=== PATIENT | female | born 1940 | race Caucasian/White ===

== ENCOUNTER 2017-05-14 10:15 | Inpatient (IN) | payer OTHER ==
[2017-05-14] MEDS ORDERED: ALBUTEROL SO4 2.5/IPRATROPIUM 0.5 INH SOL 3 ML VIAL.NEB. NEB ONE ×2 (10:19→10:31)
[2017-05-14] MEDS ORDERED: methylPREDNISolone NA SUCC 125 MG/2 ML VIAL ONE (10:20)
[2017-05-14 10:34] VITALS: BMI 28.3
--- NOTE | 2017-05-14 10:37 | PDOC ---
Attending Attestation - HPI HPI: 05/14/17 10:44 The patient is a 76 year old female with a significant PMH of COPD (not on home O2), diastolic CHF (s/p pacemaker placement), diabetes, Alzheimer's, ESRD, and anemia who presents to the emergency department from [facility] via EMS with increased shortness of breath beginning approximately 1 hour ago and a few days of cough. As per EMS, the staff at [facility] reports that the patient was fine at 8AM but began to increasingly cough and have difficulty breathing at about 9AM. EMS notes the patients O2 sat was about 83% on room air on their arrival at [facility]. EMS reports they noted crackles in the field and placed her on CPAP. Allergies: NKA PCP: Dr. Espinosa Electrical Design Technician: Dr. Avila - Physicial Exam PE: 05/14/17 10:44 Vitals: Triage Vital signs reviewed General Appearance: no acute distress, well nourished well developed, Nose: Nares patent bilaterally;no nasal congestion Throat: Posterior oropharynx without erythema, mucous membranes moist, Chest Wall: Nontender Cardiac: Regular rate and rhythm, no murmurs, no rubs, no gallops, Lungs: (+) Diffuse wheezing. Extremities: Full range of motion to all extremities, no cyanosis, clubbing, or edema Neuro: Cranial Nerves 2-12 grossly intact, Strength intact to all extremities, Sensation intact to all extremities Psych: normal mood, normal affect <Pancho Thornton - Last Filed: 05/14/17 13:09> - Resident Resident Name: Indira Franklin - ED Attending Attestation I have performed the following: I have examined & evaluated the patient, The case was reviewed & discussed with the resident, I agree w/resident's findings & plan, Exceptions are as noted - Medical Decision Making 05/14/17 13:08 76 years old past medical history significant for COPD, diastolic CHF, diabetes anemia brought to the emergency department for shortness of breath beginning approximately 1 hour prior to arrival and several day history of shortness of breath. History and examination limited by Alzheimer's. Per EMS her exam was notable for crackles in the field. In the emergency department she was noted to be wheezing. She received 3 DuoNeb's and Solu- Medrol upon arrival Her chest x-ray has a questionable pneumonia blood cultures were ordered Rustn was ordered for hospital-acquired pneumonia. Her labs are notable for a detectable troponin low suspicion for ACS no acute ST elevations on EKG. Aspirin ordered We will admit to medicine for further management of pneumonia, COPD exacerbation , serial troponins cardiology consultation and further management. <Landon Gillette - Last Filed: 05/14/17 15:04>
--- NOTE | 2017-05-14 10:48 | PDOC ---
History of Present Illness - General Chief Complaint: Shortness of Breath Stated Complaint: DIFFICULTY BREATHING Time Seen by Provider: 05/14/17 10:24 History Source: Patient, Family Exam Limitations: No Limitations - History of Present Illness Initial Comments: 05/14/17 10:41 76 y/o F with PMH Alzheimer's dementia, HTN, COPD (not on home ), diastolic HF , DM, CKD stage 4 (with anemia, follows with Dr. Vazquez; not on dialysis. Baseline Cr 2.5), pacemaker (Cardio, Dr. Avila- placed Jan 2017, interrogated 2 wks ago), who was BIBEMS to the ED from [facility] with SOB x 2 hrs. As per EMS, pt became SOB and diaphoretic at 8AM. At the time, her BP was 170/100. At 9AM, pt developed numerous crackles on auscultation, and sat 83 on RA so she was placed on venti mask, improving sat into 90's. Pt was subsequently placed on CPAP, received 4 doses nitroglycerin and IVF and 4 aspirin. Pt has endorsed productive cough (with white sputum) over last 2-3 days, as well as b/l lower extremity edema. As per sister, she aspirates frequently when she eats. Otherwise, denies CALDERÓN, fever, chills. PMH: HTN, COPD (not on home ), DM, ESRD (with anemia, follows with Dr. Vazquez; not on dialysis), pacemaker (Cardio, Dr. Avila- placed Jan 2017, interrogated 2 wks ago), Alzheimer's dementia, diastolic HF PsxH: appendectomy, tonsillectomy (childhood) meds: as in chart allergies: NKDA FH: mother- cardiac issues SH: denies cigarette or recreational drug use. Drank socially in the past. 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 Past History - Past Medical History Allergies/Adverse Reactions: Allergies Allergy/AdvReac Type Severity Reaction Status Date / Time No Known Allergies Allergy Verified 02/06/16 20:45 Home Medications: Ambulatory Orders Allopurinol [Zyloprim -] 300 mg PO DAILY 04/08/13 Ferrous Sulfate 325 mg PO DAILY 04/08/13 Isosorbide Mononitrate [Imdur] 60 mg PO DAILY 04/08/13 Pantoprazole Sodium [Protonix] 40 mg PO Q2D 04/08/13 Propylthiouracil 50 mg PO DAILY 04/08/13 Sertraline HCl [Zoloft -] 100 mg PO DAILY 04/08/13 Aspirin [ASA -] 81 mg PO DAILY 12/13/15 Docusate Sodium [Colace -] 100 mg PO BID 12/13/15 Donepezil HCl [Aricept -] 10 mg PO DAILY 12/13/15 Memantine HCl [Namenda -] 5 mg PO DAILY 12/13/15 hydrALAZINE HCL [Apresoline -] 100 mg PO TID #90 tablet 12/23/15 Insulin (Novolog 70/30) [Novolog Mix 70/30 Vial -] 10 units SQ BID 01/21/16 Lidocaine 5% Patch [Lidoderm -] 4 patch TD DAILY 01/16/17 Heparin - 5,000 unit SQ BID vial 01/18/17 Nifedipine ER [Procardia XL -] 30 mg PO DAILY #30 tab 01/18/17 Mupirocin Ointment [Bactroban 2% Ointment -] 1 applic TP BID applic 01/24/17 Oxymetazoline 0.05% Nasal Soln [Afrin -] 1 spray NS Q8H PRN #0 spray 01/24/17 Polyethylene Glycol 3350 [Miralax 119 gm Btl -] 17 gm PO HS PRN #30 bottle 01/24 Torsemide [Demadex -] 80 mg PO DAILY 05/14/17 Anemia: Yes Asthma: No Cancer: No Cardiac Disorders: Yes (bradycardia) CVA: No COPD: Yes CHF: No Dementia: Yes Diabetes: Yes GI Disorders: No Disorders: Yes (H/O UTI, renal insufficiency) HTN: Yes Hypercholesterolemia: No Kidney Stones: Yes Liver Disease: No Seizures: No Thyroid Disease: No Other medical history: uti - Surgical History Abdominal Surgery: Yes Appendectomy: Yes Cardiac Surgery: Yes (pacemaker) Cholecystectomy: No Lung Surgery: No Neurologic Surgery: No Orthopedic Surgery: Yes (LEFT ROTATOR CUFF 12 YEARS AGO) - Immunization History Immunization Up to Date: Yes - Suicide/Smoking/Psychosocial Hx Smoking Status: No Smoking History: Unknown if ever smoked Have you smoked in the past 12 months: No Number of Cigarettes Smoked Daily: 0 Information on smoking cessation initiated: No Hx Alcohol Use: No Drug/Substance Use Hx: No Substance Use Type: None Hx Substance Use Treatment: No Review of Systems - Review of Systems Able to Perform ROS?: Yes Is the patient limited Senegalese proficient: No Respiratory: Yes: Cough, Shortness of Breath Cardiac (ROS): Yes: Edema Integumentary: Yes: Sweating All Other Systems: Reviewed and Negative *Physical Exam - Vital Signs Last Vital Signs Temp Pulse Resp BP Pulse Ox 98.3 F 109 H 25 H 136/66 92 L 05/14/17 10:23 05/14/17 10:23 05/14/17 10:23 05/14/17 10:23 05/14/17 10:23 - Physical Exam General Appearance: Yes: Moderate Distress HEENT: positive: EOMI, YOLA Neck: positive: Supple Respiratory/Chest: positive: Wheezing (+ wheezing b/l posterior lung keane) Cardiovascular: positive: Regular Rhythm, Tachycardia Vascular Pulses: Dorsalis-Pedis (R): 2+, Doralis-Pedis (L): 2+ Extremity: positive: Swelling (3+ pitting edema lower extremities) Neurologic: positive: drying oven tender II-XII NML intact, Fully Oriented, Alert Heart Score/ECG Review - ECG Impressions Comment:: 05/14/17 13:01 EKG: vent rate 97bpm, KS 220ms, QRS 122ms, QTc 480ms. NSR. With possible past infarct, KS depressions ED Treatment Course - LABORATORY CBC & Chemistry Diagram: 05/14/17 10:31 05/14/17 10:29 - RADIOLOGY Radiology Studies Ordered: Category Date Time Status CXRPORT [CHEST X-RAY PORTABLE*] [RAD] Stat Radiology 05/14/17 10:30 Ordered Medical Decision Making - Medical Decision Making 05/14/17 10:58 76 y/o F with PMH Alzheimer's dementia, HTN, COPD (not on home 02), DM, CKD stage4 (with anemia, follows with Dr. Vazquez; not on dialysis. Cr clearance ~ 22. Baseline Cr 2.5), diastolic HF, pacemaker (Cardio, Dr. Avila- placed Jan 2017, interrogated 2 wks ago), who was BIBEMS to the ED from [facility] with SOB x 2 hrs. Pt with rectal temp 98F, afebrile. Less likely PNA however will f/ u CXR as pt w/cough, lives in NH. As per sister, pt also with frequent episodes PNA, aspiration "during eating." Right now, likely differential COPD exacerbation as pt improving with bronchodilators, solumedrol, duoneb, CPAP. CHF exacerbation also possible. Will order the following Solumedrol 125 x1 CPAP IPAP 11/EPAP 5 Duonebs x 3 CBC with diff CMP CXR - r/o infiltrates EKG Troponins/cardiac profile - as add on 05/14/17 11:51 Labs returned - non septic. no leukocytosis, Hb holding. Cr 2.7 however baseline 2.5 as per sister. Hyperglycemia 2/2 steroids CXR: possible L sided infiltrate , with increased congestive changes vitals stable, mildly tachy 102HR - 2/2 duonebs , receiving 3rd duoneb tx currently 05/14/17 11:57 Will get blood cx, urine cx, legionella Ag pneumonia Cr clearance 22 - however since pt close to 20, will give zosyn 2.25 gm x 1time dose 05/14/17 12:59 Troponin 0.47 (+) most likely 2/2 demand ischemia. However will need trop trended- next one in for 6pm Will give aspirin 325 x 1 Will likely need admission for COPD vs. CHF exacerbation, elevated trop 05/14/17 13:00 Microblog sent to [facility] 05/14/17 13:[address] Patel, will send microblog 05/14/17 13:[address] Goff (who is covering) - will trend trop (next 6pm), will give 1g Vanco. Will consult Dr. Avila (saw pt in past) - for demand ischemia for telemetry admission 05/14/17 17:41 Pt with troponin 2.09, elevated. ordered next trop for 11pm to trend. ordered stat EKG. discussed with nurse on [facility] Pt out of ER [facility] to [facility] 05/14/17 17:43 *DC/Admit/Observation/Transfer Diagnosis at time of Disposition: COPD exacerbation - Discharge Dispostion Admit: Yes - Referrals - Patient Instructions - Post Discharge Activity
[2017-05-14 10:50] LABS: BASO % 0.5 % (0-2.0); EOS % 0.1 % (0-4.5); HEMATOCRIT 33.5 % (32.4-45.2); HEMOGLOBIN 10.8 GM/dL (10.7-15.3); LYMPH % 8.3 % (8-40); MCH 32.8 pg (25.7-33.7); MCHC 32.2 g/dl (32.0-36.0); MEAN CELL VOLUME 101.6 fl (80-96); MEAN PLT VOLUME 11.9 fl (7.5-11.1); MONO % 7.4 % (3.8-10.2); NEUT % 83.7 % (42.8-82.8); PLATELET COUNT 208 K/MM3 (134-434); RDW 16.2 % (11.6-15.6); WHITE BLOOD COUNT 6.9 K/mm3 (4.0-10.0)
[2017-05-14] MEDS ORDERED: methylPREDNISolone NA SUCC 125 MG/2 ML VIAL IVPUSH ONE (10:50)
[2017-05-14] MEDS: ALBUTEROL SO4 2.5/IPRATROPIUM 0.5 INH SOL 3 ML VIAL.NEB. NEB SCH ×4 (11:05→11:49)
[2017-05-14 11:13] LABS: ALBUMIN 4.1 g/dl (3.4-5.0); ANION GAP 10 (8-16); BILIRUBIN,TOTAL 0.7 mg/dL (0.2-1.0); BLOOD UREA NITROGEN 103 mg/dL (7-18); CALCIUM 8.5 mg/dL (8.5-10.1); CHLORIDE 108 mmol/L (98-107); CO2 25 mmol/L (21-32); CREATININE 2.7 mg/dL (0.55-1.02); GLUCOSE,RANDOM 199 mg/dL (74-106); SGPT/ALT 17 U/L (12-78); SODIUM 143 mmol/L (136-145); TOT PROT 7.1 g/dl (6.4-8.2)
[2017-05-14 11:14] LABS: ALK PHOS 114 U/L (45-117)
[2017-05-14 11:19] LABS: POTASSIUM 5.1 mmol/L (3.5-5.1)
[2017-05-14 11:20] LABS: SGOT/AST 50 U/L (15-37)
--- NOTE | 2017-05-14 12:15 | EKG ---
Test Reason : Blood Pressure : / mmHG Vent. Rate : 097 BPM Atrial Rate : 097 BPM P-R Int : 220 ms QRS Dur : 122 ms QT Int : 378 ms P-R-T Axes : 064 -29 089 degrees QTc Int : 480 ms SINUS RHYTHM WITH 1ST DEGREE A-V BLOCK ANTERIOR INFARCT , AGE UNDETERMINED ABNORMAL ECG WHEN COMPARED WITH ECG OF 22-JAN-2017 16:01, KS INTERVAL HAS DECREASED VENT. RATE HAS INCREASED BY 33 BPM Confirmed by SINDHU CESAR MD ([id number]) on 05/14/2017 12:15:22 PM Referred By: Confirmed By:SINDHU CESAR MD
[2017-05-14] MEDS ORDERED: PIPERACILLIN/TAZOBACTAM 2.25 GM VIAL IVPB ONE (12:48)
[2017-05-14] MEDS ORDERED: ASPIRIN 81 MG CHEWABLE TABLETS PO ONE (12:57)
[2017-05-14] MEDS ORDERED: PIPERACILLIN/TAZOB 2.25 GM/50 ML PREMIX BAG IVPB ONE (13:00)
[2017-05-14] MEDS ORDERED: VANCOMYCIN 1,000 MG in DEXTROSE 5%-WATER - 250 ML IVPB ONE (13:30)
[2017-05-14] MEDS ORDERED: ASPIRIN 81 MG CHEWABLE TABLETS ONE (14:01)
[2017-05-14] MEDS ORDERED: VANCOMYCIN 1 GRAM (PRE-DOCKED) 1,000 MG/250 ML BAG IVPB ONE (14:02)
[2017-05-14] MEDS ORDERED: HEPARIN NA (PORCINE) 5,000 UNITS/ML 1ML VIAL IVPUSH PRN ×2 (18:48)
[2017-05-14] MEDS ORDERED: HEPARIN INFUSION - 25,000 UNITS/500 ML INFUS.BAG IVPB SCH (19:00)
--- NOTE | 2017-05-14 19:47 | CON.CARD ---
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 temp 100 bp 187/ 78. was given ngt x 4 and asa x 4. has been managed with bipap, nebs, abx, iv steroids thus far --> is currently comfortable on bipap. Denies sob, cp, palps, dizziness, f/c/s. history limited due to dementia. unable to obtain history to confirm if patient was having decreased po intake or infectious sx's. Pt denies cp, sob, palps, pnd, orthopnea, dizziness, bleeding. LE edema currently improved from baseline. Past Medical/surgical History: per hpi, additionally Renal Calculi Social hx: never smoker, no etoh or illicits. fam hx: Mother with h/o CAD ([place] x 4) ros: per hpi; no chills/sweats, cough, nvd, congestion, CALDERÓN, vision changes, Ambulatory Orders Allopurinol [Zyloprim -] 300 mg PO DAILY 04/08/13 Ferrous Sulfate 325 mg PO DAILY 04/08/13 Isosorbide Mononitrate [Imdur] 60 mg PO DAILY 04/08/13 Pantoprazole Sodium [Protonix] 40 mg PO Q2D 04/08/13 Propylthiouracil 50 mg PO DAILY 04/08/13 Sertraline HCl [Zoloft -] 100 mg PO DAILY 04/08/13 Aspirin [ASA -] 81 mg PO DAILY 12/13/15 Docusate Sodium [Colace -] 100 mg PO BID 12/13/15 Donepezil HCl [Aricept -] 10 mg PO DAILY 12/13/15 Memantine HCl [Namenda -] 5 mg PO DAILY 12/13/15 hydrALAZINE HCL [Apresoline -] 100 mg PO TID #90 tablet 10/02/16 Insulin (Novolog 70/30) [Novolog Mix 70/30 Vial -] 10 units SQ BID 01/21/16 Lidocaine 5% Patch [Lidoderm -] 4 patch TD DAILY 01/16/17 Heparin - 5,000 unit SQ BID vial 01/18/17 Nifedipine ER [Procardia XL -] 30 mg PO DAILY #30 tab 01/18/17 Mupirocin Ointment [Bactroban 2% Ointment -] 1 applic TP BID applic 01/24/17 Oxymetazoline 0.05% Nasal Soln [Afrin -] 1 spray NS Q8H PRN #0 spray 01/24/17 Polyethylene Glycol 3350 [Miralax 119 gm Btl -] 17 gm PO HS PRN #30 bottle 01/24 Torsemide [Demadex -] 80 mg PO DAILY 05/14/17 Vital Signs - 24 hr 05/14/17 05/14/17 05/14/17 10:23 10:25 11:12 Temperature 98.3 F Pulse Rate 109 H Pulse Rate [ Right Radial] Respiratory 25 H Rate Blood Pressure 136/66 Blood Pressure [Right Arm] O2 Sat by Pulse 92 L 100 100 Oximetry (%) 05/14/17 05/14/17 05/14/17 13:30 14:30 15:06 Temperature Pulse Rate Pulse Rate [ 100 H 100 H 100 H Right Radial] Respiratory 26 H 22 26 H Rate Blood Pressure Blood Pressure 150/70 154/70 142/59 [Right Arm] O2 Sat by Pulse 100 100 Oximetry (%) 05/14/17 05/14/17 05/14/17 15:35 16:24 18:23 Temperature 98.4 F Pulse Rate 80 Pulse Rate [ 96 H Right Radial] Respiratory 22 20 Rate Blood Pressure 158/80 Blood Pressure 145/80 [Right Arm] O2 Sat by Pulse 100 100 100 Oximetry (%) 05/14/17 18:30 Temperature Pulse Rate Pulse Rate [ Right Radial] Respiratory Rate Blood Pressure Blood Pressure [Right Arm] O2 Sat by Pulse 100 Oximetry (%) Intake & Output 05/12/17 05/13/17 05/14/17 05/15/17 07:59 07:59 07:59 07:59 Weight 170 lb NAD, calm bipap on JVD elevated, neck supple RRR nl s1, s2. 2/6 sys murmur at sternal border and late systolic mr murmur radiating to axilla precordium hyperdynamic bibasilar rales. nl eff trace le edema. no cyanosis/clubbing + venous stasis changes + bs soft nt nd no jaundice or diaphoresis. alert and oriented to place pos dp pt CBC, BMP 05/14/17 10:31 05/14/17 10:29 Laboratory Tests 05/14/17 05/14/17 10:29 16:24 Creatine Kinase 193 H Creatine Kinase Index 1.2 CK-MB (CK-2) 2.365 Troponin I 0.47 H 2.09 H* ekg: sr with av delay. ivcb. poor r wave progression. ? q waves. non- specific t wave ab. no acute ischemic changes. cxr: slight increase in congestive changes. possible left basal infiltrate echo 03/2017: nl lv size/fn. EF 55-60%. tds for wall motion. septal motion c/ w ppm. mild rve. nl rv fn. mod lae. 1+ sam. 1+ mac with mild functional ms ( 4 mmHg, 73 bpm). 1+ mr. mobile linear density that intermittently moves into lvot (no associated lvot obstruction). Density thought to be consistent with torn chordae. 1+ tr. 1+ phtn. 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 worsened mr (acute ischemic/flail, etc..) vs. infectious. residential notes document temp of 100, but no other infectious sx's. Will obtain chest ct in am to better evaluate pulmonary pathology. If pna present then lower suspicion for mitral valve abnormalities (see below) as etiology of sx's and no need to repeat echo. - bp control. bipap support. - patient with functional mild mitral stenosis --> hr controlled. low threshold to had av danay blockade if needed. - con't maninder. tele monitoring. demand nstemi - trop elevation small in setting of ckd and nl ck. likely demand in setting of presumed cad. patient currently comfortable and asx. ekg without acute ischemic changes. patient with relative contraindication to AC (epistaxis requiring transfusion), so would not empirically AC, unless trop continues to rise significantly or ckmb turns positive. con't asa, statin, anto-anginals. HR control. - patient with recent need for ppm placement, possible new inferior q waves on 2017 ekg's in comparison to priors. Also with new torn chord, ? ischemic etiology. Recently discussed with patient and family in office regarding stress testing, ischemic evaluation and based on goals of care and possible contraindications to dapt, decision was made to defer stress testing. Will discuss again with patient and family tomorrow. - currently on reasonable anti-anginal regimen. would uptitrate nitrates if needed. - concern is for the possibility of sob 2/2 acute on ?chronic ischemic mr vs. ischemic mr. recent echodensity noted on mitral valve (03/2017 echo) - unclear etiology. thought to be from torn calcified chord (not thought to be causing flail, ddx would be torn papillary muscle). Not thought to be torn papillary muscle or flail mainly because there did not appear to be significant enough mr although may have been underestimated due to shadowing). Still with suspicion for possible ischemic etiology - possible rwma in the inferior wall. blood cx's at the time were neg and clinical picture was not consistent with endocarditis at the time. There was low suspicion for thrombus and no evidence of an interatrial septal defect that might have caused a thrombus in transit form crossing septum. - Previously discussed with patient and sister regarding further ischemic evaluation with stress testing, SATHISH, or even (least invasive) repeating the echo with contrast for better assessment of intracardiac thrombus or wall motion. --> they wished to avoid invasive testing so SATHISH and/or possible cath was previously off the table. They also had significant concern regarding risk of bleeding from dapt or AC in setting of chronic anemia and recurrent epistaxis requiring transfusion on ASA therapy. Since patient was asx and further testing would likely not change mgm't, further evaluation had been deferred and plan was to repeat the TTE (with contrast) in 6 months. - may need to readdress pending clinical course. diastolic HF - chronic jvd elevations. currently LE edema improved from baseline. however slight worsening of congestive changes on xray. chest ct in am as discussed. will defer IV diuretics until infection excluded since patient currently comfortable and cr higher than baseline. - renal has been monitoring volume status/diuretics as outpatient. cont home torsemide. holding aldactone while k borderline elevated. - monitor daily cr/lytes, weights, i/o's. Den/CKD: -prior values here range 1.8-2.4. on procrit for anemia -penitentiary records show bun/cr of 103/2.2 on yesterday. con't to monitor. consider renal consult. HTN -con't home meds s/p ppm - recent interrogation in office this month.
[2017-05-14] MEDS ORDERED: PIPERACILLIN/TAZOB 2.25 GM/50 ML PREMIX BAG IVPB SCH (21:00)
[2017-05-14] MEDS: methylPREDNISolone NA SUCC 40 MG/1 ML VIAL IVPUSH SCH (21:44)
[2017-05-14] MEDS: PIPERACILLIN/TAZOB 2.25 GM 2.25 GM in DEXTROSE 5%-WATER - 50 ML IVPB SCH (21:45)
[2017-05-14] MEDS: INSULIN (NOVOLOG MIX 70/30) 100 UNITS/ML MDV SQ SCH (22:00)
[2017-05-14] MEDS: HEPARIN NA (PORCINE) 5,000 UNITS/ML 1ML VIAL SQ SCH (22:03)
[2017-05-14] MEDS: hydrALAZINE HCL 50 MG TABLET (FP) PO SCH (22:03)
[2017-05-14] MEDS: DOCUSATE SODIUM 100 MG CAPSULE (FP) PO SCH (22:03)
[2017-05-15] MEDS: PIPERACILLIN/TAZOB 2.25 GM 2.25 GM in DEXTROSE 5%-WATER - 50 ML IVPB SCH (03:56)
[2017-05-15] MEDS: methylPREDNISolone NA SUCC 40 MG/1 ML VIAL IVPUSH SCH ×4 (03:57→22:33)
[2017-05-15] MEDS: hydrALAZINE HCL 50 MG TABLET (FP) PO SCH ×3 (06:43→22:32)
[2017-05-15] MEDS: INSULIN (NOVOLOG MIX 70/30) 100 UNITS/ML MDV SQ SCH ×2 (06:43→17:11)
[2017-05-15 07:25] LABS: ALBUMIN 3.4 g/dl (3.4-5.0); ANION GAP 9 (8-16); BLOOD UREA NITROGEN 102 mg/dL (7-18); CALCIUM 7.8 mg/dL (8.5-10.1); CHLORIDE 111 mmol/L (98-107); CO2 27 mmol/L (21-32); GLUCOSE,RANDOM 208 mg/dL (74-106); MAGNESIUM 2.7 mg/dL (1.8-2.4); SODIUM 147 mmol/L (136-145)
[2017-05-15 07:36] LABS: ALK PHOS 93 U/L (45-117); BILIRUBIN,TOTAL 0.4 mg/dL (0.2-1.0); CREATININE 2.5 mg/dL (0.55-1.02); SGOT/AST 20 U/L (15-37); SGPT/ALT 13 U/L (12-78); TOT PROT 5.9 g/dl (6.4-8.2)
[2017-05-15 07:47] LABS: BASO % 0.1 % (0-2.0); HEMATOCRIT 28.9 % (32.4-45.2); HEMOGLOBIN 9.4 GM/dL (10.7-15.3); LYMPH % 8.3 % (8-40); MCH 32.8 pg (25.7-33.7); MCHC 32.4 g/dl (32.0-36.0); MEAN CELL VOLUME 101.3 fl (80-96); MEAN PLT VOLUME 10.3 fl (7.5-11.1); MONO % 3.6 % (3.8-10.2); PLATELET COUNT 123 K/MM3 (134-434); RBC 2.85 M/mm3 (3.60-5.2); RDW 14.9 % (11.6-15.6); WHITE BLOOD COUNT 2.8 K/mm3 (4.0-10.0)
--- NOTE | 2017-05-15 09:36 | EKG ---
Test Reason : Blood Pressure : / mmHG Vent. Rate : 091 BPM Atrial Rate : 091 BPM P-R Int : 240 ms QRS Dur : 142 ms QT Int : 422 ms P-R-T Axes : -13 -28 061 degrees QTc Int : 519 ms SINUS RHYTHM WITH 1ST DEGREE A-V BLOCK LEFT BUNDLE BRANCH BLOCK ABNORMAL ECG Confirmed by VALORIE NOVA MD ([id number]) on 05/15/2017 9:35:58 AM Referred By: Confirmed By:VALORIE NOVA MD
[2017-05-15] MEDS: TORSEMIDE 20 MG TABLET (FP) PO SCH (09:46)
[2017-05-15] MEDS: ASPIRIN 81 MG CHEWABLE TABLETS PO SCH (09:47)
[2017-05-15] MEDS: PROPYLTHIOURACIL 50 MG TABLET (UD) PO SCH (09:47)
[2017-05-15] MEDS: ISOSORBIDE MONONITRATE 60 MG TAB.SR.24H (FP) PO SCH (09:47)
[2017-05-15] MEDS: MEMANTINE HCL 5 MG TABLET (UD) PO SCH (09:47)
[2017-05-15] MEDS: ALLOPURINOL 300 MG TABLET (FP) PO SCH (09:47)
[2017-05-15] MEDS: NIFEdipine E.R. 30 MG TABLET (FP) PO SCH (09:47)
[2017-05-15] MEDS: FERROUS SO4 325 MG TABLET (FP) PO SCH (09:47)
[2017-05-15] MEDS: SERTRALINE HCL 50 MG TABLET (FP) PO SCH (09:47)
[2017-05-15] MEDS: DOCUSATE SODIUM 100 MG CAPSULE (FP) PO SCH ×2 (09:50→22:32)
[2017-05-15] MEDS: HEPARIN NA (PORCINE) 5,000 UNITS/ML 1ML VIAL SQ SCH ×2 (09:50→22:47)
--- NOTE | 2017-05-15 10:21 | HP ---
Admitting History and Physical - Primary Care Physician PCP: Anabela Padron S - Admission Chief Complaint: SOB cough History of Present Illness: The patient is a 76 year old female with a significant PMH of COPD (not on home O2), diastolic CHF (s/p pacemaker placement), diabetes, Alzheimer's, ESRD, and anemia who presents to the emergency department from [facility] via EMS with increased shortness of breath beginning approximately 1 hour ago and a few days of cough. As per EMS, the staff at [facility] reports that the patient was fine at 8AM but began to increasingly cough and have difficulty breathing at about 9AM. EMS notes the patients O2 sat was about 83% on room air on their arrival at [facility]. EMS reports they noted crackles in the field and placed her on CPAP. 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: Alzheimer's Cardiovascular: Yes: CHF, HTN Pulmonary: Yes: COPD Renal/: Yes: Renal Failure, Renal Calculi, UTI Heme/Onc: Yes: Anemia ENT: Yes: Other (perforate nasal septum) Endocrine: Yes: Diabetes Mellitus - Smoking History Smoking history: Unknown if ever smoked Have you smoked in the past 12 months: No Aproximately how many cigarettes per day: 0 - Alcohol/Substance Use Hx Alcohol Use: No History of Substance Use: reports: None - Social History Usual Living Arrangement: Yes: Snf ADL: Independent History of Recent Travel: No Home Medications - Allergies Allergies/Adverse Reactions: Allergies Allergy/AdvReac Type Severity Reaction Status Date / Time No Known Allergies Allergy Verified 02/06/16 20:45 - Home Medications Home Medications: Ambulatory Orders RX: Allopurinol [Zyloprim -] 300 mg PO DAILY 04/08/13 RX: Ferrous Sulfate 325 mg PO DAILY 04/08/13 RX: Isosorbide Mononitrate [Imdur] 60 mg PO DAILY 04/08/13 RX: Pantoprazole Sodium [Protonix] 40 mg PO Q2D 04/08/13 RX: Propylthiouracil 50 mg PO DAILY 04/08/13 RX: Sertraline HCl [Zoloft -] 100 mg PO DAILY 04/08/13 RX: Aspirin [ASA -] 81 mg PO DAILY 12/13/15 RX: Docusate Sodium [Colace -] 100 mg PO BID 12/13/15 RX: Donepezil HCl [Aricept -] 10 mg PO DAILY 12/13/15 RX: Memantine HCl [Namenda -] 5 mg PO DAILY 12/13/15 RX: hydrALAZINE HCL [Apresoline -] 100 mg PO TID #90 tablet 12/23/15 RX: Insulin (Novolog 70/30) [Novolog Mix 70/30 Vial -] 10 units SQ BID 01/21/16 RX: Lidocaine 5% Patch [Lidoderm -] 4 patch TD DAILY 01/16/17 RX: Heparin - 5,000 unit SQ BID vial 01/18/17 RX: Nifedipine ER [Procardia XL -] 30 mg PO DAILY #30 tab 01/18/17 RX: Mupirocin Ointment [Bactroban 2% Ointment -] 1 applic TP BID applic RX: Oxymetazoline 0.05% Nasal Soln [Afrin -] 1 spray NS Q8H PRN #0 spray RX: Polyethylene Glycol 3350 [Miralax 119 gm Btl -] 17 gm PO HS PRN #30 bottle 01/24/17 RX: Torsemide [Demadex -] 80 mg PO DAILY 05/14/17 Family Disease History - Family Disease History Family History: Unremarkable Review of Systems - Review of Systems Constitutional: reports: Lethargy, Loss of Appetite. denies: Chills, Fever Eyes: denies: Blurred Vision, Double Vision HENT: denies: Ear Pain, Epistaxis Neck: denies: Stiffness, Tenderness Cardiovascular: reports: Shortness of Breath. denies: Chest Pain, Edema, Palpitations Respiratory: reports: Cough, Exercise Intolerance, Orthopnea, SOB, SOB on Exertion, Wheezing. denies: Hemoptysis, PND Gastrointestinal: denies: Abdominal Pain, Constipation, Diarrhea, Rectal Bleeding, Vomiting, Vomiting Blood Genitourinary: denies: Burning, Dysuria, Flank Pain Musculoskeletal: denies: Back Pain, Joint Pain Integumentary: denies: Eczema, Wound Neurological: reports: Dizziness, Unsteady Gait, Weakness (general). denies: Change in LOC, Change in Speech, Confusion, Seizure, Syncope, Tremors Endocrine: denies: Excessive Sweating, Flushing Hematology/Lymphatic: denies: Easily Bruised, Excessive Bleeding Psychiatric: denies: Altered Sleep Pattern, Anxiety, Depression Physical Examination Vital Signs: Vital Signs Temperature 98.2 F 05/15/17 10:00 Pulse Rate 82 05/15/17 10:00 Respiratory Rate 20 05/15/17 10:00 Blood Pressure 176/82 05/15/17 10:00 O2 Sat by Pulse Oximetry (%) 99 05/15/17 10:17 Constitutional: Yes: No Distress, Calm Eyes: Yes: Conjunctiva Clear HENT: Yes: Atraumatic Neck: Yes: Supple Cardiovascular: Yes: Regular Rate and Rhythm Respiratory: Yes: Rales, Rhonchi, Wheezes Gastrointestinal: Yes: Soft. No: Distention, Tenderness, Vomiting Renal/: No: CVA Tenderness - Left, CVA Tenderness - Right Musculoskeletal: No: Joint Stiffness, Joint Swelling Extremities: No: Cold, Cool, Cyanosis Edema: No Integumentary: Yes: Venous Stasis Changes. No: Rash Neurological: Yes: WNL, Alert, Unsteady Gait. No: Oriented, Seizure ...Motor Strength: WNL Psychiatric: Yes: WNL, Alert. No: Oriented, Agitated, Suicidal Ideation Labs: CBC, BMP 05/15/17 06:30 05/15/17 06:30 Imaging - Results Chest X-ray: Report Reviewed Other: Report Reviewed Assessment/Plan The patient is a 76 year old female with a significant PMH of COPD (not on home O2), diastolic CHF (s/p pacemaker placement), diabetes, Alzheimer's, ESRD, and anemia who presents to the emergency department from [facility] via EMS with increased shortness of breath beginning approximately 1 hour ago and a few days of cough. Hypoxemia; + troponins CRF; cardiology and pulmonary eval; renal eval CXR r/o PNA/CHF admit to telemetry IV steroids, nebs diuretics, IV ATB of note pt was admitted by ER to dr Simi Goff who put admitting orders in, zosyn ordered by dr Goff f/u labs; DVT PFX gastric PFX falls PFX aspiration and decubs PFX d.w pt and staff; pt advised do not get OOB alone will call pt's daughter prognosis guarded t time 80 min
[2017-05-15 11:24] LABS: BASO % 0.1 % (0-2.0); HEMATOCRIT 32.5 % (32.4-45.2); HEMOGLOBIN 10.3 GM/dL (10.7-15.3); MCH 32.1 pg (25.7-33.7); MCHC 31.7 g/dl (32.0-36.0); MEAN CELL VOLUME 101.4 fl (80-96); MEAN PLT VOLUME 9.4 fl (7.5-11.1); MONO % 3.7 % (3.8-10.2); NEUT % 91.2 % (42.8-82.8); PLATELET COUNT 134 K/MM3 (134-434); RDW 14.8 % (11.6-15.6); WHITE BLOOD COUNT 4.2 K/mm3 (4.0-10.0)
--- NOTE | 2017-05-15 11:36 | PN ---
Progress Note (short form) - Note Progress Note: s: no cp palps dizzy; less sob o: Vital Signs Period Temp Pulse Resp BP Sys/[place] Pulse Ox Last 24 Hr 97.8 F-98.9 F 70-100 20-26 142-176/59-82 99-100 NAD JVD elevated, neck supple RRR nl s1, s2. 2/6 sys murmur at sternal border and late systolic mr murmur radiating to axilla bibasilar rales. nl eff trace le edema. no cyanosis/clubbing + venous stasis changes + bs soft nt nd no jaundice or diaphoresis. alert and oriented to place Current Medications Generic Name Dose Route Start Last Admin Trade Name Freq PRN Reason Stop Dose Admin Albuterol/Ipratropium 1 amp 05/14/17 20:30 Duoneb - NEB Q6H PRN SHORTNESS OF BREATH Allopurinol 300 mg 05/15/17 10:00 05/15/17 09:47 Zyloprim - PO 300 mg DAILY POWER Administration Aspirin 81 mg 05/15/17 10:00 05/15/17 09:47 Asa - PO 81 mg DAILY POWER Administration Docusate Sodium 100 mg 05/14/17 22:00 05/15/17 09:50 Colace - PO 100 mg BID POWER Administration Donepezil HCl 10 mg 05/15/17 22:00 Aricept - PO HS POWER Ferrous Sulfate 325 mg 05/15/17 10:00 05/15/17 09:47 Feosol - PO 325 mg DAILY POWER Administration Heparin Sodium (Porcine) 5,000 unit 05/14/17 22:00 05/15/17 09:50 Heparin - SQ 5,000 unit BID POWER Administration Hydralazine HCl 100 mg 05/14/17 22:00 05/15/17 06:43 Apresoline - PO 100 mg TID POWER Administration Insulin Aspart 10 units 05/14/17 20:45 05/15/17 06:43 Novolog Mix 70/30 Vial SQ 10 units BIDAC POWER Administration Isosorbide Mononitrate 60 mg 05/15/17 10:00 05/15/17 09:47 Imdur - PO 60 mg DAILY POWER Administration Memantine 5 mg 05/15/17 10:00 05/15/17 09:47 Namenda - PO 5 mg DAILY POWER Administration Methylprednisolone Sodium Succinate 40 mg 05/14/17 21:00 05/15/17 08:32 Solu-Medrol - IVPUSH 40 mg Q6H-IV POWER Administration Nifedipine 30 mg 05/15/17 10:00 05/15/17 09:47 Procardia Xl - PO 30 mg DAILY POWER Administration Piperacillin/Tazobactam/Dextrose 2.25 gm 05/14/17 21:00 Zosyn 2.25gm Ivpb (Premix) IVPB Q6H-IV POWER Polyethylene Glycol 17 gm 05/14/17 20:30 Miralax (For Daily Use) - PO HS PRN CONSTIPATION Propylthiouracil 50 mg 05/15/17 10:00 05/15/17 09:47 Ptu - PO 50 mg DAILY POWER Administration Sertraline HCl 100 mg 05/15/17 10:00 05/15/17 09:47 Zoloft - PO 100 mg DAILY POWER Administration Torsemide 80 mg 05/15/17 10:00 05/15/17 09:46 Demadex - PO 80 mg DAILY POWER Administration CBC, BMP 05/15/17 06:30 ekg: sr with av delay. ivcb. poor r wave progression. ? q waves. non- specific t wave ab. no acute ischemic changes. cxr: slight increase in congestive changes. possible left basal infiltrate echo 03/2017: nl lv size/fn. EF 55-60%. tds for wall motion. septal motion c/ w ppm. mild rve. nl rv fn. mod lae. 1+ sam. 1+ mac with mild functional ms ( 4 mmHg, 73 bpm). 1+ mr. mobile linear density that intermittently moves into lvot (no associated lvot obstruction). Density thought to be consistent with torn chordae. 1+ tr. 1+ phtn. 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 Continue same for now given clinical improvement. No overt chf presently, cont po diuretic. - no signs acs demand nstemi - trop elevation small in setting of ckd and nl ck. likely demand in setting of presumed cad. patient currently comfortable and asx. ekg without acute ischemic changes. patient with relative contraindication to AC (epistaxis requiring transfusion), so would not empirically AC, unless trop continues to rise significantly or ckmb fraction turns positive. con't asa, statin, anto- anginals. HR control. - patient with recent need for ppm placement, possible new inferior q waves on 2017 ekg's in comparison to priors. Also with new torn chord, ? ischemic etiology. Recently discussed with patient and family in office regarding stress testing, ischemic evaluation and based on goals of care and possible contraindications to dapt, decision was made to defer stress testing. - currently on reasonable anti-anginal regimen. would uptitrate nitrates if needed. recent echodensity noted on mitral valve (03/2017 echo) - unclear etiology. thought to be from torn calcified chord (not thought to be causing flail, ddx would be torn papillary muscle). Not thought to be torn papillary muscle or flail mainly because there did not appear to be significant enough mr although may have been underestimated due to shadowing). Still with suspicion for possible ischemic etiology - possible rwma in the inferior wall. blood cx's at the time were neg and clinical picture was not consistent with endocarditis at the time. There was low suspicion for thrombus and no evidence of an interatrial septal defect that might have caused a thrombus in transit form crossing septum. - Previously discussed with patient and sister regarding further ischemic evaluation with stress testing, SATHISH, or even (least invasive) repeating the echo with contrast for better assessment of intracardiac thrombus or wall motion. --> they wished to avoid invasive testing so SATHISH and/or possible cath was previously off the table. They also had significant concern regarding risk of bleeding from dapt or AC in setting of chronic anemia and recurrent epistaxis requiring transfusion on ASA therapy. Since patient was asx and further testing would likely not change mgm't, further evaluation had been deferred and plan was to repeat the TTE (with contrast) in 6 months. - may need to readdress pending clinical course. diastolic HF - chronic jvd elevations. currently LE edema improved from baseline. - renal has been monitoring volume status/diuretics as outpatient. cont home torsemide. holding aldactone while k borderline elevated. - monitor daily cr/lytes, weights, i/o's. Den/CKD: -prior values here range 1.8-2.4. on procrit for anemia -con't to monitor. HTN -con't home meds s/p ppm - recent interrogation in office this month.
--- NOTE | 2017-05-15 11:58 | CON.PULM ---
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: Alzheimer's Cardio/Vascular: Yes: CHF, HTN Pulmonary: Yes: COPD Renal/: Yes: Renal Failure, Renal Calculi, UTI Heme/Onc: Yes: Anemia Infectious Disease: No: AIDS Psych: No: Addictions Rheumatology: No: Sarcoidosis ENT: Yes: Other (perforate nasal septum) Endocrine: Yes: Diabetes Mellitus - Past Surgical History Past Surgical History: Yes: Appendectomy, Arthrosocopy, Permanent Pacemaker - Alcohol/Substance Use Hx Alcohol Use: No History of Substance Use: reports: None - Smoking History Smoking history: Unknown if ever smoked Have you smoked in the past 12 months: No Aproximately how many cigarettes per day: 0 - Social History Usual Living Arrangement: Senior Living ADL: Support Services Place of : [facility] History of Recent Travel: No Home Medications - Allergies Allergies/Adverse Reactions: Allergies Allergy/AdvReac Type Severity Reaction Status Date / Time No Known Allergies Allergy Verified 02/06/16 20:45 - Home Medications Home Medications: Ambulatory Orders Allopurinol [Zyloprim -] 300 mg PO DAILY 04/08/13 Ferrous Sulfate 325 mg PO DAILY 04/08/13 Isosorbide Mononitrate [Imdur] 60 mg PO DAILY 04/08/13 Pantoprazole Sodium [Protonix] 40 mg PO Q2D 04/08/13 Propylthiouracil 50 mg PO DAILY 04/08/13 Sertraline HCl [Zoloft -] 100 mg PO DAILY 04/08/13 Aspirin [ASA -] 81 mg PO DAILY 12/13/15 Docusate Sodium [Colace -] 100 mg PO BID 12/13/15 Donepezil HCl [Aricept -] 10 mg PO DAILY 12/13/15 Memantine HCl [Namenda -] 5 mg PO DAILY 12/13/15 hydrALAZINE HCL [Apresoline -] 100 mg PO TID #90 tablet 12/23/15 Insulin (Novolog 70/30) [Novolog Mix 70/30 Vial -] 10 units SQ BID 01/21/16 Lidocaine 5% Patch [Lidoderm -] 4 patch TD DAILY 01/16/17 Heparin - 5,000 unit SQ BID vial 01/18/17 Nifedipine ER [Procardia XL -] 30 mg PO DAILY #30 tab 01/18/17 Mupirocin Ointment [Bactroban 2% Ointment -] 1 applic TP BID applic 01/24/17 Oxymetazoline 0.05% Nasal Soln [Afrin -] 1 spray NS Q8H PRN #0 spray 01/24/17 Polyethylene Glycol 3350 [Miralax 119 gm Btl -] 17 gm PO HS PRN #30 bottle 01/24 Torsemide [Demadex -] 80 mg PO DAILY 05/14/17 Family Disease History - Family Disease History Family History: Unremarkable Review of Systems Unable to obtain ROS, reason: UNABLE TO OBTAIN Physical Exam Vital Sings: Vital Signs Temperature 98.2 F 05/15/17 10:00 Pulse Rate 82 05/15/17 10:00 Respiratory Rate 20 05/15/17 10:00 Blood Pressure 176/82 05/15/17 10:00 O2 Sat by Pulse Oximetry (%) 99 05/15/17 10:17 Constitutional: Yes: Calm Eyes: Yes: EOM Intact HENT: Yes: Normocephalic Neck: Yes: Trachea Midline Cardiovascular: Yes: S1, S2 Respiratory: Yes: Rhonchi (SCATTERED END EXP MILD WHEEZE/SCATTERED RHONCHI), Wheezes Gastrointestinal: Yes: Abdomen, Obese Edema: LLE: 2+, RLE: 2+ Neurological: Yes: Pre-Existing Deficit Labs: CBC, BMP 05/15/17 11:00 05/15/17 06:30 REST REVIEWED Imaging - Results Chest X-ray: Report Reviewed, Image Reviewed Cat Scan: Report Reviewed, Image Reviewed EKG: Report Reviewed Problem List - Problems (1) Pneumonia Code(s): J18.9 - PNEUMONIA, UNSPECIFIED ORGANISM (2) Anemia Code(s): D64.9 - ANEMIA, UNSPECIFIED (3) CHF (congestive heart failure) Code(s): I50.9 - HEART FAILURE, UNSPECIFIED Qualifiers: Qualified Code(s): I50.9 - Heart failure, unspecified (4) Cough Code(s): R05 - COUGH (5) Dementia Code(s): F03.90 - UNSPECIFIED DEMENTIA WITHOUT BEHAVIORAL DISTURBANCE (6) Lower extremity edema Code(s): R60.0 - LOCALIZED EDEMA Assessment/Plan WOULD FAVOR MILD ASPIRATION THE INCITING EVENT CT CHEST REVEALS GGO LEFT MID LUNG ZONE AND RIGHT PLEURAL EFFUSION SUPERIMPOSED UPON CHRONIC CHANGES AGREE WITH PANCULTURE AND EMPIRIC ANTIBIOTICS WHICH HAVE BEEN STARTED SUPPLEMENTAL O2/BRONCHODILATORS/STEROIDS TO CONTINUE WILL FOLLOW Mariana MEDRANO MD
--- NOTE | 2017-05-15 14:01 | CONSULT ---
Consultation: REQUESTING PROVIDER: Dr. Padron CONSULT REQUEST: We have been asked to medically evaluate this patient for CKD. HISTORY OF PRESENT ILLNESS: Patient is a 76 year old female with a PMHx of Alzheimer's dementia, HTN, COPD, Diastolic CHF, NIDDMII, CKD , anemia of chronic disease, CAD s/p pacemaker who was BIBEMS from [facility] with severe shortness of breath associated with diaphoresis. Patient was also found to have to have an elevated BP of 170/ 100. We were consulted to manage patients CKD and BP. Otherwise, patient denies fever, chills, nausea, vomiting, abdominal pain, chest pain, palpitations. PMHx: HTN, COPD, IDDMII, CKD (Baseline 2.5), CAD s/p pacemaker (Cardio, Dr. Avila- placed Jan 2017, interrogated 2 wks ago), Alzheimer's dementia, diastolic HF PSHx: appendectomy, tonsillectomy Family: mother- cardiac issues Social: denies cigarette or recreational drug use. Drank socially in the past. 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 REVIEW OF SYSTEMS: CONSTITUTIONAL: diaphoresis Absent: fever, chills, generalized weakness, malaise, loss of appetite, weight change HEENT: Absent: rhinorrhea, nasal congestion, throat pain, throat swelling, difficulty swallowing, mouth swelling, ear pain, eye pain, visual changes CARDIOVASCULAR: peripheral edema Absent: chest pain, syncope, palpitations, irregular heart rate, lightheadedness RESPIRATORY: cough, shortness of breath, dyspnea with exertion Absent: orthopnea, wheezing, stridor, hemoptysis GASTROINTESTINAL: Absent: abdominal pain, abdominal distension, nausea, vomiting, diarrhea, constipation, melena, hematochezia GENITOURINARY: Absent: dysuria, frequency, urgency, hesitancy, hematuria, flank pain, genital pain MUSCULOSKELETAL: Absent: myalgia, arthralgia, joint swelling, back pain, neck pain SKIN: Absent: rash, itching, pallor HEMATOLOGIC/IMMUNOLOGIC: Absent: easy bleeding, easy bruising, lymphadenopathy, frequent infections ENDOCRINE: Absent: unexplained weight gain, unexplained weight loss, heat intolerance, cold intolerance NEUROLOGIC: Absent: headache, focal weakness or paresthesias, dizziness, unsteady gait, seizure, mental status changes, bladder or bowel incontinence PSYCHIATRIC: Absent: anxiety, depression, suicidal or homicidal ideation, hallucinations. PHYSICAL EXAMINATION Vital Signs - 24 hr 05/14/17 05/14/17 05/14/17 13:30 14:30 15:06 Temperature Pulse Rate Pulse Rate [ 100 H 100 H 100 H Right Radial] Respiratory 26 H 22 26 H Rate Blood Pressure Blood Pressure 150/70 154/70 142/59 [Right Arm] O2 Sat by Pulse 100 100 Oximetry (%) 05/14/17 05/14/17 05/14/17 15:35 16:24 18:23 Temperature 98.4 F Pulse Rate 80 Pulse Rate [ 96 H Right Radial] Respiratory 22 20 Rate Blood Pressure 158/80 Blood Pressure 145/80 [Right Arm] O2 Sat by Pulse 100 100 100 Oximetry (%) 05/14/17 05/14/17 05/14/17 18:30 21:00 22:00 Temperature 98.7 F Pulse Rate 86 Pulse Rate [ Right Radial] Respiratory 20 20 Rate Blood Pressure 145/71 Blood Pressure [Right Arm] O2 Sat by Pulse 100 99 Oximetry (%) 05/14/17 05/15/17 05/15/17 23:46 03:10 06:00 Temperature 97.8 F 98.9 F Pulse Rate 73 70 Pulse Rate [ Right Radial] Respiratory 20 20 Rate Blood Pressure 152/76 146/74 Blood Pressure [Right Arm] O2 Sat by Pulse 99 Oximetry (%) 05/15/17 05/15/17 05/15/17 09:00 10:00 10:17 Temperature 98.2 F Pulse Rate 82 Pulse Rate [ Right Radial] Respiratory 20 Rate Blood Pressure 176/82 Blood Pressure [Right Arm] O2 Sat by Pulse 96 99 Oximetry (%) GENERAL: Awake, alert, and in no acute distress. HEAD: Normal with no signs of trauma. EYES: Pupils equal, round and reactive to light, extraocular movements intact, sclera anicteric, conjunctiva clear. EARS, NOSE, THROAT: Oropharynx clear without exudates. Moist mucous membranes. NECK: Normal range of motion, supple without lymphadenopathy. Elevated JVD LUNGS: Bilateral crackles throughout lung bases HEART: Regular rate and rhythm, 2/6 systolic murmur with late systolic murmur radiating to the axilla ABDOMEN: Soft, nontender, not distended, normoactive bowel sounds MUSCULOSKELETAL: No CVA tenderness. UPPER EXTREMITIES: No peripheral edema. LOWER EXTREMITIES: 1+ pitting edema bilaterally NEUROLOGICAL: Cranial nerves II-XII intact. Normal speech. PSYCHIATRIC: Cooperative. Good eye contact. Appropriate mood and affect. SKIN: chronic venous stasis Laboratory Results - last 24 hr 05/14/17 05/14/17 05/14/17 16:24 20:00 20:00 WBC RBC Hgb Hct MCV MCH MCHC RDW Plt Count MPV Neutrophils % Lymphocytes % Monocytes % Eosinophils % Basophils % PTT (Actin FS) 31.3 Sodium Potassium Chloride Carbon Dioxide Anion Gap BUN Creatinine Creat Clearance w eGFR POC Glucometer Random Glucose Lactic Acid Calcium Magnesium Total Bilirubin AST ALT Alkaline Phosphatase Creatine Kinase 132 Troponin I 2.09 H* 2.50 H* Total Protein Albumin TSH Free T4 05/14/17 05/14/17 05/15/17 20:00 22:48 05:42 WBC RBC Hgb Hct MCV MCH MCHC RDW Plt Count MPV Neutrophils % Lymphocytes % Monocytes % Eosinophils % Basophils % PTT (Actin FS) Sodium Potassium Chloride Carbon Dioxide Anion Gap BUN Creatinine Creat Clearance w eGFR POC Glucometer 306 225 Random Glucose Lactic Acid Calcium Magnesium Total Bilirubin AST ALT Alkaline Phosphatase Creatine Kinase Cancelled Troponin I Total Protein Albumin TSH Free T4 05/15/17 05/15/17 05/15/17 06:30 06:30 06:30 WBC 2.8 L D RBC 2.85 L Hgb 9.4 L D Hct 28.9 L MCV 101.3 H MCH 32.8 MCHC 32.4 RDW 14.9 Plt Count 123 L D MPV 10.3 D Neutrophils % 88.0 H Lymphocytes % 8.3 Monocytes % 3.6 L Eosinophils % 0.0 D Basophils % 0.1 PTT (Actin FS) Sodium 147 H Potassium 4.0 Chloride 111 H Carbon Dioxide 27 Anion Gap 9 BUN 102 H Creatinine 2.5 H Creat Clearance w eGFR 18.72 POC Glucometer Random Glucose 208 H Lactic Acid Calcium 7.8 L Magnesium 2.7 H Total Bilirubin 0.4 D AST 20 ALT 13 Alkaline Phosphatase 93 Creatine Kinase 131 Troponin I 2.79 H* Total Protein 5.9 L Albumin 3.4 TSH 0.36 Free T4 0.65 L 05/15/17 05/15/17 06:30 11:00 WBC 4.2 D RBC 3.20 L Hgb 10.3 L Hct 32.5 MCV 101.4 H MCH 32.1 MCHC 31.7 L RDW 14.8 Plt Count 134 MPV 9.4 Neutrophils % 91.2 H Lymphocytes % 5.0 L D Monocytes % 3.7 L Eosinophils % 0.0 Basophils % 0.1 PTT (Actin FS) Sodium Potassium Chloride Carbon Dioxide Anion Gap BUN Creatinine Creat Clearance w eGFR POC Glucometer Random Glucose Lactic Acid 0.9 Calcium Magnesium Total Bilirubin AST ALT Alkaline Phosphatase Creatine Kinase Troponin I Total Protein Albumin TSH Free T4 Active Medications Generic Name Dose Route Start Last Admin Trade Name Vicki PRN Reason Stop Dose Admin Albuterol/Ipratropium 1 amp 05/14/17 20:30 Duoneb - NEB Q6H PRN SHORTNESS OF BREATH Allopurinol 300 mg 05/15/17 10:00 05/15/17 09:47 Zyloprim - PO 300 mg DAILY POWER Administration Aspirin 81 mg 05/15/17 10:00 05/15/17 09:47 Asa - PO 81 mg DAILY POWER Administration Docusate Sodium 100 mg 05/14/17 22:00 05/15/17 09:50 Colace - PO 100 mg BID POWER Administration Donepezil HCl 10 mg 05/15/17 22:00 Aricept - PO HS POWER Ferrous Sulfate 325 mg 05/15/17 10:00 05/15/17 09:47 Feosol - PO 325 mg DAILY POWER Administration Heparin Sodium (Porcine) 5,000 unit 05/14/17 22:00 05/15/17 09:50 Heparin - SQ 5,000 unit BID POWER Administration Hydralazine HCl 100 mg 05/14/17 22:00 05/15/17 06:43 Apresoline - PO 100 mg TID POWER Administration Insulin Aspart 10 units 05/14/17 20:45 05/15/17 06:43 Novolog Mix 70/30 Vial SQ 10 units BIDAC POWER Administration Isosorbide Mononitrate 60 mg 05/15/17 10:00 05/15/17 09:47 Imdur - PO 60 mg DAILY POWER Administration Memantine 5 mg 05/15/17 10:00 05/15/17 09:47 Namenda - PO 5 mg DAILY POWER Administration Methylprednisolone Sodium Succinate 40 mg 05/14/17 21:00 05/15/17 08:32 Solu-Medrol - IVPUSH 40 mg Q6H-IV POWER Administration Nifedipine 30 mg 05/15/17 10:00 05/15/17 09:47 Procardia Xl - PO 30 mg DAILY POWER Administration Piperacillin/Tazobactam/Dextrose 2.25 gm 05/14/17 21:00 Zosyn 2.25gm Ivpb (Premix) IVPB Q6H-IV POWER Polyethylene Glycol 17 gm 05/14/17 20:30 Miralax (For Daily Use) - PO HS PRN CONSTIPATION Propylthiouracil 50 mg 05/15/17 10:00 05/15/17 09:47 Ptu - PO 50 mg DAILY POWER Administration Sertraline HCl 100 mg 05/15/17 10:00 05/15/17 09:47 Zoloft - PO 100 mg DAILY POWER Administration Torsemide 80 mg 05/15/17 10:00 05/15/17 09:46 Demadex - PO 80 mg DAILY POWER Administration IMPRESSION: 1. CKD stage 4 2. Acute Diastolic CHF 3. CAD 4. PPM 5. IDDMII 6. HTN 7. Anemia of chronic disease 8. Dementia 9. Pneumonia PLAN: -Patient is currently at baseline -Continue Torsemide with IV lasix deferred, as per cardiology -Continue BP control with Nifedipine, hydralazine, Imdur -Continue IV Steroids and antibiotics, as per pulm and ID -Continue to monitor BMP Dispo: We will continue to follow the patient. Thank you for this consultative opportunity. Betsy Phan [id number] Visit type - Emergency Visit Emergency Visit: Yes ED Registration Date: 05/14/17 Care time: The patient presented to the Emergency Department on the above date and was hospitalized for further evaluation of their emergent condition. - New Patient This patient is new to me today: Yes Date on this admission: 05/15/17 - Critical Care Critical Care patient: No
--- NOTE | 2017-05-15 16:51 | PN ---
Teaching Attending Note Name of Resident: Betsy Phan (Nephrology) ATTENDING PHYSICIAN STATEMENT I saw and evaluated the patient. I reviewed the resident's note and discussed the case with the resident. I agree with the resident's findings and plan as documented. Nephrology Pt is a 76 year old female with pmhx of CKD who presents to the ER with increased shortness of breath. She also complains of a cough. She denies worsening of her lower ext edema. She did have fever in the NH. She denies chest pain. pmhx ckd htn chf dm anemia nkda social neg ros cough and fever family hx denies Current Medications Generic Name Dose Route Start Last Admin Trade Name Freq PRN Reason Stop Dose Admin Albuterol/Ipratropium 1 amp 05/14/17 20:30 Duoneb - NEB Q6H PRN SHORTNESS OF BREATH Allopurinol 300 mg 05/15/17 10:00 05/15/17 09:47 Zyloprim - PO 300 mg DAILY POWER Administration Aspirin 81 mg 05/15/17 10:00 05/15/17 09:47 Asa - PO 81 mg DAILY POWER Administration Docusate Sodium 100 mg 05/14/17 22:00 05/15/17 09:50 Colace - PO 100 mg BID POWER Administration Donepezil HCl 10 mg 05/15/17 22:00 Aricept - PO HS POWER Ferrous Sulfate 325 mg 05/15/17 10:00 05/15/17 09:47 Feosol - PO 325 mg DAILY POWER Administration Heparin Sodium (Porcine) 5,000 unit 05/14/17 22:00 05/15/17 09:50 Heparin - SQ 5,000 unit BID POWER Administration Hydralazine HCl 100 mg 05/14/17 22:00 05/15/17 13:25 Apresoline - PO 100 mg TID POWER Administration Insulin Aspart 10 units 05/14/17 20:45 05/15/17 06:43 Novolog Mix 70/30 Vial SQ 10 units BIDAC POWER Administration Isosorbide Mononitrate 60 mg 05/15/17 10:00 05/15/17 09:47 Imdur - PO 60 mg DAILY POWER Administration Memantine 5 mg 05/15/17 10:00 05/15/17 09:47 Namenda - PO 5 mg DAILY POWER Administration Methylprednisolone Sodium Succinate 40 mg 05/14/17 21:00 05/15/17 15:18 Solu-Medrol - IVPUSH 40 mg Q6H-IV POWER Administration Nifedipine 30 mg 05/15/17 10:00 05/15/17 09:47 Procardia Xl - PO 30 mg DAILY POWER Administration Piperacillin/Tazobactam/Dextrose 2.25 gm 05/14/17 21:00 Zosyn 2.25gm Ivpb (Premix) IVPB Q6H-IV POWER Polyethylene Glycol 17 gm 05/14/17 20:30 Miralax (For Daily Use) - PO HS PRN CONSTIPATION Propylthiouracil 50 mg 05/15/17 10:00 05/15/17 09:47 Ptu - PO 50 mg DAILY POWER Administration Sertraline HCl 100 mg 05/15/17 10:00 05/15/17 09:47 Zoloft - PO 100 mg DAILY POWER Administration Torsemide 80 mg 05/15/17 10:00 05/15/17 09:46 Demadex - PO 80 mg DAILY POWER Administration Last Vital Signs Temp Pulse Resp BP Pulse Ox 99.7 F H 84 20 119/58 99 05/15/17 16:00 05/15/17 14:00 05/15/17 10:00 05/15/17 14:00 05/15/17 10:17 Laboratory Tests 01/22/17 01/23/17 01/24/17 05:35 05:19 05:10 Hgb Sodium Potassium Chloride BUN Creatinine 2.8 H 2.2 H D 2.5 H 05/14/17 05/14/17 05/15/17 10:29 10:31 06:30 Hgb 10.8 Sodium 147 H Potassium 4.0 Chloride 111 H BUN 102 H Creatinine 2.7 H 2.5 H 05/15/17 05/15/17 06:30 11:00 Hgb 9.4 L D 10.3 L Sodium Potassium Chloride BUN Creatinine Impression 1. CKD 2. cough 3. CHF 4. bradycardia 5. dementia 6. HTN 7. DM 8. anemia Plan - cont with home dose of torsemide - steroids with taper - cont abx - monitor renal function - creatinine is near baseline Dr Atkinson
[2017-05-15] MEDS ORDERED: ACETAMINOPHEN 325 MG TABLET (FP) PO PRN (17:40)
[2017-05-15] MEDS: DONEPEZIL HCL 10 MG TABLET (FP) PO SCH (22:33)
[2017-05-16] MEDS: methylPREDNISolone NA SUCC 40 MG/1 ML VIAL IVPUSH SCH ×4 (04:00→21:41)
[2017-05-16] MEDS: hydrALAZINE HCL 50 MG TABLET (FP) PO SCH ×3 (06:33→21:42)
[2017-05-16 06:52] LABS: HEMATOCRIT 29.1 % (32.4-45.2); HEMOGLOBIN 9.7 GM/dL (10.7-15.3); MCH 33.7 pg (25.7-33.7); MCHC 33.3 g/dl (32.0-36.0); MEAN CELL VOLUME 101.2 fl (80-96); MEAN PLT VOLUME 11.2 fl (7.5-11.1); RBC 2.88 M/mm3 (3.60-5.2); RDW 15.2 % (11.6-15.6); WHITE BLOOD COUNT 6.4 K/mm3 (4.0-10.0)
--- NOTE | 2017-05-16 07:12 | PN ---
Progress Note, Physician Chief Complaint: in bed still coughing, occasional SOB, VSS no CP afebrile - Current Medication List Current Medications: Active Medications Acetaminophen (Tylenol -) 650 mg PO Q4H PRN PRN Reason: FEVER >100F Last Admin: 05/15/17 18:52 Dose: 650 mg Albuterol/Ipratropium (Duoneb -) 1 amp NEB Q6H PRN PRN Reason: SHORTNESS OF BREATH Allopurinol (Zyloprim -) 300 mg PO DAILY [facility] Last Admin: 05/15/17 09:47 Dose: 300 mg Aspirin (Asa -) 81 mg PO DAILY [facility] Last Admin: 05/15/17 09:47 Dose: 81 mg Docusate Sodium (Colace -) 100 mg PO BID [facility] Last Admin: 05/15/17 22:32 Dose: 100 mg Donepezil HCl (Aricept -) 10 mg PO HS [facility] Last Admin: 05/15/17 22:33 Dose: 10 mg Ferrous Sulfate (Feosol -) 325 mg PO DAILY [facility] Last Admin: 05/15/17 09:47 Dose: 325 mg Heparin Sodium (Porcine) (Heparin -) 5,000 unit SQ BID [facility] Last Admin: 05/15/17 22:47 Dose: 5,000 unit Hydralazine HCl (Apresoline -) 100 mg PO TID [facility] Last Admin: 05/16/17 06:33 Dose: 100 mg Insulin Aspart (Novolog Mix 70/30 Vial) 10 units SQ BIDAC [facility] Last Admin: 05/15/17 17:11 Dose: 10 units Isosorbide Mononitrate (Imdur -) 60 mg PO DAILY [facility] Last Admin: 05/15/17 09:47 Dose: 60 mg Memantine (Namenda -) 5 mg PO DAILY [facility] Last Admin: 05/15/17 09:47 Dose: 5 mg Methylprednisolone Sodium Succinate (Solu-Medrol -) 40 mg IVPUSH Q6H-IV [facility] Last Admin: 05/16/17 04:00 Dose: 40 mg Nifedipine (Procardia Xl -) 30 mg PO DAILY [facility] Last Admin: 05/15/17 09:47 Dose: 30 mg Piperacillin/Tazobactam/Dextrose (Zosyn 2.25gm Ivpb (Premix)) 2.25 gm IVPB Q6H- IV [facility] Polyethylene Glycol (Miralax (For Daily Use) -) 17 gm PO HS PRN PRN Reason: CONSTIPATION Propylthiouracil (Ptu -) 50 mg PO DAILY [facility] Last Admin: 05/15/17 09:47 Dose: 50 mg Sertraline HCl (Zoloft -) 100 mg PO DAILY [facility] Last Admin: 05/15/17 09:47 Dose: 100 mg Torsemide (Demadex -) 80 mg PO DAILY [facility] Last Admin: 05/15/17 09:46 Dose: 80 mg - Objective Vital Signs: Vital Signs Temperature 97.7 F 05/16/17 06:00 Pulse Rate 80 05/16/17 06:00 Respiratory Rate 20 05/16/17 06:00 Blood Pressure 167/90 05/16/17 06:00 O2 Sat by Pulse Oximetry (%) 98 05/15/17 21:04 Constitutional: Yes: No Distress, Calm Eyes: Yes: Conjunctiva Clear HENT: Yes: Atraumatic Neck: Yes: Supple Cardiovascular: Yes: Regular Rate and Rhythm Respiratory: Yes: Rales, Rhonchi, Wheezes Gastrointestinal: Yes: Soft. No: Distention, Tenderness Genitourinary: No: CVA Tenderness - Left, CVA Tenderness - Right Musculoskeletal: No: Joint Stiffness, Joint Swelling Extremities: No: Cold, Cool, Cyanosis Edema: No Integumentary: Yes: Venous Stasis Changes. No: Rash Neurological: Yes: WNL, Alert ...Motor Strength: WNL Psychiatric: Yes: WNL, Alert. No: Agitated Labs: CBC, BMP 05/15/17 06:30 - ....Imaging Other: Report Reviewed Assessment/Plan The patient is a 76 year old female with a significant PMH of COPD (not on home O2), diastolic CHF (s/p pacemaker placement), diabetes, Alzheimer's, ESRD, and anemia who presents to the emergency department from [facility] via EMS with increased shortness of breath beginning approximately 1 hour ago and a few days of cough. Hypoxemia; + troponins CRF; cardiology and pulmonary f/u; renal eval IV steroids, nebs diuretics, IV ATB f/u labs; DVT PFX gastric PFX falls PFX aspiration and decubs PFX d.w pt and staff; pt advised do not get OOB alone called pt's daughter prognosis guarded t time 40 min
[2017-05-16 09:07] LABS: PLATELET COUNT 129 K/MM3 (134-434)
--- NOTE | 2017-05-16 10:16 | PN ---
Progress Note, Physician History of Present Illness: Seen and examined Tele: AV Paced Feels improved No dizziness, chest tightness or pain No dyspnea at rest - Current Medication List Current Medications: Active Medications Acetaminophen (Tylenol -) 650 mg PO Q4H PRN PRN Reason: FEVER >100F Last Admin: 05/15/17 18:52 Dose: 650 mg Albuterol/Ipratropium (Duoneb -) 1 amp NEB Q6H PRN PRN Reason: SHORTNESS OF BREATH Allopurinol (Zyloprim -) 300 mg PO DAILY [facility] Last Admin: 05/15/17 09:47 Dose: 300 mg Aspirin (Asa -) 81 mg PO DAILY [facility] Last Admin: 05/15/17 09:47 Dose: 81 mg Docusate Sodium (Colace -) 100 mg PO BID [facility] Last Admin: 05/15/17 22:32 Dose: 100 mg Donepezil HCl (Aricept -) 10 mg PO HS [facility] Last Admin: 05/15/17 22:33 Dose: 10 mg Ferrous Sulfate (Feosol -) 325 mg PO DAILY [facility] Last Admin: 05/15/17 09:47 Dose: 325 mg Heparin Sodium (Porcine) (Heparin -) 5,000 unit SQ BID [facility] Last Admin: 05/15/17 22:47 Dose: 5,000 unit Hydralazine HCl (Apresoline -) 100 mg PO TID [facility] Last Admin: 05/16/17 06:33 Dose: 100 mg Insulin Aspart (Novolog Mix 70/30 Vial) 10 units SQ BIDAC [facility] Last Admin: 05/15/17 17:11 Dose: 10 units Isosorbide Mononitrate (Imdur -) 60 mg PO DAILY [facility] Last Admin: 05/15/17 09:47 Dose: 60 mg Memantine (Namenda -) 5 mg PO DAILY [facility] Last Admin: 05/15/17 09:47 Dose: 5 mg Methylprednisolone Sodium Succinate (Solu-Medrol -) 40 mg IVPUSH Q6H-IV [facility] Last Admin: 05/16/17 04:00 Dose: 40 mg Nifedipine (Procardia Xl -) 30 mg PO DAILY [facility] Last Admin: 05/15/17 09:47 Dose: 30 mg Piperacillin/Tazobactam/Dextrose (Zosyn 2.25gm Ivpb (Premix)) 2.25 gm IVPB Q6H- IV POWER Polyethylene Glycol (Miralax (For Daily Use) -) 17 gm PO HS PRN PRN Reason: CONSTIPATION Propylthiouracil (Ptu -) 50 mg PO DAILY [facility] Last Admin: 05/15/17 09:47 Dose: 50 mg Sertraline HCl (Zoloft -) 100 mg PO DAILY [facility] Last Admin: 05/15/17 09:47 Dose: 100 mg Torsemide (Demadex -) 80 mg PO DAILY [facility] Last Admin: 05/15/17 09:46 Dose: 80 mg - Objective Vital Signs: Vital Signs Temperature 97.7 F 05/16/17 06:00 Pulse Rate 80 05/16/17 06:00 Respiratory Rate 20 05/16/17 06:00 Blood Pressure 167/90 05/16/17 06:00 O2 Sat by Pulse Oximetry (%) 98 05/15/17 21:04 Constitutional: Yes: No Distress, Calm Eyes: Yes: WNL HENT: Yes: WNL Neck: Yes: Supple Cardiovascular: Yes: Regular Rate and Rhythm Respiratory: Yes: Diminished (Decreased BS at bilateral bases) Gastrointestinal: Yes: Normal Bowel Sounds Extremities: Yes: WNL Edema: Yes Edema: LLE: Trace, RLE: Trace Labs: CBC, BMP 05/16/17 05:10 05/15/17 06:30 Assessment/Plan a/p: 76 y/o woman w/ a PMHx/o recent echodensity on MV (see details below) 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 -no signs acs demand nstemi - trop elevation small in setting of ckd and nl ck. likely demand in setting of presumed cad. patient currently comfortable and asx. ekg without acute ischemic changes. - currently on reasonable anti-anginal regimen. would uptitrate nitrates if needed. recent echodensity noted on mitral valve (03/2017 echo) - unclear etiology. thought to be from torn calcified chord (not thought to be causing flail, ddx would be torn papillary muscle). Not thought to be torn papillary muscle or flail mainly because there did not appear to be significant enough mr although may have been underestimated due to shadowing). Still with suspicion for possible ischemic etiology - possible rwma in the inferior wall. blood cx's at the time were neg and clinical picture was not consistent with endocarditis at the time. There was low suspicion for thrombus and no evidence of an interatrial septal defect that might have caused a thrombus in transit form crossing septum. - As per Dr. Barron -Previously discussed with patient and sister regarding further ischemic evaluation with stress testing, SATHISH, or even (least invasive) repeating the echo with contrast for better assessment of intracardiac thrombus or wall motion. --> they wished to avoid invasive testing so SATHISH and/or possible cath was previously off the table. They also had significant concern regarding risk of bleeding from dapt or AC in setting of chronic anemia and recurrent epistaxis requiring transfusion on ASA therapy. Since patient was asx and further testing would likely not change mgm't, further evaluation had been deferred and plan was to repeat the TTE (with contrast) in 6 months. - may need to readdress pending clinical course. diastolic HF - currently LE edema improved from baseline. - renal has been monitoring volume status/diuretics as outpatient. cont home torsemide. holding aldactone while k borderline elevated. - monitor daily cr/lytes, weights, i/o's. Den/CKD: -prior values here range 1.8-2.4. on procrit for anemia -con't to monitor. HTN -con't home meds s/p ppm - recent interrogation in office this month.
[2017-05-16] MEDS: TORSEMIDE 20 MG TABLET (FP) PO SCH (10:54)
[2017-05-16] MEDS: ALLOPURINOL 300 MG TABLET (FP) PO SCH (10:54)
[2017-05-16] MEDS: ISOSORBIDE MONONITRATE 60 MG TAB.SR.24H (FP) PO SCH (10:54)
[2017-05-16] MEDS: SERTRALINE HCL 50 MG TABLET (FP) PO SCH (10:54)
[2017-05-16] MEDS: ASPIRIN 81 MG CHEWABLE TABLETS PO SCH (10:54)
[2017-05-16] MEDS: FERROUS SO4 325 MG TABLET (FP) PO SCH (10:54)
[2017-05-16] MEDS: NIFEdipine E.R. 30 MG TABLET (FP) PO SCH (10:54)
[2017-05-16] MEDS: MEMANTINE HCL 5 MG TABLET (UD) PO SCH (10:54)
[2017-05-16] MEDS: HEPARIN NA (PORCINE) 5,000 UNITS/ML 1ML VIAL SQ SCH ×2 (10:55→21:42)
[2017-05-16] MEDS: DOCUSATE SODIUM 100 MG CAPSULE (FP) PO SCH ×2 (10:55→21:49)
[2017-05-16] MEDS ORDERED: PT OWN MED DRAWER 7, Y5N ONE (10:56)
[2017-05-16] MEDS: PROPYLTHIOURACIL 50 MG TABLET (UD) PO SCH (10:57)
[2017-05-16] MEDS: INSULIN (NOVOLOG MIX 70/30) 100 UNITS/ML MDV SQ SCH ×2 (11:00→17:49)
--- NOTE | 2017-05-16 13:43 | PN ---
Progress Note, Physician Chief Complaint: SUBJECTIVE IMPROVEMENT History of Present Illness: REVIEWED - Current Medication List Current Medications: Active Medications Acetaminophen (Tylenol -) 650 mg PO Q4H PRN PRN Reason: FEVER >100F Last Admin: 05/15/17 18:52 Dose: 650 mg Albuterol/Ipratropium (Duoneb -) 1 amp NEB Q6H PRN PRN Reason: SHORTNESS OF BREATH Allopurinol (Zyloprim -) 300 mg PO DAILY [facility] Last Admin: 05/16/17 10:54 Dose: 300 mg Aspirin (Asa -) 81 mg PO DAILY [facility] Last Admin: 05/16/17 10:54 Dose: 81 mg Docusate Sodium (Colace -) 100 mg PO BID [facility] Last Admin: 05/16/17 10:55 Dose: 100 mg Donepezil HCl (Aricept -) 10 mg PO HS [facility] Last Admin: 05/15/17 22:33 Dose: 10 mg Ferrous Sulfate (Feosol -) 325 mg PO DAILY [facility] Last Admin: 05/16/17 10:54 Dose: 325 mg Heparin Sodium (Porcine) (Heparin -) 5,000 unit SQ BID [facility] Last Admin: 05/16/17 10:55 Dose: 5,000 unit Hydralazine HCl (Apresoline -) 100 mg PO TID [facility] Last Admin: 05/16/17 06:33 Dose: 100 mg Insulin Aspart (Novolog Mix 70/30 Vial) 10 units SQ BIDAC [facility] Last Admin: 05/16/17 11:00 Dose: 10 units Isosorbide Mononitrate (Imdur -) 60 mg PO DAILY [facility] Last Admin: 05/16/17 10:54 Dose: 60 mg Memantine (Namenda -) 5 mg PO DAILY [facility] Last Admin: 05/16/17 10:54 Dose: 5 mg Methylprednisolone Sodium Succinate (Solu-Medrol -) 40 mg IVPUSH Q6H-IV [facility] Last Admin: 05/16/17 10:54 Dose: 40 mg Nifedipine (Procardia Xl -) 30 mg PO DAILY [facility] Last Admin: 05/16/17 10:54 Dose: 30 mg Piperacillin/Tazobactam/Dextrose (Zosyn 2.25gm Ivpb (Premix)) 2.25 gm IVPB Q6H- IV [facility] Polyethylene Glycol (Miralax (For Daily Use) -) 17 gm PO HS PRN PRN Reason: CONSTIPATION Propylthiouracil (Ptu -) 50 mg PO DAILY [facility] Last Admin: 05/16/17 10:57 Dose: 50 mg Sertraline HCl (Zoloft -) 100 mg PO DAILY [facility] Last Admin: 05/16/17 10:54 Dose: 100 mg Torsemide (Demadex -) 80 mg PO DAILY [facility] Last Admin: 05/16/17 10:54 Dose: 80 mg - Objective Vital Signs: Vital Signs Temperature 98.2 F 05/16/17 09:00 Pulse Rate 76 05/16/17 09:00 Respiratory Rate 18 05/16/17 09:00 Blood Pressure 162/82 05/16/17 09:00 O2 Sat by Pulse Oximetry (%) 98 05/15/17 21:04 Constitutional: Yes: Calm Eyes: Yes: EOM Intact HENT: Yes: Normocephalic Neck: Yes: Trachea Midline Cardiovascular: Yes: Regular Rate and Rhythm, S1, S2 Respiratory: Yes: Rhonchi (SCATTERED) Gastrointestinal: Yes: Soft Edema: LLE: Trace, RLE: Trace Labs: CBC, BMP 05/16/17 05:10 05/15/17 06:30 - ....Imaging Chest X-ray: Report Reviewed, Image Reviewed EKG: Report Reviewed Problem List - Problems (1) Pneumonia Code(s): J18.9 - PNEUMONIA, UNSPECIFIED ORGANISM (2) Anemia Code(s): D64.9 - ANEMIA, UNSPECIFIED (3) CHF (congestive heart failure) Code(s): I50.9 - HEART FAILURE, UNSPECIFIED Qualifiers: Qualified Code(s): I50.9 - Heart failure, unspecified (4) Cough Code(s): R05 - COUGH (5) Dementia Code(s): F03.90 - UNSPECIFIED DEMENTIA WITHOUT BEHAVIORAL DISTURBANCE (6) Lower extremity edema Code(s): R60.0 - LOCALIZED EDEMA Assessment/Plan WOULD FAVOR MILD ASPIRATION THE INCITING EVENT CT CHEST REVEALS GGO LEFT MID LUNG ZONE AND RIGHT PLEURAL EFFUSION SUPERIMPOSED UPON CHRONIC CHANGES AGREE WITH PANCULTURE AND EMPIRIC ANTIBIOTICS WHICH HAVE BEEN STARTED SUPPLEMENTAL O2/BRONCHODILATORS/STEROIDS TO TAPER DVT PROPHYLAXSIS WILL FOLLOW Mariana MEDRANO MD
[2017-05-16] MEDS: ALBUTEROL SO4 2.5/IPRATROPIUM 0.5 INH SOL 3 ML VIAL.NEB. NEB PRN ×2 (15:45→20:55)
[2017-05-16] MEDS: DONEPEZIL HCL 10 MG TABLET (FP) PO SCH (21:42)
[2017-05-17] MEDS: methylPREDNISolone NA SUCC 40 MG/1 ML VIAL IVPUSH SCH ×4 (04:15→21:50)
[2017-05-17] MEDS ORDERED: INSULIN (NOVOLOG MIX 70/30) 100 UNITS/ML MDV SQ ONE (05:36)
[2017-05-17] MEDS: hydrALAZINE HCL 50 MG TABLET (FP) PO SCH ×3 (05:40→21:50)
[2017-05-17] MEDS: INSULIN (NOVOLOG MIX 70/30) 100 UNITS/ML MDV SQ SCH ×2 (06:16→17:06)
[2017-05-17 06:36] LABS: HEMATOCRIT 29.2 % (32.4-45.2); HEMOGLOBIN 9.8 GM/dL (10.7-15.3); LYMPH % 3.8 % (8-40); MCH 33.4 pg (25.7-33.7); MCHC 33.5 g/dl (32.0-36.0); MEAN CELL VOLUME 99.7 fl (80-96); MEAN PLT VOLUME 11.2 fl (7.5-11.1); NEUT % 93.2 % (42.8-82.8); PLATELET COUNT 125 K/MM3 (134-434); RBC 2.93 M/mm3 (3.60-5.2); RDW 14.7 % (11.6-15.6)
[2017-05-17 06:47] LABS: ALBUMIN 3.4 g/dl (3.4-5.0); ANION GAP 12 (8-16); BILIRUBIN,TOTAL 0.4 mg/dL (0.2-1.0); CALCIUM 7.5 mg/dL (8.5-10.1); CHLORIDE 98 mmol/L (98-107); CO2 24 mmol/L (21-32); CREATININE 2.7 mg/dL (0.55-1.02); POTASSIUM 3.7 mmol/L (3.5-5.1); SGOT/AST 26 U/L (15-37); SGPT/ALT 17 U/L (12-78); SODIUM 134 mmol/L (136-145); TOT PROT 5.7 g/dl (6.4-8.2)
[2017-05-17 06:48] LABS: ALK PHOS 92 U/L (45-117)
[2017-05-17 07:21] LABS: GLUCOSE,RANDOM 313 mg/dL (74-106)
[2017-05-17 07:22] LABS: BLOOD UREA NITROGEN 116 mg/dL (7-18)
--- NOTE | 2017-05-17 07:31 | PN ---
Progress Note, Physician Chief Complaint: increasing GLU on IV streoids; sq insulin standing + per BGM ordered and d/w pt and staff less cough no SOB; afebrile; brings up some yellow sputum tests events consults reviewed - Current Medication List Current Medications: Active Medications Acetaminophen (Tylenol -) 650 mg PO Q4H PRN PRN Reason: FEVER >100F Last Admin: 05/15/17 18:52 Dose: 650 mg Albuterol/Ipratropium (Duoneb -) 1 amp NEB Q6H PRN PRN Reason: SHORTNESS OF BREATH Last Admin: 05/16/17 20:55 Dose: 1 amp Allopurinol (Zyloprim -) 300 mg PO DAILY [facility] Last Admin: 05/16/17 10:54 Dose: 300 mg Aspirin (Asa -) 81 mg PO DAILY [facility] Last Admin: 05/16/17 10:54 Dose: 81 mg Docusate Sodium (Colace -) 100 mg PO BID [facility] Last Admin: 05/16/17 21:49 Dose: 100 mg Donepezil HCl (Aricept -) 10 mg PO HS [facility] Last Admin: 05/16/17 21:42 Dose: 10 mg Ferrous Sulfate (Feosol -) 325 mg PO DAILY [facility] Last Admin: 05/16/17 10:54 Dose: 325 mg Heparin Sodium (Porcine) (Heparin -) 5,000 unit SQ BID [facility] Last Admin: 05/16/17 21:42 Dose: 5,000 unit Hydralazine HCl (Apresoline -) 100 mg PO TID [facility] Last Admin: 05/17/17 05:40 Dose: 100 mg Insulin Aspart (Novolog Mix 70/30 Vial) 10 units SQ BIDAC [facility] Last Admin: 05/17/17 06:16 Dose: 10 units Isosorbide Mononitrate (Imdur -) 60 mg PO DAILY [facility] Last Admin: 05/16/17 10:54 Dose: 60 mg Memantine (Namenda -) 5 mg PO DAILY [facility] Last Admin: 05/16/17 10:54 Dose: 5 mg Methylprednisolone Sodium Succinate (Solu-Medrol -) 40 mg IVPUSH Q6H-IV [facility] Last Admin: 05/17/17 04:15 Dose: 40 mg Nifedipine (Procardia Xl -) 30 mg PO DAILY [facility] Last Admin: 05/16/17 10:54 Dose: 30 mg Piperacillin/Tazobactam/Dextrose (Zosyn 2.25gm Ivpb (Premix)) 2.25 gm IVPB Q6H- IV [facility] Polyethylene Glycol (Miralax (For Daily Use) -) 17 gm PO HS PRN PRN Reason: CONSTIPATION Propylthiouracil (Ptu -) 50 mg PO DAILY [facility] Last Admin: 05/16/17 10:57 Dose: 50 mg Sertraline HCl (Zoloft -) 100 mg PO DAILY [facility] Last Admin: 05/16/17 10:54 Dose: 100 mg Torsemide (Demadex -) 80 mg PO DAILY [facility] Last Admin: 05/16/17 10:54 Dose: 80 mg - Objective Vital Signs: Vital Signs Temperature 98.6 F 05/17/17 05:17 Pulse Rate 86 05/17/17 05:17 Respiratory Rate 18 05/17/17 05:17 Blood Pressure 144/80 05/17/17 05:17 O2 Sat by Pulse Oximetry (%) 100 05/16/17 20:33 Constitutional: Yes: No Distress, Calm Eyes: Yes: Conjunctiva Clear HENT: Yes: Atraumatic Neck: Yes: Supple Cardiovascular: Yes: Regular Rate and Rhythm Respiratory: Yes: Rales, Rhonchi, Wheezes (less) Gastrointestinal: Yes: Soft. No: Distention, Tenderness Genitourinary: No: CVA Tenderness - Left, CVA Tenderness - Right Musculoskeletal: No: Joint Stiffness, Joint Swelling Extremities: No: Cold, Cool Edema: No Integumentary: Yes: Venous Stasis Changes. No: Rash Neurological: Yes: WNL, Alert ...Motor Strength: WNL Psychiatric: Yes: WNL, Alert. No: Agitated, Suicidal Ideation Labs: CBC, BMP 05/17/17 05:05 05/17/17 05:05 - ....Imaging Other: Report Reviewed Assessment/Plan The patient is a 76 year old female with a significant PMH of COPD (not on home O2), diastolic CHF (s/p pacemaker placement), diabetes, Alzheimer's, ESRD, and anemia who presents to the emergency department from [facility] via EMS with increased shortness of breath beginning approximately 1 hour ago and a few days of cough. Hypoxemia; + troponins CRF; cardiology and pulmonary f/u; renal eval taper IV steroids, nebs diuretics, IV ATB f/u labs; DVT PFX gastric PFX falls PFX aspiration and decubs PFX d.w pt and staff; pt advised do not get OOB alone called pt's daughter prognosis guarded t time 40 min
--- NOTE | 2017-05-17 10:38 | PN ---
Progress Note, Physician History of Present Illness: No complaints Tele:AV paced No chest pain, dyspnea or palpitations - Current Medication List Current Medications: Active Medications Acetaminophen (Tylenol -) 650 mg PO Q4H PRN PRN Reason: FEVER >100F Last Admin: 05/15/17 18:52 Dose: 650 mg Albuterol/Ipratropium (Duoneb -) 1 amp NEB Q6H PRN PRN Reason: SHORTNESS OF BREATH Last Admin: 05/16/17 20:55 Dose: 1 amp Allopurinol (Zyloprim -) 300 mg PO DAILY [facility] Last Admin: 05/16/17 10:54 Dose: 300 mg Aspirin (Asa -) 81 mg PO DAILY [facility] Last Admin: 05/16/17 10:54 Dose: 81 mg Docusate Sodium (Colace -) 100 mg PO BID [facility] Last Admin: 05/16/17 21:49 Dose: 100 mg Donepezil HCl (Aricept -) 10 mg PO HS [facility] Last Admin: 05/16/17 21:42 Dose: 10 mg Ferrous Sulfate (Feosol -) 325 mg PO DAILY [facility] Last Admin: 05/16/17 10:54 Dose: 325 mg Heparin Sodium (Porcine) (Heparin -) 5,000 unit SQ BID [facility] Last Admin: 05/16/17 21:42 Dose: 5,000 unit Hydralazine HCl (Apresoline -) 100 mg PO TID [facility] Last Admin: 05/17/17 05:40 Dose: 100 mg Azithromycin 500 mg/ Dextrose 250 mls @ 250 mls/hr IVPB DAILY [facility] CEFTRIAXONE 1 G/50 ML PREMIX (Ceftriaxone 1 Gm-D5w Bag) 50 mls @ 100 mls/hr IVPB DAILY [facility] Insulin Aspart (Novolog Mix 70/30 Vial) 10 units SQ BIDAC [facility] Last Admin: 05/17/17 06:16 Dose: 10 units Insulin Aspart (Novolog Vial Sliding Scale -) 1 vial SQ ACHS [facility] PRN Reason: Protocol Isosorbide Mononitrate (Imdur -) 60 mg PO DAILY [facility] Last Admin: 05/16/17 10:54 Dose: 60 mg Memantine (Namenda -) 5 mg PO DAILY [facility] Last Admin: 05/16/17 10:54 Dose: 5 mg Methylprednisolone Sodium Succinate (Solu-Medrol -) 40 mg IVPUSH BID [facility] Nifedipine (Procardia Xl -) 30 mg PO DAILY [facility] Last Admin: 05/16/17 10:54 Dose: 30 mg Polyethylene Glycol (Miralax (For Daily Use) -) 17 gm PO HS PRN PRN Reason: CONSTIPATION Propylthiouracil (Ptu -) 50 mg PO DAILY [facility] Last Admin: 05/16/17 10:57 Dose: 50 mg Sertraline HCl (Zoloft -) 100 mg PO DAILY [facility] Last Admin: 05/16/17 10:54 Dose: 100 mg Torsemide (Demadex -) 80 mg PO DAILY [facility] Last Admin: 05/16/17 10:54 Dose: 80 mg - Objective Vital Signs: Vital Signs Temperature 98.6 F 05/17/17 05:17 Pulse Rate 86 05/17/17 05:17 Respiratory Rate 18 05/17/17 05:17 Blood Pressure 144/80 05/17/17 05:17 O2 Sat by Pulse Oximetry (%) 100 05/16/17 20:33 Constitutional: Yes: No Distress Eyes: Yes: WNL HENT: Yes: WNL Neck: Yes: WNL Cardiovascular: Yes: Regular Rate and Rhythm, Murmur Respiratory: Yes: CTA Bilaterally Gastrointestinal: Yes: Normal Bowel Sounds Extremities: Yes: WNL Edema: No Labs: CBC, BMP 05/17/17 05:05 05/17/17 05:05 Assessment/Plan a/p: 76 y/o woman w/ a PMHx/o recent echodensity on MV (see details below) 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 -no signs acs demand nstemi - trop elevation small in setting of ckd and nl ck. likely demand in setting of presumed cad. patient currently comfortable and asx. ekg without acute ischemic changes. - currently on reasonable anti-anginal regimen. would uptitrate nitrates if needed. recent echodensity noted on mitral valve (03/2017 echo) - unclear etiology. thought to be from torn calcified chord (not thought to be causing flail, ddx would be torn papillary muscle). Not thought to be torn papillary muscle or flail mainly because there did not appear to be significant enough mr although may have been underestimated due to shadowing). Still with suspicion for possible ischemic etiology - possible rwma in the inferior wall. blood cx's at the time were neg and clinical picture was not consistent with endocarditis at the time. There was low suspicion for thrombus and no evidence of an interatrial septal defect that might have caused a thrombus in transit form crossing septum. - As per Dr. Barron -Previously discussed with patient and sister regarding further ischemic evaluation with stress testing, SATHISH, or even (least invasive) repeating the echo with contrast for better assessment of intracardiac thrombus or wall motion. --> they wished to avoid invasive testing so SATHISH and/or possible cath was previously off the table. They also had significant concern regarding risk of bleeding from dapt or AC in setting of chronic anemia and recurrent epistaxis requiring transfusion on ASA therapy. Since patient was asx and further testing would likely not change mgm't, further evaluation had been deferred and plan was to repeat the TTE (with contrast) in 6 months. - may need to readdress pending clinical course. diastolic HF - currently LE edema minimal. - renal has been monitoring volume status/diuretics as outpatient. Creat stable at 2.7 - cont home torsemide. holding aldactone while k borderline elevated. - monitor daily cr/lytes, weights, i/o's. Den/CKD: -prior values here range 1.8-2.4. on procrit for anemia -con't to monitor.
[2017-05-17] MEDS: CEFTRIAXONE 1 G/50 ML PREMIX 50 ML IVPB SCH (10:39)
[2017-05-17] MEDS: ALLOPURINOL 300 MG TABLET (FP) PO SCH (10:40)
[2017-05-17] MEDS: ASPIRIN 81 MG CHEWABLE TABLETS PO SCH (10:40)
[2017-05-17] MEDS: TORSEMIDE 20 MG TABLET (FP) PO SCH (10:40)
[2017-05-17] MEDS: DOCUSATE SODIUM 100 MG CAPSULE (FP) PO SCH ×2 (10:41→21:50)
[2017-05-17] MEDS: SERTRALINE HCL 50 MG TABLET (FP) PO SCH (10:41)
[2017-05-17] MEDS: MEMANTINE HCL 5 MG TABLET (UD) PO SCH (10:41)
[2017-05-17] MEDS: NIFEdipine E.R. 30 MG TABLET (FP) PO SCH (10:41)
[2017-05-17] MEDS: FERROUS SO4 325 MG TABLET (FP) PO SCH (10:41)
[2017-05-17] MEDS: HEPARIN NA (PORCINE) 5,000 UNITS/ML 1ML VIAL SQ SCH ×2 (10:41→21:50)
[2017-05-17] MEDS: ISOSORBIDE MONONITRATE 60 MG TAB.SR.24H (FP) PO SCH (10:41)
[2017-05-17] MEDS: PROPYLTHIOURACIL 50 MG TABLET (UD) PO SCH (10:42)
[2017-05-17] MEDS: ALBUTEROL SO4 2.5/IPRATROPIUM 0.5 INH SOL 3 ML VIAL.NEB. NEB PRN ×2 (12:02→20:50)
--- NOTE | 2017-05-17 12:25 | PN ---
Progress Note, Physician Chief Complaint: SUBJECTIVE IMPROVEMENT History of Present Illness: REVIEWED - Current Medication List Current Medications: Active Medications Acetaminophen (Tylenol -) 650 mg PO Q4H PRN PRN Reason: FEVER >100F Last Admin: 05/15/17 18:52 Dose: 650 mg Albuterol/Ipratropium (Duoneb -) 1 amp NEB Q6H PRN PRN Reason: SHORTNESS OF BREATH Last Admin: 05/16/17 20:55 Dose: 1 amp Allopurinol (Zyloprim -) 300 mg PO DAILY [facility] Last Admin: 05/17/17 10:40 Dose: 300 mg Aspirin (Asa -) 81 mg PO DAILY [facility] Last Admin: 05/17/17 10:40 Dose: 81 mg Docusate Sodium (Colace -) 100 mg PO BID [facility] Last Admin: 05/17/17 10:41 Dose: 100 mg Donepezil HCl (Aricept -) 10 mg PO HS [facility] Last Admin: 05/16/17 21:42 Dose: 10 mg Ferrous Sulfate (Feosol -) 325 mg PO DAILY [facility] Last Admin: 05/17/17 10:41 Dose: 325 mg Heparin Sodium (Porcine) (Heparin -) 5,000 unit SQ BID [facility] Last Admin: 05/17/17 10:41 Dose: 5,000 unit Hydralazine HCl (Apresoline -) 100 mg PO TID [facility] Last Admin: 05/17/17 05:40 Dose: 100 mg Azithromycin 500 mg/ Dextrose 250 mls @ 250 mls/hr IVPB DAILY [facility] CEFTRIAXONE 1 G/50 ML PREMIX (Ceftriaxone 1 Gm-D5w Bag) 50 mls @ 100 mls/hr IVPB DAILY [facility] Last Admin: 05/17/17 10:39 Dose: 100 mls/hr Insulin Aspart (Novolog Mix 70/30 Vial) 10 units SQ BIDAC [facility] Last Admin: 05/17/17 06:16 Dose: 10 units Insulin Aspart (Novolog Vial Sliding Scale -) 1 vial SQ ACHS [facility] PRN Reason: Protocol Isosorbide Mononitrate (Imdur -) 60 mg PO DAILY [facility] Last Admin: 05/17/17 10:41 Dose: 60 mg Memantine (Namenda -) 5 mg PO DAILY [facility] Last Admin: 05/17/17 10:41 Dose: 5 mg Methylprednisolone Sodium Succinate (Solu-Medrol -) 40 mg IVPUSH BID [facility] Last Admin: 05/17/17 10:42 Dose: 40 mg Nifedipine (Procardia Xl -) 30 mg PO DAILY [facility] Last Admin: 05/17/17 10:41 Dose: 30 mg Polyethylene Glycol (Miralax (For Daily Use) -) 17 gm PO HS PRN PRN Reason: CONSTIPATION Propylthiouracil (Ptu -) 50 mg PO DAILY [facility] Last Admin: 05/17/17 10:42 Dose: 50 mg Sertraline HCl (Zoloft -) 100 mg PO DAILY [facility] Last Admin: 05/17/17 10:41 Dose: 100 mg Torsemide (Demadex -) 80 mg PO DAILY [facility] Last Admin: 05/17/17 10:40 Dose: 80 mg - Objective Vital Signs: Vital Signs Temperature 98.6 F 05/17/17 05:17 Pulse Rate 86 05/17/17 05:17 Respiratory Rate 18 05/17/17 05:17 Blood Pressure 144/80 05/17/17 05:17 O2 Sat by Pulse Oximetry (%) 100 05/16/17 20:33 Constitutional: Yes: Calm Eyes: Yes: EOM Intact HENT: Yes: Normocephalic Neck: Yes: Trachea Midline Cardiovascular: Yes: S1, S2 Respiratory: Yes: Diminished Gastrointestinal: Yes: Soft Edema: No Labs: CBC, BMP 05/17/17 05:05 05/17/17 05:05 - ....Imaging Cat Scan: Report Reviewed, Image Reviewed Problem List - Problems (1) Pneumonia Code(s): J18.9 - PNEUMONIA, UNSPECIFIED ORGANISM (2) Anemia Code(s): D64.9 - ANEMIA, UNSPECIFIED (3) CHF (congestive heart failure) Code(s): I50.9 - HEART FAILURE, UNSPECIFIED Qualifiers: Qualified Code(s): I50.9 - Heart failure, unspecified (4) Cough Code(s): R05 - COUGH (5) Dementia Code(s): F03.90 - UNSPECIFIED DEMENTIA WITHOUT BEHAVIORAL DISTURBANCE (6) Lower extremity edema Code(s): R60.0 - LOCALIZED EDEMA Assessment/Plan WOULD FAVOR MILD ASPIRATION THE INCITING EVENT CT CHEST REVEALS GGO LEFT MID LUNG ZONE AND RIGHT PLEURAL EFFUSION SUPERIMPOSED UPON CHRONIC CHANGES AGREE WITH PANCULTURE AND EMPIRIC ANTIBIOTICS WHICH HAVE BEEN STARTED SUPPLEMENTAL O2/BRONCHODILATORS/STEROIDS TO TAPER DVT PROPHYLAXSIS WILL FOLLOW R MARCELA MD
[2017-05-17] MEDS: AZITHROMYCIN IVPB 500 MG in DEXTROSE 5%-WATER - 250 ML IVPB SCH (12:38)
[2017-05-17] MEDS: INSULIN SLIDING SCALE (NOVOLOG) 1 VIAL SQ SCH ×3 (12:56→22:03)
[2017-05-17] MEDS ORDERED: INSULIN (NOVOLOG) ASPART 100 UNITS/ML 10ML VIAL ONE (17:14)
[2017-05-17] MEDS: DONEPEZIL HCL 10 MG TABLET (FP) PO SCH (21:51)
[2017-05-18] MEDS: ALBUTEROL SO4 2.5/IPRATROPIUM 0.5 INH SOL 3 ML VIAL.NEB. NEB PRN ×3 (05:35→15:51)
[2017-05-18] MEDS: INSULIN SLIDING SCALE (NOVOLOG) 1 VIAL SQ SCH ×4 (05:59→22:19)
[2017-05-18] MEDS: INSULIN (NOVOLOG MIX 70/30) 100 UNITS/ML MDV SQ SCH ×2 (05:59→17:38)
[2017-05-18] MEDS: hydrALAZINE HCL 50 MG TABLET (FP) PO SCH ×3 (06:00→22:17)
[2017-05-18] MEDS ORDERED: INSULIN (NOVOLOG) ASPART 100 UNITS/ML 10ML VIAL ONE ×3 (06:03→11:55)
[2017-05-18] MEDS ORDERED: INSULIN (NOVOLOG MIX 70/30) 100 UNITS/ML MDV SQ ONE (06:35)
--- NOTE | 2017-05-18 07:02 | PN ---
Progress Note, Physician Chief Complaint: still coughing; speech path called r/o aspiration UTI/UCx noted Ecoli switched ATB accordingly - Current Medication List Current Medications: Active Medications Acetaminophen (Tylenol -) 650 mg PO Q4H PRN PRN Reason: FEVER >100F Last Admin: 05/15/17 18:52 Dose: 650 mg Albuterol/Ipratropium (Duoneb -) 1 amp NEB Q6H PRN PRN Reason: SHORTNESS OF BREATH Last Admin: 05/18/17 05:35 Dose: 1 amp Allopurinol (Zyloprim -) 300 mg PO DAILY [facility] Last Admin: 05/17/17 10:40 Dose: 300 mg Aspirin (Asa -) 81 mg PO DAILY [facility] Last Admin: 05/17/17 10:40 Dose: 81 mg Docusate Sodium (Colace -) 100 mg PO BID [facility] Last Admin: 05/17/17 21:50 Dose: 100 mg Donepezil HCl (Aricept -) 10 mg PO HS [facility] Last Admin: 05/17/17 21:51 Dose: 10 mg Ferrous Sulfate (Feosol -) 325 mg PO DAILY [facility] Last Admin: 05/17/17 10:41 Dose: 325 mg Heparin Sodium (Porcine) (Heparin -) 5,000 unit SQ BID [facility] Last Admin: 05/17/17 21:50 Dose: 5,000 unit Hydralazine HCl (Apresoline -) 100 mg PO TID [facility] Last Admin: 05/18/17 06:00 Dose: 100 mg Azithromycin 500 mg/ Dextrose 250 mls @ 250 mls/hr IVPB DAILY [facility] Last Admin: 05/17/17 12:38 Dose: 250 mls/hr CEFTRIAXONE 1 G/50 ML PREMIX (Ceftriaxone 1 Gm-D5w Bag) 50 mls @ 100 mls/hr IVPB DAILY [facility] Last Admin: 05/17/17 10:39 Dose: 100 mls/hr Insulin Aspart (Novolog Mix 70/30 Vial) 10 units SQ BIDAC [facility] Last Admin: 05/18/17 05:59 Dose: 10 units Insulin Aspart (Novolog Vial Sliding Scale -) 1 vial SQ ACHS [facility] PRN Reason: Protocol Last Admin: 05/18/17 05:59 Dose: 4 units Isosorbide Mononitrate (Imdur -) 60 mg PO DAILY [facility] Last Admin: 05/17/17 10:41 Dose: 60 mg Memantine (Namenda -) 5 mg PO DAILY [facility] Last Admin: 05/17/17 10:41 Dose: 5 mg Methylprednisolone Sodium Succinate (Solu-Medrol -) 40 mg IVPUSH BID [facility] Last Admin: 05/17/17 21:50 Dose: 40 mg Nifedipine (Procardia Xl -) 30 mg PO DAILY [facility] Last Admin: 05/17/17 10:41 Dose: 30 mg Polyethylene Glycol (Miralax (For Daily Use) -) 17 gm PO HS PRN PRN Reason: CONSTIPATION Propylthiouracil (Ptu -) 50 mg PO DAILY [facility] Last Admin: 05/17/17 10:42 Dose: 50 mg Sertraline HCl (Zoloft -) 100 mg PO DAILY [facility] Last Admin: 05/17/17 10:41 Dose: 100 mg Torsemide (Demadex -) 80 mg PO DAILY [facility] Last Admin: 05/17/17 10:40 Dose: 80 mg - Objective Vital Signs: Vital Signs Temperature 98.1 F 05/18/17 02:00 Pulse Rate 86 05/18/17 02:00 Respiratory Rate 18 05/18/17 02:00 Blood Pressure 129/60 05/18/17 02:00 O2 Sat by Pulse Oximetry (%) 100 05/17/17 20:18 Constitutional: Yes: No Distress, Calm Eyes: Yes: Conjunctiva Clear HENT: Yes: Atraumatic Neck: Yes: Supple Cardiovascular: Yes: Regular Rate and Rhythm Respiratory: Yes: Rales, Rhonchi. No: Wheezes Gastrointestinal: Yes: Soft. No: Distention, Tenderness Genitourinary: No: CVA Tenderness - Left, CVA Tenderness - Right Musculoskeletal: No: Joint Stiffness, Joint Swelling Extremities: No: Cold, Cool Edema: No Integumentary: Yes: Venous Stasis Changes. No: Rash Neurological: Yes: WNL, Alert ...Motor Strength: WNL Psychiatric: Yes: WNL, Alert. No: Agitated, Suicidal Ideation Labs: CBC, BMP 05/17/17 05:05 - ....Imaging Other: Report Reviewed Assessment/Plan The patient is a 76 year old female with a significant PMH of COPD (not on home O2), diastolic CHF (s/p pacemaker placement), diabetes, Alzheimer's, ESRD, and anemia who presents to the emergency department from [facility] via EMS with increased shortness of breath beginning approximately 1 hour ago and a few days of cough. Hypoxemia; + troponins CRF; cardiology and pulmonary f/u; renal eval taper IV steroids, nebs diuretics, IV ATB changed to ceftriaxone and zithromax f/u labs; DVT PFX gastric PFX falls PFX aspiration and decubs PFX d.w pt and staff; pt advised do not get OOB alone called pt's daughter prognosis guarded
[2017-05-18 07:24] LABS: HEMATOCRIT 30.2 % (32.4-45.2); HEMOGLOBIN 9.8 GM/dL (10.7-15.3); MCH 32.3 pg (25.7-33.7); MCHC 32.4 g/dl (32.0-36.0); MEAN CELL VOLUME 99.6 fl (80-96); MEAN PLT VOLUME 11.4 fl (7.5-11.1); PLATELET COUNT 111 K/MM3 (134-434); RBC 3.03 M/mm3 (3.60-5.2); RDW 14.2 % (11.6-15.6); WHITE BLOOD COUNT 4.3 K/mm3 (4.0-10.0)
[2017-05-18] MEDS: AZITHROMYCIN IVPB 500 MG in DEXTROSE 5%-WATER - 250 ML IVPB SCH (09:28)
[2017-05-18] MEDS: methylPREDNISolone NA SUCC 40 MG/1 ML VIAL IVPUSH SCH ×2 (09:28→22:19)
[2017-05-18] MEDS: CEFTRIAXONE 1 G/50 ML PREMIX 50 ML IVPB SCH (09:29)
[2017-05-18] MEDS: TORSEMIDE 20 MG TABLET (FP) PO SCH (09:29)
[2017-05-18] MEDS: NIFEdipine E.R. 30 MG TABLET (FP) PO SCH (09:30)
[2017-05-18] MEDS: FERROUS SO4 325 MG TABLET (FP) PO SCH (09:30)
[2017-05-18] MEDS: SERTRALINE HCL 50 MG TABLET (FP) PO SCH (09:30)
[2017-05-18] MEDS: ASPIRIN 81 MG CHEWABLE TABLETS PO SCH (09:30)
[2017-05-18] MEDS: DOCUSATE SODIUM 100 MG CAPSULE (FP) PO SCH ×2 (09:30→22:17)
[2017-05-18] MEDS: ALLOPURINOL 300 MG TABLET (FP) PO SCH (09:30)
[2017-05-18] MEDS: ISOSORBIDE MONONITRATE 60 MG TAB.SR.24H (FP) PO SCH (09:30)
[2017-05-18] MEDS: MEMANTINE HCL 5 MG TABLET (UD) PO SCH (09:31)
[2017-05-18] MEDS: HEPARIN NA (PORCINE) 5,000 UNITS/ML 1ML VIAL SQ SCH ×2 (09:31→22:19)
[2017-05-18] MEDS: PROPYLTHIOURACIL 50 MG TABLET (UD) PO SCH (09:32)
--- NOTE | 2017-05-18 11:46 | PN ---
Progress Note, Physician History of Present Illness: PULMONARY ALERT,LESS DYSPNEIC,+ COUGH,-CP - Current Medication List Current Medications: Active Medications Acetaminophen (Tylenol -) 650 mg PO Q4H PRN PRN Reason: FEVER >100F Last Admin: 05/15/17 18:52 Dose: 650 mg Albuterol/Ipratropium (Duoneb -) 1 amp NEB Q6H PRN PRN Reason: SHORTNESS OF BREATH Last Admin: 05/18/17 10:08 Dose: 1 amp Allopurinol (Zyloprim -) 300 mg PO DAILY [facility] Last Admin: 05/18/17 09:30 Dose: 300 mg Aspirin (Asa -) 81 mg PO DAILY [facility] Last Admin: 05/18/17 09:30 Dose: 81 mg Docusate Sodium (Colace -) 100 mg PO BID [facility] Last Admin: 05/18/17 09:30 Dose: 100 mg Donepezil HCl (Aricept -) 10 mg PO HS [facility] Last Admin: 05/17/17 21:51 Dose: 10 mg Ferrous Sulfate (Feosol -) 325 mg PO DAILY [facility] Last Admin: 05/18/17 09:30 Dose: 325 mg Heparin Sodium (Porcine) (Heparin -) 5,000 unit SQ BID [facility] Last Admin: 05/18/17 09:31 Dose: 5,000 unit Hydralazine HCl (Apresoline -) 100 mg PO TID [facility] Last Admin: 05/18/17 06:00 Dose: 100 mg Azithromycin 500 mg/ Dextrose 250 mls @ 250 mls/hr IVPB DAILY [facility] Last Admin: 05/18/17 09:28 Dose: 250 mls/hr CEFTRIAXONE 1 G/50 ML PREMIX (Ceftriaxone 1 Gm-D5w Bag) 50 mls @ 100 mls/hr IVPB DAILY [facility] Last Admin: 05/18/17 09:29 Dose: 100 mls/hr Insulin Aspart (Novolog Mix 70/30 Vial) 10 units SQ BIDAC [facility] Last Admin: 05/18/17 05:59 Dose: 10 units Insulin Aspart (Novolog Vial Sliding Scale -) 1 vial SQ ACHS [facility] PRN Reason: Protocol Last Admin: 05/18/17 05:59 Dose: 4 units Isosorbide Mononitrate (Imdur -) 60 mg PO DAILY [facility] Last Admin: 05/18/17 09:30 Dose: 60 mg Memantine (Namenda -) 5 mg PO DAILY [facility] Last Admin: 05/18/17 09:31 Dose: 5 mg Methylprednisolone Sodium Succinate (Solu-Medrol -) 40 mg IVPUSH BID [facility] Last Admin: 05/18/17 09:28 Dose: 40 mg Nifedipine (Procardia Xl -) 30 mg PO DAILY [facility] Last Admin: 05/18/17 09:30 Dose: 30 mg Polyethylene Glycol (Miralax (For Daily Use) -) 17 gm PO HS PRN PRN Reason: CONSTIPATION Propylthiouracil (Ptu -) 50 mg PO DAILY [facility] Last Admin: 05/18/17 09:32 Dose: 50 mg Sertraline HCl (Zoloft -) 100 mg PO DAILY [facility] Last Admin: 05/18/17 09:30 Dose: 100 mg Torsemide (Demadex -) 80 mg PO DAILY [facility] Last Admin: 05/18/17 09:29 Dose: 80 mg - Objective Vital Signs: Vital Signs Temperature 98.2 F 05/18/17 10:00 Pulse Rate 90 05/18/17 10:00 Respiratory Rate 18 05/18/17 10:00 Blood Pressure 135/55 05/18/17 10:00 O2 Sat by Pulse Oximetry (%) 97 05/18/17 09:00 Constitutional: Yes: Well Nourished, Calm Eyes: Yes: WNL HENT: Yes: WNL Neck: Yes: WNL Cardiovascular: Yes: Regular Rate and Rhythm, S1, S2 Respiratory: Yes: Rhonchi (SCATTERED HIMA RHONCHI) Gastrointestinal: Yes: Normal Bowel Sounds, Soft Extremities: Yes: WNL Edema: Yes Labs: CBC, BMP 05/18/17 06:25 05/17/17 05:05 Problem List - Problems (1) Anemia Code(s): D64.9 - ANEMIA, UNSPECIFIED (2) CHF (congestive heart failure) Code(s): I50.9 - HEART FAILURE, UNSPECIFIED Qualifiers: Qualified Code(s): I50.9 - Heart failure, unspecified (3) CKD (chronic kidney disease) Code(s): N18.9 - CHRONIC KIDNEY DISEASE, UNSPECIFIED Qualifiers: Chronic kidney disease stage: unspecified stage Qualified Code(s): N18.9 - Chronic kidney disease, unspecified (4) Cough Code(s): R05 - COUGH (5) Dementia Code(s): F03.90 - UNSPECIFIED DEMENTIA WITHOUT BEHAVIORAL DISTURBANCE (6) Diabetes mellitus Code(s): E11.9 - TYPE 2 DIABETES MELLITUS WITHOUT COMPLICATIONS (7) Pneumonia Code(s): J18.9 - PNEUMONIA, UNSPECIFIED ORGANISM Assessment/Plan Impression 1. Pneumonia 2. cough 3. CHF 4. bradycardia 5. ckd 6. dementia 7. HTN 8. DM 9. anemia Plan -torsemide - steroids - cont abx - monitor renal function -f/u chest x-ray -inhaled bronchodilators DR TOVAR
--- NOTE | 2017-05-18 14:30 | PN ---
Progress Note, Physician History of Present Illness: Pt seen and examined at bedside. She is awake and appears comfortable. She feels that her cough is improved. She denies shortness of breath. - Current Medication List Current Medications: Active Medications Acetaminophen (Tylenol -) 650 mg PO Q4H PRN PRN Reason: FEVER >100F Last Admin: 05/15/17 18:52 Dose: 650 mg Albuterol/Ipratropium (Duoneb -) 1 amp NEB Q6H PRN PRN Reason: SHORTNESS OF BREATH Last Admin: 05/18/17 10:08 Dose: 1 amp Allopurinol (Zyloprim -) 300 mg PO DAILY [facility] Last Admin: 05/18/17 09:30 Dose: 300 mg Aspirin (Asa -) 81 mg PO DAILY [facility] Last Admin: 05/18/17 09:30 Dose: 81 mg Docusate Sodium (Colace -) 100 mg PO BID [facility] Last Admin: 05/18/17 09:30 Dose: 100 mg Donepezil HCl (Aricept -) 10 mg PO HS [facility] Last Admin: 05/17/17 21:51 Dose: 10 mg Ferrous Sulfate (Feosol -) 325 mg PO DAILY [facility] Last Admin: 05/18/17 09:30 Dose: 325 mg Heparin Sodium (Porcine) (Heparin -) 5,000 unit SQ BID [facility] Last Admin: 05/18/17 09:31 Dose: 5,000 unit Hydralazine HCl (Apresoline -) 100 mg PO TID [facility] Last Admin: 05/18/17 06:00 Dose: 100 mg Azithromycin 500 mg/ Dextrose 250 mls @ 250 mls/hr IVPB DAILY [facility] Last Admin: 05/18/17 09:28 Dose: 250 mls/hr CEFTRIAXONE 1 G/50 ML PREMIX (Ceftriaxone 1 Gm-D5w Bag) 50 mls @ 100 mls/hr IVPB DAILY [facility] Last Admin: 05/18/17 09:29 Dose: 100 mls/hr Insulin Aspart (Novolog Mix 70/30 Vial) 10 units SQ BIDAC [facility] Last Admin: 05/18/17 05:59 Dose: 10 units Insulin Aspart (Novolog Vial Sliding Scale -) 1 vial SQ ACHS [facility] PRN Reason: Protocol Last Admin: 05/18/17 11:49 Dose: 8 units Isosorbide Mononitrate (Imdur -) 60 mg PO DAILY [facility] Last Admin: 05/18/17 09:30 Dose: 60 mg Memantine (Namenda -) 5 mg PO DAILY [facility] Last Admin: 05/18/17 09:31 Dose: 5 mg Methylprednisolone Sodium Succinate (Solu-Medrol -) 40 mg IVPUSH BID [facility] Last Admin: 05/18/17 09:28 Dose: 40 mg Nifedipine (Procardia Xl -) 30 mg PO DAILY [facility] Last Admin: 05/18/17 09:30 Dose: 30 mg Polyethylene Glycol (Miralax (For Daily Use) -) 17 gm PO PRN PRN Reason: CONSTIPATION Propylthiouracil (Ptu -) 50 mg PO DAILY [facility] Last Admin: 05/18/17 09:32 Dose: 50 mg Sertraline HCl (Zoloft -) 100 mg PO DAILY [facility] Last Admin: 05/18/17 09:30 Dose: 100 mg Torsemide (Demadex -) 80 mg PO DAILY [facility] Last Admin: 05/18/17 09:29 Dose: 80 mg - Objective Vital Signs: Vital Signs Temperature 98.4 F 05/18/17 14:04 Pulse Rate 98 H 05/18/17 14:04 Respiratory Rate 18 05/18/17 14:04 Blood Pressure 137/58 05/18/17 14:04 O2 Sat by Pulse Oximetry (%) 97 05/18/17 09:00 Constitutional: Yes: Calm Eyes: Yes: Conjunctiva Clear HENT: Yes: Atraumatic Neck: Yes: Supple Cardiovascular: Yes: S1, S2 Respiratory: Yes: Wheezes Gastrointestinal: Yes: Soft, Abdomen, Obese Genitourinary: Yes: Incontinence Musculoskeletal: Yes: WNL Edema: LLE: Trace, RLE: Trace Neurological: Yes: Oriented Psychiatric: Yes: Oriented Labs: CBC, BMP 05/18/17 06:25 05/17/17 05:05 Problem List - Problems (1) COPD exacerbation Code(s): J44.1 - CHRONIC OBSTRUCTIVE PULMONARY DISEASE W (ACUTE) EXACERBATION (2) Anemia Code(s): D64.9 - ANEMIA, UNSPECIFIED (3) CHF (congestive heart failure) Code(s): I50.9 - HEART FAILURE, UNSPECIFIED Qualifiers: Qualified Code(s): I50.9 - Heart failure, unspecified (4) CKD (chronic kidney disease) Code(s): N18.9 - CHRONIC KIDNEY DISEASE, UNSPECIFIED Qualifiers: Chronic kidney disease stage: unspecified stage Qualified Code(s): N18.9 - Chronic kidney disease, unspecified Assessment/Plan Current Medications Generic Name Dose Route Start Last Admin Trade Name Freq PRN Reason Stop Dose Admin Acetaminophen 650 mg 05/15/17 17:40 05/15/17 18:52 Tylenol - PO 650 mg Q4H PRN Administration FEVER >100F Albuterol/Ipratropium 1 amp 05/14/17 20:30 05/18/17 10:08 Duoneb - NEB 1 amp Q6H PRN Administration SHORTNESS OF BREATH Allopurinol 300 mg 05/15/17 10:00 05/18/17 09:30 Zyloprim - PO 300 mg DAILY [facility] Administration Aspirin 81 mg 05/15/17 10:00 05/18/17 09:30 Asa - PO 81 mg DAILY [facility] Administration Docusate Sodium 100 mg 05/14/17 22:00 05/18/17 09:30 Colace - PO 100 mg BID [facility] Administration Donepezil HCl 10 mg 05/15/17 22:00 05/17/17 21:51 Aricept - PO 10 mg HS [facility] Administration Ferrous Sulfate 325 mg 05/15/17 10:00 05/18/17 09:30 Feosol - PO 325 mg DAILY [facility] Administration Heparin Sodium (Porcine) 5,000 unit 05/14/17 22:00 05/18/17 09:31 Heparin - SQ 5,000 unit BID [facility] Administration Hydralazine HCl 100 mg 05/14/17 22:00 05/18/17 06:00 Apresoline - PO 100 mg TID [facility] Administration Azithromycin 500 mg/ Dextrose 250 mls @ 250 mls/hr 05/17/17 10:00 05/18/17 09 :28 IVPB 250 mls/hr DAILY [facility] Administration CEFTRIAXONE 1 G/50 ML PREMIX 50 mls @ 100 mls/hr 05/17/17 10:00 05/18/17 09: 29 Ceftriaxone 1 Gm-D5w Bag IVPB 100 mls/hr DAILY [facility] Administration Insulin Aspart 10 units 05/14/17 20:45 05/18/17 05:59 Novolog Mix 70/30 Vial SQ 10 units BIDAC [facility] Administration Insulin Aspart 1 vial 05/17/17 11:00 05/18/17 11:49 Novolog Vial Sliding Scale - SQ 8 units ACHS [facility] Administration Protocol Isosorbide Mononitrate 60 mg 05/15/17 10:00 05/18/17 09:30 Imdur - PO 60 mg DAILY [facility] Administration Memantine 5 mg 05/15/17 10:00 05/18/17 09:31 Namenda - PO 5 mg DAILY [facility] Administration Methylprednisolone Sodium Succinate 40 mg 05/17/17 10:00 05/18/17 09:28 Solu-Medrol - IVPUSH 40 mg BID [facility] Administration Nifedipine 30 mg 05/15/17 10:00 05/18/17 09:30 Procardia Xl - PO 30 mg DAILY [facility] Administration Polyethylene Glycol 17 gm 05/14/17 20:30 Miralax (For Daily Use) - PO HS PRN CONSTIPATION Propylthiouracil 50 mg 05/15/17 10:00 05/18/17 09:32 Ptu - PO 50 mg DAILY [facility] Administration Sertraline HCl 100 mg 05/15/17 10:00 05/18/17 09:30 Zoloft - PO 100 mg DAILY [facility] Administration Torsemide 80 mg 05/15/17 10:00 05/18/17 09:29 Demadex - PO 80 mg DAILY [facility] Administration Impression 1. CKD 2. cough 3. CHF 4. bradycardia 5. dementia 6. HTN 7. DM 8. anemia Plan - renal function is stable - steroids contribute to elevated BUN - cont torsemide - pt will follow with Dr Vazquez after discharge - monitor renal function - will follow PRN Dr Atkinson
--- NOTE | 2017-05-18 15:23 | PN ---
Progress Note (short form) - Note Progress Note: s: no cp palps dizzy; less sob o: Vital Signs Period Temp Pulse Resp BP Sys/[place] Pulse Ox Last 24 Hr 98.1 F-98.4 F 84-98 18-18 129-150/55-72 97-100 NAD JVD elevated, neck supple RRR nl s1, s2. 2/6 sys murmur at sternal border and late systolic mr murmur radiating to axilla bibasilar rales. nl eff trace le edema. no cyanosis/clubbing + venous stasis changes + bs soft nt nd no jaundice or diaphoresis. alert and oriented to place Current Medications Generic Name Dose Route Start Last Admin Trade Name Freq PRN Reason Stop Dose Admin Acetaminophen 650 mg 05/15/17 17:40 05/15/17 18:52 Tylenol - PO 650 mg Q4H PRN Administration FEVER >100F Albuterol/Ipratropium 1 amp 05/14/17 20:30 05/18/17 10:08 Duoneb - NEB 1 amp Q6H PRN Administration SHORTNESS OF BREATH Allopurinol 300 mg 05/15/17 10:00 05/18/17 09:30 Zyloprim - PO 300 mg DAILY [facility] Administration Aspirin 81 mg 05/15/17 10:00 05/18/17 09:30 Asa - PO 81 mg DAILY [facility] Administration Docusate Sodium 100 mg 05/14/17 22:00 05/18/17 09:30 Colace - PO 100 mg BID [facility] Administration Donepezil HCl 10 mg 05/15/17 22:00 05/17/17 21:51 Aricept - PO 10 mg HS [facility] Administration Ferrous Sulfate 325 mg 05/15/17 10:00 05/18/17 09:30 Feosol - PO 325 mg DAILY [facility] Administration Heparin Sodium (Porcine) 5,000 unit 05/14/17 22:00 05/18/17 09:31 Heparin - SQ 5,000 unit BID [facility] Administration Hydralazine HCl 100 mg 05/14/17 22:00 05/18/17 14:34 Apresoline - PO 100 mg TID [facility] Administration Azithromycin 500 mg/ Dextrose 250 mls @ 250 mls/hr 05/17/17 10:00 05/18/17 09 :28 IVPB 250 mls/hr DAILY [facility] Administration CEFTRIAXONE 1 G/50 ML PREMIX 50 mls @ 100 mls/hr 05/17/17 10:00 05/18/17 09: 29 Ceftriaxone 1 Gm-D5w Bag IVPB 100 mls/hr DAILY [facility] Administration Insulin Aspart 10 units 05/14/17 20:45 05/18/17 05:59 Novolog Mix 70/30 Vial SQ 10 units BIDAC [facility] Administration Insulin Aspart 1 vial 05/17/17 11:00 05/18/17 11:49 Novolog Vial Sliding Scale - SQ 8 units ACHS [facility] Administration Protocol Isosorbide Mononitrate 60 mg 05/15/17 10:00 05/18/17 09:30 Imdur - PO 60 mg DAILY [facility] Administration Memantine 5 mg 05/15/17 10:00 05/18/17 09:31 Namenda - PO 5 mg DAILY [facility] Administration Methylprednisolone Sodium Succinate 40 mg 05/17/17 10:00 05/18/17 09:28 Solu-Medrol - IVPUSH 40 mg BID [facility] Administration Nifedipine 30 mg 05/15/17 10:00 05/18/17 09:30 Procardia Xl - PO 30 mg DAILY [facility] Administration Polyethylene Glycol 17 gm 05/14/17 20:30 Miralax (For Daily Use) - PO HS PRN CONSTIPATION Propylthiouracil 50 mg 05/15/17 10:00 05/18/17 09:32 Ptu - PO 50 mg DAILY [facility] Administration Sertraline HCl 100 mg 05/15/17 10:00 05/18/17 09:30 Zoloft - PO 100 mg DAILY [facility] Administration Torsemide 80 mg 05/15/17 10:00 05/18/17 09:29 Demadex - PO 80 mg DAILY [facility] Administration Laboratory Last Values WBC 4.3 K/mm3 (4.0-10.0) 05/18/17 06:25 RBC 3.03 M/mm3 (3.60-5.2) L 05/18/17 06:25 Hgb 9.8 GM/dL (10.7-15.3) L 05/18/17 06:25 Hct 30.2 % (32.4-45.2) L 05/18/17 06:25 MCV 99.6 fl (80-96) H 05/18/17 06:25 MCH 32.3 pg (25.7-33.7) 05/18/17 06:25 MCHC 32.4 g/dl (32.0-36.0) 05/18/17 06:25 RDW 14.2 % (11.6-15.6) 05/18/17 06:25 Plt Count 111 K/MM3 (134-434) L 05/18/17 06:25 MPV 11.4 fl (7.5-11.1) H 05/18/17 06:25 Neutrophils % 93.2 % (42.8-82.8) H 05/17/17 05:05 Lymphocytes % 3.8 % (8-40) L D 05/17/17 05:05 Monocytes % 3.0 % (3.8-10.2) L 05/17/17 05:05 Eosinophils % 0.0 % (0-4.5) 05/17/17 05:05 Basophils % 0.0 % (0-2.0) 05/17/17 05:05 PTT (Actin FS) 31.3 SECONDS (26.9-34.4) 05/14/17 20:00 Sodium 134 mmol/L (136-145) L 05/17/17 05:05 Potassium 3.7 mmol/L (3.5-5.1) 05/17/17 05:05 Chloride 98 mmol/L (98-107) 05/17/17 05:05 Carbon Dioxide 24 mmol/L (21-32) 05/17/17 05:05 Anion Gap 12 (8-16) 05/17/17 05:05 BUN 116 mg/dL (7-18) H* 05/17/17 05:05 Creatinine 2.7 mg/dL (0.55-1.02) H 05/17/17 05:05 Creat Clearance w eGFR 17.13 (>60) 05/17/17 05:05 POC Glucometer 326 UNITS (80-120) 05/18/17 11:48 Random Glucose 313 mg/dL (74-106) H* 05/17/17 05:05 Lactic Acid 0.9 mmol/L (0.0-2.0) 05/15/17 06:30 Calcium 7.5 mg/dL (8.5-10.1) L 05/17/17 05:05 Magnesium 2.7 mg/dL (1.8-2.4) H 05/15/17 06:30 Total Bilirubin 0.4 mg/dL (0.2-1.0) 05/17/17 05:05 AST 26 U/L (15-37) 05/17/17 05:05 ALT 17 U/L (12-78) 05/17/17 05:05 Alkaline Phosphatase 92 U/L (45-117) 05/17/17 05:05 Creatine Kinase 131 IU/L (26-192) 05/15/17 06:30 Creatine Kinase Index 1.2 % (0.0-5.0) 05/14/17 10:29 CK-MB (CK-2) 2.365 ng/mL (0.5-3.6) 05/14/17 10:29 Troponin I 2.79 ng/ml (0.00-0.05) H* 05/15/17 06:30 Total Protein 5.7 g/dl (6.4-8.2) L 05/17/17 05:05 Albumin 3.4 g/dl (3.4-5.0) 05/17/17 05:05 TSH 0.36 uIU/ml (0.358-3.74) 05/15/17 06:30 Free T4 0.65 ng/dl (0.76-1.46) L 05/15/17 06:30 ekg: sr with av delay. ivcb. poor r wave progression. ? q waves. non- specific t wave ab. no acute ischemic changes. cxr: slight increase in congestive changes. possible left basal infiltrate echo 03/2017: nl lv size/fn. EF 55-60%. tds for wall motion. septal motion c/ w ppm. mild rve. nl rv fn. mod lae. 1+ sam. 1+ mac with mild functional ms ( 4 mmHg, 73 bpm). 1+ mr. mobile linear density that intermittently moves into lvot (no associated lvot obstruction). Density thought to be consistent with torn chordae. 1+ tr. 1+ phtn. 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 No overt chf presently, cont po diuretic. - no signs acs demand nstemi - trop elevation small in setting of ckd and nl ck. likely demand in setting of presumed cad. patient currently comfortable and asx. ekg without acute ischemic changes. patient with relative contraindication to AC (epistaxis requiring transfusion), so would not empirically AC, unless trop continues to rise significantly or ckmb fraction turns positive. con't asa, statin, anto- anginals. HR control. - patient with recent need for ppm placement, possible new inferior q waves on 2017 ekg's in comparison to priors. Also with new torn chord, ? ischemic etiology. Recently discussed with patient and family in office regarding stress testing, ischemic evaluation and based on goals of care and possible contraindications to dapt, decision was made to defer stress testing. - currently on reasonable anti-anginal regimen. would uptitrate nitrates if needed. recent echodensity noted on mitral valve (03/2017 echo) - unclear etiology. thought to be from torn calcified chord (not thought to be causing flail, ddx would be torn papillary muscle). Not thought to be torn papillary muscle or flail mainly because there did not appear to be significant enough mr although may have been underestimated due to shadowing). Still with suspicion for possible ischemic etiology - possible rwma in the inferior wall. blood cx's at the time were neg and clinical picture was not consistent with endocarditis at the time. There was low suspicion for thrombus and no evidence of an interatrial septal defect that might have caused a thrombus in transit form crossing septum. - Previously discussed with patient and sister regarding further ischemic evaluation with stress testing, SATHISH, or even (least invasive) repeating the echo with contrast for better assessment of intracardiac thrombus or wall motion. --> they wished to avoid invasive testing so SATHISH and/or possible cath was previously off the table. They also had significant concern regarding risk of bleeding from dapt or AC in setting of chronic anemia and recurrent epistaxis requiring transfusion on ASA therapy. Since patient was asx and further testing would likely not change mgm't, further evaluation had been deferred and plan was to repeat the TTE (with contrast) in 6 months. - may need to readdress pending clinical course. diastolic HF - chronic jvd elevations. currently LE edema improved from baseline. - renal has been monitoring volume status/diuretics as outpatient. cont home torsemide. holding aldactone while k borderline elevated. - monitor daily cr/lytes, weights, i/o's. Den/CKD: -prior values here range 1.8-2.4. on procrit for anemia -con't to monitor. HTN -con't home meds s/p ppm - recent interrogation in office this month.
[2017-05-18] MEDS: DONEPEZIL HCL 10 MG TABLET (FP) PO SCH (22:19)
[2017-05-19] MEDS: hydrALAZINE HCL 50 MG TABLET (FP) PO SCH ×3 (05:27→21:30)
[2017-05-19] MEDS: INSULIN SLIDING SCALE (NOVOLOG) 1 VIAL SQ SCH ×4 (06:41→21:31)
[2017-05-19] MEDS: INSULIN (NOVOLOG MIX 70/30) 100 UNITS/ML MDV SQ SCH ×2 (06:42→17:01)
[2017-05-19 07:06] LABS: HEMATOCRIT 28.4 % (32.4-45.2); HEMOGLOBIN 9.2 GM/dL (10.7-15.3); MCH 32.3 pg (25.7-33.7); MCHC 32.4 g/dl (32.0-36.0); MEAN CELL VOLUME 99.6 fl (80-96); MEAN PLT VOLUME 11.3 fl (7.5-11.1); PLATELET COUNT 108 K/MM3 (134-434); RBC 2.85 M/mm3 (3.60-5.2); RDW 14.7 % (11.6-15.6); WHITE BLOOD COUNT 5.2 K/mm3 (4.0-10.0)
[2017-05-19] MEDS: SERTRALINE HCL 50 MG TABLET (FP) PO SCH (09:22)
[2017-05-19] MEDS: MEMANTINE HCL 5 MG TABLET (UD) PO SCH (09:22)
[2017-05-19] MEDS: TORSEMIDE 20 MG TABLET (FP) PO SCH (09:22)
--- NOTE | 2017-05-19 09:22 | PN ---
Progress Note, Physician Chief Complaint: doing better on Zithromax and cefrtiaxone IV taper IV steroids to BID GLU control / insulin per BGM - Current Medication List Current Medications: Active Medications Acetaminophen (Tylenol -) 650 mg PO Q4H PRN PRN Reason: FEVER >100F Last Admin: 05/15/17 18:52 Dose: 650 mg Albuterol/Ipratropium (Duoneb -) 1 amp NEB Q6H PRN PRN Reason: SHORTNESS OF BREATH Last Admin: 05/18/17 15:51 Dose: 1 amp Allopurinol (Zyloprim -) 300 mg PO DAILY [facility] Last Admin: 05/18/17 09:30 Dose: 300 mg Aspirin (Asa -) 81 mg PO DAILY [facility] Last Admin: 05/18/17 09:30 Dose: 81 mg Docusate Sodium (Colace -) 100 mg PO BID [facility] Last Admin: 05/18/17 22:17 Dose: 100 mg Donepezil HCl (Aricept -) 10 mg PO HS [facility] Last Admin: 05/18/17 22:19 Dose: 10 mg Ferrous Sulfate (Feosol -) 325 mg PO DAILY [facility] Last Admin: 05/18/17 09:30 Dose: 325 mg Heparin Sodium (Porcine) (Heparin -) 5,000 unit SQ BID [facility] Last Admin: 05/18/17 22:19 Dose: 5,000 unit Hydralazine HCl (Apresoline -) 100 mg PO TID [facility] Last Admin: 05/19/17 05:27 Dose: 100 mg Azithromycin 500 mg/ Dextrose 250 mls @ 250 mls/hr IVPB DAILY [facility] Last Admin: 05/18/17 09:28 Dose: 250 mls/hr CEFTRIAXONE 1 G/50 ML PREMIX (Ceftriaxone 1 Gm-D5w Bag) 50 mls @ 100 mls/hr IVPB DAILY [facility] Last Admin: 05/18/17 09:29 Dose: 100 mls/hr Insulin Aspart (Novolog Mix 70/30 Vial) 10 units SQ BIDAC COUNT [facility] Last Admin: 05/19/17 06:42 Dose: 10 units Insulin Aspart (Novolog Vial Sliding Scale -) 1 vial SQ ACHS COUNT [facility]CLUDES [facility] PRN Reason: Protocol Last Admin: 05/19/17 06:41 Dose: 4 units Isosorbide Mononitrate (Imdur -) 60 mg PO DAILY [facility] Last Admin: 05/18/17 09:30 Dose: 60 mg Memantine (Namenda -) 5 mg PO DAILY [facility] Last Admin: 05/18/17 09:31 Dose: 5 mg Methylprednisolone Sodium Succinate (Solu-Medrol -) 40 mg IVPUSH BID [facility] Last Admin: 05/18/17 22:19 Dose: 40 mg Nifedipine (Procardia Xl -) 30 mg PO DAILY [facility] Last Admin: 05/18/17 09:30 Dose: 30 mg Polyethylene Glycol (Miralax (For Daily Use) -) 17 gm PO HS PRN PRN Reason: CONSTIPATION Propylthiouracil (Ptu -) 50 mg PO DAILY [facility] Last Admin: 05/18/17 09:32 Dose: 50 mg Sertraline HCl (Zoloft -) 100 mg PO DAILY [facility] Last Admin: 05/18/17 09:30 Dose: 100 mg Torsemide (Demadex -) 80 mg PO DAILY [facility] Last Admin: 05/18/17 09:29 Dose: 80 mg - Objective Vital Signs: Vital Signs Temperature 97.7 F 05/19/17 05:20 Pulse Rate 85 05/19/17 05:20 Respiratory Rate 16 05/19/17 05:20 Blood Pressure 150/68 05/19/17 05:20 O2 Sat by Pulse Oximetry (%) 97 05/18/17 21:00 Constitutional: Yes: No Distress, Calm Eyes: Yes: Conjunctiva Clear HENT: Yes: Atraumatic Neck: Yes: Supple Cardiovascular: Yes: Regular Rate and Rhythm Respiratory: Yes: Rales, Rhonchi. No: Wheezes Genitourinary: No: CVA Tenderness - Left, CVA Tenderness - Right Musculoskeletal: No: Joint Stiffness, Joint Swelling Extremities: No: Cold, Cool, Cyanosis Edema: No Integumentary: Yes: Venous Stasis Changes. No: Rash Neurological: Yes: WNL, Alert ...Motor Strength: WNL Psychiatric: Yes: WNL, Alert. No: Agitated, Suicidal Ideation Labs: CBC, BMP 05/19/17 06:25 05/17/17 05:05 - ....Imaging Other: Report Reviewed Assessment/Plan The patient is a 76 year old female with a significant PMH of COPD (not on home O2), diastolic CHF (s/p pacemaker placement), diabetes, Alzheimer's, ESRD, and anemia who presents to the emergency department from [facility] via EMS with increased shortness of breath beginning approximately 1 hour ago and a few days of cough. Hypoxemia; + troponins CRF; cardiology and pulmonary f/u; renal eval taper IV steroids, nebs diuretics, IV ATB changed to ceftriaxone and zithromax f/u labs; DVT PFX gastric PFX falls PFX aspiration and decubs PFX d.w pt and staff; pt advised do not get OOB alone prognosis guarded
[2017-05-19] MEDS: ASPIRIN 81 MG CHEWABLE TABLETS PO SCH (09:23)
[2017-05-19] MEDS: methylPREDNISolone NA SUCC 40 MG/1 ML VIAL IVPUSH SCH ×2 (09:23→21:30)
[2017-05-19] MEDS: HEPARIN NA (PORCINE) 5,000 UNITS/ML 1ML VIAL SQ SCH ×2 (09:23→21:30)
[2017-05-19] MEDS: FERROUS SO4 325 MG TABLET (FP) PO SCH (09:23)
[2017-05-19] MEDS: ALLOPURINOL 300 MG TABLET (FP) PO SCH (09:23)
[2017-05-19] MEDS: ISOSORBIDE MONONITRATE 60 MG TAB.SR.24H (FP) PO SCH (09:23)
[2017-05-19] MEDS: DOCUSATE SODIUM 100 MG CAPSULE (FP) PO SCH ×2 (09:24→21:31)
[2017-05-19] MEDS: NIFEdipine E.R. 30 MG TABLET (FP) PO SCH (09:24)
[2017-05-19] MEDS: CEFTRIAXONE 1 G/50 ML PREMIX 50 ML IVPB SCH (09:26)
[2017-05-19] MEDS: AZITHROMYCIN IVPB 500 MG in DEXTROSE 5%-WATER - 250 ML IVPB SCH (09:40)
[2017-05-19] MEDS: PROPYLTHIOURACIL 50 MG TABLET (UD) PO SCH (09:40)
--- NOTE | 2017-05-19 10:21 | PN ---
Progress Note (short form) - Note Progress Note: s: no cp palps dizzy; less sob o: Vital Signs Period Temp Pulse Resp BP Sys/[place] Pulse Ox Last 24 Hr 97.7 F-98.4 F 85-101 16-20 134-151/58-83 97 NAD JVD elevated, neck supple RRR nl s1, s2. 2/6 sys murmur at sternal border and late systolic mr murmur radiating to axilla bibasilar rales. nl eff trace le edema. no cyanosis/clubbing + venous stasis changes + bs soft nt nd no jaundice or diaphoresis. alert and oriented to place Current Medications Generic Name Dose Route Start Last Admin Trade Name Freq PRN Reason Stop Dose Admin Acetaminophen 650 mg 05/15/17 17:40 05/15/17 18:52 Tylenol - PO 650 mg Q4H PRN Administration FEVER >100F Albuterol/Ipratropium 1 amp 05/14/17 20:30 05/18/17 15:51 Duoneb - NEB 1 amp Q6H PRN Administration SHORTNESS OF BREATH Allopurinol 300 mg 05/15/17 10:00 05/19/17 09:23 Zyloprim - PO 300 mg DAILY POWER Administration Aspirin 81 mg 05/15/17 10:00 05/19/17 09:23 Asa - PO 81 mg DAILY P[facility] Administration Docusate Sodium 100 mg 05/14/17 22:00 05/19/17 09:24 Colace - PO 100 mg BID POWER Administration Donepezil HCl 10 mg 05/15/17 22:00 05/18/17 22:19 Aricept - PO 10 mg HS POWER Administration Ferrous Sulfate 325 mg 05/15/17 10:00 05/19/17 09:23 Feosol - PO 325 mg DAILY [facility] Administration Heparin Sodium (Porcine) 5,000 unit 05/14/17 22:00 05/19/17 09:23 Heparin - SQ 5,000 unit BID [facility] Administration Hydralazine HCl 100 mg 05/14/17 22:00 05/19/17 05:27 Apresoline - PO 100 mg TID P[facility] Administration Azithromycin 500 mg/ Dextrose 250 mls @ 250 mls/hr 05/17/17 10:00 05/19/17 09 :40 IVPB 250 mls/hr DAILY [facility] Administration CEFTRIAXONE 1 G/50 ML PREMIX 50 mls @ 100 mls/hr 05/17/17 10:00 05/19/17 09: 26 Ceftriaxone 1 Gm-D5w Bag IVPB 100 mls/hr DAILY [facility] Administration Insulin Aspart 10 units 05/14/17 20:45 05/19/17 06:42 Novolog Mix 70/30 Vial SQ 10 units BIDAC P[facility] Administration Insulin Aspart 1 vial 05/17/17 11:00 05/19/17 06:41 Novolog Vial Sliding Scale - SQ 4 units ACHS P[facility] Administration Protocol Isosorbide Mononitrate 60 mg 05/15/17 10:00 05/19/17 09:23 Imdur - PO 60 mg DAILY [facility] Administration Memantine 5 mg 05/15/17 10:00 05/19/17 09:22 Namenda - PO 5 mg DAILY [facility] Administration Methylprednisolone Sodium Succinate 40 mg 05/17/17 10:00 05/19/17 09:23 Solu-Medrol - IVPUSH 40 mg BID P[facility] Administration Nifedipine 30 mg 05/15/17 10:00 05/19/17 09:24 Procardia Xl - PO 30 mg DAILY [facility] Administration Polyethylene Glycol 17 gm 05/14/17 20:30 Miralax (For Daily Use) - PO HS PRN CONSTIPATION Propylthiouracil 50 mg 05/15/17 10:00 05/19/17 09:40 Ptu - PO 50 mg DAILY [facility] Administration Sertraline HCl 100 mg 05/15/17 10:00 05/19/17 09:22 Zoloft - PO 100 mg DAILY [facility] Administration Torsemide 80 mg 05/15/17 10:00 05/19/17 09:22 Demadex - PO 80 mg DAILY P[facility] Administration CBC, BMP 05/19/17 06:25 05/17/17 05:05 ekg: sr with av delay. ivcb. poor r wave progression. ? q waves. non- specific t wave ab. no acute ischemic changes. cxr: slight increase in congestive changes. possible left basal infiltrate echo 03/2017: nl lv size/fn. EF 55-60%. tds for wall motion. septal motion c/ w ppm. mild rve. nl rv fn. mod lae. 1+ sam. 1+ mac with mild functional ms ( 4 mmHg, 73 bpm). 1+ mr. mobile linear density that intermittently moves into lvot (no associated lvot obstruction). Density thought to be consistent with torn chordae. 1+ tr. 1+ phtn. 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 No overt chf presently, cont po diuretic. - no signs acs demand nstemi - trop elevation small in setting of ckd and nl ck. likely demand in setting of presumed cad. patient currently comfortable and asx. ekg without acute ischemic changes. patient with relative contraindication to AC (epistaxis requiring transfusion), so would not empirically AC, unless trop continues to rise significantly or ckmb fraction turns positive. con't asa, statin, anto- anginals. HR control. - patient with recent need for ppm placement, possible new inferior q waves on 2017 ekg's in comparison to priors. Also with new torn chord, ? ischemic etiology. Recently discussed with patient and family in office regarding stress testing, ischemic evaluation and based on goals of care and possible contraindications to dapt, decision was made to defer stress testing. - currently on reasonable anti-anginal regimen. would uptitrate nitrates if needed. recent echodensity noted on mitral valve (03/2017 echo) - unclear etiology. thought to be from torn calcified chord (not thought to be causing flail, ddx would be torn papillary muscle). Not thought to be torn papillary muscle or flail mainly because there did not appear to be significant enough mr although may have been underestimated due to shadowing). Still with suspicion for possible ischemic etiology - possible rwma in the inferior wall. blood cx's at the time were neg and clinical picture was not consistent with endocarditis at the time. There was low suspicion for thrombus and no evidence of an interatrial septal defect that might have caused a thrombus in transit form crossing septum. - Previously discussed with patient and sister regarding further ischemic evaluation with stress testing, SATHISH, or even (least invasive) repeating the echo with contrast for better assessment of intracardiac thrombus or wall motion. --> they wished to avoid invasive testing so SATHISH and/or possible cath was previously off the table. They also had significant concern regarding risk of bleeding from dapt or AC in setting of chronic anemia and recurrent epistaxis requiring transfusion on ASA therapy. Since patient was asx and further testing would likely not change mgm't, further evaluation had been deferred and plan was to repeat the TTE (with contrast) in 6 months. - may need to readdress pending clinical course. diastolic HF - chronic jvd elevations. currently LE edema improved from baseline. - renal has been monitoring volume status/diuretics as outpatient. cont home torsemide. holding aldactone while k borderline elevated. - monitor daily cr/lytes, weights, i/o's. Den/CKD: -prior values here range 1.8-2.4. on procrit for anemia -con't to monitor. HTN -con't home meds s/p ppm - recent interrogation in office this month.
--- NOTE | 2017-05-19 12:41 | PN ---
Progress Note (short form) - Note Progress Note: Sleeping in NAD on NC O2. Reports breathing is improving. She reports using NIPPV overnight. Intake & Output 05/16/17 05/17/17 05/18/17 05/19/17 23:59 23:59 23:59 23:59 Intake Total 50 50 190 Output Total 3 3 Balance 50 47 -3 190 Weight 155 lb 155 lb 2 oz 155 lb 6.4 oz Last Vital Signs Temp Pulse Resp BP Pulse Ox 98 F 84 18 142/64 97 05/19/17 10:00 05/19/17 10:00 05/19/17 10:00 05/19/17 10:00 05/19/17 09:00 Active Medications Acetaminophen (Tylenol -) 650 mg PO Q4H PRN PRN Reason: FEVER >100F Last Admin: 05/15/17 18:52 Dose: 650 mg Albuterol/Ipratropium (Duoneb -) 1 amp NEB Q6H PRN PRN Reason: SHORTNESS OF BREATH Last Admin: 05/18/17 15:51 Dose: 1 amp Allopurinol (Zyloprim -) 300 mg PO DAILY [facility] Last Admin: 05/19/17 09:23 Dose: 300 mg Aspirin (Asa -) 81 mg PO DAILY [facility] Last Admin: 05/19/17 09:23 Dose: 81 mg Docusate Sodium (Colace -) 100 mg PO BID [facility] Last Admin: 05/19/17 09:24 Dose: 100 mg Donepezil HCl (Aricept -) 10 mg PO HS [facility] Last Admin: 05/18/17 22:19 Dose: 10 mg Ferrous Sulfate (Feosol -) 325 mg PO DAILY [facility] Last Admin: 05/19/17 09:23 Dose: 325 mg Heparin Sodium (Porcine) (Heparin -) 5,000 unit SQ BID [facility] Last Admin: 05/19/17 09:23 Dose: 5,000 unit Hydralazine HCl (Apresoline -) 100 mg PO TID [facility] Last Admin: 05/19/17 05:27 Dose: 100 mg Azithromycin 500 mg/ Dextrose 250 mls @ 250 mls/hr IVPB DAILY [facility] Last Admin: 05/19/17 09:40 Dose: 250 mls/hr CEFTRIAXONE 1 G/50 ML PREMIX (Ceftriaxone 1 Gm-D5w Bag) 50 mls @ 100 mls/hr IVPB DAILY [facility] Last Admin: 05/19/17 09:26 Dose: 100 mls/hr Insulin Aspart (Novolog Mix 70/30 Vial) 10 units SQ BIDAC [facility] Last Admin: 05/19/17 06:42 Dose: 10 units Insulin Aspart (Novolog Vial Sliding Scale -) 1 vial SQ ACHS [facility] PRN Reason: Protocol Last Admin: 05/19/17 11:55 Dose: 6 units Isosorbide Mononitrate (Imdur -) 60 mg PO DAILY [facility] Last Admin: 05/19/17 09:23 Dose: 60 mg Memantine (Namenda -) 5 mg PO DAILY [facility] Last Admin: 05/19/17 09:22 Dose: 5 mg Methylprednisolone Sodium Succinate (Solu-Medrol -) 40 mg IVPUSH BID [facility] Last Admin: 05/19/17 09:23 Dose: 40 mg Nifedipine (Procardia Xl -) 30 mg PO DAILY [facility] Last Admin: 05/19/17 09:24 Dose: 30 mg Polyethylene Glycol (Miralax (For Daily Use) -) 17 gm PO HS PRN PRN Reason: CONSTIPATION Propylthiouracil (Ptu -) 50 mg PO DAILY [facility] Last Admin: 05/19/17 09:40 Dose: 50 mg Sertraline HCl (Zoloft -) 100 mg PO DAILY [facility] Last Admin: 05/19/17 09:22 Dose: 100 mg Torsemide (Demadex -) 80 mg PO DAILY [facility] Last Admin: 05/19/17 09:22 Dose: 80 mg Constitutional: Yes: NAD on NC O2 Eyes: Yes: WNL HENT: Yes: WNL Neck: Yes: WNL Cardiovascular: Yes: Regular Rate and Rhythm, S1, S2 Respiratory: Yes: Bilateral scattered Rhonchi, no wheeze Gastrointestinal: Yes: Normal Bowel Sounds, Soft Extremities: Yes: WNL Edema: Yes Labs: Laboratory Results - last 24 hr 05/18/17 05/18/17 05/19/17 17:37 22:14 05:22 WBC RBC Hgb Hct MCV MCH MCHC RDW Plt Count MPV POC Glucometer 393 228 234 05/19/17 05/19/17 06:25 11:53 WBC 5.2 RBC 2.85 L Hgb 9.2 L Hct 28.4 L MCV 99.6 H MCH 32.3 MCHC 32.4 RDW 14.7 Plt Count 108 L MPV 11.3 H POC Glucometer 278 Problem List - Problems (1) Anemia Code(s): D64.9 - ANEMIA, UNSPECIFIED (2) CHF (congestive heart failure) Code(s): I50.9 - HEART FAILURE, UNSPECIFIED Qualifiers: Qualified Code(s): I50.9 - Heart failure, unspecified (3) CKD (chronic kidney disease) Code(s): N18.9 - CHRONIC KIDNEY DISEASE, UNSPECIFIED Qualifiers: Chronic kidney disease stage: unspecified stage Qualified Code(s): N18.9 - Chronic kidney disease, unspecified (4) Cough Code(s): R05 - COUGH (5) Dementia Code(s): F03.90 - UNSPECIFIED DEMENTIA WITHOUT BEHAVIORAL DISTURBANCE (6) Diabetes mellitus Code(s): E11.9 - TYPE 2 DIABETES MELLITUS WITHOUT COMPLICATIONS (7) Pneumonia Code(s): J18.9 - PNEUMONIA, UNSPECIFIED ORGANISM Assessment/Plan Pneumonia CHF Bradycardia CKD Dementia HTN DM Anemia Plan Torsemide Prednisone in the AM O2 as needed ABX NIPPV as needed BD TX Dr Pena
--- NOTE | 2017-05-19 16:50 | PN ---
Progress Note, Physician History of Present Illness: Pt seen and examined at bedside. She is awake and appears comfortable. - Current Medication List Current Medications: Active Medications Acetaminophen (Tylenol -) 650 mg PO Q4H PRN PRN Reason: FEVER >100F Last Admin: 05/15/17 18:52 Dose: 650 mg Albuterol/Ipratropium (Duoneb -) 1 amp NEB Q6H PRN PRN Reason: SHORTNESS OF BREATH Last Admin: 05/18/17 15:51 Dose: 1 amp Allopurinol (Zyloprim -) 300 mg PO DAILY [facility] Last Admin: 05/19/17 09:23 Dose: 300 mg Aspirin (Asa -) 81 mg PO DAILY [facility] Last Admin: 05/19/17 09:23 Dose: 81 mg Docusate Sodium (Colace -) 100 mg PO BID [facility] Last Admin: 05/19/17 09:24 Dose: 100 mg Donepezil HCl (Aricept -) 10 mg PO HS [facility] Last Admin: 05/18/17 22:19 Dose: 10 mg Ferrous Sulfate (Feosol -) 325 mg PO DAILY [facility] Last Admin: 05/19/17 09:23 Dose: 325 mg Heparin Sodium (Porcine) (Heparin -) 5,000 unit SQ BID [facility] Last Admin: 05/19/17 09:23 Dose: 5,000 unit Hydralazine HCl (Apresoline -) 100 mg PO TID [facility] Last Admin: 05/19/17 13:55 Dose: 100 mg Azithromycin 500 mg/ Dextrose 250 mls @ 250 mls/hr IVPB DAILY [facility] Last Admin: 05/19/17 09:40 Dose: 250 mls/hr CEFTRIAXONE 1 G/50 ML PREMIX (Ceftriaxone 1 Gm-D5w Bag) 50 mls @ 100 mls/hr IVPB DAILY [facility] Last Admin: 05/19/17 09:26 Dose: 100 mls/hr Insulin Aspart (Novolog Mix 70/30 Vial) 10 units SQ BIDAC [facility] Last Admin: 05/19/17 06:42 Dose: 10 units Insulin Aspart (Novolog Vial Sliding Scale -) 1 vial SQ ACHS [facility] PRN Reason: Protocol Last Admin: 05/19/17 11:55 Dose: 6 units Isosorbide Mononitrate (Imdur -) 60 mg PO DAILY [facility] Last Admin: 05/19/17 09:23 Dose: 60 mg Memantine (Namenda -) 5 mg PO DAILY [facility] Last Admin: 05/19/17 09:22 Dose: 5 mg Methylprednisolone Sodium Succinate (Solu-Medrol -) 40 mg IVPUSH BID [facility] Stop: 05/19/17 23:59 Last Admin: 05/19/17 09:23 Dose: 40 mg Nifedipine (Procardia Xl -) 30 mg PO DAILY [facility] Last Admin: 05/19/17 09:24 Dose: 30 mg Polyethylene Glycol (Miralax (For Daily Use) -) 17 gm PO HS PRN PRN Reason: CONSTIPATION Prednisone (Deltasone -) 40 mg PO DAILY [facility] Stop: 05/23/17 10:01 Propylthiouracil (Ptu -) 50 mg PO DAILY [facility] Last Admin: 05/19/17 09:40 Dose: 50 mg Sertraline HCl (Zoloft -) 100 mg PO DAILY [facility] Last Admin: 05/19/17 09:22 Dose: 100 mg Torsemide (Demadex -) 80 mg PO DAILY [facility] Last Admin: 05/19/17 09:22 Dose: 80 mg - Objective Vital Signs: Vital Signs Temperature 98.2 F 05/19/17 14:35 Pulse Rate 87 05/19/17 14:35 Respiratory Rate 18 05/19/17 14:35 Blood Pressure 140/70 05/19/17 14:35 O2 Sat by Pulse Oximetry (%) 97 05/19/17 09:00 Constitutional: Yes: Calm Eyes: Yes: Conjunctiva Clear HENT: Yes: Atraumatic Cardiovascular: Yes: S1, S2 Respiratory: Yes: On Nasal O2, Wheezes Gastrointestinal: Yes: Soft, Abdomen, Obese Genitourinary: Yes: Incontinence Musculoskeletal: Yes: Muscle Weakness Edema: Yes Edema: LLE: Trace, RLE: Trace Integumentary: Yes: Venous Stasis Changes Neurological: Yes: Oriented Psychiatric: Yes: Oriented Labs: CBC, BMP 05/19/17 06:25 05/17/17 05:05 Problem List - Problems (1) COPD exacerbation Code(s): J44.1 - CHRONIC OBSTRUCTIVE PULMONARY DISEASE W (ACUTE) EXACERBATION (2) Anemia Code(s): D64.9 - ANEMIA, UNSPECIFIED (3) CHF (congestive heart failure) Code(s): I50.9 - HEART FAILURE, UNSPECIFIED Qualifiers: Qualified Code(s): I50.9 - Heart failure, unspecified (4) CKD (chronic kidney disease) Code(s): N18.9 - CHRONIC KIDNEY DISEASE, UNSPECIFIED Qualifiers: Chronic kidney disease stage: unspecified stage Qualified Code(s): N18.9 - Chronic kidney disease, unspecified Assessment/Plan Current Medications Generic Name Dose Route Start Last Admin Trade Name Freq PRN Reason Stop Dose Admin Acetaminophen 650 mg 05/15/17 17:40 05/15/17 18:52 Tylenol - PO 650 mg Q4H PRN Administration FEVER >100F Albuterol/Ipratropium 1 amp 05/14/17 20:30 05/18/17 15:51 Duoneb - NEB 1 amp Q6H PRN Administration SHORTNESS OF BREATH Allopurinol 300 mg 05/15/17 10:00 05/19/17 09:23 Zyloprim - PO 300 mg DAILY [facility] Administration Aspirin 81 mg 05/15/17 10:00 05/19/17 09:23 Asa - PO 81 mg DAILY [facility] Administration Docusate Sodium 100 mg 05/14/17 22:00 05/19/17 09:24 Colace - PO 100 mg BID [facility] Administration Donepezil HCl 10 mg 05/15/17 22:00 05/18/17 22:19 Aricept - PO 10 mg HS [facility] Administration Ferrous Sulfate 325 mg 05/15/17 10:00 05/19/17 09:23 Feosol - PO 325 mg DAILY [facility] Administration Heparin Sodium (Porcine) 5,000 unit 05/14/17 22:00 05/19/17 09:23 Heparin - SQ 5,000 unit BID [facility] Administration Hydralazine HCl 100 mg 05/14/17 22:00 05/19/17 13:55 Apresoline - PO 100 mg TID [facility] Administration Azithromycin 500 mg/ Dextrose 250 mls @ 250 mls/hr 05/17/17 10:00 05/19/17 09 :40 IVPB 250 mls/hr DAILY [facility] Administration CEFTRIAXONE 1 G/50 ML PREMIX 50 mls @ 100 mls/hr 05/17/17 10:00 05/19/17 09: 26 Ceftriaxone 1 Gm-D5w Bag IVPB 100 mls/hr DAILY [facility] Administration Insulin Aspart 10 units 05/14/17 20:45 05/19/17 06:42 Novolog Mix 70/30 Vial SQ 10 units BIDAC [facility] Administration Insulin Aspart 1 vial 05/17/17 11:00 05/19/17 11:55 Novolog Vial Sliding Scale - SQ 6 units ACHS [facility] Administration Protocol Isosorbide Mononitrate 60 mg 05/15/17 10:00 05/19/17 09:23 Imdur - PO 60 mg DAILY [facility] Administration Memantine 5 mg 05/15/17 10:00 05/19/17 09:22 Namenda - PO 5 mg DAILY [facility] Administration Methylprednisolone Sodium Succinate 40 mg 05/17/17 10:00 05/19/17 09:23 Solu-Medrol - IVPUSH 05/19/17 23:59 40 mg BID [facility] Administration Nifedipine 30 mg 05/15/17 10:00 05/19/17 09:24 Procardia Xl - PO 30 mg DAILY [facility] Administration Polyethylene Glycol 17 gm 05/14/17 20:30 Miralax (For Daily Use) - PO HS PRN CONSTIPATION Prednisone 40 mg 05/20/17 10:00 Deltasone - PO 05/23/17 10:01 DAILY [facility] Propylthiouracil 50 mg 05/15/17 10:00 05/19/17 09:40 Ptu - PO 50 mg DAILY [facility] Administration Sertraline HCl 100 mg 05/15/17 10:00 05/19/17 09:22 Zoloft - PO 100 mg DAILY [facility] Administration Torsemide 80 mg 05/15/17 10:00 05/19/17 09:22 Demadex - PO 80 mg DAILY [facility] Administration Impression 1. CKD 2. cough 3. CHF 4. bradycardia 5. dementia 6. HTN 7. DM 8. anemia Plan - check bmp - renal function had been stable - steroid taper as tolerated - pt will follow with Dr Vazquez after discharge - cont with torsemide - renal diet - will follow PRN Dr Atkinson
[2017-05-19] MEDS ORDERED: INSULIN (NOVOLOG MIX 70/30) 100 UNITS/ML MDV SQ ONE (16:55)
--- NOTE | 2017-05-19 17:15 | CONSULT ---
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: Alzheimer's Cardiovascular: Yes: CHF, HTN Pulmonary: Yes: COPD Renal/: Yes: Renal Failure, Renal Calculi, UTI Heme/Onc: Yes: Anemia Infectious Disease: No: AIDS Psych: No: Addictions Rheumatology: No: Sarcoidosis ENT: Yes: Other (perforate nasal septum) Endocrine: Yes: Diabetes Mellitus - Past Surgical History Past Surgical History: Yes: Appendectomy, Arthrosocopy, Permanent Pacemaker - Smoking History Smoking history: Unknown if ever smoked Have you smoked in the past 12 months: No Aproximately how many cigarettes per day: 0 - Alcohol/Substance Use Hx Alcohol Use: No History of Substance Use: reports: None - Social History ADL: Support Services History of Recent Travel: No History - Admission Reason For Visit: ACUTE EXACERBATION OF COPD - Hearing Hearing: Normal Hearing Aide: No With Patient: No Speech Evaluation - Communication Primary Language: LAO Communication: Yes: Within Normal Limits Oral Expression Ability: Yes: No Impairment - Speech Production Apraxia: No Able to Make Needs Known: Yes: WNL Intelligibility: Yes: WNL - Speech Characteristics Voice Loudness: Normal Voice Pitch: Yes: Normal Voice Phonatory-based Quality: Yes: Normal Speech Pattern: Normal Nasal Resonance: Normal Articulation: Yes: Precise Rate of Speech: Intact Voice Comment: WNL - Language/Auditory Comprehension Follows: Yes: 1 Stage Simple Commands (WFL), 2 Stage Simple Commands (WFL) Observation: Able to respond to yes/no queries: Yes, Yes/No Confusion: No, Comprehends Conversational Speech: Yes, Benefits from Slow Speech: No, Benefits from Repetiton: No, Benefits from Increased Volume of Speech: No - Language/Verbal Expression Able to Respond to Simple Queries: Yes: WNL Able to Communicate Wants and Needs: Yes: WNL Functional Communication Status: Yes: WNL Aware of Errors: Yes Attempts to Correct Errors: Yes Use of Gestures: No Written Expression: Not examined Oral Expression: WFL Reading Comprehension: Not examined Calculations: Not examined Attention: Yes: Intact - 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/Perception terminal superintendent Memory: Yes: Mildly Impaired Short Term Memory: Yes: WNL - Swallow Evaluation/Bedside Assessment Current Nutritional Intake: Regular, Thin Liquids Oral Secretions: Yes: WFL Tracheostomy Present: No Patient on Ventilator: No Dentition: Yes: Adequate Facial Symmetry at Rest: Symmetrical Facial Symmetry on Retraction: Symmetrical Facial Movement: Controlled Sensation: Normal Facial Comment: WFL for speech and swallowing Jaw Position: Closed at Rest Against Resistance Opening: Normal Against Resistance Closing: Normal Pucker Lips: Normal Smile: Normal Lips, Comment: WFL for speech and swallowing Lingual Movement: Normal Lingual Speed of Movement: Normal Lingual Movement Strgth Against Opposition: Normal Lingual Movement Characteristics: Normal Lingual Comment: WFL for speech and swallowing Soft Palate Description: Normal Color Hard Palate Description: Normal Color Gag Reflex: Strong Bite Reflex: Present Laryngeal Elevation: WFL Laryngeal Movement: Able to Palpate Needs Assistance: Yes Rate of Intake: WFL Bolus Size: WFL Labial Seal: WFL Chewing: WFL Oral Prep Time: WFL A-P Transit: WFL Timing of Swallow: WFL Coughing/Throat Clear: No Change in Voice: No Other Findings/Remarks: 76 seen at chairside for swallow eval to rule out dysphagia. Pt is verbal, A& Ox2 cooperative. PMHX includes CHF HTN COPD renal failure, UTI Diabetes melitus. family member present for this session and provided biographical information. Adequate vocal quality and airway protection. Current diet: regular NA controlled with thin liquids. Pt given po trials of soft and regular solids with assistance revealed good acceptance, adequate bolus control and transport. Pharyngeal swallow appears timely with no cough or changes in respiration or voicing. Thin liquids trials via straw and cup were unremarkable for aspiration at this time. Recommendations - Speech Evaluation, Impression/Plan Impression: Pt is able to tolerate purees, regular (na controlled) solids and thin liquids without s/s of aspiration at this time. Speech is WNL Farm Contractor Goals: tolerate the least restrictive diet without s/s of aspiration Short Term Goals: tolerate pureed, regular and thin liquids restrictive diet without s/s of aspiration. - Dysphagia Impressions/Plan Swallowing Skills: Impaired Dysphagia Impressions: Minimal Impairment, Risk of Aspiration *Silent aspiration: cannot be R/O at bedside Dysphagia Treatment Plan: Small Bites, Safe Rate, Elevate HOB during feed, OOB for meals, OOB for 1 h. after meals, Other (Monitor nutritional intake and pulmonary status.) Dysphagia Evaluation Summary: continue current diet of regular (Na controlled ) solids with thin liquids as tolerate. Observe standard aspiration precautions. Results given to lumber marker Lee verbally and to pcp via chart. - Recommendations Diet Consistency: Regular Medication Administration: Whole with water Liquids: Thin Liquids
[2017-05-19] MEDS ORDERED: INSULIN (NOVOLOG) ASPART 100 UNITS/ML 10ML VIAL ONE (21:28)
[2017-05-19] MEDS: DONEPEZIL HCL 10 MG TABLET (FP) PO SCH (21:30)
[2017-05-20] MEDS: hydrALAZINE HCL 50 MG TABLET (FP) PO SCH ×3 (05:43→21:20)
--- NOTE | 2017-05-20 06:35 | PN ---
Progress Note, Physician Chief Complaint: was switched to po predniosne 40 mg/day started to wheeze again, d/w pulm will f /u - Current Medication List Current Medications: Active Medications Acetaminophen (Tylenol -) 650 mg PO Q4H PRN PRN Reason: FEVER >100F Last Admin: 05/15/17 18:52 Dose: 650 mg Allopurinol (Zyloprim -) 300 mg PO DAILY [facility] Last Admin: 05/19/17 09:23 Dose: 300 mg Aspirin (Asa -) 81 mg PO DAILY [facility] Last Admin: 05/19/17 09:23 Dose: 81 mg Docusate Sodium (Colace -) 100 mg PO BID [facility] Last Admin: 05/19/17 21:31 Dose: 100 mg Donepezil HCl (Aricept -) 10 mg PO HS [facility] Last Admin: 05/19/17 21:30 Dose: 10 mg Ferrous Sulfate (Feosol -) 325 mg PO DAILY [facility] Last Admin: 05/19/17 09:23 Dose: 325 mg Heparin Sodium (Porcine) (Heparin -) 5,000 unit SQ BID [facility] Last Admin: 05/19/17 21:30 Dose: 5,000 unit Hydralazine HCl (Apresoline -) 100 mg PO TID [facility] Last Admin: 05/20/17 05:43 Dose: 100 mg Azithromycin 500 mg/ Dextrose 250 mls @ 250 mls/hr IVPB DAILY [facility] Last Admin: 05/19/17 09:40 Dose: 250 mls/hr CEFTRIAXONE 1 G/50 ML PREMIX (Ceftriaxone 1 Gm-D5w Bag) 50 mls @ 100 mls/hr IVPB DAILY [facility] Last Admin: 05/19/17 09:26 Dose: 100 mls/hr Insulin Aspart (Novolog Mix 70/30 Vial) 10 units SQ BIDAC [facility] Last Admin: 05/19/17 17:01 Dose: 10 units Insulin Aspart (Novolog Vial Sliding Scale -) 1 vial SQ ACHS [facility] PRN Reason: Protocol Last Admin: 05/19/17 21:31 Dose: 6 units Isosorbide Mononitrate (Imdur -) 60 mg PO DAILY [facility] Last Admin: 05/19/17 09:23 Dose: 60 mg Memantine (Namenda -) 5 mg PO DAILY [facility] Last Admin: 05/19/17 09:22 Dose: 5 mg Nifedipine (Procardia Xl -) 30 mg PO DAILY [facility] Last Admin: 05/19/17 09:24 Dose: 30 mg Polyethylene Glycol (Miralax (For Daily Use) -) 17 gm PO HS PRN PRN Reason: CONSTIPATION Prednisone (Deltasone -) 40 mg PO DAILY [facility] Stop: 05/23/17 10:01 Propylthiouracil (Ptu -) 50 mg PO DAILY [facility] Last Admin: 05/19/17 09:40 Dose: 50 mg Sertraline HCl (Zoloft -) 100 mg PO DAILY [facility] Last Admin: 05/19/17 09:22 Dose: 100 mg Torsemide (Demadex -) 80 mg PO DAILY [facility] Last Admin: 05/19/17 09:22 Dose: 80 mg - Objective Vital Signs: Vital Signs Temperature 97.8 F 05/19/17 18:00 Pulse Rate 89 05/19/17 18:00 Respiratory Rate 18 05/19/17 20:03 Blood Pressure 141/53 05/19/17 18:00 O2 Sat by Pulse Oximetry (%) 97 05/19/17 20:03 Constitutional: Yes: No Distress, Calm Eyes: Yes: Conjunctiva Clear HENT: Yes: Atraumatic Neck: Yes: Supple Cardiovascular: Yes: Regular Rate and Rhythm Respiratory: Yes: Rales, Wheezes Gastrointestinal: Yes: Soft. No: Distention, Tenderness Genitourinary: No: CVA Tenderness - Left, CVA Tenderness - Right Musculoskeletal: No: Joint Stiffness, Joint Swelling Extremities: No: Cold, Cool, Cyanosis Edema: No Integumentary: Yes: Venous Stasis Changes. No: Rash Neurological: Yes: WNL, Alert ...Motor Strength: WNL Psychiatric: Yes: WNL, Alert. No: Agitated, Suicidal Ideation Labs: CBC, BMP 05/19/17 06:25 05/17/17 05:05 - ....Imaging Other: Report Reviewed Assessment/Plan The patient is a 76 year old female with a significant PMH of COPD (not on home O2), diastolic CHF (s/p pacemaker placement), diabetes, Alzheimer's, ESRD, and anemia who presents to the emergency department from [facility] via EMS with increased shortness of breath beginning approximately 1 hour ago and a few days of cough. Hypoxemia; + troponins CRF; cardiology and pulmonary f/u; renal eval might need to increase steroids, nebs d/.w pulmonary diuretics, IV ATB changed to ceftriaxone and zithromax f/u labs; DVT PFX gastric PFX falls PFX aspiration and decubs PFX d.w pt and staff; pt advised do not get OOB alone prognosis guarded d/w staff, d/w pt's daughter Tiki
[2017-05-20] MEDS: INSULIN SLIDING SCALE (NOVOLOG) 1 VIAL SQ SCH ×4 (06:46→21:20)
[2017-05-20] MEDS: INSULIN (NOVOLOG MIX 70/30) 100 UNITS/ML MDV SQ SCH ×2 (06:46→17:26)
[2017-05-20] MEDS ORDERED: INSULIN (NOVOLOG) ASPART 100 UNITS/ML 10ML VIAL ONE ×2 (06:49→21:04)
[2017-05-20 07:01] LABS: HEMATOCRIT 25.9 % (32.4-45.2); HEMOGLOBIN 8.4 GM/dL (10.7-15.3); MCH 32.2 pg (25.7-33.7); MCHC 32.5 g/dl (32.0-36.0); MEAN CELL VOLUME 99.2 fl (80-96); MEAN PLT VOLUME 11.3 fl (7.5-11.1); PLATELET COUNT 95 K/MM3 (134-434); RBC 2.61 M/mm3 (3.60-5.2); RDW 14.3 % (11.6-15.6); WHITE BLOOD COUNT 2.4 K/mm3 (4.0-10.0)
[2017-05-20 07:42] LABS: ANION GAP 10 (8-16); CALCIUM 7.7 mg/dL (8.5-10.1); CHLORIDE 101 mmol/L (98-107); CO2 27 mmol/L (21-32); CREATININE 2.7 mg/dL (0.55-1.02); GLUCOSE,RANDOM 241 mg/dL (74-106); POTASSIUM 3.7 mmol/L (3.5-5.1); SODIUM 138 mmol/L (136-145)
[2017-05-20 08:02] LABS: BLOOD UREA NITROGEN 155 mg/dL (7-18)
[2017-05-20] MEDS ORDERED: predniSONE 20 MG TABLET (UD) PO SCH (10:00)
[2017-05-20] MEDS ORDERED: PT OWN MED DRAWER 7, Y5N ONE (10:47)
[2017-05-20 10:49] LABS: HEMATOCRIT 29.2 % (32.4-45.2); HEMOGLOBIN 9.4 GM/dL (10.7-15.3); MCHC 32.1 g/dl (32.0-36.0); MEAN CELL VOLUME 99.6 fl (80-96); MEAN PLT VOLUME 10.5 fl (7.5-11.1); PLATELET COUNT 118 K/MM3 (134-434); RBC 2.93 M/mm3 (3.60-5.2); RDW 14.5 % (11.6-15.6); WHITE BLOOD COUNT 4.3 K/mm3 (4.0-10.0)
[2017-05-20] MEDS: ASPIRIN 81 MG CHEWABLE TABLETS PO SCH (11:00)
[2017-05-20] MEDS: DOCUSATE SODIUM 100 MG CAPSULE (FP) PO SCH ×2 (11:01→21:20)
[2017-05-20] MEDS: CEFTRIAXONE 1 G/50 ML PREMIX 50 ML IVPB SCH (11:01)
[2017-05-20] MEDS: TORSEMIDE 20 MG TABLET (FP) PO SCH (11:04)
[2017-05-20] MEDS: FERROUS SO4 325 MG TABLET (FP) PO SCH (11:04)
[2017-05-20] MEDS: HEPARIN NA (PORCINE) 5,000 UNITS/ML 1ML VIAL SQ SCH ×2 (11:05→21:20)
[2017-05-20] MEDS: ISOSORBIDE MONONITRATE 60 MG TAB.SR.24H (FP) PO SCH (11:05)
[2017-05-20] MEDS: NIFEdipine E.R. 30 MG TABLET (FP) PO SCH (11:06)
[2017-05-20] MEDS: PROPYLTHIOURACIL 50 MG TABLET (UD) PO SCH (11:06)
[2017-05-20] MEDS: MEMANTINE HCL 5 MG TABLET (UD) PO SCH (11:06)
[2017-05-20] MEDS: SERTRALINE HCL 50 MG TABLET (FP) PO SCH (11:07)
[2017-05-20] MEDS: ALLOPURINOL 300 MG TABLET (FP) PO SCH (11:08)
[2017-05-20 11:14] LABS: ANION GAP 10 (8-16); CALCIUM 8.1 mg/dL (8.5-10.1); CHLORIDE 101 mmol/L (98-107); CO2 26 mmol/L (21-32); CREATININE 2.7 mg/dL (0.55-1.02); GLUCOSE,RANDOM 189 mg/dL (74-106); POTASSIUM 3.5 mmol/L (3.5-5.1); SODIUM 137 mmol/L (136-145)
[2017-05-20] MEDS: RANITIDINE HCL 150 MG TABLET (FP) PO SCH (11:53)
[2017-05-20 12:07] LABS: PLATELET ESTIMATE DECREASED
[2017-05-20 12:09] LABS: BLOOD UREA NITROGEN 150 mg/dL (7-18)
[2017-05-20] MEDS: AZITHROMYCIN IVPB 500 MG in DEXTROSE 5%-WATER - 250 ML IVPB SCH (12:34)
--- NOTE | 2017-05-20 13:20 | PN ---
Progress Note, Physician History of Present Illness: Pt seen and examined at bedside. She is out of bed to chair. She feels that her breathing is improved however she is a poor historian. - Current Medication List Current Medications: Active Medications Acetaminophen (Tylenol -) 650 mg PO Q4H PRN PRN Reason: FEVER >100F Last Admin: 05/15/17 18:52 Dose: 650 mg Allopurinol (Zyloprim -) 300 mg PO DAILY [facility] Last Admin: 05/20/17 11:08 Dose: 300 mg Aspirin (Asa -) 81 mg PO DAILY [facility] Last Admin: 05/20/17 11:00 Dose: 81 mg Docusate Sodium (Colace -) 100 mg PO BID [facility] Last Admin: 05/20/17 11:01 Dose: 100 mg Donepezil HCl (Aricept -) 10 mg PO HS [facility] Last Admin: 05/19/17 21:30 Dose: 10 mg Ferrous Sulfate (Feosol -) 325 mg PO DAILY [facility] Last Admin: 05/20/17 11:04 Dose: 325 mg Heparin Sodium (Porcine) (Heparin -) 5,000 unit SQ BID [facility] Last Admin: 05/20/17 11:05 Dose: 5,000 unit Hydralazine HCl (Apresoline -) 100 mg PO TID [facility] Last Admin: 05/20/17 05:43 Dose: 100 mg Azithromycin 500 mg/ Dextrose 250 mls @ 250 mls/hr IVPB DAILY [facility] Last Admin: 05/20/17 12:34 Dose: 250 mls/hr CEFTRIAXONE 1 G/50 ML PREMIX (Ceftriaxone 1 Gm-D5w Bag) 50 mls @ 100 mls/hr IVPB DAILY [facility] Last Admin: 05/20/17 11:01 Dose: 100 mls/hr Insulin Aspart (Novolog Mix 70/30 Vial) 10 units SQ BIDAC [facility] Last Admin: 05/20/17 06:46 Dose: 10 units Insulin Aspart (Novolog Vial Sliding Scale -) 1 vial SQ ACHS [facility] PRN Reason: Protocol Last Admin: 05/20/17 11:55 Dose: 2 units Isosorbide Mononitrate (Imdur -) 60 mg PO DAILY [facility] Last Admin: 05/20/17 11:05 Dose: 60 mg Memantine (Namenda -) 5 mg PO DAILY [facility] Last Admin: 05/20/17 11:06 Dose: 5 mg Nifedipine (Procardia Xl -) 30 mg PO DAILY [facility] Last Admin: 05/20/17 11:06 Dose: 30 mg Polyethylene Glycol (Miralax (For Daily Use) -) 17 gm PO PRN PRN Reason: CONSTIPATION Prednisone (Deltasone -) 40 mg PO DAILY [facility] Stop: 05/23/17 10:01 Last Admin: 05/20/17 11:03 Dose: 40 mg Propylthiouracil (Ptu -) 50 mg PO DAILY [facility] Last Admin: 05/20/17 11:06 Dose: 50 mg Ranitidine HCl (Zantac -) 150 mg PO DAILY [facility] Last Admin: 05/20/17 11:53 Dose: 150 mg Sertraline HCl (Zoloft -) 100 mg PO DAILY [facility] Last Admin: 05/20/17 11:07 Dose: 100 mg Torsemide (Demadex -) 80 mg PO DAILY [facility] Last Admin: 05/20/17 11:04 Dose: 80 mg - Objective Vital Signs: Vital Signs Temperature 98.3 F 05/20/17 05:50 Pulse Rate 80 05/20/17 05:50 Respiratory Rate 19 05/20/17 09:00 Blood Pressure 137/64 05/20/17 05:50 O2 Sat by Pulse Oximetry (%) 99 05/20/17 10:06 Constitutional: Yes: Calm Eyes: Yes: Conjunctiva Clear HENT: Yes: Atraumatic Cardiovascular: Yes: S1, S2 Respiratory: Yes: On Nasal O2, Wheezes Gastrointestinal: Yes: Soft Genitourinary: Yes: Incontinence Musculoskeletal: Yes: WNL Edema: Yes Edema: LLE: 1+, RLE: 1+ Integumentary: Yes: Venous Stasis Changes Neurological: Yes: Confusion Labs: CBC, BMP 05/20/17 10:25 05/20/17 10:25 Problem List - Problems (1) COPD exacerbation Code(s): J44.1 - CHRONIC OBSTRUCTIVE PULMONARY DISEASE W (ACUTE) EXACERBATION (2) Anemia Code(s): D64.9 - ANEMIA, UNSPECIFIED (3) CHF (congestive heart failure) Code(s): I50.9 - HEART FAILURE, UNSPECIFIED Qualifiers: Qualified Code(s): I50.9 - Heart failure, unspecified (4) CKD (chronic kidney disease) Code(s): N18.9 - CHRONIC KIDNEY DISEASE, UNSPECIFIED Qualifiers: Chronic kidney disease stage: unspecified stage Qualified Code(s): N18.9 - Chronic kidney disease, unspecified Assessment/Plan Current Medications Generic Name Dose Route Start Last Admin Trade Name Freq PRN Reason Stop Dose Admin Acetaminophen 650 mg 05/15/17 17:40 05/15/17 18:52 Tylenol - PO 650 mg Q4H PRN Administration FEVER >100F Allopurinol 300 mg 05/15/17 10:00 05/20/17 11:08 Zyloprim - PO 300 mg DAILY [facility] Administration Aspirin 81 mg 05/15/17 10:00 05/20/17 11:00 Asa - PO 81 mg DAILY [facility] Administration Docusate Sodium 100 mg 05/14/17 22:00 05/20/17 11:01 Colace - PO 100 mg BID [facility] Administration Donepezil HCl 10 mg 05/15/17 22:00 05/19/17 21:30 Aricept - PO 10 mg HS [facility] Administration Ferrous Sulfate 325 mg 05/15/17 10:00 05/20/17 11:04 Feosol - PO 325 mg DAILY [facility] Administration Heparin Sodium (Porcine) 5,000 unit 05/14/17 22:00 05/20/17 11:05 Heparin - SQ 5,000 unit BID [facility] Administration Hydralazine HCl 100 mg 05/14/17 22:00 05/20/17 05:43 Apresoline - PO 100 mg TID [facility] Administration Azithromycin 500 mg/ Dextrose 250 mls @ 250 mls/hr 05/17/17 10:00 05/20/17 12 :34 IVPB 250 mls/hr DAILY [facility] Administration CEFTRIAXONE 1 G/50 ML PREMIX 50 mls @ 100 mls/hr 05/17/17 10:00 05/20/17 11: 01 Ceftriaxone 1 Gm-D5w Bag IVPB 100 mls/hr DAILY [facility] Administration Insulin Aspart 10 units 05/14/17 20:45 05/20/17 06:46 Novolog Mix 70/30 Vial SQ 10 units BIDAC [facility] Administration Insulin Aspart 1 vial 05/17/17 11:00 05/20/17 11:55 Novolog Vial Sliding Scale - SQ 2 units ACHS [facility] Administration Protocol Isosorbide Mononitrate 60 mg 05/15/17 10:00 05/20/17 11:05 Imdur - PO 60 mg DAILY [facility] Administration Memantine 5 mg 05/15/17 10:00 05/20/17 11:06 Namenda - PO 5 mg DAILY [facility] Administration Nifedipine 30 mg 05/15/17 10:00 05/20/17 11:06 Procardia Xl - PO 30 mg DAILY [facility] Administration Polyethylene Glycol 17 gm 05/14/17 20:30 Miralax (For Daily Use) - PO HS PRN CONSTIPATION Prednisone 40 mg 05/20/17 10:00 05/20/17 11:03 Deltasone - PO 05/23/17 10:01 40 mg DAILY [facility] Administration Propylthiouracil 50 mg 05/15/17 10:00 05/20/17 11:06 Ptu - PO 50 mg DAILY [facility] Administration Ranitidine HCl 150 mg 05/20/17 11:15 05/20/17 11:53 Zantac - PO 150 mg DAILY [facility] Administration Sertraline HCl 100 mg 05/15/17 10:00 05/20/17 11:07 Zoloft - PO 100 mg DAILY [facility] Administration Torsemide 80 mg 05/15/17 10:00 05/20/17 11:04 Demadex - PO 80 mg DAILY [facility] Administration Impression 1. CKD 2. cough 3. CHF 4. bradycardia 5. dementia 6. HTN 7. DM 8. anemia Plan - labs reviewed - cont with torsemide - steroids with taper - steroids contributing to elevated BUN - monitor pulse ox - cont pt/rehab - pt will follow with Dr Vazquez after discharge - renal diet Dr Atkinson
--- NOTE | 2017-05-20 16:12 | PN ---
Progress Note, Physician History of Present Illness: pulmonary alert,oob-chair,-resp distress - Current Medication List Current Medications: Active Medications Acetaminophen (Tylenol -) 650 mg PO Q4H PRN PRN Reason: FEVER >100F Last Admin: 05/15/17 18:52 Dose: 650 mg Allopurinol (Zyloprim -) 300 mg PO DAILY [facility] Last Admin: 05/20/17 11:08 Dose: 300 mg Aspirin (Asa -) 81 mg PO DAILY [facility] Last Admin: 05/20/17 11:00 Dose: 81 mg Docusate Sodium (Colace -) 100 mg PO BID [facility] Last Admin: 05/20/17 11:01 Dose: 100 mg Donepezil HCl (Aricept -) 10 mg PO HS [facility] Last Admin: 05/19/17 21:30 Dose: 10 mg Ferrous Sulfate (Feosol -) 325 mg PO DAILY [facility] Last Admin: 05/20/17 11:04 Dose: 325 mg Heparin Sodium (Porcine) (Heparin -) 5,000 unit SQ BID [facility] Last Admin: 05/20/17 11:05 Dose: 5,000 unit Hydralazine HCl (Apresoline -) 100 mg PO TID [facility] Last Admin: 05/20/17 15:10 Dose: 100 mg Azithromycin 500 mg/ Dextrose 250 mls @ 250 mls/hr IVPB DAILY [facility] Last Admin: 05/20/17 12:34 Dose: 250 mls/hr CEFTRIAXONE 1 G/50 ML PREMIX (Ceftriaxone 1 Gm-D5w Bag) 50 mls @ 100 mls/hr IVPB DAILY [facility] Last Admin: 05/20/17 11:01 Dose: 100 mls/hr Insulin Aspart (Novolog Mix 70/30 Vial) 10 units SQ BIDAC [facility] Last Admin: 05/20/17 06:46 Dose: 10 units Insulin Aspart (Novolog Vial Sliding Scale -) 1 vial SQ ACHS [facility] PRN Reason: Protocol Last Admin: 05/20/17 11:55 Dose: 2 units Isosorbide Mononitrate (Imdur -) 60 mg PO DAILY [facility] Last Admin: 05/20/17 11:05 Dose: 60 mg Memantine (Namenda -) 5 mg PO DAILY [facility] Last Admin: 05/20/17 11:06 Dose: 5 mg Nifedipine (Procardia Xl -) 30 mg PO DAILY [facility] Last Admin: 05/20/17 11:06 Dose: 30 mg Polyethylene Glycol (Miralax (For Daily Use) -) 17 gm PO HS PRN PRN Reason: CONSTIPATION Prednisone (Deltasone -) 40 mg PO DAILY [facility] Stop: 05/23/17 10:01 Last Admin: 05/20/17 11:03 Dose: 40 mg Propylthiouracil (Ptu -) 50 mg PO DAILY [facility] Last Admin: 05/20/17 11:06 Dose: 50 mg Ranitidine HCl (Zantac -) 150 mg PO DAILY [facility] Last Admin: 05/20/17 11:53 Dose: 150 mg Sertraline HCl (Zoloft -) 100 mg PO DAILY [facility] Last Admin: 05/20/17 11:07 Dose: 100 mg Torsemide (Demadex -) 80 mg PO DAILY [facility] Last Admin: 05/20/17 11:04 Dose: 80 mg - Objective Vital Signs: Vital Signs Temperature 98.3 F 05/20/17 05:50 Pulse Rate 80 05/20/17 05:50 Respiratory Rate 19 05/20/17 09:00 Blood Pressure 137/64 05/20/17 05:50 O2 Sat by Pulse Oximetry (%) 99 05/20/17 14:53 Constitutional: Yes: Well Nourished, Calm Eyes: Yes: WNL HENT: Yes: WNL Neck: Yes: WNL Cardiovascular: Yes: Regular Rate and Rhythm, S1, S2 Respiratory: Yes: Rhonchi (bilateral wheezes and rhonchi) Gastrointestinal: Yes: Normal Bowel Sounds, Soft Extremities: Yes: WNL Edema: Yes Labs: CBC, BMP 05/20/17 10:25 05/20/17 10:25 Problem List - Problems (1) Anemia Code(s): D64.9 - ANEMIA, UNSPECIFIED (2) CHF (congestive heart failure) Code(s): I50.9 - HEART FAILURE, UNSPECIFIED Qualifiers: Qualified Code(s): I50.9 - Heart failure, unspecified (3) CKD (chronic kidney disease) Code(s): N18.9 - CHRONIC KIDNEY DISEASE, UNSPECIFIED Qualifiers: Chronic kidney disease stage: unspecified stage Qualified Code(s): N18.9 - Chronic kidney disease, unspecified (4) Cough Code(s): R05 - COUGH (5) Dementia Code(s): F03.90 - UNSPECIFIED DEMENTIA WITHOUT BEHAVIORAL DISTURBANCE (6) Diabetes mellitus Code(s): E11.9 - TYPE 2 DIABETES MELLITUS WITHOUT COMPLICATIONS (7) Pneumonia Code(s): J18.9 - PNEUMONIA, UNSPECIFIED ORGANISM Assessment/Plan Impression 1. Pneumonia 2. cough 3. CHF 4. bradycardia 5. ckd 6. dementia 7. HTN 8. DM 9. anemia Plan -torsemide - prednisone 60mg daily - cont abx - monitor renal function -f/u chest x-ray -inhaled bronchodilators DR TOVAR
[2017-05-20] MEDS ORDERED: predniSONE 20 MG TABLET (UD) PO ONE (16:45)
[2017-05-20] MEDS: DONEPEZIL HCL 10 MG TABLET (FP) PO SCH (21:20)
[2017-05-21] MEDS: hydrALAZINE HCL 50 MG TABLET (FP) PO SCH ×3 (06:14→21:18)
[2017-05-21] MEDS: INSULIN SLIDING SCALE (NOVOLOG) 1 VIAL SQ SCH ×4 (06:14→21:19)
[2017-05-21] MEDS: INSULIN (NOVOLOG MIX 70/30) 100 UNITS/ML MDV SQ SCH ×2 (06:14→16:37)
--- NOTE | 2017-05-21 06:33 | PN ---
Progress Note, Physician - Current Medication List Current Medications: Active Medications Acetaminophen (Tylenol -) 650 mg PO Q4H PRN PRN Reason: FEVER >100F Last Admin: 05/15/17 18:52 Dose: 650 mg Allopurinol (Zyloprim -) 300 mg PO DAILY [facility] Last Admin: 05/20/17 11:08 Dose: 300 mg Aspirin (Asa -) 81 mg PO DAILY [facility] Last Admin: 05/20/17 11:00 Dose: 81 mg Docusate Sodium (Colace -) 100 mg PO BID [facility] Last Admin: 05/20/17 21:20 Dose: 100 mg Donepezil HCl (Aricept -) 10 mg PO HS [facility] Last Admin: 05/20/17 21:20 Dose: 10 mg Ferrous Sulfate (Feosol -) 325 mg PO DAILY [facility] Last Admin: 05/20/17 11:04 Dose: 325 mg Heparin Sodium (Porcine) (Heparin -) 5,000 unit SQ BID [facility] Last Admin: 05/20/17 21:20 Dose: 5,000 unit Hydralazine HCl (Apresoline -) 100 mg PO TID [facility] Last Admin: 05/21/17 06:14 Dose: 100 mg Azithromycin 500 mg/ Dextrose 250 mls @ 250 mls/hr IVPB DAILY [facility] Last Admin: 05/20/17 12:34 Dose: 250 mls/hr CEFTRIAXONE 1 G/50 ML PREMIX (Ceftriaxone 1 Gm-D5w Bag) 50 mls @ 100 mls/hr IVPB DAILY [facility] Last Admin: 05/20/17 11:01 Dose: 100 mls/hr Insulin Aspart (Novolog Mix 70/30 Vial) 10 units SQ BIDAC [facility] Last Admin: 05/21/17 06:14 Dose: 10 units Insulin Aspart (Novolog Vial Sliding Scale -) 1 vial SQ ACHS [facility] PRN Reason: Protocol Last Admin: 05/21/17 06:14 Dose: 8 units Isosorbide Mononitrate (Imdur -) 60 mg PO DAILY [facility] Last Admin: 05/20/17 11:05 Dose: 60 mg Memantine (Namenda -) 5 mg PO DAILY [facility] Last Admin: 05/20/17 11:06 Dose: 5 mg Nifedipine (Procardia Xl -) 30 mg PO DAILY [facility] Last Admin: 05/20/17 11:06 Dose: 30 mg Polyethylene Glycol (Miralax (For Daily Use) -) 17 gm PO HS PRN PRN Reason: CONSTIPATION Prednisone (Deltasone -) 60 mg PO DAILY [facility] Stop: 05/23/17 10:01 Propylthiouracil (Ptu -) 50 mg PO DAILY [facility] Last Admin: 05/20/17 11:06 Dose: 50 mg Ranitidine HCl (Zantac -) 150 mg PO DAILY [facility] Last Admin: 05/20/17 11:53 Dose: 150 mg Sertraline HCl (Zoloft -) 100 mg PO DAILY [facility] Last Admin: 05/20/17 11:07 Dose: 100 mg Torsemide (Demadex -) 80 mg PO DAILY [facility] Last Admin: 05/20/17 11:04 Dose: 80 mg - Objective Vital Signs: Vital Signs Temperature 98.3 F 05/21/17 06:00 Pulse Rate 81 05/21/17 06:00 Respiratory Rate 18 05/21/17 06:00 Blood Pressure 153/71 05/21/17 06:00 O2 Sat by Pulse Oximetry (%) 99 05/20/17 14:53 Labs: CBC, BMP 05/20/17 10:25 05/20/17 10:25
[2017-05-21] MEDS ORDERED: PT OWN MED DRAWER 7, Y5N ONE ×2 (06:52→09:56)
[2017-05-21] MEDS: TORSEMIDE 20 MG TABLET (FP) PO SCH (09:59)
[2017-05-21] MEDS: PROPYLTHIOURACIL 50 MG TABLET (UD) PO SCH (09:59)
[2017-05-21] MEDS: DOCUSATE SODIUM 100 MG CAPSULE (FP) PO SCH ×2 (09:59→21:18)
[2017-05-21] MEDS: RANITIDINE HCL 150 MG TABLET (FP) PO SCH (10:00)
[2017-05-21] MEDS: FERROUS SO4 325 MG TABLET (FP) PO SCH (10:00)
[2017-05-21] MEDS: predniSONE 20 MG TABLET (UD) PO SCH (10:00)
[2017-05-21] MEDS: ASPIRIN 81 MG CHEWABLE TABLETS PO SCH (10:00)
[2017-05-21] MEDS: SERTRALINE HCL 50 MG TABLET (FP) PO SCH (10:00)
[2017-05-21] MEDS: ALLOPURINOL 300 MG TABLET (FP) PO SCH (10:00)
[2017-05-21] MEDS: NIFEdipine E.R. 30 MG TABLET (FP) PO SCH (10:00)
[2017-05-21] MEDS: MEMANTINE HCL 5 MG TABLET (UD) PO SCH (10:00)
[2017-05-21] MEDS: AZITHROMYCIN IVPB 500 MG in DEXTROSE 5%-WATER - 250 ML IVPB SCH (10:01)
[2017-05-21] MEDS: ISOSORBIDE MONONITRATE 60 MG TAB.SR.24H (FP) PO SCH (10:01)
[2017-05-21] MEDS: HEPARIN NA (PORCINE) 5,000 UNITS/ML 1ML VIAL SQ SCH ×2 (10:01→22:10)
[2017-05-21] MEDS: CEFTRIAXONE 1 G/50 ML PREMIX 50 ML IVPB SCH (10:01)
--- NOTE | 2017-05-21 12:10 | PN ---
Progress Note (short form) - Note Progress Note: Sleeping in NAD on NC O2. Reports breathing is improving. She reports using NIPPV overnight. Intake & Output 05/18/17 05/19/17 05/20/17 05/21/17 23:59 23:59 23:59 23:59 Intake Total 340 800 Output Total 3 Balance -3 340 800 Weight 155 lb 6.4 oz 155 lb 5 oz 154 lb 4 oz Last Vital Signs Temp Pulse Resp BP Pulse Ox 98.3 F 81 18 153/71 99 05/21/17 06:00 05/21/17 06:00 05/21/17 06:00 05/21/17 06:00 05/20/17 14:53 Active Medications Acetaminophen (Tylenol -) 650 mg PO Q4H PRN PRN Reason: FEVER >100F Last Admin: 05/15/17 18:52 Dose: 650 mg Allopurinol (Zyloprim -) 300 mg PO DAILY [facility] Last Admin: 05/21/17 10:00 Dose: 300 mg Aspirin (Asa -) 81 mg PO DAILY [facility] Last Admin: 05/21/17 10:00 Dose: 81 mg Docusate Sodium (Colace -) 100 mg PO BID [facility] Last Admin: 05/21/17 09:59 Dose: 100 mg Donepezil HCl (Aricept -) 10 mg PO HS [facility] Last Admin: 05/20/17 21:20 Dose: 10 mg Ferrous Sulfate (Feosol -) 325 mg PO DAILY [facility] Last Admin: 05/21/17 10:00 Dose: 325 mg Heparin Sodium (Porcine) (Heparin -) 5,000 unit SQ BID [facility] Last Admin: 05/21/17 10:01 Dose: 5,000 unit Hydralazine HCl (Apresoline -) 100 mg PO TID [facility] Last Admin: 05/21/17 06:14 Dose: 100 mg Azithromycin 500 mg/ Dextrose 250 mls @ 250 mls/hr IVPB DAILY [facility] Last Admin: 05/21/17 10:01 Dose: 250 mls/hr CEFTRIAXONE 1 G/50 ML PREMIX (Ceftriaxone 1 Gm-D5w Bag) 50 mls @ 100 mls/hr IVPB DAILY [facility] Last Admin: 05/21/17 10:01 Dose: 100 mls/hr Insulin Aspart (Novolog Mix 70/30 Vial) 10 units SQ BIDAC [facility] Last Admin: 05/21/17 06:14 Dose: 10 units Insulin Aspart (Novolog Vial Sliding Scale -) 1 vial SQ ACHS [facility] PRN Reason: Protocol Last Admin: 05/21/17 11:29 Dose: 6 units Isosorbide Mononitrate (Imdur -) 60 mg PO DAILY [facility] Last Admin: 05/21/17 10:01 Dose: 60 mg Memantine (Namenda -) 5 mg PO DAILY [facility] Last Admin: 05/21/17 10:00 Dose: 5 mg Nifedipine (Procardia Xl -) 30 mg PO DAILY [facility] Last Admin: 05/21/17 10:00 Dose: 30 mg Polyethylene Glycol (Miralax (For Daily Use) -) 17 gm PO PRN PRN Reason: CONSTIPATION Prednisone (Deltasone -) 60 mg PO DAILY [facility] Stop: 05/23/17 10:01 Last Admin: 05/21/17 10:00 Dose: 60 mg Propylthiouracil (Ptu -) 50 mg PO DAILY [facility] Last Admin: 05/21/17 09:59 Dose: 50 mg Ranitidine HCl (Zantac -) 150 mg PO DAILY [facility] Last Admin: 05/21/17 10:00 Dose: 150 mg Sertraline HCl (Zoloft -) 100 mg PO DAILY [facility] Last Admin: 05/21/17 10:00 Dose: 100 mg Torsemide (Demadex -) 80 mg PO DAILY [facility] Last Admin: 05/21/17 09:59 Dose: 80 mg Constitutional: Yes: NAD on NC O2 Eyes: Yes: WNL HENT: Yes: WNL Neck: Yes: WNL Cardiovascular: Yes: Regular Rate and Rhythm, S1, S2 Respiratory: Yes: Bilateral scattered Rhonchi, no wheeze Gastrointestinal: Yes: Normal Bowel Sounds, Soft Extremities: Yes: WNL Edema: Yes Labs: Laboratory Results - last 24 hr 05/20/17 05/20/17 05/20/17 10:25 10:25 17:17 Neutrophils % (Manual) 81.4 Band Neutrophils % 0.0 Lymphocytes % (Manual) 9.3 Monocytes % (Manual) 7 Eosinophils % (Manual) 0.0 Basophils % (Manual) 0.0 Myelocytes % (Man) 2 Promyelocytes % (Man) 0 Nucleated RBC % 0 Metamyelocytes 0 Platelet Estimate Decreased Basophilic Stippling 1+ Schistocytes 1+ Sodium 137 Potassium 3.5 Chloride 101 Carbon Dioxide 26 Anion Gap 10 BUN 150 H* Creatinine 2.7 H POC Glucometer 316 Random Glucose 189 H Calcium 8.1 L 05/20/17 05/21/17 05/21/17 20:38 06:13 11:26 Neutrophils % (Manual) Band Neutrophils % Lymphocytes % (Manual) Monocytes % (Manual) Eosinophils % (Manual) Basophils % (Manual) Myelocytes % (Man) Promyelocytes % (Man) Nucleated RBC % Metamyelocytes Platelet Estimate Basophilic Stippling Schistocytes Sodium Potassium Chloride Carbon Dioxide Anion Gap BUN Creatinine POC Glucometer 371 316 290 Random Glucose Calcium Problem List - Problems (1) Anemia Code(s): D64.9 - ANEMIA, UNSPECIFIED (2) CHF (congestive heart failure) Code(s): I50.9 - HEART FAILURE, UNSPECIFIED Qualifiers: Qualified Code(s): I50.9 - Heart failure, unspecified (3) CKD (chronic kidney disease) Code(s): N18.9 - CHRONIC KIDNEY DISEASE, UNSPECIFIED Qualifiers: Chronic kidney disease stage: unspecified stage Qualified Code(s): N18.9 - Chronic kidney disease, unspecified (4) Cough Code(s): R05 - COUGH (5) Dementia Code(s): F03.90 - UNSPECIFIED DEMENTIA WITHOUT BEHAVIORAL DISTURBANCE (6) Diabetes mellitus Code(s): E11.9 - TYPE 2 DIABETES MELLITUS WITHOUT COMPLICATIONS (7) Pneumonia Code(s): J18.9 - PNEUMONIA, UNSPECIFIED ORGANISM Assessment/Plan Pneumonia CHF Bradycardia CKD Dementia HTN DM Anemia Plan D/C Zmax Torsemide Prednisone taper O2 to maintain saturation ABX NIPPV as needed / QHS BD TX Dr Pena
--- NOTE | 2017-05-21 16:18 | PN ---
Progress Note, Physician History of Present Illness: Pt seen and examined at bedside. She is awake and appears comfortable. - Current Medication List Current Medications: Active Medications Acetaminophen (Tylenol -) 650 mg PO Q4H PRN PRN Reason: FEVER >100F Last Admin: 05/15/17 18:52 Dose: 650 mg Allopurinol (Zyloprim -) 300 mg PO DAILY [facility] Last Admin: 05/21/17 10:00 Dose: 300 mg Aspirin (Asa -) 81 mg PO DAILY [facility] Last Admin: 05/21/17 10:00 Dose: 81 mg Docusate Sodium (Colace -) 100 mg PO BID [facility] Last Admin: 05/21/17 09:59 Dose: 100 mg Donepezil HCl (Aricept -) 10 mg PO HS [facility] Last Admin: 05/20/17 21:20 Dose: 10 mg Ferrous Sulfate (Feosol -) 325 mg PO DAILY [facility] Last Admin: 05/21/17 10:00 Dose: 325 mg Heparin Sodium (Porcine) (Heparin -) 5,000 unit SQ BID [facility] Last Admin: 05/21/17 10:01 Dose: 5,000 unit Hydralazine HCl (Apresoline -) 100 mg PO TID [facility] Last Admin: 05/21/17 15:49 Dose: 100 mg CEFTRIAXONE 1 G/50 ML PREMIX (Ceftriaxone 1 Gm-D5w Bag) 50 mls @ 100 mls/hr IVPB DAILY [facility] Last Admin: 05/21/17 10:01 Dose: 100 mls/hr Insulin Aspart (Novolog Mix 70/30 Vial) 10 units SQ BIDAC [facility] Last Admin: 05/21/17 06:14 Dose: 10 units Insulin Aspart (Novolog Vial Sliding Scale -) 1 vial SQ ACHS [facility] PRN Reason: Protocol Last Admin: 05/21/17 11:29 Dose: 6 units Isosorbide Mononitrate (Imdur -) 60 mg PO DAILY [facility] Last Admin: 05/21/17 10:01 Dose: 60 mg Memantine (Namenda -) 5 mg PO DAILY [facility] Last Admin: 05/21/17 10:00 Dose: 5 mg Nifedipine (Procardia Xl -) 30 mg PO DAILY [facility] Last Admin: 05/21/17 10:00 Dose: 30 mg Polyethylene Glycol (Miralax (For Daily Use) -) 17 gm PO HS PRN PRN Reason: CONSTIPATION Prednisone (Deltasone -) 60 mg PO DAILY [facility] Stop: 05/23/17 10:01 Last Admin: 05/21/17 10:00 Dose: 60 mg Propylthiouracil (Ptu -) 50 mg PO DAILY [facility] Last Admin: 05/21/17 09:59 Dose: 50 mg Ranitidine HCl (Zantac -) 150 mg PO DAILY [facility] Last Admin: 05/21/17 10:00 Dose: 150 mg Sertraline HCl (Zoloft -) 100 mg PO DAILY [facility] Last Admin: 05/21/17 10:00 Dose: 100 mg Torsemide (Demadex -) 80 mg PO DAILY [facility] Last Admin: 05/21/17 09:59 Dose: 80 mg - Objective Vital Signs: Vital Signs Temperature 98.4 F 05/21/17 14:00 Pulse Rate 84 05/21/17 14:00 Respiratory Rate 20 05/21/17 14:00 Blood Pressure 137/58 05/21/17 14:00 O2 Sat by Pulse Oximetry (%) 100 05/21/17 09:00 Constitutional: Yes: Calm Eyes: Yes: Conjunctiva Clear HENT: Yes: Atraumatic Cardiovascular: Yes: S1, S2 Respiratory: Yes: On Nasal O2, Wheezes Gastrointestinal: Yes: Soft Genitourinary: Yes: Incontinence Musculoskeletal: Yes: Muscle Weakness Edema: Yes Edema: LLE: 1+, RLE: 1+ Neurological: Yes: Oriented Psychiatric: Yes: Oriented Labs: CBC, BMP 05/20/17 10:25 05/20/17 10:25 - ....Imaging Chest X-ray: Report Reviewed Problem List - Problems (1) COPD exacerbation Code(s): J44.1 - CHRONIC OBSTRUCTIVE PULMONARY DISEASE W (ACUTE) EXACERBATION (2) Anemia Code(s): D64.9 - ANEMIA, UNSPECIFIED (3) CHF (congestive heart failure) Code(s): I50.9 - HEART FAILURE, UNSPECIFIED Qualifiers: Qualified Code(s): I50.9 - Heart failure, unspecified (4) CKD (chronic kidney disease) Code(s): N18.9 - CHRONIC KIDNEY DISEASE, UNSPECIFIED Qualifiers: Chronic kidney disease stage: unspecified stage Qualified Code(s): N18.9 - Chronic kidney disease, unspecified Assessment/Plan Current Medications Generic Name Dose Route Start Last Admin Trade Name Freq PRN Reason Stop Dose Admin Acetaminophen 650 mg 05/15/17 17:40 05/15/17 18:52 Tylenol - PO 650 mg Q4H PRN Administration FEVER >100F Allopurinol 300 mg 05/15/17 10:00 05/21/17 10:00 Zyloprim - PO 300 mg DAILY [facility] Administration Aspirin 81 mg 05/15/17 10:00 05/21/17 10:00 Asa - PO 81 mg DAILY [facility] Administration Docusate Sodium 100 mg 05/14/17 22:00 05/21/17 09:59 Colace - PO 100 mg BID [facility] Administration Donepezil HCl 10 mg 05/15/17 22:00 05/20/17 21:20 Aricept - PO 10 mg HS [facility] Administration Ferrous Sulfate 325 mg 05/15/17 10:00 05/21/17 10:00 Feosol - PO 325 mg DAILY [facility] Administration Heparin Sodium (Porcine) 5,000 unit 05/14/17 22:00 05/21/17 10:01 Heparin - SQ 5,000 unit BID [facility] Administration Hydralazine HCl 100 mg 05/14/17 22:00 05/21/17 15:49 Apresoline - PO 100 mg TID [facility] Administration CEFTRIAXONE 1 G/50 ML PREMIX 50 mls @ 100 mls/hr 05/17/17 10:00 05/21/17 10: 01 Ceftriaxone 1 Gm-D5w Bag IVPB 100 mls/hr DAILY [facility] Administration Insulin Aspart 10 units 05/14/17 20:45 05/21/17 06:14 Novolog Mix 70/30 Vial SQ 10 units BIDAC [facility] Administration Insulin Aspart 1 vial 05/17/17 11:00 05/21/17 11:29 Novolog Vial Sliding Scale - SQ 6 units ACHS [facility] Administration Protocol Isosorbide Mononitrate 60 mg 05/15/17 10:00 05/21/17 10:01 Imdur - PO 60 mg DAILY [facility] Administration Memantine 5 mg 05/15/17 10:00 05/21/17 10:00 Namenda - PO 5 mg DAILY [facility] Administration Nifedipine 30 mg 05/15/17 10:00 05/21/17 10:00 Procardia Xl - PO 30 mg DAILY [facility] Administration Polyethylene Glycol 17 gm 05/14/17 20:30 Miralax (For Daily Use) - PO HS PRN CONSTIPATION Prednisone 60 mg 05/21/17 10:00 05/21/17 10:00 Deltasone - PO 05/23/17 10:01 60 mg DAILY [facility] Administration Propylthiouracil 50 mg 05/15/17 10:00 05/21/17 09:59 Ptu - PO 50 mg DAILY [facility] Administration Ranitidine HCl 150 mg 05/20/17 11:15 05/21/17 10:00 Zantac - PO 150 mg DAILY [facility] Administration Sertraline HCl 100 mg 05/15/17 10:00 05/21/17 10:00 Zoloft - PO 100 mg DAILY [facility] Administration Torsemide 80 mg 05/15/17 10:00 05/21/17 09:59 Demadex - PO 80 mg DAILY [facility] Administration Impression 1. CKD 2. cough 3. CHF 4. bradycardia 5. dementia 6. HTN 7. DM 8. anemia Plan - no new labs - cont steroids with taper - cont with torsemide - steroids contributing to elevated BUN - monitor pulse ox - cont pt/rehab - renal diet Dr Atkinson
[2017-05-21] MEDS ORDERED: INSULIN (NOVOLOG MIX 70/30) 100 UNITS/ML MDV SQ ONE (18:10)
[2017-05-21] MEDS ORDERED: INSULIN (NOVOLOG) ASPART 100 UNITS/ML 10ML VIAL ONE (21:16)
[2017-05-21] MEDS: DONEPEZIL HCL 10 MG TABLET (FP) PO SCH (21:18)
[2017-05-21] MEDS: POLYETHYLENE GLYCOL 3350 119 GM BTL PO PRN ×2 (22:38→22:40)
[2017-05-22] MEDS ORDERED: INSULIN (NOVOLOG) ASPART 100 UNITS/ML 10ML VIAL ONE ×4 (06:03→21:17)
[2017-05-22] MEDS: hydrALAZINE HCL 50 MG TABLET (FP) PO SCH ×3 (06:05→21:13)
[2017-05-22] MEDS: INSULIN (NOVOLOG MIX 70/30) 100 UNITS/ML MDV SQ SCH ×2 (06:05→17:12)
[2017-05-22] MEDS: INSULIN SLIDING SCALE (NOVOLOG) 1 VIAL SQ SCH ×4 (06:05→21:54)
--- NOTE | 2017-05-22 07:38 | PN ---
Progress Note, Physician - Current Medication List Current Medications: Active Medications Acetaminophen (Tylenol -) 650 mg PO Q4H PRN PRN Reason: FEVER >100F Last Admin: 05/15/17 18:52 Dose: 650 mg Allopurinol (Zyloprim -) 300 mg PO DAILY [facility] Last Admin: 05/21/17 10:00 Dose: 300 mg Aspirin (Asa -) 81 mg PO DAILY [facility] Last Admin: 05/21/17 10:00 Dose: 81 mg Docusate Sodium (Colace -) 100 mg PO BID [facility] Last Admin: 05/21/17 21:18 Dose: 100 mg Donepezil HCl (Aricept -) 10 mg PO HS [facility] Last Admin: 05/21/17 21:18 Dose: 10 mg Ferrous Sulfate (Feosol -) 325 mg PO DAILY [facility] Last Admin: 05/21/17 10:00 Dose: 325 mg Heparin Sodium (Porcine) (Heparin -) 5,000 unit SQ BID [facility] Last Admin: 05/21/17 22:10 Dose: 5,000 unit Hydralazine HCl (Apresoline -) 100 mg PO TID [facility] Last Admin: 05/22/17 06:05 Dose: 100 mg CEFTRIAXONE 1 G/50 ML PREMIX (Ceftriaxone 1 Gm-D5w Bag) 50 mls @ 100 mls/hr IVPB DAILY [facility] Last Admin: 05/21/17 10:01 Dose: 100 mls/hr Insulin Aspart (Novolog Mix 70/30 Vial) 10 units SQ BIDAC [facility] Last Admin: 05/22/17 06:05 Dose: 10 units Insulin Aspart (Novolog Vial Sliding Scale -) 1 vial SQ ACHS [facility] PRN Reason: Protocol Last Admin: 05/22/17 06:05 Dose: 4 units Isosorbide Mononitrate (Imdur -) 60 mg PO DAILY [facility] Last Admin: 05/21/17 10:01 Dose: 60 mg Memantine (Namenda -) 5 mg PO DAILY [facility] Last Admin: 05/21/17 10:00 Dose: 5 mg Nifedipine (Procardia Xl -) 30 mg PO DAILY [facility] Last Admin: 05/21/17 10:00 Dose: 30 mg Polyethylene Glycol (Miralax (For Daily Use) -) 17 gm PO HS PRN PRN Reason: CONSTIPATION Last Admin: 05/21/17 22:40 Dose: 17 gm Prednisone (Deltasone -) 60 mg PO DAILY [facility] Stop: 05/23/17 10:01 Last Admin: 05/21/17 10:00 Dose: 60 mg Propylthiouracil (Ptu -) 50 mg PO DAILY [facility] Last Admin: 05/21/17 09:59 Dose: 50 mg Ranitidine HCl (Zantac -) 150 mg PO DAILY [facility] Last Admin: 05/21/17 10:00 Dose: 150 mg Sertraline HCl (Zoloft -) 100 mg PO DAILY [facility] Last Admin: 05/21/17 10:00 Dose: 100 mg Torsemide (Demadex -) 80 mg PO DAILY [facility] Last Admin: 05/21/17 09:59 Dose: 80 mg - Objective Vital Signs: Vital Signs Temperature 97.6 F 05/22/17 05:57 Pulse Rate 82 05/22/17 05:57 Respiratory Rate 20 05/22/17 05:57 Blood Pressure 136/60 05/22/17 05:57 O2 Sat by Pulse Oximetry (%) 97 05/21/17 20:23 Labs: CBC, BMP 05/20/17 10:25 05/20/17 10:25
[2017-05-22 09:08] LABS: BASO % 0.3 % (0-2.0); EOS % 0.1 % (0-4.5); HEMOGLOBIN 8.4 GM/dL (10.7-15.3); LYMPH % 18.5 % (8-40); MCH 33.2 pg (25.7-33.7); MCHC 33.6 g/dl (32.0-36.0); MEAN CELL VOLUME 98.9 fl (80-96); MEAN PLT VOLUME 10.8 fl (7.5-11.1); MONO % 12.1 % (3.8-10.2); PLATELET COUNT 130 K/MM3 (134-434); RBC 2.52 M/mm3 (3.60-5.2); RDW 14.5 % (11.6-15.6); WHITE BLOOD COUNT 4.2 K/mm3 (4.0-10.0)
[2017-05-22 09:31] LABS: ALBUMIN 3.3 g/dl (3.4-5.0); ALK PHOS 73 U/L (45-117); ANION GAP 11 (8-16); BILIRUBIN,TOTAL 0.3 mg/dL (0.2-1.0); CALCIUM 7.8 mg/dL (8.5-10.1); CHLORIDE 101 mmol/L (98-107); CO2 27 mmol/L (21-32); CREATININE 2.5 mg/dL (0.55-1.02); GLUCOSE,RANDOM 149 mg/dL (74-106); POTASSIUM 3.2 mmol/L (3.5-5.1); SGOT/AST 18 U/L (15-37); SGPT/ALT 20 U/L (12-78); SODIUM 139 mmol/L (136-145); TOT PROT 5.5 g/dl (6.4-8.2)
[2017-05-22] MEDS: predniSONE 20 MG TABLET (UD) PO SCH (09:31)
[2017-05-22] MEDS: ASPIRIN 81 MG CHEWABLE TABLETS PO SCH (09:31)
[2017-05-22] MEDS: DOCUSATE SODIUM 100 MG CAPSULE (FP) PO SCH ×2 (09:31→21:13)
[2017-05-22] MEDS: ALLOPURINOL 300 MG TABLET (FP) PO SCH (09:31)
[2017-05-22] MEDS: TORSEMIDE 20 MG TABLET (FP) PO SCH (09:31)
[2017-05-22] MEDS: SERTRALINE HCL 50 MG TABLET (FP) PO SCH (09:31)
[2017-05-22] MEDS: ISOSORBIDE MONONITRATE 60 MG TAB.SR.24H (FP) PO SCH (09:32)
[2017-05-22] MEDS: RANITIDINE HCL 150 MG TABLET (FP) PO SCH (09:32)
[2017-05-22] MEDS: MEMANTINE HCL 5 MG TABLET (UD) PO SCH (09:32)
[2017-05-22] MEDS: PROPYLTHIOURACIL 50 MG TABLET (UD) PO SCH (09:32)
[2017-05-22] MEDS: FERROUS SO4 325 MG TABLET (FP) PO SCH (09:32)
[2017-05-22] MEDS: HEPARIN NA (PORCINE) 5,000 UNITS/ML 1ML VIAL SQ SCH ×2 (09:32→21:13)
[2017-05-22] MEDS: NIFEdipine E.R. 30 MG TABLET (FP) PO SCH (09:32)
[2017-05-22] MEDS: CEFTRIAXONE 1 G/50 ML PREMIX 50 ML IVPB SCH (09:33)
--- NOTE | 2017-05-22 10:56 | PN ---
Progress Note (short form) - Note Progress Note: s: no cp palps dizzy sob o: Vital Signs Period Temp Pulse Resp BP Sys/[place] Pulse Ox Last 24 Hr 97.6 F-98.4 F 72-85 20-20 136-147/56-60 97-99 NAD JVD elevated, neck supple RRR nl s1, s2. 2/6 sys murmur at sternal border and late systolic mr murmur radiating to axilla bibasilar rales. nl eff trace le edema. no cyanosis/clubbing + venous stasis changes + bs soft nt nd no jaundice or diaphoresis. alert and oriented to place Current Medications Generic Name Dose Route Start Last Admin Trade Name Freq PRN Reason Stop Dose Admin Acetaminophen 650 mg 05/15/17 17:40 05/15/17 18:52 Tylenol - PO 650 mg Q4H PRN Administration FEVER >100F Allopurinol 300 mg 05/15/17 10:00 05/22/17 09:31 Zyloprim - PO 300 mg DAILY [facility] Administration Aspirin 81 mg 05/15/17 10:00 05/22/17 09:31 Asa - PO 81 mg DAILY [facility] Administration Docusate Sodium 100 mg 05/14/17 22:00 05/22/17 09:31 Colace - PO 100 mg BID [facility] Administration Donepezil HCl 10 mg 05/15/17 22:00 05/21/17 21:18 Aricept - PO 10 mg HS [facility] Administration Ferrous Sulfate 325 mg 05/15/17 10:00 05/22/17 09:32 Feosol - PO 325 mg DAILY [facility] Administration Heparin Sodium (Porcine) 5,000 unit 05/21/17 22:00 05/22/17 09:32 Heparin - SQ 5,000 unit BID [facility] Administration Hydralazine HCl 100 mg 05/14/17 22:00 05/22/17 06:05 Apresoline - PO 100 mg TID [facility] Administration CEFTRIAXONE 1 G/50 ML PREMIX 50 mls @ 100 mls/hr 05/17/17 10:00 05/22/17 09: 33 Ceftriaxone 1 Gm-D5w Bag IVPB 100 mls/hr DAILY [facility] Administration Insulin Aspart 10 units 05/14/17 20:45 05/22/17 06:05 Novolog Mix 70/30 Vial SQ 10 units BIDAC [facility] Administration Insulin Aspart 1 vial 05/17/17 11:00 05/22/17 06:05 Novolog Vial Sliding Scale - SQ 4 units ACHS [facility] Administration Protocol Isosorbide Mononitrate 60 mg 05/15/17 10:00 05/22/17 09:32 Imdur - PO 60 mg DAILY [facility] Administration Memantine 5 mg 05/15/17 10:00 05/22/17 09:32 Namenda - PO 5 mg DAILY [facility] Administration Nifedipine 30 mg 05/15/17 10:00 05/22/17 09:32 Procardia Xl - PO 30 mg DAILY [facility] Administration Polyethylene Glycol 17 gm 05/14/17 20:30 05/21/17 22:40 Miralax (For Daily Use) - PO 17 gm HS PRN Administration CONSTIPATION Prednisone 60 mg 05/21/17 10:00 05/22/17 09:31 Deltasone - PO 05/23/17 10:01 60 mg DAILY [facility] Administration Propylthiouracil 50 mg 05/15/17 10:00 05/22/17 09:32 Ptu - PO 50 mg DAILY [facility] Administration Ranitidine HCl 150 mg 05/20/17 11:15 05/22/17 09:32 Zantac - PO 150 mg DAILY [facility] Administration Sertraline HCl 100 mg 05/15/17 10:00 05/22/17 09:31 Zoloft - PO 100 mg DAILY [facility] Administration Torsemide 80 mg 05/15/17 10:00 05/22/17 09:31 Demadex - PO 80 mg DAILY [facility] Administration CBC, BMP 05/22/17 08:45 05/22/17 08:45 ekg: sr with av delay. ivcb. poor r wave progression. ? q waves. non- specific t wave ab. no acute ischemic changes. cxr: slight increase in congestive changes. possible left basal infiltrate echo 03/2017: nl lv size/fn. EF 55-60%. tds for wall motion. septal motion c/ w ppm. mild rve. nl rv fn. mod lae. 1+ sam. 1+ mac with mild functional ms ( 4 mmHg, 73 bpm). 1+ mr. mobile linear density that intermittently moves into lvot (no associated lvot obstruction). Density thought to be consistent with torn chordae. 1+ tr. 1+ phtn. 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 No overt chf presently, cont po diuretic. - no signs acs demand nstemi - trop elevation small in setting of ckd and nl ck. likely demand in setting of presumed cad. patient currently comfortable and asx. ekg without acute ischemic changes. patient with relative contraindication to AC (epistaxis requiring transfusion), so would not empirically AC, unless trop continues to rise significantly or ckmb fraction turns positive. con't asa, statin, anto- anginals. HR control. - patient with recent need for ppm placement, possible new inferior q waves on 2017 ekg's in comparison to priors. Also with new torn chord, ? ischemic etiology. Recently discussed with patient and family in office regarding stress testing, ischemic evaluation and based on goals of care and possible contraindications to dapt, decision was made to defer stress testing. - currently on reasonable anti-anginal regimen. would uptitrate nitrates if needed. recent echodensity noted on mitral valve (03/2017 echo) - unclear etiology. thought to be from torn calcified chord (not thought to be causing flail, ddx would be torn papillary muscle). Not thought to be torn papillary muscle or flail mainly because there did not appear to be significant enough mr although may have been underestimated due to shadowing). Still with suspicion for possible ischemic etiology - possible rwma in the inferior wall. blood cx's at the time were neg and clinical picture was not consistent with endocarditis at the time. There was low suspicion for thrombus and no evidence of an interatrial septal defect that might have caused a thrombus in transit form crossing septum. - Previously discussed with patient and sister regarding further ischemic evaluation with stress testing, SATHISH, or even (least invasive) repeating the echo with contrast for better assessment of intracardiac thrombus or wall motion. --> they wished to avoid invasive testing so SATHISH and/or possible cath was previously off the table. They also had significant concern regarding risk of bleeding from dapt or AC in setting of chronic anemia and recurrent epistaxis requiring transfusion on ASA therapy. Since patient was asx and further testing would likely not change mgm't, further evaluation had been deferred and plan was to repeat the TTE (with contrast) in 6 months. diastolic HF - chronic jvd elevations. currently LE edema improved from baseline. - renal has been monitoring volume status/diuretics as outpatient. cont home torsemide. holding aldactone due to elevated k. Den/CKD: -prior values here range 1.8-2.4. on procrit for anemia -con't to monitor. HTN -con't home meds s/p ppm - recent interrogation in office
[2017-05-22 11:11] LABS: BLOOD UREA NITROGEN 144 mg/dL (7-18)
[2017-05-22] MEDS ORDERED: POTASSIUM CHLORIDE TABS 20 MEQ TABLET.ER (FP) PO ONE (12:11)
[2017-05-22] MEDS ORDERED: predniSONE 10 MG TABLET (UD) PO SCH (12:28)
[2017-05-22] MEDS ORDERED: TORSEMIDE 20 MG TABLET (FP) PO SCH (12:28)
--- NOTE | 2017-05-22 12:28 | PN ---
Progress Note, Physician Chief Complaint: SUBJECTIVE IMPROVEMENT History of Present Illness: REVIEWED - Current Medication List Current Medications: Active Medications Acetaminophen (Tylenol -) 650 mg PO Q4H PRN PRN Reason: FEVER >100F Last Admin: 05/15/17 18:52 Dose: 650 mg Allopurinol (Zyloprim -) 300 mg PO DAILY ON [facility] OF [facility] Last Admin: 05/22/17 09:31 Dose: 300 mg Aspirin (Asa -) 81 mg PO DAILY [facility] Last Admin: 05/22/17 09:31 Dose: 81 mg Docusate Sodium (Colace -) 100 mg PO BID ON [facility] Last Admin: 05/22/17 09:31 Dose: 100 mg Donepezil HCl (Aricept -) 10 mg PO HS ON [facility] Last Admin: 05/21/17 21:18 Dose: 10 mg Ferrous Sulfate (Feosol -) 325 mg PO DAILY [facility] Last Admin: 05/22/17 09:32 Dose: 325 mg Heparin Sodium (Porcine) (Heparin -) 5,000 unit SQ BID ON [facility] Last Admin: 05/22/17 09:32 Dose: 5,000 unit Hydralazine HCl (Apresoline -) 100 mg PO TID ON [facility] Last Admin: 05/22/17 06:05 Dose: 100 mg CEFTRIAXONE 1 G/50 ML PREMIX (Ceftriaxone 1 Gm-D5w Bag) 50 mls @ 100 mls/hr IVPB DAILY [facility] Last Admin: 05/22/17 09:33 Dose: 100 mls/hr Insulin Aspart (Novolog Mix 70/30 Vial) 10 units SQ BIDAC ON [facility] Last Admin: 05/22/17 06:05 Dose: 10 units Insulin Aspart (Novolog Vial Sliding Scale -) 1 vial SQ ACHS ON [facility] PRN Reason: Protocol Last Admin: 05/22/17 11:41 Dose: 10 units Isosorbide Mononitrate (Imdur -) 60 mg PO DAILY [facility] Last Admin: 05/22/17 09:32 Dose: 60 mg Memantine (Namenda -) 5 mg PO DAILY [facility] Last Admin: 05/22/17 09:32 Dose: 5 mg Nifedipine (Procardia Xl -) 30 mg PO DAILY [facility] Last Admin: 05/22/17 09:32 Dose: 30 mg Polyethylene Glycol (Miralax (For Daily Use) -) 17 gm PO HS PRN PRN Reason: CONSTIPATION Last Admin: 05/21/17 22:40 Dose: 17 gm Potassium Chloride (K-Dur -) 20 meq PO ONCE ONE Stop: 05/22/17 12:12 Prednisone (Deltasone -) 60 mg PO DAILY [facility] Stop: 05/23/17 10:01 Last Admin: 05/22/17 09:31 Dose: 60 mg Propylthiouracil (Ptu -) 50 mg PO DAILY [facility] Last Admin: 05/22/17 09:32 Dose: 50 mg Ranitidine HCl (Zantac -) 150 mg PO DAILY [facility] Last Admin: 05/22/17 09:32 Dose: 150 mg Sertraline HCl (Zoloft -) 100 mg PO DAILY [facility] Last Admin: 05/22/17 09:31 Dose: 100 mg Torsemide (Demadex -) 80 mg PO DAILY [facility] Last Admin: 05/22/17 09:31 Dose: 80 mg - Objective Vital Signs: Vital Signs Temperature 97.6 F 05/22/17 05:57 Pulse Rate 82 05/22/17 05:57 Respiratory Rate 20 05/22/17 05:57 Blood Pressure 136/60 05/22/17 05:57 O2 Sat by Pulse Oximetry (%) 99 05/22/17 09:51 Constitutional: Yes: Calm Eyes: Yes: EOM Intact HENT: Yes: Normocephalic Neck: Yes: Trachea Midline Cardiovascular: Yes: Regular Rate and Rhythm, S1, S2 Respiratory: Yes: Rales Gastrointestinal: Yes: Normal Bowel Sounds Edema: No Neurological: Yes: Alert Labs: CBC, BMP 05/22/17 08:45 05/22/17 08:45 - ....Imaging Chest X-ray: Report Reviewed, Image Reviewed EKG: Report Reviewed Problem List - Problems (1) Pneumonia Code(s): J18.9 - PNEUMONIA, UNSPECIFIED ORGANISM (2) Anemia Code(s): D64.9 - ANEMIA, UNSPECIFIED (3) CHF (congestive heart failure) Code(s): I50.9 - HEART FAILURE, UNSPECIFIED Qualifiers: Qualified Code(s): I50.9 - Heart failure, unspecified (4) Cough Code(s): R05 - COUGH (5) Dementia Code(s): F03.90 - UNSPECIFIED DEMENTIA WITHOUT BEHAVIORAL DISTURBANCE (6) Lower extremity edema Code(s): R60.0 - LOCALIZED EDEMA Assessment/Plan WOULD FAVOR MILD ASPIRATION THE INCITING EVENT HAS COMPLETED 6 DAYS OF IV ANTIBIOTICS CT CHEST REVEALS GGO LEFT MID LUNG ZONE AND RIGHT PLEURAL EFFUSION SUPERIMPOSED UPON CHRONIC CHANGES BUN IS OVER 150/WILL DECREASE DEMEDEX TO 40 SUPPLEMENTAL O2/BRONCHODILATORS/STEROIDS TO TAPER(60 TO 30) DVT PROPHYLAXSIS HAVE CALLED RENAL WILL FOLLOW Mariana MEDRANO MD
--- NOTE | 2017-05-22 12:42 | PN ---
Progress Note, [facility] - Note Progress Note: Selected Entries 05/20/17 05/20/17 05/21/17 14:13 18:00 06:00 Breakfast 75% Lunch 75% Supper 100% 100% Temperature 98.3 F 05/21/17 05/21/17 05/21/17 09:00 14:00 18:00 Breakfast 50% Lunch 50% Supper Temperature 98.4 F 98.4 F 98.2 F 05/21/17 05/21/17 05/22/17 22:00 22:18 05:57 Breakfast Lunch Supper 50% Temperature 98.3 F 97.6 F Laboratory Tests 05/22/17 08:45 WBC 4.2 Pt on reg diet/thin liquid. Reported to be tolerating diet. Per pulmonary, concern of mild aspiration as etiology. MBS, if aspiration is suspected, to r/o silent aspiration.
--- NOTE | 2017-05-22 16:01 | PN ---
Progress Note, Physician History of Present Illness: Pt seen and examined at bedside. She is awake and appears comfortable. She denies shortness of breath. - Current Medication List Current Medications: Active Medications Acetaminophen (Tylenol -) 650 mg PO Q4H PRN PRN Reason: FEVER >100F Last Admin: 05/15/17 18:52 Dose: 650 mg Allopurinol (Zyloprim -) 300 mg PO DAILY [facility] Last Admin: 05/22/17 09:31 Dose: 300 mg Aspirin (Asa -) 81 mg PO DAILY [facility] Last Admin: 05/22/17 09:31 Dose: 81 mg Docusate Sodium (Colace -) 100 mg PO BID [facility] Last Admin: 05/22/17 09:31 Dose: 100 mg Donepezil HCl (Aricept -) 10 mg PO HS [facility] Last Admin: 05/21/17 21:18 Dose: 10 mg Ferrous Sulfate (Feosol -) 325 mg PO DAILY [facility] Last Admin: 05/22/17 09:32 Dose: 325 mg Heparin Sodium (Porcine) (Heparin -) 5,000 unit SQ BID [facility] Last Admin: 05/22/17 09:32 Dose: 5,000 unit Hydralazine HCl (Apresoline -) 100 mg PO TID [facility] Last Admin: 05/22/17 13:34 Dose: 100 mg CEFTRIAXONE 1 G/50 ML PREMIX (Ceftriaxone 1 Gm-D5w Bag) 50 mls @ 100 mls/hr IVPB DAILY [facility] Last Admin: 05/22/17 09:33 Dose: 100 mls/hr Insulin Aspart (Novolog Mix 70/30 Vial) 10 units SQ BIDAC [facility] Last Admin: 05/22/17 06:05 Dose: 10 units Insulin Aspart (Novolog Vial Sliding Scale -) 1 vial SQ ACHS [facility] PRN Reason: Protocol Last Admin: 05/22/17 11:41 Dose: 10 units Isosorbide Mononitrate (Imdur -) 60 mg PO DAILY [facility] Last Admin: 05/22/17 09:32 Dose: 60 mg Memantine (Namenda -) 5 mg PO DAILY [facility] Last Admin: 05/22/17 09:32 Dose: 5 mg Nifedipine (Procardia Xl -) 30 mg PO DAILY [facility] Last Admin: 05/22/17 09:32 Dose: 30 mg Polyethylene Glycol (Miralax (For Daily Use) -) 17 gm PO HS PRN PRN Reason: CONSTIPATION Last Admin: 05/21/17 22:40 Dose: 17 gm Prednisone (Deltasone -) 30 mg PO DAILY [facility] Stop: 05/23/17 10:01 Propylthiouracil (Ptu -) 50 mg PO DAILY [facility] Last Admin: 05/22/17 09:32 Dose: 50 mg Ranitidine HCl (Zantac -) 150 mg PO DAILY [facility] Last Admin: 05/22/17 09:32 Dose: 150 mg Sertraline HCl (Zoloft -) 100 mg PO DAILY [facility] Last Admin: 05/22/17 09:31 Dose: 100 mg Torsemide (Demadex -) 40 mg PO DAILY [facility] - Objective Vital Signs: Vital Signs Temperature 98.6 F 05/22/17 13:49 Pulse Rate 76 05/22/17 09:00 Respiratory Rate 20 05/22/17 09:00 Blood Pressure 150/66 05/22/17 09:00 O2 Sat by Pulse Oximetry (%) 99 05/22/17 09:51 Constitutional: Yes: Calm Eyes: Yes: Conjunctiva Clear HENT: Yes: Atraumatic Cardiovascular: Yes: S1, S2 Respiratory: Yes: On Nasal O2 Gastrointestinal: Yes: Soft Genitourinary: Yes: Incontinence Musculoskeletal: Yes: Muscle Weakness Edema: Yes Integumentary: Yes: Venous Stasis Changes Neurological: Yes: Confusion Labs: CBC, BMP 05/22/17 08:45 05/22/17 08:45 Problem List - Problems (1) COPD exacerbation Code(s): J44.1 - CHRONIC OBSTRUCTIVE PULMONARY DISEASE W (ACUTE) EXACERBATION (2) Anemia Code(s): D64.9 - ANEMIA, UNSPECIFIED (3) CHF (congestive heart failure) Code(s): I50.9 - HEART FAILURE, UNSPECIFIED Qualifiers: Qualified Code(s): I50.9 - Heart failure, unspecified (4) CKD (chronic kidney disease) Code(s): N18.9 - CHRONIC KIDNEY DISEASE, UNSPECIFIED Qualifiers: Chronic kidney disease stage: unspecified stage Qualified Code(s): N18.9 - Chronic kidney disease, unspecified Assessment/Plan Current Medications Generic Name Dose Route Start Last Admin Trade Name Freq PRN Reason Stop Dose Admin Acetaminophen 650 mg 05/15/17 17:40 05/15/17 18:52 Tylenol - PO 650 mg Q4H PRN Administration FEVER >100F Allopurinol 300 mg 05/15/17 10:00 05/22/17 09:31 Zyloprim - PO 300 mg DAILY [facility] Administration Aspirin 81 mg 05/15/17 10:00 05/22/17 09:31 Asa - PO 81 mg DAILY [facility] Administration Docusate Sodium 100 mg 05/14/17 22:00 05/22/17 09:31 Colace - PO 100 mg BID [facility] Administration Donepezil HCl 10 mg 05/15/17 22:00 05/21/17 21:18 Aricept - PO 10 mg HS [facility] Administration Ferrous Sulfate 325 mg 05/15/17 10:00 05/22/17 09:32 Feosol - PO 325 mg DAILY [facility] Administration Heparin Sodium (Porcine) 5,000 unit 05/21/17 22:00 05/22/17 09:32 Heparin - SQ 5,000 unit BID [facility] Administration Hydralazine HCl 100 mg 05/14/17 22:00 05/22/17 13:34 Apresoline - PO 100 mg TID [facility] Administration CEFTRIAXONE 1 G/50 ML PREMIX 50 mls @ 100 mls/hr 05/17/17 10:00 05/22/17 09: 33 Ceftriaxone 1 Gm-D5w Bag IVPB 100 mls/hr DAILY [facility] Administration Insulin Aspart 10 units 05/14/17 20:45 05/22/17 06:05 Novolog Mix 70/30 Vial SQ 10 units BIDAC [facility] Administration Insulin Aspart 1 vial 05/17/17 11:00 05/22/17 11:41 Novolog Vial Sliding Scale - SQ 10 units ACHS [facility] Administration Protocol Isosorbide Mononitrate 60 mg 05/15/17 10:00 05/22/17 09:32 Imdur - PO 60 mg DAILY [facility] Administration Memantine 5 mg 05/15/17 10:00 05/22/17 09:32 Namenda - PO 5 mg DAILY [facility] Administration Nifedipine 30 mg 05/15/17 10:00 05/22/17 09:32 Procardia Xl - PO 30 mg DAILY [facility] Administration Polyethylene Glycol 17 gm 05/14/17 20:30 05/21/17 22:40 Miralax (For Daily Use) - PO 17 gm HS PRN Administration CONSTIPATION Prednisone 30 mg 05/23/17 10:00 Deltasone - PO 05/23/17 10:01 DAILY [facility] Propylthiouracil 50 mg 05/15/17 10:00 05/22/17 09:32 Ptu - PO 50 mg DAILY [facility] Administration Ranitidine HCl 150 mg 05/20/17 11:15 05/22/17 09:32 Zantac - PO 150 mg DAILY [facility] Administration Sertraline HCl 100 mg 05/15/17 10:00 05/22/17 09:31 Zoloft - PO 100 mg DAILY [facility] Administration Torsemide 40 mg 05/22/17 12:28 Demadex - PO DAILY [facility] Impression 1. CKD 2. cough 3. CHF 4. bradycardia 5. dementia 6. HTN 7. DM 8. anemia Plan - bun improving - taper down steroids - resume torsemide at 80 mg - replace potassium - check mag level - steroids contributing to elevated BUN - monitor pulse ox - cont pt/rehab - renal diet Dr Atkinson
[2017-05-22] MEDS: DONEPEZIL HCL 10 MG TABLET (FP) PO SCH (21:13)
[2017-05-23] MEDS: hydrALAZINE HCL 50 MG TABLET (FP) PO SCH ×3 (06:40→21:30)
[2017-05-23] MEDS: INSULIN (NOVOLOG MIX 70/30) 100 UNITS/ML MDV SQ SCH ×2 (06:44→16:31)
[2017-05-23] MEDS: INSULIN SLIDING SCALE (NOVOLOG) 1 VIAL SQ SCH ×4 (06:45→21:29)
[2017-05-23 07:56] LABS: HEMATOCRIT 24.6 % (32.4-45.2); HEMOGLOBIN 8.3 GM/dL (10.7-15.3); MCH 33.4 pg (25.7-33.7); MCHC 33.7 g/dl (32.0-36.0); MEAN PLT VOLUME 11.2 fl (7.5-11.1); PLATELET COUNT 126 K/MM3 (134-434); RBC 2.48 M/mm3 (3.60-5.2); RDW 14.1 % (11.6-15.6); WHITE BLOOD COUNT 3.2 K/mm3 (4.0-10.0)
[2017-05-23 08:08] LABS: ALBUMIN 3.1 g/dl (3.4-5.0); ANION GAP 14 (8-16); CALCIUM 8.1 mg/dL (8.5-10.1); CHLORIDE 99 mmol/L (98-107); CO2 26 mmol/L (21-32); CREATININE 2.1 mg/dL (0.55-1.02); GLUCOSE,RANDOM 230 mg/dL (74-106); MAGNESIUM 2.5 mg/dL (1.8-2.4); POTASSIUM 3.4 mmol/L (3.5-5.1); SGOT/AST 16 U/L (15-37); SGPT/ALT 20 U/L (12-78); SODIUM 139 mmol/L (136-145)
[2017-05-23 08:09] LABS: ALK PHOS 76 U/L (45-117); BILIRUBIN,TOTAL 0.3 mg/dL (0.2-1.0); TOT PROT 5.5 g/dl (6.4-8.2)
[2017-05-23 08:14] LABS: BLOOD UREA NITROGEN 133 mg/dL (7-18)
--- NOTE | 2017-05-23 08:52 | PN ---
Progress Note, Physician - Current Medication List Current Medications: Active Medications Acetaminophen (Tylenol -) 650 mg PO Q4H PRN PRN Reason: FEVER >100F Last Admin: 05/15/17 18:52 Dose: 650 mg Allopurinol (Zyloprim -) 300 mg PO DAILY [facility] Last Admin: 05/22/17 09:31 Dose: 300 mg Aspirin (Asa -) 81 mg PO DAILY [facility] Last Admin: 05/22/17 09:31 Dose: 81 mg Docusate Sodium (Colace -) 100 mg PO BID [facility] Last Admin: 05/22/17 21:13 Dose: 100 mg Donepezil HCl (Aricept -) 10 mg PO HS [facility] Last Admin: 05/22/17 21:13 Dose: 10 mg Ferrous Sulfate (Feosol -) 325 mg PO DAILY [facility] Last Admin: 05/22/17 09:32 Dose: 325 mg Heparin Sodium (Porcine) (Heparin -) 5,000 unit SQ BID [facility] Last Admin: 05/22/17 21:13 Dose: 5,000 unit Hydralazine HCl (Apresoline -) 100 mg PO TID [facility] Last Admin: 05/23/17 06:40 Dose: 100 mg CEFTRIAXONE 1 G/50 ML PREMIX (Ceftriaxone 1 Gm-D5w Bag) 50 mls @ 100 mls/hr IVPB DAILY [facility] Last Admin: 05/22/17 09:33 Dose: 100 mls/hr Insulin Aspart (Novolog Mix 70/30 Vial) 10 units SQ BIDAC [facility] Last Admin: 05/23/17 06:44 Dose: 10 units Insulin Aspart (Novolog Vial Sliding Scale -) 1 vial SQ ACHS [facility] PRN Reason: Protocol Last Admin: 05/23/17 06:45 Dose: 4 units Isosorbide Mononitrate (Imdur -) 60 mg PO DAILY [facility] Last Admin: 05/22/17 09:32 Dose: 60 mg Memantine (Namenda -) 5 mg PO DAILY [facility] Last Admin: 05/22/17 09:32 Dose: 5 mg Nifedipine (Procardia Xl -) 30 mg PO DAILY [facility] Last Admin: 05/22/17 09:32 Dose: 30 mg Polyethylene Glycol (Miralax (For Daily Use) -) 17 gm PO HS PRN PRN Reason: CONSTIPATION Last Admin: 05/21/17 22:40 Dose: 17 gm Potassium Chloride (K-Dur -) 10 meq PO ONCE ONE Stop: 05/23/17 09:31 Prednisone (Deltasone -) 30 mg PO DAILY [facility] Stop: 05/23/17 10:01 Propylthiouracil (Ptu -) 50 mg PO DAILY [facility] Last Admin: 05/22/17 09:32 Dose: 50 mg Ranitidine HCl (Zantac -) 150 mg PO DAILY [facility] Last Admin: 05/22/17 09:32 Dose: 150 mg Sertraline HCl (Zoloft -) 100 mg PO DAILY [facility] Last Admin: 05/22/17 09:31 Dose: 100 mg Torsemide (Demadex -) 80 mg PO DAILY [facility] - Objective Vital Signs: Vital Signs Temperature 97.9 F 05/23/17 05:47 Pulse Rate 85 05/23/17 05:47 Respiratory Rate 19 05/23/17 05:47 Blood Pressure 140/69 05/23/17 05:47 O2 Sat by Pulse Oximetry (%) 97 05/22/17 22:00 Labs: CBC, BMP 05/23/17 06:20 05/23/17 06:20
[2017-05-23] MEDS ORDERED: EPOETIN ALFA 10,000 UNIT/1 ML VIAL SQ ONE (09:30)
[2017-05-23] MEDS ORDERED: POTASSIUM CHLORIDE TABS 10 MEQ TABLET.ER (FP) PO ONE (09:30)
[2017-05-23 09:55] LABS: ANISOCYTOSIS 1+; PLATELET ESTIMATE DECREASED; TEAR DROP CELLS 1+
[2017-05-23] MEDS ORDERED: predniSONE 10 MG TABLET (UD) PO SCH (10:00)
[2017-05-23] MEDS ORDERED: PT OWN MED DRAWER 7, Y5N ONE (10:43)
[2017-05-23] MEDS: ISOSORBIDE MONONITRATE 60 MG TAB.SR.24H (FP) PO SCH (10:51)
[2017-05-23] MEDS: CEFTRIAXONE 1 G/50 ML PREMIX 50 ML IVPB SCH (10:51)
[2017-05-23] MEDS: TORSEMIDE 20 MG TABLET (FP) PO SCH (10:51)
[2017-05-23] MEDS: ASPIRIN 81 MG CHEWABLE TABLETS PO SCH (10:52)
[2017-05-23] MEDS: NIFEdipine E.R. 30 MG TABLET (FP) PO SCH (10:52)
[2017-05-23] MEDS: FERROUS SO4 325 MG TABLET (FP) PO SCH (10:52)
[2017-05-23] MEDS: PROPYLTHIOURACIL 50 MG TABLET (UD) PO SCH (10:52)
[2017-05-23] MEDS: MEMANTINE HCL 5 MG TABLET (UD) PO SCH (10:52)
[2017-05-23] MEDS: HEPARIN NA (PORCINE) 5,000 UNITS/ML 1ML VIAL SQ SCH ×2 (10:52→21:30)
[2017-05-23] MEDS: RANITIDINE HCL 150 MG TABLET (FP) PO SCH (10:52)
[2017-05-23] MEDS: DOCUSATE SODIUM 100 MG CAPSULE (FP) PO SCH ×2 (10:52→21:30)
[2017-05-23] MEDS: ALLOPURINOL 300 MG TABLET (FP) PO SCH (10:52)
[2017-05-23] MEDS: SERTRALINE HCL 50 MG TABLET (FP) PO SCH (10:52)
--- NOTE | 2017-05-23 14:08 | PN ---
Progress Note (short form) - Note Progress Note: PULMONARY States breathing is improving. +nonproductive cough. No fevers or chills. Last Vital Signs Temp Pulse Resp BP Pulse Ox 97.9 F 85 19 140/69 100 05/23/17 05:47 05/23/17 05:47 05/23/17 05:47 05/23/17 05:47 05/23/17 11:41 Gen: NAD at rest Heart: RRR Lung: scattered rhonchi, wheezes Abd: soft, nontender Ext: no edema CBC, BMP 05/23/17 06:20 05/23/17 06:20 Active Medications Acetaminophen (Tylenol -) 650 mg PO Q4H PRN PRN Reason: FEVER >100F Last Admin: 05/15/17 18:52 Dose: 650 mg Allopurinol (Zyloprim -) 300 mg PO DAILY [facility] Last Admin: 05/23/17 10:52 Dose: 300 mg Aspirin (Asa -) 81 mg PO DAILY [facility] Last Admin: 05/23/17 10:52 Dose: 81 mg Docusate Sodium (Colace -) 100 mg PO BID [facility] Last Admin: 05/23/17 10:52 Dose: 100 mg Donepezil HCl (Aricept -) 10 mg PO HS [facility] Last Admin: 05/22/17 21:13 Dose: 10 mg Ferrous Sulfate (Feosol -) 325 mg PO DAILY [facility] Last Admin: 05/23/17 10:52 Dose: 325 mg Heparin Sodium (Porcine) (Heparin -) 5,000 unit SQ BID [facility] Last Admin: 05/23/17 10:52 Dose: 5,000 unit Hydralazine HCl (Apresoline -) 100 mg PO TID [facility] Last Admin: 05/23/17 06:40 Dose: 100 mg CEFTRIAXONE 1 G/50 ML PREMIX (Ceftriaxone 1 Gm-D5w Bag) 50 mls @ 100 mls/hr IVPB DAILY [facility] Last Admin: 05/23/17 10:51 Dose: 100 mls/hr Insulin Aspart (Novolog Mix 70/30 Vial) 10 units SQ BIDAC [facility] Last Admin: 05/23/17 06:44 Dose: 10 units Insulin Aspart (Novolog Vial Sliding Scale -) 1 vial SQ ACHS [facility] PRN Reason: Protocol Last Admin: 05/23/17 12:09 Dose: 2 units Isosorbide Mononitrate (Imdur -) 60 mg PO DAILY [facility] Last Admin: 05/23/17 10:51 Dose: 60 mg Memantine (Namenda -) 5 mg PO DAILY [facility] Last Admin: 05/23/17 10:52 Dose: 5 mg Nifedipine (Procardia Xl -) 30 mg PO DAILY [facility] Last Admin: 05/23/17 10:52 Dose: 30 mg Polyethylene Glycol (Miralax (For Daily Use) -) 17 gm PO HS PRN PRN Reason: CONSTIPATION Last Admin: 05/21/17 22:40 Dose: 17 gm Propylthiouracil (Ptu -) 50 mg PO DAILY [facility] Last Admin: 05/23/17 10:52 Dose: 50 mg Ranitidine HCl (Zantac -) 150 mg PO DAILY [facility] Last Admin: 05/23/17 10:52 Dose: 150 mg Sertraline HCl (Zoloft -) 100 mg PO DAILY [facility] Last Admin: 05/23/17 10:52 Dose: 100 mg Torsemide (Demadex -) 80 mg PO DAILY [facility] Last Admin: 05/23/17 10:51 Dose: 80 mg A/P Pneumonia LV Diastolic Dysfunction CKD +Troponins likely Demand Ischemia HTN DM Anemia - continue antibiotics - continue demadex - monitor urine output, creatinine - inhaled bronchodilators, will start nebulizers - monitor off steroids - DVT prophylaxis
[2017-05-23] MEDS ORDERED: ALBUTEROL SO4 0.083% IH SOL 2.5 MG/3 ML VIAL.NEB. NEB PRN (14:10)
--- NOTE | 2017-05-23 19:01 | PN ---
Progress Note (short form) - Note Progress Note: covering dr mendez Problems 1. CKD 2. cough 3. CHF 4. bradycardia 5. dementia 6. HTN 7. DM 8. anemia Current Medications Acetaminophen (Tylenol -) 650 mg PO Q4H PRN PRN Reason: FEVER >100F Last Admin: 05/15/17 18:52 Dose: 650 mg Albuterol Sulfate (Ventolin 0.083% Nebulizer Soln -) 1 amp NEB Q4H PRN PRN Reason: SHORT OF BREATH/WHEEZING Albuterol/Ipratropium (Duoneb -) 1 amp NEB RTID [facility] Allopurinol (Zyloprim -) 300 mg PO DAILY [facility] Last Admin: 05/23/17 10:52 Dose: 300 mg Aspirin (Asa -) 81 mg PO DAILY [facility] Last Admin: 05/23/17 10:52 Dose: 81 mg Docusate Sodium (Colace -) 100 mg PO BID [facility] Last Admin: 05/23/17 10:52 Dose: 100 mg Donepezil HCl (Aricept -) 10 mg PO HS [facility] Last Admin: 05/22/17 21:13 Dose: 10 mg Ferrous Sulfate (Feosol -) 325 mg PO DAILY [facility] Last Admin: 05/23/17 10:52 Dose: 325 mg Heparin Sodium (Porcine) (Heparin -) 5,000 unit SQ BID [facility] Last Admin: 05/23/17 10:52 Dose: 5,000 unit Hydralazine HCl (Apresoline -) 100 mg PO TID [facility] Last Admin: 05/23/17 15:16 Dose: 100 mg CEFTRIAXONE 1 G/50 ML PREMIX (Ceftriaxone 1 Gm-D5w Bag) 50 mls @ 100 mls/hr IVPB DAILY [facility] Last Admin: 05/23/17 10:51 Dose: 100 mls/hr Insulin Aspart (Novolog Mix 70/30 Vial) 10 units SQ BIDAC [facility] Last Admin: 05/23/17 16:31 Dose: 10 units Insulin Aspart (Novolog Vial Sliding Scale -) 1 vial SQ ACHS [facility] PRN Reason: Protocol Last Admin: 05/23/17 16:30 Dose: 4 units Isosorbide Mononitrate (Imdur -) 60 mg PO DAILY [facility] Last Admin: 05/23/17 10:51 Dose: 60 mg Memantine (Namenda -) 5 mg PO DAILY [facility] Last Admin: 05/23/17 10:52 Dose: 5 mg Nifedipine (Procardia Xl -) 30 mg PO DAILY [facility] Last Admin: 05/23/17 10:52 Dose: 30 mg Polyethylene Glycol (Miralax (For Daily Use) -) 17 gm PO HS PRN PRN Reason: CONSTIPATION Last Admin: 05/21/17 22:40 Dose: 17 gm Propylthiouracil (Ptu -) 50 mg PO DAILY [facility] Last Admin: 05/23/17 10:52 Dose: 50 mg Ranitidine HCl (Zantac -) 150 mg PO DAILY [facility] Last Admin: 05/23/17 10:52 Dose: 150 mg Sertraline HCl (Zoloft -) 100 mg PO DAILY [facility] Last Admin: 05/23/17 10:52 Dose: 100 mg Torsemide (Demadex -) 80 mg PO DAILY [facility] Last Admin: 05/23/17 10:51 Dose: 80 mg Last Vital Signs Temp Pulse Resp BP Pulse Ox 97.7 F 80 20 145/65 100 05/23/17 14:24 05/23/17 14:24 05/23/17 09:00 05/23/17 14:24 05/23/17 11:41 CBC, BMP 05/23/17 06:20 05/23/17 06:20 IMP- CKD stable renal function
[2017-05-23] MEDS: ALBUTEROL SO4 2.5/IPRATROPIUM 0.5 INH SOL 3 ML VIAL.NEB. NEB SCH (20:35)
[2017-05-23] MEDS ORDERED: INSULIN (NOVOLOG) ASPART 100 UNITS/ML 10ML VIAL ONE (21:10)
[2017-05-23] MEDS: DONEPEZIL HCL 10 MG TABLET (FP) PO SCH (21:30)
[2017-05-24] MEDS: INSULIN (NOVOLOG MIX 70/30) 100 UNITS/ML MDV SQ SCH ×2 (06:48→16:25)
[2017-05-24] MEDS: INSULIN SLIDING SCALE (NOVOLOG) 1 VIAL SQ SCH ×4 (06:48→21:20)
[2017-05-24] MEDS: hydrALAZINE HCL 50 MG TABLET (FP) PO SCH ×3 (06:48→21:19)
[2017-05-24 08:19] LABS: HEMATOCRIT 25.2 % (32.4-45.2); HEMOGLOBIN 8.5 GM/dL (10.7-15.3); MCH 33.3 pg (25.7-33.7); MCHC 33.6 g/dl (32.0-36.0); MEAN CELL VOLUME 99.2 fl (80-96); MEAN PLT VOLUME 11.2 fl (7.5-11.1); PLATELET COUNT 135 K/MM3 (134-434); RBC 2.54 M/mm3 (3.60-5.2); RDW 14.4 % (11.6-15.6); WHITE BLOOD COUNT 4.3 K/mm3 (4.0-10.0)
[2017-05-24 08:26] LABS: ANION GAP 11 (8-16); CALCIUM 7.8 mg/dL (8.5-10.1); CHLORIDE 100 mmol/L (98-107); CO2 29 mmol/L (21-32); CREATININE 2.3 mg/dL (0.55-1.02); GLUCOSE,RANDOM 207 mg/dL (74-106); POTASSIUM 3.4 mmol/L (3.5-5.1); SODIUM 140 mmol/L (136-145)
[2017-05-24] MEDS: ALBUTEROL SO4 2.5/IPRATROPIUM 0.5 INH SOL 3 ML VIAL.NEB. NEB SCH ×3 (08:30→20:30)
[2017-05-24 09:13] LABS: BLOOD UREA NITROGEN 133 mg/dL (7-18)
[2017-05-24] MEDS: ASPIRIN 81 MG CHEWABLE TABLETS PO SCH (10:20)
[2017-05-24] MEDS: NIFEdipine E.R. 30 MG TABLET (FP) PO SCH (10:20)
[2017-05-24] MEDS: ISOSORBIDE MONONITRATE 60 MG TAB.SR.24H (FP) PO SCH (10:20)
[2017-05-24] MEDS: MEMANTINE HCL 5 MG TABLET (UD) PO SCH (10:20)
[2017-05-24] MEDS: RANITIDINE HCL 150 MG TABLET (FP) PO SCH (10:20)
[2017-05-24] MEDS: FERROUS SO4 325 MG TABLET (FP) PO SCH (10:20)
[2017-05-24] MEDS: DOCUSATE SODIUM 100 MG CAPSULE (FP) PO SCH ×2 (10:20→21:20)
[2017-05-24] MEDS: SERTRALINE HCL 50 MG TABLET (FP) PO SCH (10:20)
[2017-05-24] MEDS: HEPARIN NA (PORCINE) 5,000 UNITS/ML 1ML VIAL SQ SCH ×2 (10:21→21:19)
[2017-05-24] MEDS: PROPYLTHIOURACIL 50 MG TABLET (UD) PO SCH (10:21)
[2017-05-24] MEDS: ALLOPURINOL 300 MG TABLET (FP) PO SCH (10:21)
[2017-05-24 10:31] LABS: PLATELET ESTIMATE DECREASED
--- NOTE | 2017-05-24 11:43 | CONSULT ---
Consult Consult Specialty:: Hematology Reason for Consultation:: 'Pancytopenia' - History of Present Illness Chief Complaint: [place] admitted about 1 week prior with SOB/cough, being treated as COPD exacerbation, noted to have mild macrocytic anemia ( stable during admission), mild thrombocytopenia (improved during admission), mild leukopenia, with concern about differential reporting 12% monocytes on one occasion. History of Present Illness: As above. Patient with baseline dementia - unable to provide history. 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: Yes: Alzheimer's Cardio/Vascular: Yes: CHF, HTN Pulmonary: Yes: COPD Renal/: Yes: Renal Failure, Renal Calculi, UTI Infectious Disease: No: AIDS Psych: No: Addictions Rheumatology: No: Sarcoidosis ENT: Yes: Other (perforate nasal septum) Endocrine: Yes: Diabetes Mellitus - Past Surgical History Past Surgical History: Yes: Appendectomy, Arthrosocopy, Permanent Pacemaker - Alcohol/Substance Use Hx Alcohol Use: No History of Substance Use: reports: None - Smoking History Smoking history: Unknown if ever smoked Have you smoked in the past 12 months: No Aproximately how many cigarettes per day: 0 - Social History Usual Living Arrangement: [facility] ADL: Independent History of Recent Travel: No Home Medications - Allergies Allergies/Adverse Reactions: Allergies Allergy/AdvReac Type Severity Reaction Status Date / Time No Known Allergies Allergy Verified 02/06/16 20:45 - Home Medications Home Medications: Ambulatory Orders Allopurinol [Zyloprim -] 300 mg PO DAILY 04/08/13 Ferrous Sulfate 325 mg PO DAILY 04/08/13 Isosorbide Mononitrate [Imdur] 60 mg PO DAILY 04/08/13 Pantoprazole Sodium [Protonix] 40 mg PO Q2D 04/08/13 Propylthiouracil 50 mg PO DAILY 04/08/13 Sertraline HCl [Zoloft -] 100 mg PO DAILY 04/08/13 Aspirin [ASA -] 81 mg PO DAILY 12/13/15 Docusate Sodium [Colace -] 100 mg PO BID 12/13/15 Donepezil HCl [Aricept -] 10 mg PO DAILY 12/13/15 Memantine HCl [Namenda -] 5 mg PO DAILY 12/13/15 hydrALAZINE HCL [Apresoline -] 100 mg PO TID #90 tablet 12/23/15 Insulin (Novolog 70/30) [Novolog Mix 70/30 Vial -] 10 units SQ BID 01/21/16 Lidocaine 5% Patch [Lidoderm -] 4 patch TD DAILY 01/16/17 Heparin - 5,000 unit SQ BID vial 01/18/17 Nifedipine ER [Procardia XL -] 30 mg PO DAILY #30 tab 01/18/17 Mupirocin Ointment [Bactroban 2% Ointment -] 1 applic TP BID applic 01/24/17 Oxymetazoline 0.05% Nasal Soln [Afrin -] 1 spray NS Q8H PRN #0 spray 01/24/17 Polyethylene Glycol 3350 [Miralax 119 gm Btl -] 17 gm PO HS PRN #30 bottle 01/24 Torsemide [Demadex -] 80 mg PO DAILY 05/14/17 Review of Systems Findings/Remarks: Dementia Physical Exam Vital Signs: Vital Signs Temperature 98.5 F 05/24/17 10:28 Pulse Rate 83 05/24/17 10:28 Respiratory Rate 18 05/24/17 10:28 Blood Pressure 144/59 05/24/17 10:28 O2 Sat by Pulse Oximetry (%) 100 05/24/17 09:43 Constitutional: Yes: No Distress, Calm Eyes: Yes: Conjunctiva Clear. No: Sclera Icterus HENT: Yes: Normocephalic Neck: Yes: Trachea Midline. No: Lymphadenopathy Cardiovascular: Yes: Regular Rate and Rhythm, S1, S2. No: Gallop, Murmur Respiratory: Yes: Regular, CTA Bilaterally. No: Rales, Rhonchi Gastrointestinal: Yes: Normal Bowel Sounds. No: Distention, Hepatomegaly, Palpable Mass, Splenomegaly Edema: No Neurological: Yes: Alert. No: Oriented, Facial Droop Psychiatric: Yes: Alert. No: Oriented Labs: CBC, BMP 05/24/17 06:35 05/24/17 06:35 Assessment/Plan Baseline macrocytic anemia, mild thrombocytopenia, borderline leukopenia with monocytosis, in an elderly NH resident with multiple comorbidities (COPD, CKD - baseline creat 2, arrythmias, Alzheimers dementia). Review of CBC's reveals above findings are generally chronic, with possibly slow progression over years. Noted that hematinics are normal (B12, folate, Ferritin) Platelet counts noted to wax and wane, with recent florentin likely attributable to acute illness, now improved. Unclear significance of persistent monocytosis, noted as far back as 2012. May be artefactual - possibly inaccurate cell identification on machine diff. Will need to review peripheral smear - possibly atypical lymphocytes, other? High index of suspicion for an underlying myelodysplastic syndrome, but in light of patient's performance status would not think that extensive workup - ( that is with bone marrow biopsy) is appropriate. Not unreasonable to rule out plasma cell dyscrasia - check SPEP, free LCs. Stop oral iron. Otherwise, in light of absence of severity of her cytopenias, and her performance status, presently no intervention is warranted. Observation appropriate. Will comment on review of peripheral smear, and monocytosis if present, in addendum to follow.
--- NOTE | 2017-05-24 12:18 | PN ---
Progress Note (short form) - Note Progress Note: PULMONARY Feels better today. +nonproductive cough. No fevers or chills. Last Vital Signs Temp Pulse Resp BP Pulse Ox 98.5 F 83 18 144/59 100 05/24/17 10:28 05/24/17 10:28 05/24/17 10:28 05/24/17 10:28 05/24/17 09:43 Gen: NAD at rest Heart: RRR Lung: scattered rhonchi, wheezes Abd: soft, nontender Ext: no edema CBC, BMP 05/24/17 06:35 05/24/17 06:35 Active Medications Acetaminophen (Tylenol -) 650 mg PO Q4H PRN PRN Reason: FEVER >100F Last Admin: 05/15/17 18:52 Dose: 650 mg Albuterol Sulfate (Ventolin 0.083% Nebulizer Soln -) 1 amp NEB Q4H PRN PRN Reason: SHORT OF BREATH/WHEEZING Albuterol/Ipratropium (Duoneb -) 1 amp NEB RTID [facility] Last Admin: 05/24/17 08:30 Dose: 1 amp Allopurinol (Zyloprim -) 300 mg PO DAILY [facility] Last Admin: 05/24/17 10:21 Dose: 300 mg Aspirin (Asa -) 81 mg PO DAILY [facility] Last Admin: 05/24/17 10:20 Dose: 81 mg Docusate Sodium (Colace -) 100 mg PO BID [facility] Last Admin: 05/24/17 10:20 Dose: 100 mg Donepezil HCl (Aricept -) 10 mg PO HS [facility] Last Admin: 05/23/17 21:30 Dose: 10 mg Ferrous Sulfate (Feosol -) 325 mg PO DAILY [facility] Last Admin: 05/24/17 10:20 Dose: 325 mg Heparin Sodium (Porcine) (Heparin -) 5,000 unit SQ BID [facility] Last Admin: 05/24/17 10:21 Dose: 5,000 unit Hydralazine HCl (Apresoline -) 100 mg PO TID [facility] Last Admin: 05/24/17 06:48 Dose: 100 mg Insulin Aspart (Novolog Mix 70/30 Vial) 10 units SQ BIDAC [facility] Last Admin: 05/24/17 06:48 Dose: 10 units Insulin Aspart (Novolog Vial Sliding Scale -) 1 vial SQ ACHS [facility] PRN Reason: Protocol Last Admin: 05/24/17 11:51 Dose: 2 units Isosorbide Mononitrate (Imdur -) 60 mg PO DAILY [facility] Last Admin: 05/24/17 10:20 Dose: 60 mg Memantine (Namenda -) 5 mg PO DAILY [facility] Last Admin: 05/24/17 10:20 Dose: 5 mg Nifedipine (Procardia Xl -) 30 mg PO DAILY [facility] Last Admin: 05/24/17 10:20 Dose: 30 mg Polyethylene Glycol (Miralax (For Daily Use) -) 17 gm PO PRN PRN Reason: CONSTIPATION Last Admin: 05/21/17 22:40 Dose: 17 gm Propylthiouracil (Ptu -) 50 mg PO DAILY [facility] Last Admin: 05/24/17 10:21 Dose: 50 mg Ranitidine HCl (Zantac -) 150 mg PO DAILY [facility] Last Admin: 05/24/17 10:20 Dose: 150 mg Sertraline HCl (Zoloft -) 100 mg PO DAILY [facility] Last Admin: 05/24/17 10:20 Dose: 100 mg Torsemide (Demadex -) 80 mg PO DAILY [facility] Last Admin: 05/23/17 10:51 Dose: 80 mg A/P Pneumonia LV Diastolic Dysfunction CKD +Troponins likely Demand Ischemia HTN DM Anemia - continue antibiotics - continue demadex - monitor urine output, creatinine - inhaled bronchodilators - monitor off steroids - DVT prophylaxis
[2017-05-24] MEDS: TORSEMIDE 20 MG TABLET (FP) PO SCH (13:31)
--- NOTE | 2017-05-24 15:26 | PN ---
Progress Note, Physician - Current Medication List Current Medications: Active Medications Acetaminophen (Tylenol -) 650 mg PO Q4H PRN PRN Reason: FEVER >100F Last Admin: 05/15/17 18:52 Dose: 650 mg Albuterol Sulfate (Ventolin 0.083% Nebulizer Soln -) 1 amp NEB Q4H PRN PRN Reason: SHORT OF BREATH/WHEEZING Albuterol/Ipratropium (Duoneb -) 1 amp NEB RTID [facility] Last Admin: 05/24/17 14:37 Dose: 1 amp Allopurinol (Zyloprim -) 300 mg PO DAILY [facility] Last Admin: 05/24/17 10:21 Dose: 300 mg Aspirin (Asa -) 81 mg PO DAILY [facility] Last Admin: 05/24/17 10:20 Dose: 81 mg Docusate Sodium (Colace -) 100 mg PO BID [facility] Last Admin: 05/24/17 10:20 Dose: 100 mg Donepezil HCl (Aricept -) 10 mg PO HS [facility] Last Admin: 05/23/17 21:30 Dose: 10 mg Ferrous Sulfate (Feosol -) 325 mg PO DAILY [facility] Last Admin: 05/24/17 10:20 Dose: 325 mg Heparin Sodium (Porcine) (Heparin -) 5,000 unit SQ BID [facility] Last Admin: 05/24/17 10:21 Dose: 5,000 unit Hydralazine HCl (Apresoline -) 100 mg PO TID [facility] Last Admin: 05/24/17 13:32 Dose: 100 mg Insulin Aspart (Novolog Mix 70/30 Vial) 10 units SQ BIDAC [facility] Last Admin: 05/24/17 06:48 Dose: 10 units Insulin Aspart (Novolog Vial Sliding Scale -) 1 vial SQ ACHS [facility] PRN Reason: Protocol Last Admin: 05/24/17 11:51 Dose: 2 units Isosorbide Mononitrate (Imdur -) 60 mg PO DAILY [facility] Last Admin: 05/24/17 10:20 Dose: 60 mg Memantine (Namenda -) 5 mg PO DAILY [facility] Last Admin: 05/24/17 10:20 Dose: 5 mg Nifedipine (Procardia Xl -) 30 mg PO DAILY [facility] Last Admin: 05/24/17 10:20 Dose: 30 mg Polyethylene Glycol (Miralax (For Daily Use) -) 17 gm PO HS PRN PRN Reason: CONSTIPATION Last Admin: 05/21/17 22:40 Dose: 17 gm Propylthiouracil (Ptu -) 50 mg PO DAILY [facility] Last Admin: 05/24/17 10:21 Dose: 50 mg Ranitidine HCl (Zantac -) 150 mg PO DAILY [facility] Last Admin: 05/24/17 10:20 Dose: 150 mg Sertraline HCl (Zoloft -) 100 mg PO DAILY [facility] Last Admin: 05/24/17 10:20 Dose: 100 mg Torsemide (Demadex -) 80 mg PO DAILY [facility] Last Admin: 05/24/17 13:31 Dose: 80 mg - Objective Vital Signs: Vital Signs Temperature 98.0 F 05/24/17 14:10 Pulse Rate 81 05/24/17 14:10 Respiratory Rate 18 05/24/17 10:28 Blood Pressure 145/64 05/24/17 14:10 O2 Sat by Pulse Oximetry (%) 100 05/24/17 09:43 Labs: CBC, BMP 05/24/17 06:35 05/24/17 06:35
[2017-05-24] MEDS ORDERED: POTASSIUM CHLORIDE TABS 10 MEQ TABLET.ER (FP) PO SCH (15:30)
--- NOTE | 2017-05-24 18:34 | PN ---
Progress Note (short form) - Note Progress Note: covering dr mendez Problems 1. CKD 2. cough 3. CHF 4. bradycardia 5. dementia 6. HTN 7. DM 8. anemia Current Medications Acetaminophen (Tylenol -) 650 mg PO Q4H PRN PRN Reason: FEVER >100F Last Admin: 05/15/17 18:52 Dose: 650 mg Albuterol Sulfate (Ventolin 0.083% Nebulizer Soln -) 1 amp NEB Q4H PRN PRN Reason: SHORT OF BREATH/WHEEZING Albuterol/Ipratropium (Duoneb -) 1 amp NEB RTID [facility] Last Admin: 05/24/17 14:37 Dose: 1 amp Allopurinol (Zyloprim -) 300 mg PO DAILY [facility] Last Admin: 05/24/17 10:21 Dose: 300 mg Aspirin (Asa -) 81 mg PO DAILY [facility] Last Admin: 05/24/17 10:20 Dose: 81 mg Docusate Sodium (Colace -) 100 mg PO BID [facility] Last Admin: 05/24/17 10:20 Dose: 100 mg Donepezil HCl (Aricept -) 10 mg PO HS [facility] Last Admin: 05/23/17 21:30 Dose: 10 mg Ferrous Sulfate (Feosol -) 325 mg PO DAILY [facility] Last Admin: 05/24/17 10:20 Dose: 325 mg Heparin Sodium (Porcine) (Heparin -) 5,000 unit SQ BID [facility] Last Admin: 05/24/17 10:21 Dose: 5,000 unit Hydralazine HCl (Apresoline -) 100 mg PO TID [facility] Last Admin: 05/24/17 13:32 Dose: 100 mg Insulin Aspart (Novolog Mix 70/30 Vial) 10 units SQ BIDAC [facility] Last Admin: 05/24/17 16:25 Dose: 10 units Insulin Aspart (Novolog Vial Sliding Scale -) 1 vial SQ ACHS [facility] PRN Reason: Protocol Last Admin: 05/24/17 16:24 Dose: 4 units Isosorbide Mononitrate (Imdur -) 60 mg PO DAILY [facility] Last Admin: 05/24/17 10:20 Dose: 60 mg Memantine (Namenda -) 5 mg PO DAILY [facility] Last Admin: 05/24/17 10:20 Dose: 5 mg Nifedipine (Procardia Xl -) 30 mg PO DAILY [facility] Last Admin: 05/24/17 10:20 Dose: 30 mg Polyethylene Glycol (Miralax (For Daily Use) -) 17 gm PO HS PRN PRN Reason: CONSTIPATION Last Admin: 05/21/17 22:40 Dose: 17 gm Potassium Chloride (K-Dur -) 10 meq PO DAILY [facility] Last Admin: 05/24/17 16:24 Dose: 10 meq Propylthiouracil (Ptu -) 50 mg PO DAILY [facility] Last Admin: 05/24/17 10:21 Dose: 50 mg Ranitidine HCl (Zantac -) 150 mg PO DAILY [facility] Last Admin: 05/24/17 10:20 Dose: 150 mg Sertraline HCl (Zoloft -) 100 mg PO DAILY [facility] Last Admin: 05/24/17 10:20 Dose: 100 mg Torsemide (Demadex -) 80 mg PO DAILY [facility] Last Admin: 05/24/17 13:31 Dose: 80 mg Last Vital Signs Temp Pulse Resp BP Pulse Ox 98.0 F 81 18 145/64 100 05/24/17 14:10 05/24/17 14:10 05/24/17 10:28 05/24/17 14:10 05/24/17 09:43 alert in nad in w/c lungs clear heart reg abd soft ext no edema CBC, BMP 05/24/17 06:35 05/24/17 06:35 IMP- CKD stable renal function hypokalemia 2/2 diuretic tx Plan- continue same rx replace kcl- increase daily dose to 20mEq
[2017-05-24] MEDS ORDERED: INSULIN (NOVOLOG) ASPART 100 UNITS/ML 10ML VIAL ONE (21:18)
[2017-05-24] MEDS: DONEPEZIL HCL 10 MG TABLET (FP) PO SCH (21:20)
[2017-05-25] MEDS: INSULIN SLIDING SCALE (NOVOLOG) 1 VIAL SQ SCH ×4 (06:48→21:17)
[2017-05-25] MEDS: hydrALAZINE HCL 50 MG TABLET (FP) PO SCH ×3 (06:49→21:16)
[2017-05-25] MEDS: INSULIN (NOVOLOG MIX 70/30) 100 UNITS/ML MDV SQ SCH ×2 (06:49→16:40)
[2017-05-25] MEDS: ALBUTEROL SO4 2.5/IPRATROPIUM 0.5 INH SOL 3 ML VIAL.NEB. NEB SCH ×3 (07:38→20:04)
[2017-05-25 09:06] LABS: HEMOGLOBIN 7.3 GM/dL (10.7-15.3); MCH 33.1 pg (25.7-33.7); MCHC 33.4 g/dl (32.0-36.0); MEAN PLT VOLUME 10.5 fl (7.5-11.1); PLATELET COUNT 135 K/MM3 (134-434); RBC 2.22 M/mm3 (3.60-5.2); RDW 14.4 % (11.6-15.6); WHITE BLOOD COUNT 5.5 K/mm3 (4.0-10.0)
[2017-05-25 09:34] LABS: ANION GAP 11 (8-16); CALCIUM 8.1 mg/dL (8.5-10.1); CHLORIDE 100 mmol/L (98-107); CO2 29 mmol/L (21-32); CREATININE 2.3 mg/dL (0.55-1.02); GLUCOSE,RANDOM 93 mg/dL (74-106); POTASSIUM 3.6 mmol/L (3.5-5.1); SODIUM 140 mmol/L (136-145)
--- NOTE | 2017-05-25 09:44 | PN ---
Progress Note, Physician - Current Medication List Current Medications: Active Medications Acetaminophen (Tylenol -) 650 mg PO Q4H PRN PRN Reason: FEVER >100F Last Admin: 05/15/17 18:52 Dose: 650 mg Albuterol Sulfate (Ventolin 0.083% Nebulizer Soln -) 1 amp NEB Q4H PRN PRN Reason: SHORT OF BREATH/WHEEZING Albuterol/Ipratropium (Duoneb -) 1 amp NEB RTID [facility] Last Admin: 05/25/17 07:38 Dose: 1 amp Allopurinol (Zyloprim -) 300 mg PO DAILY [facility] Last Admin: 05/24/17 10:21 Dose: 300 mg Aspirin (Asa -) 81 mg PO DAILY [facility] Last Admin: 05/24/17 10:20 Dose: 81 mg Docusate Sodium (Colace -) 100 mg PO BID [facility] Last Admin: 05/24/17 21:20 Dose: 100 mg Donepezil HCl (Aricept -) 10 mg PO HS [facility] Last Admin: 05/24/17 21:20 Dose: 10 mg Ferrous Sulfate (Feosol -) 325 mg PO DAILY [facility] Last Admin: 05/24/17 10:20 Dose: 325 mg Heparin Sodium (Porcine) (Heparin -) 5,000 unit SQ BID [facility] Last Admin: 05/24/17 21:19 Dose: 5,000 unit Hydralazine HCl (Apresoline -) 100 mg PO TID [facility] Last Admin: 05/25/17 06:49 Dose: 100 mg Insulin Aspart (Novolog Mix 70/30 Vial) 10 units SQ BIDAC [facility] Last Admin: 05/25/17 06:49 Dose: 10 units Insulin Aspart (Novolog Vial Sliding Scale -) 1 vial SQ ACHS [facility] PRN Reason: Protocol Last Admin: 05/25/17 06:48 Dose: Not Given Isosorbide Mononitrate (Imdur -) 60 mg PO DAILY [facility] Last Admin: 05/24/17 10:20 Dose: 60 mg Memantine (Namenda -) 5 mg PO DAILY [facility] Last Admin: 05/24/17 10:20 Dose: 5 mg Nifedipine (Procardia Xl -) 30 mg PO DAILY [facility] Last Admin: 05/24/17 10:20 Dose: 30 mg Polyethylene Glycol (Miralax (For Daily Use) -) 17 gm PO HS PRN PRN Reason: CONSTIPATION Last Admin: 05/21/17 22:40 Dose: 17 gm Potassium Chloride (K-Dur -) 20 meq PO DAILY [facility] Propylthiouracil (Ptu -) 50 mg PO DAILY [facility] Last Admin: 05/24/17 10:21 Dose: 50 mg Ranitidine HCl (Zantac -) 150 mg PO DAILY [facility] Last Admin: 05/24/17 10:20 Dose: 150 mg Sertraline HCl (Zoloft -) 100 mg PO DAILY [facility] Last Admin: 05/24/17 10:20 Dose: 100 mg Torsemide (Demadex -) 80 mg PO DAILY [facility] Last Admin: 05/24/17 13:31 Dose: 80 mg - Objective Vital Signs: Vital Signs Temperature 98.3 F 05/25/17 06:00 Pulse Rate 89 05/25/17 07:37 Respiratory Rate 20 05/25/17 06:00 Blood Pressure 130/64 05/25/17 06:00 O2 Sat by Pulse Oximetry (%) 96 05/25/17 07:37 Labs: CBC, BMP 05/25/17 08:50 05/25/17 08:50
[2017-05-25 10:01] LABS: BLOOD UREA NITROGEN 127 mg/dL (7-18)
[2017-05-25] MEDS: SERTRALINE HCL 50 MG TABLET (FP) PO SCH (10:36)
[2017-05-25] MEDS: ISOSORBIDE MONONITRATE 60 MG TAB.SR.24H (FP) PO SCH (10:36)
[2017-05-25] MEDS: PROPYLTHIOURACIL 50 MG TABLET (UD) PO SCH (10:36)
[2017-05-25] MEDS: ASPIRIN 81 MG CHEWABLE TABLETS PO SCH (10:37)
[2017-05-25] MEDS: TORSEMIDE 20 MG TABLET (FP) PO SCH (10:37)
[2017-05-25] MEDS: NIFEdipine E.R. 30 MG TABLET (FP) PO SCH (10:37)
[2017-05-25] MEDS: RANITIDINE HCL 150 MG TABLET (FP) PO SCH (10:37)
[2017-05-25] MEDS: FERROUS SO4 325 MG TABLET (FP) PO SCH (10:38)
[2017-05-25] MEDS: ALLOPURINOL 300 MG TABLET (FP) PO SCH (10:38)
[2017-05-25] MEDS: HEPARIN NA (PORCINE) 5,000 UNITS/ML 1ML VIAL SQ SCH ×2 (10:39→21:17)
[2017-05-25 10:40] LABS: ANISOCYTOSIS 1+; MACROCYTOSIS 1+; OVALOCYTE 1+; PLATELET ESTIMATE DECREASED
[2017-05-25] MEDS ORDERED: PT OWN MED DRAWER 7, Y5N ONE (10:47)
--- NOTE | 2017-05-25 11:14 | PN ---
Progress Note (short form) - Note Progress Note: PULMONARY c/o back pain from positioning. +nonproductive cough. No fevers or chills. Last Vital Signs Temp Pulse Resp BP Pulse Ox 98.3 F 89 20 130/64 96 05/25/17 06:00 05/25/17 07:37 05/25/17 06:00 05/25/17 06:00 05/25/17 07:37 Gen: NAD at rest Heart: RRR Lung: scattered rhonchi, wheezes Abd: soft, nontender Ext: no edema CBC, BMP 05/25/17 08:50 05/25/17 08:50 Active Medications Acetaminophen (Tylenol -) 650 mg PO Q4H PRN PRN Reason: FEVER >100F Last Admin: 05/15/17 18:52 Dose: 650 mg Albuterol Sulfate (Ventolin 0.083% Nebulizer Soln -) 1 amp NEB Q4H PRN PRN Reason: SHORT OF BREATH/WHEEZING Albuterol/Ipratropium (Duoneb -) 1 amp NEB RTID [facility] Last Admin: 05/25/17 07:38 Dose: 1 amp Allopurinol (Zyloprim -) 300 mg PO DAILY [facility] Last Admin: 05/25/17 10:38 Dose: 300 mg Aspirin (Asa -) 81 mg PO DAILY [facility] Last Admin: 05/25/17 10:37 Dose: 81 mg Docusate Sodium (Colace -) 100 mg PO BID [facility] Last Admin: 05/24/17 21:20 Dose: 100 mg Donepezil HCl (Aricept -) 10 mg PO HS [facility] Last Admin: 05/24/17 21:20 Dose: 10 mg Ferrous Sulfate (Feosol -) 325 mg PO DAILY [facility] Last Admin: 05/25/17 10:38 Dose: 325 mg Heparin Sodium (Porcine) (Heparin -) 5,000 unit SQ BID [facility] Last Admin: 05/25/17 10:39 Dose: 5,000 unit Hydralazine HCl (Apresoline -) 100 mg PO TID [facility] Last Admin: 05/25/17 06:49 Dose: 100 mg Insulin Aspart (Novolog Mix 70/30 Vial) 10 units SQ BIDAC [facility] Last Admin: 05/25/17 06:49 Dose: 10 units Insulin Aspart (Novolog Vial Sliding Scale -) 1 vial SQ ACHS [facility] PRN Reason: Protocol Last Admin: 05/25/17 06:48 Dose: Not Given Isosorbide Mononitrate (Imdur -) 60 mg PO DAILY [facility] Last Admin: 05/25/17 10:36 Dose: 60 mg Memantine (Namenda -) 5 mg PO DAILY [facility] Last Admin: 05/24/17 10:20 Dose: 5 mg Nifedipine (Procardia Xl -) 30 mg PO DAILY [facility] Last Admin: 05/25/17 10:37 Dose: 30 mg Polyethylene Glycol (Miralax (For Daily Use) -) 17 gm PO HS PRN PRN Reason: CONSTIPATION Last Admin: 05/21/17 22:40 Dose: 17 gm Potassium Chloride (K-Dur -) 20 meq PO DAILY [facility] Propylthiouracil (Ptu -) 50 mg PO DAILY [facility] Last Admin: 05/25/17 10:36 Dose: 50 mg Ranitidine HCl (Zantac -) 150 mg PO DAILY [facility] Last Admin: 05/25/17 10:37 Dose: 150 mg Sertraline HCl (Zoloft -) 100 mg PO DAILY [facility] Last Admin: 05/25/17 10:36 Dose: 100 mg Torsemide (Demadex -) 80 mg PO DAILY [facility] Last Admin: 05/25/17 10:37 Dose: 80 mg A/P Pneumonia LV Diastolic Dysfunction CKD +Troponins likely Demand Ischemia HTN DM Anemia - completed antibiotics - continue demadex - monitor urine output, creatinine - inhaled bronchodilators - monitor off steroids - DVT prophylaxis
[2017-05-25] MEDS: MEMANTINE HCL 5 MG TABLET (UD) PO SCH (11:31)
[2017-05-25] MEDS: DOCUSATE SODIUM 100 MG CAPSULE (FP) PO SCH ×2 (11:31→21:16)
[2017-05-25] MEDS: POTASSIUM CHLORIDE TABS 20 MEQ TABLET.ER (FP) PO SCH (11:31)
[2017-05-25] MEDS ORDERED: INSULIN (NOVOLOG) ASPART 100 UNITS/ML 10ML VIAL ONE (11:34)
--- NOTE | 2017-05-25 12:00 | CON.GI ---
Consult Consult Specialty:: Gastroenterology Referred by:: Dr Padron Reason for Consultation:: Anemia - History of Present Illness Chief Complaint: NO GI complaints History of Present Illness: 76F is admitted form [facility] for dyspnea. Her Hb has dropped form 9.2 to 7.3 since admission. She is admitted with pneumonia and CHF. Carolyn denies any GI complaints. She is eating lunch. She denies any overt bleeding which is confirmed by her nurse who just collected a specimen for fecal occult blood testing. She had a EGD with me on 05/21/12 that revealed a hiatal hernia with GERD and fundic gland polyps. Colonoscopy on 05/28/12 led to the removal of 3 adenomas from the hepatic flexure, proximal right colon and descending colon. Diverticulosis was also noted. She has been on heparin for prophylaxis started since admission. Carolyn is able to discuss her matters but tells me that she has given her daughter the power of workers compensation defense attorney. I discussed a repeat EGD and colonoscopy with Carolyn and informed her of the need for a bowel prep, and s the risks of perforation and hemorrhage potentially leading to surgery and transfusions. Carolyn has declined these procedures. I await a return call from her daughter. Her father developed colon cancer at age 65. - History Source History Provided By: Patient Limitations to Obtaining History: Dementia - Past Medical History [employer] SPECIALIST: Yes: Alzheimer's Cardio/Vascular: Yes: CHF, HTN, Other (left sided PPM for bradycardia, presumably sick sinus syndrome) Pulmonary: Yes: COPD Gastrointestinal: Yes: Diverticulosis, GERD, Hiatal Hernia, Other (3 colon adenomas removed 2012, gastric fundic gland polyp) Renal/: Yes: Renal Failure, Renal Calculi, UTI Infectious Disease: No: AIDS Psych: No: Addictions Rheumatology: No: Sarcoidosis ENT: Yes: Other (perforate nasal septum) Endocrine: Yes: Diabetes Mellitus, Hyperthyroidism (took PTU in the past), Other (Multinodular goiter) Dermatology: Yes: Melanoma (RLE melanoma excision), Other (chronic lower extremity lymphedema) - Past Surgical History Past Surgical History: Yes: Appendectomy, Arthrosocopy, Colonoscopy, Hysterectomy (TAHBSO), Permanent Pacemaker, Upper Endoscopy Additional Surgical History: RLE melanoma excision. Right eye surgery following a fall - Alcohol/Substance Use Hx Alcohol Use: No History of Substance Use: reports: None - Smoking History Smoking history: Unknown if ever smoked Have you smoked in the past 12 months: No Aproximately how many cigarettes per day: 0 - Social History Usual Living Arrangement: [facility] ADL: Independent Place of : [facility] History of Recent Travel: No Home Medications - Allergies Allergies/Adverse Reactions: Allergies Allergy/AdvReac Type Severity Reaction Status Date / Time No Known Allergies Allergy Verified 02/06/16 20:45 - Home Medications Home Medications: Ambulatory Orders Allopurinol [Zyloprim -] 300 mg PO DAILY 04/08/13 Ferrous Sulfate 325 mg PO DAILY 04/08/13 Isosorbide Mononitrate [Imdur] 60 mg PO DAILY 04/08/13 Pantoprazole Sodium [Protonix] 40 mg PO Q2D 04/08/13 Propylthiouracil 50 mg PO DAILY 04/08/13 Sertraline HCl [Zoloft -] 100 mg PO DAILY 04/08/13 Aspirin [ASA -] 81 mg PO DAILY 12/13/15 Docusate Sodium [Colace -] 100 mg PO BID 12/13/15 Donepezil HCl [Aricept -] 10 mg PO DAILY 12/13/15 Memantine HCl [Namenda -] 5 mg PO DAILY 12/13/15 hydrALAZINE HCL [Apresoline -] 100 mg PO TID #90 tablet 12/23/15 Insulin (Novolog 70/30) [Novolog Mix 70/30 Vial -] 10 units SQ BID 01/21/16 Lidocaine 5% Patch [Lidoderm -] 4 patch TD DAILY 01/16/17 Heparin - 5,000 unit SQ BID vial 01/18/17 Nifedipine ER [Procardia XL -] 30 mg PO DAILY #30 tab 01/18/17 Mupirocin Ointment [Bactroban 2% Ointment -] 1 applic TP BID applic 01/24/17 Oxymetazoline 0.05% Nasal Soln [Afrin -] 1 spray NS Q8H PRN #0 spray 01/24/17 Polyethylene Glycol 3350 [Miralax 119 gm Btl -] 17 gm PO HS PRN #30 bottle 01/24 Torsemide [Demadex -] 80 mg PO DAILY 05/14/17 Family Disease History - Family Disease History Family Disease History: CA: Father (colon cancer age 65) Review of Systems Unable to obtain ROS, reason: dementia Physical Exam-GI Vital Signs: Vital Signs Temperature 98.3 F 05/25/17 06:00 Pulse Rate 89 05/25/17 07:37 Respiratory Rate 20 05/25/17 06:00 Blood Pressure 130/64 05/25/17 06:00 O2 Sat by Pulse Oximetry (%) 96 05/25/17 07:37 CBC,CMP WBC 5.5 K/mm3 (4.0-10.0) 05/25/17 08:50 RBC 2.22 M/mm3 (3.60-5.2) L 05/25/17 08:50 Hgb 7.3 GM/dL (10.7-15.3) L D 05/25/17 08:50 Hct 22.0 % (32.4-45.2) L 05/25/17 08:50 MCV 99.0 fl (80-96) H 05/25/17 08:50 MCH 33.1 pg (25.7-33.7) 05/25/17 08:50 MCHC 33.4 g/dl (32.0-36.0) 05/25/17 08:50 RDW 14.4 % (11.6-15.6) 05/25/17 08:50 Plt Count 135 K/MM3 (134-434) 05/25/17 08:50 MPV 10.5 fl (7.5-11.1) 05/25/17 08:50 Neutrophils % No Result Required. 05/25/17 08:50 Neutrophils % (Manual) 70.0 % (42.8-82.8) 05/25/17 08:50 Band Neutrophils % 0.0 % 05/25/17 08:50 Lymphocytes % No Result Required. 05/25/17 08:50 Lymphocytes % (Manual) 12.0 % (8-40) D 05/25/17 08:50 Monocytes % 12.1 % (3.8-10.2) H D 05/22/17 08:45 Monocytes % (Manual) 11 % (3.8-10.2) H D 05/25/17 08:50 Eosinophils % 0.1 % (0-4.5) D 05/22/17 08:45 Eosinophils % (Manual) 4.0 % (0-4.5) D 05/25/17 08:50 Basophils % 0.3 % (0-2.0) D 05/22/17 08:45 Basophils % (Manual) 0.0 % (0-2.0) 05/25/17 08:50 Myelocytes % (Man) 1 % (0-2) D 05/25/17 08:50 Promyelocytes % (Man) 0 % (0-2) 05/25/17 08:50 Blast Cells % (Manual) 0 % (0-0) 05/25/17 08:50 Nucleated RBC % 0 % (0-0) 05/25/17 08:50 Metamyelocytes 1 % (0-2) 05/25/17 08:50 Hypochromia 0 05/25/17 08:50 Platelet Estimate Decreased 05/25/17 08:50 Polychromasia 0 05/25/17 08:50 Poikilocytosis 1+ 05/25/17 08:50 Basophilic Stippling 1+ 05/20/17 10:25 Anisocytosis 1+ 05/25/17 08:50 Microcytosis 1+ 05/23/17 06:20 Macrocytosis 1+ 05/25/17 08:50 Tear Drop Cells 1+ 05/23/17 06:20 Ovalocytes 1+ 05/25/17 08:50 Schistocytes 1+ 05/20/17 10:25 ESR 7 mm/hr (0-30) 05/24/17 06:35 Sodium 140 mmol/L (136-145) 05/25/17 08:50 Potassium 3.6 mmol/L (3.5-5.1) 05/25/17 08:50 Chloride 100 mmol/L (98-107) 05/25/17 08:50 Carbon Dioxide 29 mmol/L (21-32) 05/25/17 08:50 Anion Gap 11 (8-16) 05/25/17 08:50 BUN 127 mg/dL (7-18) H* 05/25/17 08:50 Creatinine 2.3 mg/dL (0.55-1.02) H 05/25/17 08:50 Creat Clearance w eGFR 22.90 (>60) 05/23/17 06:20 POC Glucometer 173 UNITS (80-120) 05/25/17 11:41 Random Glucose 93 mg/dL (74-106) 05/25/17 08:50 Lactic Acid 0.9 mmol/L (0.0-2.0) 05/15/17 06:30 Calcium 8.1 mg/dL (8.5-10.1) L 05/25/17 08:50 Magnesium 2.5 mg/dL (1.8-2.4) H 05/23/17 06:20 Iron 39 ug/dL (27-139) 05/24/17 06:35 Ferritin 167.363 ng/ml (6.9-282.5) 05/24/17 06:35 Total Bilirubin 0.3 mg/dL (0.2-1.0) 05/23/17 06:20 AST 16 U/L (15-37) 05/23/17 06:20 ALT 20 U/L (12-78) 05/23/17 06:20 Alkaline Phosphatase 76 U/L (45-117) 05/23/17 06:20 Creatine Kinase 131 IU/L (26-192) 05/15/17 06:30 Creatine Kinase Index 1.2 % (0.0-5.0) 05/14/17 10:29 CK-MB (CK-2) 2.365 ng/mL (0.5-3.6) 05/14/17 10:29 Troponin I 2.79 ng/ml (0.00-0.05) H* 05/15/17 06:30 Total Protein 5.5 g/dl (6.4-8.2) L 05/23/17 06:20 Albumin 3.1 g/dl (3.4-5.0) L 05/23/17 06:20 Vitamin B12 1392 pg/ml (180-914) H 05/24/17 06:35 TSH 0.36 uIU/ml (0.358-3.74) 05/15/17 06:30 Free T4 0.65 ng/dl (0.76-1.46) L 05/15/17 06:30 Current Medications Generic Name Dose Route Start Last Admin Trade Name Freq PRN Reason Stop Dose Admin Acetaminophen 650 mg 05/15/17 17:40 05/15/17 18:52 Tylenol - PO 650 mg Q4H PRN Administration FEVER >100F Albuterol Sulfate 1 amp 05/23/17 14:10 Ventolin 0.083% Nebulizer Soln - NEB Q4H PRN SHORT OF BREATH/WHEEZING Albuterol/Ipratropium 1 amp 05/23/17 20:00 05/25/17 07:38 Duoneb - NEB 1 amp RTID POWER Administration Allopurinol 300 mg 05/15/17 10:00 05/25/17 10:38 Zyloprim - PO 300 mg DAILY POWER Administration Aspirin 81 mg 05/15/17 10:00 05/25/17 10:37 Asa - PO 81 mg DAILY POWER Administration Docusate Sodium 100 mg 05/14/17 22:00 05/25/17 11:31 Colace - PO 100 mg BID POWER Administration Donepezil HCl 10 mg 05/15/17 22:00 05/24/17 21:20 Aricept - PO 10 mg HS POWER Administration Ferrous Sulfate 325 mg 05/15/17 10:00 05/25/17 10:38 Feosol - PO 325 mg DAILY POWER Administration Heparin Sodium (Porcine) 5,000 unit 05/21/17 22:00 05/25/17 10:39 Heparin - SQ 5,000 unit BID POWER Administration Hydralazine HCl 100 mg 05/14/17 22:00 05/25/17 06:49 Apresoline - PO 100 mg TID POWER Administration Insulin Aspart 10 units 05/14/17 20:45 05/25/17 06:49 Novolog Mix 70/30 Vial SQ 10 units BIDAC POWER Administration Insulin Aspart 1 vial 05/17/17 11:00 05/25/17 11:39 Novolog Vial Sliding Scale - SQ 2 units ACHS POWER Administration Protocol Isosorbide Mononitrate 60 mg 05/15/17 10:00 05/25/17 10:36 Imdur - PO 60 mg DAILY POWER Administration Memantine 5 mg 05/15/17 10:00 05/25/17 11:31 Namenda - PO 5 mg DAILY POWER Administration Nifedipine 30 mg 05/15/17 10:00 05/25/17 10:37 Procardia Xl - PO 30 mg DAILY POWER Administration Polyethylene Glycol 17 gm 05/14/17 20:30 05/21/17 22:40 Miralax (For Daily Use) - PO 17 gm HS PRN Administration CONSTIPATION Potassium Chloride 20 meq 05/24/17 18:35 05/25/17 11:31 K-Dur - PO 20 meq DAILY POWER Administration Propylthiouracil 50 mg 05/15/17 10:00 05/25/17 10:36 Ptu - PO 50 mg DAILY POWER Administration Ranitidine HCl 150 mg 05/20/17 11:15 05/25/17 10:37 Zantac - PO 150 mg DAILY POWER Administration Sertraline HCl 100 mg 05/15/17 10:00 05/25/17 10:36 Zoloft - PO 100 mg DAILY POWER Administration Torsemide 80 mg 05/23/17 10:00 05/25/17 10:37 Demadex - PO 80 mg DAILY POWER Administration Constitutional: Yes: Calm Eyes: Yes: Conjunctiva Clear HENT: Yes: Normocephalic Neck: Yes: Trachea Midline Cardiovascular: Yes: Regular Rate and Rhythm (left sided PPM), Murmur (2/6 holosystolic murmur) Respiratory: Yes: Diminished (at both bases) ...Auscultate: Yes: Normoactive Bowel Sounds ...Palpate: Yes: Soft, Other (nontender) ...Percussion: Yes: Tympanitic ...Rectal Exam: Yes: Deferred (as patient is eating lunch and the nurse just collected a specimen from brown nonbloody BM) Neurological: Yes: Alert, Other (forgetful) Labs: CBC, BMP 05/25/17 08:50 05/25/17 08:50 Problem List - Problems (1) Anemia Assessment/Plan: I await the fecal occult blood testing but suspect that given that this anemia is not microcytic I suspect it is more readily attributable to renal failure and perhaps to a component or myelodysplastic syndrome given her borderline WBC and platelet counts. Will order retic count Code(s): D64.9 - ANEMIA, UNSPECIFIED (2) Colon adenomas Assessment/Plan: Given 3 previous adenomas and FH of colon cancer I will discuss colonoscopy with Carolyn's daughter who has power of workers compensation defense attorney. I trust that she will accept her mother's decision not to have any further endoscopies performed. Code(s): D12.6 - BENIGN NEOPLASM OF COLON, UNSPECIFIED (3) Family history of colon cancer in father Code(s): Z80.0 - FAMILY HISTORY OF MALIGNANT NEOPLASM OF DIGESTIVE ORGANS (4) Diverticulosis large intestine w/o perforation or abscess w/bleeding Code(s): K57.31 - DVRTCLOS OF LG INT W/O PERFORATION OR ABSCESS W BLEEDING (5) Hiatal hernia with GERD Code(s): K21.9 - GASTRO-ESOPHAGEAL REFLUX DISEASE WITHOUT ESOPHAGITIS; K44.9 - DIAPHRAGMATIC HERNIA WITHOUT OBSTRUCTION OR GANGRENE (6) Fundic gland polyps of stomach, benign Code(s): D13.1 - BENIGN NEOPLASM OF STOMACH
--- NOTE | 2017-05-25 15:02 | PN ---
Progress Note, CATALYST SUPERVISOR - Note Progress Note: Selected Entries 05/25/17 14:00 Breakfast 75% Lunch 50% Laboratory Tests 05/25/17 08:50 WBC 5.5
--- NOTE | 2017-05-25 15:33 | PN ---
Progress Note, Physician History of Present Illness: Pt seen and examined at bedside. She is awake and appears comfortable. She denies shortness of breath. - Current Medication List Current Medications: Active Medications Acetaminophen (Tylenol -) 650 mg PO Q4H PRN PRN Reason: FEVER >100F Last Admin: 05/15/17 18:52 Dose: 650 mg Albuterol Sulfate (Ventolin 0.083% Nebulizer Soln -) 1 amp NEB Q4H PRN PRN Reason: SHORT OF BREATH/WHEEZING Albuterol/Ipratropium (Duoneb -) 1 amp NEB RTID [facility] Last Admin: 05/25/17 14:22 Dose: 1 amp Allopurinol (Zyloprim -) 300 mg PO DAILY [facility] Last Admin: 05/25/17 10:38 Dose: 300 mg Aspirin (Asa -) 81 mg PO DAILY [facility] Last Admin: 05/25/17 10:37 Dose: 81 mg Docusate Sodium (Colace -) 100 mg PO BID [facility] Last Admin: 05/25/17 11:31 Dose: 100 mg Donepezil HCl (Aricept -) 10 mg PO HS [facility] Last Admin: 05/24/17 21:20 Dose: 10 mg Ferrous Sulfate (Feosol -) 325 mg PO DAILY [facility] Last Admin: 05/25/17 10:38 Dose: 325 mg Heparin Sodium (Porcine) (Heparin -) 5,000 unit SQ BID [facility] Last Admin: 05/25/17 10:39 Dose: 5,000 unit Hydralazine HCl (Apresoline -) 100 mg PO TID [facility] Last Admin: 05/25/17 15:30 Dose: 100 mg Insulin Aspart (Novolog Mix 70/30 Vial) 10 units SQ BIDAC [facility] Last Admin: 05/25/17 06:49 Dose: 10 units Insulin Aspart (Novolog Vial Sliding Scale -) 1 vial SQ ACHS [facility] PRN Reason: Protocol Last Admin: 05/25/17 11:39 Dose: 2 units Isosorbide Mononitrate (Imdur -) 60 mg PO DAILY [facility] Last Admin: 05/25/17 10:36 Dose: 60 mg Memantine (Namenda -) 5 mg PO DAILY [facility] Last Admin: 05/25/17 11:31 Dose: 5 mg Nifedipine (Procardia Xl -) 30 mg PO DAILY [facility] Last Admin: 05/25/17 10:37 Dose: 30 mg Polyethylene Glycol (Miralax (For Daily Use) -) 17 gm PO HS PRN PRN Reason: CONSTIPATION Last Admin: 05/21/17 22:40 Dose: 17 gm Potassium Chloride (K-Dur -) 20 meq PO DAILY [facility] Last Admin: 05/25/17 11:31 Dose: 20 meq Propylthiouracil (Ptu -) 50 mg PO DAILY [facility] Last Admin: 05/25/17 10:36 Dose: 50 mg Ranitidine HCl (Zantac -) 150 mg PO DAILY [facility] Last Admin: 05/25/17 10:37 Dose: 150 mg Sertraline HCl (Zoloft -) 100 mg PO DAILY [facility] Last Admin: 05/25/17 10:36 Dose: 100 mg Torsemide (Demadex -) 80 mg PO DAILY [facility] Last Admin: 05/25/17 10:37 Dose: 80 mg - Objective Vital Signs: Vital Signs Temperature 98.8 F 05/25/17 14:00 Pulse Rate 101 H 05/25/17 14:00 Respiratory Rate 22 05/25/17 14:00 Blood Pressure 145/77 05/25/17 14:00 O2 Sat by Pulse Oximetry (%) 96 05/25/17 07:37 Constitutional: Yes: Calm Eyes: Yes: Conjunctiva Clear HENT: Yes: Atraumatic Cardiovascular: Yes: S1, S2 Respiratory: Yes: Wheezes Gastrointestinal: Yes: Soft Genitourinary: Yes: Incontinence Musculoskeletal: Yes: WNL Edema: Yes Edema: LLE: Trace, RLE: Trace Neurological: Yes: Oriented Psychiatric: Yes: Oriented Labs: CBC, BMP 05/25/17 08:50 05/25/17 08:50 Problem List - Problems (1) COPD exacerbation Code(s): J44.1 - CHRONIC OBSTRUCTIVE PULMONARY DISEASE W (ACUTE) EXACERBATION (2) Anemia Code(s): D64.9 - ANEMIA, UNSPECIFIED (3) CHF (congestive heart failure) Code(s): I50.9 - HEART FAILURE, UNSPECIFIED Qualifiers: Qualified Code(s): I50.9 - Heart failure, unspecified (4) CKD (chronic kidney disease) Code(s): N18.9 - CHRONIC KIDNEY DISEASE, UNSPECIFIED Qualifiers: Chronic kidney disease stage: unspecified stage Qualified Code(s): N18.9 - Chronic kidney disease, unspecified Assessment/Plan Current Medications Generic Name Dose Route Start Last Admin Trade Name Vicki PRN Reason Stop Dose Admin Acetaminophen 650 mg 05/15/17 17:40 05/15/17 18:52 Tylenol - PO 650 mg Q4H PRN Administration FEVER >100F Albuterol Sulfate 1 amp 05/23/17 14:10 Ventolin 0.083% Nebulizer Soln - NEB Q4H PRN SHORT OF BREATH/WHEEZING Albuterol/Ipratropium 1 amp 05/23/17 20:00 05/25/17 14:22 Duoneb - NEB 1 amp RTID POWER Administration Allopurinol 300 mg 05/15/17 10:00 05/25/17 10:38 Zyloprim - PO 300 mg DAILY POWER Administration Aspirin 81 mg 05/15/17 10:00 05/25/17 10:37 Asa - PO 81 mg DAILY POWER Administration Docusate Sodium 100 mg 05/14/17 22:00 05/25/17 11:31 Colace - PO 100 mg BID POWER Administration Donepezil HCl 10 mg 05/15/17 22:00 05/24/17 21:20 Aricept - PO 10 mg HS POWER Administration Ferrous Sulfate 325 mg 05/15/17 10:00 05/25/17 10:38 Feosol - PO 325 mg DAILY POWER Administration Heparin Sodium (Porcine) 5,000 unit 05/21/17 22:00 05/25/17 10:39 Heparin - SQ 5,000 unit BID POWER Administration Hydralazine HCl 100 mg 05/14/17 22:00 05/25/17 15:30 Apresoline - PO 100 mg TID POWER Administration Insulin Aspart 10 units 05/14/17 20:45 05/25/17 06:49 Novolog Mix 70/30 Vial SQ 10 units BIDAC POWER Administration Insulin Aspart 1 vial 05/17/17 11:00 05/25/17 11:39 Novolog Vial Sliding Scale - SQ 2 units ACHS POWER Administration Protocol Isosorbide Mononitrate 60 mg 05/15/17 10:00 05/25/17 10:36 Imdur - PO 60 mg DAILY POWER Administration Memantine 5 mg 05/15/17 10:00 05/25/17 11:31 Namenda - PO 5 mg DAILY POWER Administration Nifedipine 30 mg 05/15/17 10:00 05/25/17 10:37 Procardia Xl - PO 30 mg DAILY POWER Administration Polyethylene Glycol 17 gm 05/14/17 20:30 05/21/17 22:40 Miralax (For Daily Use) - PO 17 gm HS PRN Administration CONSTIPATION Potassium Chloride 20 meq 05/24/17 18:35 05/25/17 11:31 K-Dur - PO 20 meq DAILY POWRE Administration Propylthiouracil 50 mg 05/15/17 10:00 05/25/17 10:36 Ptu - PO 50 mg DAILY POWER Administration Ranitidine HCl 150 mg 05/20/17 11:15 05/25/17 10:37 Zantac - PO 150 mg DAILY POWER Administration Sertraline HCl 100 mg 05/15/17 10:00 05/25/17 10:36 Zoloft - PO 100 mg DAILY POWER Administration Torsemide 80 mg 05/23/17 10:00 05/25/17 10:37 Demadex - PO 80 mg DAILY POWER Administration Impression 1. CKD 2. cough 3. CHF 4. bradycardia 5. dementia 6. HTN 7. DM 8. anemia Plan - cont with torsemide - bun is improving - taper steroids - monitor renal function - potassium is stable - cont pt/rehab - renal diet Dr Atkinson
[2017-05-25] MEDS ORDERED: FUROSEMIDE 40 MG/4 ML INJECTABLE VIAL IVPUSH SCH (15:43)
--- NOTE | 2017-05-25 18:48 | PN ---
Progress Note (short form) - Note Progress Note: s: no cp palps dizzy sob. + cough. plan for blood transfusion today o: Current Medications Acetaminophen (Tylenol -) 650 mg PO Q4H PRN PRN Reason: FEVER >100F Last Admin: 05/15/17 18:52 Dose: 650 mg Albuterol Sulfate (Ventolin 0.083% Nebulizer Soln -) 1 amp NEB Q4H PRN PRN Reason: SHORT OF BREATH/WHEEZING Albuterol/Ipratropium (Duoneb -) 1 amp NEB RTID [facility] Last Admin: 05/25/17 14:22 Dose: 1 amp Allopurinol (Zyloprim -) 300 mg PO DAILY [facility] Last Admin: 05/25/17 10:38 Dose: 300 mg Aspirin (Asa -) 81 mg PO DAILY [facility] Last Admin: 05/25/17 10:37 Dose: 81 mg Docusate Sodium (Colace -) 100 mg PO BID [facility] Last Admin: 05/25/17 11:31 Dose: 100 mg Donepezil HCl (Aricept -) 10 mg PO HS [facility] Last Admin: 05/24/17 21:20 Dose: 10 mg Ferrous Sulfate (Feosol -) 325 mg PO DAILY [facility] Last Admin: 05/25/17 10:38 Dose: 325 mg Furosemide (Lasix Injection -) 20 mg IVPUSH FURNACE FITTER [facility] Stop: 05/25/17 20:00 Last Admin: 05/25/17 18:15 Dose: 20 mg Heparin Sodium (Porcine) (Heparin -) 5,000 unit SQ BID [facility] Last Admin: 05/25/17 10:39 Dose: 5,000 unit Hydralazine HCl (Apresoline -) 100 mg PO TID [facility] Last Admin: 05/25/17 15:30 Dose: 100 mg Insulin Aspart (Novolog Mix 70/30 Vial) 10 units SQ BIDAC [facility] Last Admin: 05/25/17 16:40 Dose: 10 units Insulin Aspart (Novolog Vial Sliding Scale -) 1 vial SQ ACHS [facility] PRN Reason: Protocol Last Admin: 05/25/17 16:31 Dose: 4 units Isosorbide Mononitrate (Imdur -) 60 mg PO DAILY [facility] Last Admin: 05/25/17 10:36 Dose: 60 mg Memantine (Namenda -) 5 mg PO DAILY [facility] Last Admin: 05/25/17 11:31 Dose: 5 mg Nifedipine (Procardia Xl -) 30 mg PO DAILY [facility] Last Admin: 05/25/17 10:37 Dose: 30 mg Polyethylene Glycol (Miralax (For Daily Use) -) 17 gm PO HS PRN PRN Reason: CONSTIPATION Last Admin: 05/21/17 22:40 Dose: 17 gm Potassium Chloride (K-Dur -) 20 meq PO DAILY [facility] Last Admin: 05/25/17 11:31 Dose: 20 meq Propylthiouracil (Ptu -) 50 mg PO DAILY [facility] Last Admin: 05/25/17 10:36 Dose: 50 mg Ranitidine HCl (Zantac -) 150 mg PO DAILY [facility] Last Admin: 05/25/17 10:37 Dose: 150 mg Sertraline HCl (Zoloft -) 100 mg PO DAILY [facility] Last Admin: 05/25/17 10:36 Dose: 100 mg Torsemide (Demadex -) 80 mg PO DAILY [facility] Last Admin: 05/25/17 10:37 Dose: 80 mg Vital Signs - 24 hr 05/24/17 05/24/17 05/24/17 20:41 21:00 23:48 Temperature 99.2 F 97 F L Pulse Rate 89 88 Respiratory 20 20 20 Rate Blood Pressure 140/68 147/67 O2 Sat by Pulse 96 Oximetry (%) 05/25/17 05/25/17 05/25/17 06:00 07:37 09:00 Temperature 98.3 F 98.6 F Pulse Rate 90 89 92 H Respiratory 20 19 Rate Blood Pressure 130/64 143/59 O2 Sat by Pulse 96 96 Oximetry (%) 05/25/17 14:00 Temperature 98.8 F Pulse Rate 101 H Respiratory 22 Rate Blood Pressure 145/77 O2 Sat by Pulse Oximetry (%) Intake & Output 05/23/17 05/24/17 05/25/17 05/26/17 07:59 07:59 07:59 07:59 Intake Total 400 1225 1425 600 Balance 400 1225 1425 600 Weight 156 lb 3 oz 154 lb 2 oz 158 lb 9 oz NAD JVD elevated, neck supple RRR nl s1, s2. 2/6 sys murmur at sternal border and late systolic mr murmur radiating to axilla bibasilar rales. nl eff trace le edema. no cyanosis/clubbing + venous stasis changes + bs soft nt nd no jaundice or diaphoresis. alert and oriented to place CBC, BMP 05/25/17 08:50 05/25/17 08:50 ekg: sr with av delay. ivcb. poor r wave progression. ? q waves. non- specific t wave ab. no acute ischemic changes. cxr: slight increase in congestive changes. possible left basal infiltrate echo 03/2017: nl lv size/fn. EF 55-60%. tds for wall motion. septal motion c/ w ppm. mild rve. nl rv fn. mod lae. 1+ sam. 1+ mac with mild functional ms ( 4 mmHg, 73 bpm). 1+ mr. mobile linear density that intermittently moves into lvot (no associated lvot obstruction). Density thought to be consistent with torn chordae. 1+ tr. 1+ phtn. 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 No overt chf presently, cont po diuretic. - no signs acs demand nstemi - trop elevation small in setting of ckd and nl ck. likely demand in setting of presumed cad. patient currently comfortable and asx. ekg without acute ischemic changes. patient with relative contraindication to AC (epistaxis requiring transfusion), so would not empirically AC, unless trop continues to rise significantly or ckmb fraction turns positive. con't asa, statin, anto- anginals. HR control. - patient with recent need for ppm placement, possible new inferior q waves on 2017 ekg's in comparison to priors. Also with new torn chord, ? ischemic etiology. Recently discussed with patient and family in office regarding stress testing, ischemic evaluation and based on goals of care and possible contraindications to dapt, decision was made to defer stress testing. - currently on reasonable anti-anginal regimen. would uptitrate nitrates if needed. recent echodensity noted on mitral valve (03/2017 echo) - unclear etiology. thought to be from torn calcified chord (not thought to be causing flail, ddx would be torn papillary muscle). Not thought to be torn papillary muscle or flail mainly because there did not appear to be significant enough mr although may have been underestimated due to shadowing). Still with suspicion for possible ischemic etiology - possible rwma in the inferior wall. blood cx's at the time were neg and clinical picture was not consistent with endocarditis at the time. There was low suspicion for thrombus and no evidence of an interatrial septal defect that might have caused a thrombus in transit form crossing septum. - Previously discussed with patient and sister regarding further ischemic evaluation with stress testing, SATHISH, or even (least invasive) repeating the echo with contrast for better assessment of intracardiac thrombus or wall motion. --> they wished to avoid invasive testing so SATHISH and/or possible cath was previously off the table. They also had significant concern regarding risk of bleeding from dapt or AC in setting of chronic anemia and recurrent epistaxis requiring transfusion on ASA therapy. Since patient was asx and further testing would likely not change mgm't, further evaluation had been deferred and plan was to repeat the TTE (with contrast) in 6 months. diastolic HF - chronic jvd elevations. currently LE edema improved from baseline. - renal has been monitoring volume status/diuretics as outpatient. cont home torsemide. held aldactone due to elevated k. Den/CKD: -prior values here range 1.8-2.4. on procrit for anemia -con't to monitor. HTN -con't home meds s/p ppm - recent interrogation in office
[2017-05-25] MEDS: DONEPEZIL HCL 10 MG TABLET (FP) PO SCH (21:17)
[2017-05-26] MEDS ORDERED: FUROSEMIDE 40 MG/4 ML INJECTABLE VIAL IVPUSH ONE (00:30)
[2017-05-26] MEDS ORDERED: INSULIN (NOVOLOG) ASPART 100 UNITS/ML 10ML VIAL ONE ×3 (06:36→16:43)
[2017-05-26] MEDS: hydrALAZINE HCL 50 MG TABLET (FP) PO SCH ×2 (06:41→14:19)
[2017-05-26] MEDS: INSULIN SLIDING SCALE (NOVOLOG) 1 VIAL SQ SCH ×3 (06:42→16:35)
[2017-05-26] MEDS: INSULIN (NOVOLOG MIX 70/30) 100 UNITS/ML MDV SQ SCH ×2 (06:42→16:36)
[2017-05-26 07:30] LABS: HEMATOCRIT 26.4 % (32.4-45.2); HEMOGLOBIN 9.2 GM/dL (10.7-15.3); MCHC 34.8 g/dl (32.0-36.0); MEAN CELL VOLUME 95.1 fl (80-96); PLATELET COUNT 133 K/MM3 (134-434); RBC 2.78 M/mm3 (3.60-5.2); RETICULOCYTES 1.36 % (0.5-1.5); WHITE BLOOD COUNT 7.3 K/mm3 (4.0-10.0)
[2017-05-26 07:56] LABS: ALBUMIN 3.1 g/dl (3.4-5.0); ALK PHOS 80 U/L (45-117); ANION GAP 14 (8-16); BILIRUBIN,TOTAL 0.5 mg/dL (0.2-1.0); CALCIUM 8.1 mg/dL (8.5-10.1); CHLORIDE 101 mmol/L (98-107); CO2 26 mmol/L (21-32); CREATININE 2.2 mg/dL (0.55-1.02); GLUCOSE,RANDOM 117 mg/dL (74-106); LDH 274 U/L (84-246); POTASSIUM 3.5 mmol/L (3.5-5.1); SGOT/AST 18 U/L (15-37); SGPT/ALT 19 U/L (12-78); SODIUM 141 mmol/L (136-145); TOT PROT 5.4 g/dl (6.4-8.2)
[2017-05-26] MEDS: ALBUTEROL SO4 2.5/IPRATROPIUM 0.5 INH SOL 3 ML VIAL.NEB. NEB SCH ×3 (08:15→20:25)
[2017-05-26 08:32] LABS: BLOOD UREA NITROGEN 116 mg/dL (7-18)
[2017-05-26 09:00] LABS: ACANTHOCYTES 0; ANISOCYTOSIS 0; HELMET CELLS 0; HOWELL-JOLLY BODIES 0; MACROCYTOSIS 0; OVALOCYTE 0; PLATELET ESTIMATE DECREASED; ROULEAU 0; SICKELED CELLS 0; TARGET CELLS 0; TEAR DROP CELLS 0; TOXIC GRANULATION 0
[2017-05-26] MEDS: HEPARIN NA (PORCINE) 5,000 UNITS/ML 1ML VIAL SQ SCH (09:20)
[2017-05-26] MEDS: TORSEMIDE 20 MG TABLET (FP) PO SCH (09:21)
[2017-05-26] MEDS: MEMANTINE HCL 5 MG TABLET (UD) PO SCH (09:21)
[2017-05-26] MEDS: FERROUS SO4 325 MG TABLET (FP) PO SCH (09:21)
[2017-05-26] MEDS: DOCUSATE SODIUM 100 MG CAPSULE (FP) PO SCH (09:21)
[2017-05-26] MEDS: ISOSORBIDE MONONITRATE 60 MG TAB.SR.24H (FP) PO SCH (09:21)
[2017-05-26] MEDS: NIFEdipine E.R. 30 MG TABLET (FP) PO SCH (09:21)
[2017-05-26] MEDS: ASPIRIN 81 MG CHEWABLE TABLETS PO SCH (09:21)
[2017-05-26] MEDS: RANITIDINE HCL 150 MG TABLET (FP) PO SCH (09:21)
[2017-05-26] MEDS: SERTRALINE HCL 50 MG TABLET (FP) PO SCH (09:21)
[2017-05-26] MEDS: PROPYLTHIOURACIL 50 MG TABLET (UD) PO SCH (09:21)
[2017-05-26] MEDS: ALLOPURINOL 300 MG TABLET (FP) PO SCH (09:21)
[2017-05-26] MEDS: POTASSIUM CHLORIDE TABS 20 MEQ TABLET.ER (FP) PO SCH (09:21)
--- NOTE | 2017-05-26 11:52 | PN ---
Progress Note (short form) - Note Progress Note: PULMONARY Denies shortness of breath or chest pain. cough improving. No fevers or chills. Last Vital Signs Temp Pulse Resp BP Pulse Ox 98.3 F 87 20 135/68 98 05/26/17 09:00 05/26/17 09:00 05/26/17 09:00 05/26/17 09:00 05/26/17 10:09 Gen: NAD at rest Heart: RRR Lung: less rhonchi, wheezes Abd: soft, nontender Ext: no edema CBC, BMP 05/26/17 07:15 05/26/17 07:15 Active Medications Acetaminophen (Tylenol -) 650 mg PO Q4H PRN PRN Reason: FEVER >100F Last Admin: 05/15/17 18:52 Dose: 650 mg Albuterol Sulfate (Ventolin 0.083% Nebulizer Soln -) 1 amp NEB Q4H PRN PRN Reason: SHORT OF BREATH/WHEEZING Albuterol/Ipratropium (Duoneb -) 1 amp NEB RTID [facility] Last Admin: 05/26/17 08:15 Dose: 1 amp Allopurinol (Zyloprim -) 300 mg PO DAILY [facility] Last Admin: 05/26/17 09:21 Dose: 300 mg Aspirin (Asa -) 81 mg PO DAILY [facility] Last Admin: 05/26/17 09:21 Dose: 81 mg Docusate Sodium (Colace -) 100 mg PO BID [facility] Last Admin: 05/26/17 09:21 Dose: 100 mg Donepezil HCl (Aricept -) 10 mg PO HS [facility] Last Admin: 05/25/17 21:17 Dose: 10 mg Ferrous Sulfate (Feosol -) 325 mg PO DAILY [facility] Last Admin: 05/26/17 09:21 Dose: 325 mg Heparin Sodium (Porcine) (Heparin -) 5,000 unit SQ BID [facility] Last Admin: 05/26/17 09:20 Dose: 5,000 unit Hydralazine HCl (Apresoline -) 100 mg PO TID [facility] Last Admin: 05/26/17 06:41 Dose: 100 mg Insulin Aspart (Novolog Mix 70/30 Vial) 10 units SQ BIDAC [facility] Last Admin: 05/26/17 06:42 Dose: 10 units Insulin Aspart (Novolog Vial Sliding Scale -) 1 vial SQ ACHS [facility] PRN Reason: Protocol Last Admin: 05/26/17 06:42 Dose: Not Given Isosorbide Mononitrate (Imdur -) 60 mg PO DAILY [facility] Last Admin: 05/26/17 09:21 Dose: 60 mg Memantine (Namenda -) 5 mg PO DAILY [facility] Last Admin: 05/26/17 09:21 Dose: 5 mg Nifedipine (Procardia Xl -) 30 mg PO DAILY [facility] Last Admin: 05/26/17 09:21 Dose: 30 mg Polyethylene Glycol (Miralax (For Daily Use) -) 17 gm PO PRN PRN Reason: CONSTIPATION Last Admin: 05/21/17 22:40 Dose: 17 gm Potassium Chloride (K-Dur -) 20 meq PO DAILY [facility] Last Admin: 05/26/17 09:21 Dose: 20 meq Propylthiouracil (Ptu -) 50 mg PO DAILY [facility] Last Admin: 05/26/17 09:21 Dose: 50 mg Ranitidine HCl (Zantac -) 150 mg PO DAILY [facility] Last Admin: 05/26/17 09:21 Dose: 150 mg Sertraline HCl (Zoloft -) 100 mg PO DAILY [facility] Last Admin: 05/26/17 09:21 Dose: 100 mg Torsemide (Demadex -) 80 mg PO DAILY [facility] Last Admin: 05/26/17 09:21 Dose: 80 mg A/P Pneumonia LV Diastolic Dysfunction CKD +Troponins likely Demand Ischemia HTN DM Anemia - completed antibiotics - continue demadex - monitor urine output, creatinine - inhaled bronchodilators - monitor off steroids - DVT prophylaxis
--- NOTE | 2017-05-26 12:27 | PN ---
GI Progress Note Subjective: Dr. Way for Dr. Mcdermott No overt bleeding reported No abdominal pain - Objective Vital Signs: Vital Signs Temperature 98.3 F 05/26/17 09:00 Pulse Rate 87 05/26/17 09:00 Respiratory Rate 20 05/26/17 09:00 Blood Pressure 135/68 05/26/17 09:00 O2 Sat by Pulse Oximetry (%) 98 05/26/17 10:09 Constitutional: Calm Eyes: No: Sclera Icterus Cardiovascular: Yes: Regular Rate and Rhythm Gastrointestinal Inspection: No: Distention ...Auscultate: Yes: Normoactive Bowel Sounds ...Palpate: No: Hepatomegaly, Splenomegaly, Tenderness ...Percussion: No: Tympanitic Neurological: Yes: Alert Labs: CBC, BMP 05/26/17 07:15 05/26/17 07:15 Problem List - Problems (1) Anemia Assessment/Plan: Per discussion w/ Dr. Mcdermott, waiting to hear back from Ms. Murguia's daughter re: procedures On ranitidine 150mg PO BID Monitor for active bleeding Code(s): D64.9 - ANEMIA, UNSPECIFIED
--- NOTE | 2017-05-26 14:18 | DS ---
Physical Examination Vital Signs: Vital Signs Temperature 98.6 F 05/26/17 14:00 Pulse Rate 87 05/26/17 09:00 Respiratory Rate 20 05/26/17 09:00 Blood Pressure 135/68 05/26/17 09:00 O2 Sat by Pulse Oximetry (%) 99 05/26/17 13:24 Findings/Remarks: in bed awake alert NAD no pain no SOB; s/p PRBC tolerated well had 1 out of 3 stools guaiac + but pt herself does not want EGD? colonoscopy and I spoke with daughter Tiki/ phone she agrees not to scope her, conservative treatment will send back to [facility] on PPI, f/u labs in 2-3 days, RTER if worse or recurrent c/ o d/w pt and daughter Constitutional: Yes: No Distress, Calm Eyes: Yes: Conjunctiva Clear HENT: Yes: Atraumatic Neck: Yes: Supple Cardiovascular: Yes: Regular Rate and Rhythm Respiratory: Yes: CTA Bilaterally Gastrointestinal: Yes: Soft. No: Distention, Tenderness Renal/: No: CVA Tenderness - Left, CVA Tenderness - Right Musculoskeletal: No: Joint Stiffness, Joint Swelling Extremities: No: Cold, Cool, Cyanosis Edema: No Integumentary: No: Rash, Venous Stasis Changes Neurological: Yes: WNL, Alert ...Motor Strength: WNL Psychiatric: Yes: WNL, Alert. No: Agitated, Suicidal Ideation Labs: CBC, BMP 05/26/17 07:15 05/26/17 07:15 Discharge Summary Reason For Visit: ACUTE EXACERBATION OF COPD Current Active Problems COPD exacerbation (Acute) Colon adenomas (Acute) Diverticulosis large intestine w/o perforation or abscess w/bleeding (Acute) Family history of colon cancer in father (Acute) Fundic gland polyps of stomach, benign (Acute) Hiatal hernia with GERD (Acute) Pneumonia (Acute) Procedures: Principal: admitted to telemetry with PNA, acute COPD exac, + troponins; developed acute on CRF and anemia Other Procedures: seen by cardiology, pulmonary, GI and heme; transfused; received IV steroids, nebs, IV antibiotics and O2; Hospital Course: improved with above; pt and daughter declined GI w/u; transfer to [facility] and f/u as advised. Condition: Improved - Instructions Diet, Activity, Other Instructions: f/u with [facility] dr and labs CBC CMP in 2-3 days falls decubs DVT PFX RTER if worse or recurrent c/o Referrals: Renata Espinosa MD [Primary Care Provider] - [facility]position: [facility] - Home Medications Comprehensive Discharge Medication List: Ambulatory Orders Allopurinol [Zyloprim -] 300 mg PO DAILY 04/08/13 Ferrous Sulfate 325 mg PO DAILY 04/08/13 Isosorbide Mononitrate [Imdur] 60 mg PO DAILY 04/08/13 Pantoprazole Sodium [Protonix] 40 mg PO Q2D 04/08/13 Propylthiouracil 50 mg PO DAILY 04/08/13 Sertraline HCl [Zoloft -] 100 mg PO DAILY 04/08/13 Aspirin [ASA -] 81 mg PO DAILY 12/13/15 Docusate Sodium [Colace -] 100 mg PO BID 12/13/15 Donepezil HCl [Aricept -] 10 mg PO DAILY 12/13/15 Memantine HCl [Namenda -] 5 mg PO DAILY 12/13/15 hydrALAZINE HCL [Apresoline -] 100 mg PO TID #90 tablet 12/23/15 Insulin (Novolog 70/30) [Novolog Mix 70/30 Vial -] 10 units SQ BID 01/21/16 Lidocaine 5% Patch [Lidoderm -] 4 patch TD DAILY 01/16/17 Heparin - 5,000 unit SQ BID vial 01/18/17 Nifedipine ER [Procardia XL -] 30 mg PO DAILY #30 tab 01/18/17 Mupirocin Ointment [Bactroban 2% Ointment -] 1 applic TP BID applic 01/24/17 Oxymetazoline 0.05% Nasal Soln [Afrin -] 1 spray NS Q8H PRN #0 spray 01/24/17 Polyethylene Glycol 3350 [Miralax 119 gm Btl -] 17 gm PO HS PRN #30 bottle 01/24 Torsemide [Demadex -] 80 mg PO DAILY 05/14/17
--- NOTE | 2017-05-26 15:52 | PN ---
Progress Note, Physician History of Present Illness: Pt seen and examined at bedside. She is awake and alert. She denies shortness of breath. - Current Medication List Current Medications: Active Medications Acetaminophen (Tylenol -) 650 mg PO Q4H PRN PRN Reason: FEVER >100F Last Admin: 05/15/17 18:52 Dose: 650 mg Albuterol Sulfate (Ventolin 0.083% Nebulizer Soln -) 1 amp NEB Q4H PRN PRN Reason: SHORT OF BREATH/WHEEZING Albuterol/Ipratropium (Duoneb -) 1 amp NEB RTID [facility] Last Admin: 05/26/17 13:25 Dose: 1 amp Allopurinol (Zyloprim -) 300 mg PO DAILY [facility] Last Admin: 05/26/17 09:21 Dose: 300 mg Aspirin (Asa -) 81 mg PO DAILY [facility] Last Admin: 05/26/17 09:21 Dose: 81 mg Docusate Sodium (Colace -) 100 mg PO BID [facility] Last Admin: 05/26/17 09:21 Dose: 100 mg Donepezil HCl (Aricept -) 10 mg PO HS [facility] Last Admin: 05/25/17 21:17 Dose: 10 mg Ferrous Sulfate (Feosol -) 325 mg PO DAILY [facility] Last Admin: 05/26/17 09:21 Dose: 325 mg Heparin Sodium (Porcine) (Heparin -) 5,000 unit SQ BID [facility] Last Admin: 05/26/17 09:20 Dose: 5,000 unit Hydralazine HCl (Apresoline -) 100 mg PO TID [facility] Last Admin: 05/26/17 14:19 Dose: 100 mg Insulin Aspart (Novolog Mix 70/30 Vial) 10 units SQ BIDAC [facility] Last Admin: 05/26/17 06:42 Dose: 10 units Insulin Aspart (Novolog Vial Sliding Scale -) 1 vial SQ ACHS [facility] PRN Reason: Protocol Last Admin: 05/26/17 11:52 Dose: 2 units Isosorbide Mononitrate (Imdur -) 60 mg PO DAILY [facility] Last Admin: 05/26/17 09:21 Dose: 60 mg Memantine (Namenda -) 5 mg PO DAILY [facility] Last Admin: 05/26/17 09:21 Dose: 5 mg Nifedipine (Procardia Xl -) 30 mg PO DAILY [facility] Last Admin: 03/06/18 09:21 Dose: 30 mg Polyethylene Glycol (Miralax (For Daily Use) -) 17 gm PO HS PRN PRN Reason: CONSTIPATION Last Admin: 05/21/17 22:40 Dose: 17 gm Potassium Chloride (K-Dur -) 20 meq PO DAILY [facility] Last Admin: 05/26/17 09:21 Dose: 20 meq Propylthiouracil (Ptu -) 50 mg PO DAILY [facility] Last Admin: 05/26/17 09:21 Dose: 50 mg Ranitidine HCl (Zantac -) 150 mg PO DAILY [facility] Last Admin: 05/26/17 09:21 Dose: 150 mg Sertraline HCl (Zoloft -) 100 mg PO DAILY [facility] Last Admin: 05/26/17 09:21 Dose: 100 mg Torsemide (Demadex -) 80 mg PO DAILY [facility] Last Admin: 05/26/17 09:21 Dose: 80 mg - Objective Vital Signs: Vital Signs Temperature 98.6 F 05/26/17 14:00 Pulse Rate 87 05/26/17 09:00 Respiratory Rate 20 05/26/17 09:00 Blood Pressure 135/68 05/26/17 09:00 O2 Sat by Pulse Oximetry (%) 99 05/26/17 13:24 Constitutional: Yes: Calm Eyes: Yes: Conjunctiva Clear HENT: Yes: Atraumatic Cardiovascular: Yes: S1, S2 Respiratory: Yes: CTA Bilaterally Gastrointestinal: Yes: Soft, Abdomen, Obese Genitourinary: Yes: Incontinence Musculoskeletal: Yes: Muscle Weakness Edema: Yes Edema: LLE: Trace, RLE: Trace Integumentary: Yes: Venous Stasis Changes Neurological: Yes: Oriented Psychiatric: Yes: Oriented Labs: CBC, BMP 05/26/17 07:15 05/26/17 07:15 Problem List - Problems (1) COPD exacerbation Code(s): J44.1 - CHRONIC OBSTRUCTIVE PULMONARY DISEASE W (ACUTE) EXACERBATION (2) Anemia Code(s): D64.9 - ANEMIA, UNSPECIFIED (3) CHF (congestive heart failure) Code(s): I50.9 - HEART FAILURE, UNSPECIFIED Qualifiers: Qualified Code(s): I50.9 - Heart failure, unspecified (4) CKD (chronic kidney disease) Code(s): N18.9 - CHRONIC KIDNEY DISEASE, UNSPECIFIED Qualifiers: Chronic kidney disease stage: unspecified stage Qualified Code(s): N18.9 - Chronic kidney disease, unspecified Assessment/Plan Current Medications Generic Name Dose Route Start Last Admin Trade Name Freq PRN Reason Stop Dose Admin Acetaminophen 650 mg 05/15/17 17:40 05/15/17 18:52 Tylenol - PO 650 mg Q4H PRN Administration FEVER >100F Albuterol Sulfate 1 amp 05/23/17 14:10 Ventolin 0.083% Nebulizer Soln - NEB Q4H PRN SHORT OF BREATH/WHEEZING Albuterol/Ipratropium 1 amp 05/23/17 20:00 05/26/17 13:25 Duoneb - NEB 1 amp RTID [facility] Administration Allopurinol 300 mg 05/15/17 10:00 05/26/17 09:21 Zyloprim - PO 300 mg DAILY [facility] Administration Aspirin 81 mg 05/15/17 10:00 05/26/17 09:21 Asa - PO 81 mg DAILY [facility] Administration Docusate Sodium 100 mg 05/14/17 22:00 05/26/17 09:21 Colace - PO 100 mg BID [facility] Administration Donepezil HCl 10 mg 05/15/17 22:00 05/25/17 21:17 Aricept - PO 10 mg HS [facility] Administration Ferrous Sulfate 325 mg 05/15/17 10:00 05/26/17 09:21 Feosol - PO 325 mg DAILY [facility] Administration Heparin Sodium (Porcine) 5,000 unit 05/21/17 22:00 05/26/17 09:20 Heparin - SQ 5,000 unit BID [facility] Administration Hydralazine HCl 100 mg 05/14/17 22:00 05/26/17 14:19 Apresoline - PO 100 mg TID [facility] Administration Insulin Aspart 10 units 05/14/17 20:45 05/26/17 06:42 Novolog Mix 70/30 Vial SQ 10 units BIDAC [facility] Administration Insulin Aspart 1 vial 05/17/17 11:00 05/26/17 11:52 Novolog Vial Sliding Scale - SQ 2 units ACHS [facility] Administration Protocol Isosorbide Mononitrate 60 mg 05/15/17 10:00 05/26/17 09:21 Imdur - PO 60 mg DAILY [facility] Administration Memantine 5 mg 05/15/17 10:00 05/26/17 09:21 Namenda - PO 5 mg DAILY [facility] Administration Nifedipine 30 mg 05/15/17 10:00 05/26/17 09:21 Procardia Xl - PO 30 mg DAILY [facility] Administration Polyethylene Glycol 17 gm 05/14/17 20:30 05/21/17 22:40 Miralax (For Daily Use) - PO 17 gm HS PRN Administration CONSTIPATION Potassium Chloride 20 meq 05/24/17 18:35 05/26/17 09:21 K-Dur - PO 20 meq DAILY [facility] Administration Propylthiouracil 50 mg 05/15/17 10:00 05/26/17 09:21 Ptu - PO 50 mg DAILY [facility] Administration Ranitidine HCl 150 mg 05/20/17 11:15 05/26/17 09:21 Zantac - PO 150 mg DAILY [facility] Administration Sertraline HCl 100 mg 05/15/17 10:00 05/26/17 09:21 Zoloft - PO 100 mg DAILY [facility] Administration Torsemide 80 mg 05/23/17 10:00 05/26/17 09:21 Demadex - PO 80 mg DAILY [facility] Administration Impression 1. CKD 2. cough 3. CHF 4. bradycardia 5. dementia 6. HTN 7. DM 8. anemia Plan - renal function is stable - cont with diuretics - pt will follow with Dr Vazquez - BUN improving with prednisone taper - cont pt/rehab - renal diet Dr Atkinson
[2017-05-26] MEDS ORDERED: INSULIN (NOVOLOG MIX 70/30) 100 UNITS/ML MDV SQ ONE (16:44)
[2017-05-26 21:36] VITALS: BP 137/66; PULSE 20; TEMP 98.3
[2017-05-27 08:09] LABS: SERUM IRON SATURATION 22 % (15-55); TOTAL IRON BINDING CAPACITY 185 ug/dL (250-450); UIBC 145 ug/dL (118-369)
== END 2017-05-26 21:58 | DRG 193 ==
LOC: JER 10:15 → JERBED 13:40 → J4W 17:30 → J6S 05-19 18:41
PROVIDERS: ADMIT Internal Medicine; ATTEND Internal Medicine
PROC: 5A09557 Assistance with Respiratory Ventilation, Greater than 96 Consecutive Hours, Continuous Positive Airway Pressure (ICD-10-PCS; 2017-05-14)
PROC: 30233N1 Transfusion of Nonautologous Red Blood Cells into Peripheral Vein, Percutaneous Approach (ICD-10-PCS; principal; 2017-05-25)
DX: J18.9 Pneumonia, unspecified organism (principal); J96.01 Acute respiratory failure with hypoxia; I21.A1 Myocardial infarction type 2; J44.0 Chronic obstructive pulmonary disease with (acute) lower respiratory infection; N17.9 Acute kidney failure, unspecified; I13.0 Hypertensive heart and chronic kidney disease with heart failure and stage 1 through stage 4 chronic kidney disease, or unspecified chronic kidney disease; I50.30 Unspecified diastolic (congestive) heart failure; D61.818 Other pancytopenia; J44.1 Chronic obstructive pulmonary disease with (acute) exacerbation; N39.0 Urinary tract infection, site not specified; D64.9 Anemia, unspecified; R00.1 Bradycardia, unspecified; Z95.0 Presence of cardiac pacemaker; E11.22 Type 2 diabetes mellitus with diabetic chronic kidney disease; N18.9 Chronic kidney disease, unspecified; E87.6 Hypokalemia; I27.29 Other secondary pulmonary hypertension; B96.20 Unspecified Escherichia coli [E. coli] as the cause of diseases classified elsewhere; G30.9 Alzheimer's disease, unspecified; F02.80 Dementia in other diseases classified elsewhere, unspecified severity, without behavioral disturbance, psychotic disturbance, mood disturbance, and anxiety
CPT/HCPCS: 36415; 36430; 71045-TC-FY; 71250-TC; 80048; 80053; 82272; 82550; 82553; 82607; 82728; 82962; 83540; 83550; 83605; 83615; 83735; 84436; 84439; 84443; 84484; 85025; 85027; 85044; 85651; 85730; 86140; 86850; 86900; 86901; 86922; 87040; 87086; 87186; 87899; 93005; 93010; 94640; 94660; 97116-GP; 97161-GP; 99285-25; J0885; J1644; P9038; P9058

== ENCOUNTER 2017-05-28 18:47 | Inpatient (IN) | payer OTHER ==
[2017-05-28 19:11] VITALS: BMI 25.5
--- NOTE | 2017-05-28 19:43 | PDOC ---
History of Present Illness - General History Source: Patient, Friend, Old Records Exam Limitations: No Limitations - History of Present Illness Initial Comments: 05/28/17 23:12 Patient is a 76 year old female, From [facility], with a significant past medical history of stage 4 kidney disease, COPD (not on home O2 ), diastolic CHF (s/p pacemaker placement), diabetes, Alzheimer's, ESRD, and anemia who presents to the ED with complaints of continued bloody nose that began this evening while at [place]. As per patient's friend, patient was sitting at dinner table when she began to experiencing an episode of bloody nose, that she states soaked through multiple napkins prompting them to come to the ED for further evaluation. As per patient's friend patient was discharged thursday for pneumonia exacerbation. Patient is actively bleeding while in the ED Denies chest pain, Sob. Denies nausea, vomiting. Denies fevers, chills. Denies contact with sick individuals, out of state traveling. Denies trauma to affected area. Allergies: Silvadene, Sulfa, Social history: From [facility]. No smoking. No alcohol. No illicit drugs. Surgical history: none PMD: Dr. Anabela Padron <Christopher Verde - Last Filed: 05/28/17 23:12> <Anette Diana - Last Filed: 05/28/17 23:35> - General Chief Complaint: Nasal Bleeding Stated Complaint: NOSE BLEED Time Seen by Provider: 05/28/17 19:21 Past History <Christopher Verde - Last Filed: 05/28/17 23:12> - Past Medical History Anemia: No Asthma: No Cancer: No Cardiac Disorders: No CVA: No COPD: No CHF: No Dementia: No Diabetes: Yes GI Disorders: No Disorders: Yes (H/O UTI, renal insufficiency) HTN: Yes Hypercholesterolemia: No Kidney Stones: Yes Liver Disease: No Seizures: No Thyroid Disease: No - Surgical History Abdominal Surgery: Yes Appendectomy: Yes Cardiac Surgery: No Cholecystectomy: No Lung Surgery: No Neurologic Surgery: No Orthopedic Surgery: Yes (LEFT ROTATOR CUFF 12 YEARS AGO) - Immunization History Immunization Up to Date: Yes - Suicide/Smoking/Psychosocial Hx Smoking Status: No Smoking History: Unknown if ever smoked Have you smoked in the past 12 months: No Number of Cigarettes Smoked Daily: 0 Information on smoking cessation initiated: No Hx Alcohol Use: No Drug/Substance Use Hx: No Substance Use Type: None Hx Substance Use Treatment: No <Anette Diana - Last Filed: 05/28/17 23:35> - Past Medical History Allergies/Adverse Reactions: Allergies Allergy/AdvReac Type Severity Reaction Status Date / Time No Known Allergies Allergy Verified 05/28/17 19:10 Home Medications: Ambulatory Orders Allopurinol [Zyloprim -] 300 mg PO DAILY 04/08/13 Ferrous Sulfate 325 mg PO DAILY 04/08/13 Isosorbide Mononitrate [Imdur] 60 mg PO DAILY 04/08/13 Pantoprazole Sodium [Protonix] 40 mg PO Q2D 04/08/13 Propylthiouracil 50 mg PO DAILY 04/08/13 Sertraline HCl [Zoloft -] 100 mg PO DAILY 04/08/13 Aspirin [ASA -] 81 mg PO DAILY 12/13/15 Docusate Sodium [Colace -] 100 mg PO BID 12/13/15 Donepezil HCl [Aricept -] 10 mg PO DAILY 12/13/15 Memantine HCl [Namenda -] 5 mg PO DAILY 12/13/15 hydrALAZINE HCL [Apresoline -] 100 mg PO TID #90 tablet 12/23/15 Insulin (Novolog 70/30) [Novolog Mix 70/30 Vial -] 10 units SQ BID 01/21/16 Lidocaine 5% Patch [Lidoderm -] 4 patch TD DAILY 01/16/17 Heparin - 5,000 unit SQ BID vial 01/18/17 Nifedipine ER [Procardia XL -] 30 mg PO DAILY #30 tab 01/18/17 Mupirocin Ointment [Bactroban 2% Ointment -] 1 applic TP BID applic 01/24/17 Oxymetazoline 0.05% Nasal Soln [Afrin -] 1 spray NS Q8H PRN #0 spray 01/24/17 Polyethylene Glycol 3350 [Miralax 119 gm Btl -] 17 gm PO HS PRN #30 bottle 01/24 Torsemide [Demadex -] 80 mg PO DAILY 05/14/17 Acetaminophen [Tylenol .Regular Strength -] 650 mg PO Q4H PRN tablet 05/26/17 Albuterol 0.083% Nebulizer Natalie [Ventolin 0.083% Nebulizer Soln -] 1 amp NEB Q4H PRN amp 05/26/17 Albuterol 2.5/Ipratropium 0.5 [Duoneb -] 1 amp NEB RTID amp 05/26/17 Insulin Sliding Scale [Novolog Vial Sliding Scale -] 1 vial SQ ACHS units 05/26 Potassium Chloride [K-Dur -] 20 meq PO DAILY tablet.er 05/26/17 Ranitidine [Zantac -] 150 mg PO DAILY tablet 05/26/17 Review of Systems - Review of Systems Able to Perform ROS?: Yes Comments:: 05/28/17 23:12 GENERAL/CONSTITUTIONAL: No fever or chills. No weakness. HEAD, EYES, EARS, NOSE AND THROAT: +Bloody nose. No change in vision. No ear pain or discharge. No sore throat. GASTROINTESTINAL: No nausea, vomiting, diarrhea or constipation. GENITOURINARY: No dysuria, frequency, or change in urination. CARDIOVASCULAR: No chest pain or shortness of breath. RESPIRATORY: No cough, wheezing, or hemoptysis. MUSCULOSKELETAL: No joint or muscle swelling or pain. No neck or back pain. SKIN: No rash NEUROLOGIC: No headache, vertigo, loss of consciousness, or change in strength/ sensation. ENDOCRINE: No increased thirst. No abnormal weight change. HEMATOLOGIC/LYMPHATIC: No anemia, easy bleeding, or history of blood clots. ALLERGIC/IMMUNOLOGIC: No hives or skin allergy. <Christopher Verde - Last Filed: 05/28/17 23:12> *Physical Exam - Vital Signs Last Vital Signs Temp Pulse Resp BP Pulse Ox 97.2 F L 87 14 137/64 95 05/28/17 18:50 05/28/17 18:50 05/28/17 18:50 05/28/17 18:50 05/28/17 18:50 - Physical Exam Comments: 05/28/17 23:12 GENERAL: Awake, alert, and fully oriented, in no acute distress HEAD: No signs of trauma EYES: PERRLA, EOMI, sclera anicteric, conjunctiva clear. ENT:+Bleeding nares bilaterally, more on right. +too brisk to see where. + Anterior packing placed in right which has slowed bleeding. +Packing placed in left. Auricles normal inspection, hearing grossly normal, oropharynx clear without exudates. Moist mucosa NECK: Normal ROM, supple, no lymphadenopathy, JVD, or masses LUNGS: Breath sounds equal, clear to auscultation bilaterally. No wheezes, and no crackles HEART: Regular rate and rhythm, normal S1 and S2, no murmurs, rubs or gallops ABDOMEN: Soft, nontender, normoactive bowel sounds. No guarding, no rebound. No masses EXTREMITIES: Normal range of motion, no edema. No clubbing or cyanosis. No cords, erythema, or tenderness NEUROLOGICAL: Cranial nerves II through XII grossly intact. Normal speech, SKIN: Warm, Dry, normal turgor, no rashes or lesions noted. <Christopher Verde - Last Filed: 05/28/17 23:12> - Vital Signs Last Vital Signs Temp Pulse Resp BP Pulse Ox 97.2 F L 87 14 137/64 95 05/28/17 18:50 05/28/17 18:50 05/28/17 18:50 05/28/17 18:50 05/28/17 18:50 <Anette Diana - Last Filed: 05/28/17 23:35> Procedures - Additional Procedures Additional Procedures: other Progress: 05/28/17 20:52 anterior 4.5cm rapid rhino placed to R nare - no active bleeding after procedure posterior pharynx clear pt tolerated procedure well <Anette Diana - Last Filed: 05/28/17 23:35> ED Treatment Course - LABORATORY CBC & Chemistry Diagram: 05/28/17 21:35 05/28/17 21:35 - ADDITIONAL ORDERS Additional order review: Laboratory Results 05/28/17 05/28/17 21:35 21:35 PT with INR 10.90 INR 0.96 PTT (Actin FS) 28.9 Sodium 140 Potassium 4.5 Chloride 102 Carbon Dioxide 28 Anion Gap 10 BUN 108 H* Creatinine 2.4 H Creat Clearance w eGFR 19.63 Random Glucose 153 H Calcium 7.8 L Total Bilirubin 0.7 D AST 18 ALT 17 Alkaline Phosphatase 84 Total Protein 5.9 L Albumin 3.3 L 05/28/17 21:35 RBC 2.93 L MCV 97.7 H MCHC 33.4 RDW 16.6 H MPV 11.1 Neutrophils % 87.5 H D Lymphocytes % 6.0 L D Monocytes % 5.7 Eosinophils % 0.6 D Basophils % 0.2 - Medications Given in the ED: ED Medications Discontinued Medications Generic Name Dose Route Start Last Admin Trade Name Vicki PRN Reason Stop Dose Admin Oxymetazoline HCl 1 spray 05/28/17 19:50 05/28/17 21:55 Afrin - NS 05/28/17 19:51 1 bottle NOW ONE Administration <Christopher Verde - Last Filed: 05/28/17 23:12> - LABORATORY CBC & Chemistry Diagram: 05/28/17 21:35 05/28/17 21:35 <Anette Diana - Last Filed: 05/28/17 23:35> Medical Decision Making - Medical Decision Making 05/28/17 20:51 a/p: 76yo female with epistaxis -hx of epistaxis, has seen Dr. Fairchild in the past -hx of anemia -will check labs -anterior packing R nare 05/28/17 21:36 pt still with oozing from both sides 2nd packing placed to L nare with 4.5cm rapid rhino pt tolerated the procedure well 05/28/17 23:[address] Lim who accepts pt to [facility], will transfer back to Dr. Padron tomorrow case discussed with ENT health education coordinator - will let Dr. Fairchild know about the patient. <Anette Diana - Last Filed: 05/28/17 23:35> *DC/Admit/Observation/Transfer - Attestations Scribe Attestion: 05/28/17 23:13 Documentation prepared by Christopher Verde, acting as electromedical service engineer for Anette Diana DO, MD/. <Christopher Verde - Last Filed: 05/28/17 23:12> - Discharge Dispostion Admit: Yes - Attestations Physician Attestion: 05/28/17 21:39 I, Dr. Anette Diana DO, attest that this document has been prepared under my direction and personally reviewed by me in its entirety. I further attest, that it accurately reflects all work, treatment, procedures and medical decision -making performed by me. <Anette Diana - Last Filed: 05/28/17 23:35> Diagnosis at time of Disposition: Epistaxis, Renal failure - Discharge Dispostion Condition at time of disposition: Guarded - Referrals Referrals: Renata Espinosa MD [Primary Care Provider] - - Patient Instructions - Post Discharge Activity
[2017-05-28] MEDS ORDERED: OXYMETAZOLINE 0.05% NASAL SOLUTION 15 ML BOTTLE NS ONE (19:50)
[2017-05-28 21:53] LABS: BASO % 0.2 % (0-2.0); EOS % 0.6 % (0-4.5); HEMATOCRIT 28.6 % (32.4-45.2); HEMOGLOBIN 9.5 GM/dL (10.7-15.3); MCH 32.6 pg (25.7-33.7); MCHC 33.4 g/dl (32.0-36.0); MEAN CELL VOLUME 97.7 fl (80-96); MEAN PLT VOLUME 11.1 fl (7.5-11.1); MONO % 5.7 % (3.8-10.2); NEUT % 87.5 % (42.8-82.8); PLATELET COUNT 160 K/MM3 (134-434); RBC 2.93 M/mm3 (3.60-5.2); RDW 16.6 % (11.6-15.6); WHITE BLOOD COUNT 8.2 K/mm3 (4.0-10.0)
[2017-05-28 22:06] LABS: INR 0.96 (0.82-1.09); PROTHROMBIN TIME (PATIENT) 10.9 SEC (9.98-11.88)
[2017-05-28 22:08] LABS: ACTIVATED PTT 28.9 SECONDS (26.9-34.4)
[2017-05-28 22:16] LABS: ALBUMIN 3.3 g/dl (3.4-5.0); ANION GAP 10 (8-16); BILIRUBIN,TOTAL 0.7 mg/dL (0.2-1.0); CALCIUM 7.8 mg/dL (8.5-10.1); CHLORIDE 102 mmol/L (98-107); CO2 28 mmol/L (21-32); CREATININE 2.4 mg/dL (0.55-1.02); GLUCOSE,RANDOM 153 mg/dL (74-106); POTASSIUM 4.5 mmol/L (3.5-5.1); SGOT/AST 18 U/L (15-37); SGPT/ALT 17 U/L (12-78); SODIUM 140 mmol/L (136-145); TOT PROT 5.9 g/dl (6.4-8.2)
[2017-05-28 22:17] LABS: ALK PHOS 84 U/L (45-117); BLOOD UREA NITROGEN 108 mg/dL (7-18)
[2017-05-28] MEDS ORDERED: SODIUM CHLORIDE 0.9% 1000 ML INFUS.BAG IV ONE (22:37)
[2017-05-28] MEDS ORDERED: ACETAMINOPHEN 1000 MG/100 ML VIAL (NON FORMULARY) IVPB ONE (22:38)
[2017-05-28] MEDS ORDERED: LIDOCAINE 5% TOPICAL PATCH TP ONE (22:38)
[2017-05-28] MEDS ORDERED: ONDANSETRON 4 MG/2 ML VIAL IVPUSH ONE (22:38)
[2017-05-28] MEDS: LIDOCAINE PATCH REMOVAL MC SCH (23:08)
[2017-05-28] MEDS ORDERED: ACETAMINOPHEN INJECTION 100 ML IVPB ONE (23:11)
[2017-05-28] MEDS ORDERED: ONDANSETRON 4 MG/2 ML VIAL ONE (23:12)
[2017-05-28] MEDS ORDERED: LIDOCAINE 5% TOPICAL PATCH ONE (23:12)
[2017-05-29] MEDS ORDERED: CYCLOBENZAPRINE HCL 5 MG TABLET PO ONE
[2017-05-29] MEDS ORDERED: CYCLOBENZAPRINE HCL 10 MG TABLET (FP) ONE (00:27)
[2017-05-29] MEDS ORDERED: morphine SULFATE 4 MG/ML VIAL IVPUSH PRN (00:33)
[2017-05-29] MEDS ORDERED: ONDANSETRON 4 MG/2 ML VIAL IVPUSH PRN (00:42)
[2017-05-29] MEDS ORDERED: ACETAMINOPHEN 1000 MG/100 ML VIAL (NON FORMULARY) IVPB PRN (00:43)
[2017-05-29] MEDS ORDERED: ALBUTEROL SO4 0.083% IH SOL 2.5 MG/3 ML VIAL.NEB. NEB PRN (00:48)
[2017-05-29] MEDS ORDERED: POLYETHYLENE GLYCOL 3350 119 GM BTL PO PRN (00:48)
--- NOTE | 2017-05-29 01:57 | HP ---
CHIEF COMPLAINT: nose bleed PCP: Dr. Anabela Padron HISTORY OF PRESENT ILLNESS: The patient is a 76 yo f w/ PMH CKD stage 4, COPD, diastolic CHF and diabetes sent from [facility] for persistent nose bleed. The patient has a hx of alzheimers and the history was obtained with the assistance of her friend, Angela Mederos ([phone]). The patient was having dinner when she experienced a sudden onset bilateral nosebleed. The patient attempted to stop the bleeding by packing it at home, but came to the emergency room when she could not. The patient has had several nosebleeds in the past, but they are not usually this severe. The patient only had one other episode of expistaxis "many years ago" which required cauterization by ENT. Patient denies chest pain, Headache, shortness of breath, fevers, chills abdominal pain, nausea, vomiting or diarrhea. Patient denies any nasal trauma or bleeding elsewhere. ER course was notable for: (1) BUN 108, Cr. 2.4 (2) CBC 9.5 (3) Rhino rocket x2 Recent Travel: none PAST MEDICAL HISTORY: see HPI PAST SURGICAL HISTORY: none Social History: Smoking: denies Alcohol: denies Drugs: denies Family History: non-contributory Allergies No Known Allergies Allergy (Verified 05/28/17 19:10) HOME MEDICATIONS: Home Medications Medication Instructions Recorded Allopurinol [Zyloprim -] 300 mg PO DAILY 04/08/13 Ferrous Sulfate 325 mg PO DAILY 04/08/13 Isosorbide Mononitrate [Imdur] 60 mg PO DAILY 04/08/13 Pantoprazole Sodium [Protonix] 40 mg PO Q2D 04/08/13 Propylthiouracil 50 mg PO DAILY 04/08/13 Sertraline HCl [Zoloft -] 100 mg PO DAILY 04/08/13 Aspirin [ASA -] 81 mg PO DAILY 12/13/15 Docusate Sodium [Colace -] 100 mg PO BID 12/13/15 Donepezil HCl [Aricept -] 10 mg PO DAILY 12/13/15 Memantine HCl [Namenda -] 5 mg PO DAILY 12/13/15 hydrALAZINE HCL [Apresoline -] 100 mg PO TID #90 tablet 12/23/15 Insulin (Novolog 70/30) [Novolog 10 units SQ BID 01/21/16 Mix 70/30 Vial -] Lidocaine 5% Patch [Lidoderm -] 4 patch TD DAILY 01/16/17 Heparin - 5,000 unit SQ BID vial 01/18/17 Nifedipine ER [Procardia XL -] 30 mg PO DAILY #30 tab 01/18/17 Mupirocin Ointment [Bactroban 2% 1 applic TP BID applic 01/24/17 Ointment -] Oxymetazoline 0.05% Nasal Soln 1 spray NS Q8H PRN #0 spray 01/24/17 [Afrin -] Polyethylene Glycol 3350 [Miralax 17 gm PO HS PRN #30 bottle 01/24/17 119 gm Btl -] Torsemide [Demadex -] 80 mg PO DAILY 05/14/17 Acetaminophen [Tylenol .Regular 650 mg PO Q4H PRN tablet 05/26/17 Strength -] Albuterol 0.083% Nebulizer Natalie 1 amp NEB Q4H PRN amp 05/26/17 [Ventolin 0.083% Nebulizer Soln -] Albuterol 2.5/Ipratropium 0.5 1 amp NEB RTID amp 05/26/17 [Duoneb -] Insulin Sliding Scale [Novolog 1 vial SQ ACHS units 05/26/17 Vial Sliding Scale -] Potassium Chloride [K-Dur -] 20 meq PO DAILY tablet.er 05/26/17 Ranitidine [Zantac -] 150 mg PO DAILY tablet 05/26/17 REVIEW OF SYSTEMS CONSTITUTIONAL: Absent: fever, chills, diaphoresis, generalized weakness, malaise, loss of appetite, weight change HEENT: Absent: nasal congestion, throat pain, throat swelling, difficulty swallowing, mouth swelling, ear pain, eye pain, visual changes CARDIOVASCULAR: Absent: chest pain, syncope, palpitations, irregular heart rate, lightheadedness , peripheral edema RESPIRATORY: Absent: cough, shortness of breath, dyspnea with exertion, orthopnea, wheezing, stridor, hemoptysis GASTROINTESTINAL: Absent: abdominal pain, abdominal distension, nausea, vomiting, diarrhea, constipation, melena, hematochezia GENITOURINARY: Absent: dysuria, frequency, urgency, hesitancy, hematuria, flank pain, genital pain MUSCULOSKELETAL: Absent: myalgia, arthralgia, joint swelling, back pain, neck pain SKIN: Absent: rash, itching, pallor HEMATOLOGIC/IMMUNOLOGIC: Absent: easy bleeding, easy bruising, lymphadenopathy, frequent infections ENDOCRINE: Absent: unexplained weight gain, unexplained weight loss, heat intolerance, cold intolerance NEUROLOGIC: Absent: headache, focal weakness or paresthesias, dizziness, unsteady gait, seizure, mental status changes, bladder or bowel incontinence PSYCHIATRIC: Absent: anxiety, depression, suicidal or homicidal ideation, hallucinations. PHYSICAL EXAMINATION Vital Signs - 24 hr 05/28/17 18:50 Temperature 97.2 F L Pulse Rate 87 Respiratory 14 Rate Blood Pressure 137/64 O2 Sat by Pulse 95 Oximetry (%) GENERAL: Awake, alert, and fully oriented, in no acute distress. HEAD: Normal with no signs of trauma. EYES: Pupils equal, round and reactive to light, extraocular movements intact, sclera anicteric, conjunctiva clear. No lid lag. EARS, NOSE, THROAT: Patient has rhino rockets inserted into b/l nostrils with dried blood seen around the nares. No oozing seen. Moist mucous membranes. NECK: Normal range of motion, supple without lymphadenopathy, JVD, or masses. LUNGS: Breath sounds equal, clear to auscultation bilaterally. No wheezes, and no crackles. No accessory muscle use. HEART: Regular rate and rhythm, normal S1 and S2 without murmur, rub or gallop. ABDOMEN: Soft, nontender, not distended, normoactive bowel sounds, no guarding, no rebound, no masses. No hepatomegaly or splenomegaly. LOWER EXTREMITIES: 2+ pulses, warm, well-perfused. No calf tenderness. No peripheral edema. NEUROLOGICAL: Cranial nerves II-X intact. Normal speech. Normal gait. PSYCHIATRIC: Cooperative. Good eye contact. Appropriate mood and affect. SKIN: Warm, dry, normal turgor, no rashes or lesions noted, normal capillary refill. Laboratory Results - last 24 hr 05/28/17 05/28/17 05/28/17 21:35 21:35 21:35 WBC 8.2 RBC 2.93 L Hgb 9.5 L Hct 28.6 L MCV 97.7 H MCH 32.6 MCHC 33.4 RDW 16.6 H Plt Count 160 D MPV 11.1 Neutrophils % 87.5 H D Lymphocytes % 6.0 L D Monocytes % 5.7 Eosinophils % 0.6 D Basophils % 0.2 PT with INR 10.90 INR 0.96 PTT (Actin FS) 28.9 Sodium 140 Potassium 4.5 Chloride 102 Carbon Dioxide 28 Anion Gap 10 BUN 108 H* Creatinine 2.4 H Creat Clearance w eGFR 19.63 Random Glucose 153 H Calcium 7.8 L Total Bilirubin 0.7 D AST 18 ALT 17 Alkaline Phosphatase 84 Total Protein 5.9 L Albumin 3.3 L ASSESSMENT/PLAN: The patient is a 76 yo f w/ PMH CKD4, diabetes and CHF who is being admitted for observation of b/l epistaxis in the setting of uremia. #persistent B/L epistaxis -Bleeding currently controlled -f/u AM CBC, CMP, Coags, type and screen -ENT consult for possible cauterization -NPO -Transfuse if Hb <8 -DDAVP .3mcg/Kg (total 20mcg) IV -hold ASA #Uremia 2/2 CKD4 -Patient refusing dialysis -BUN improved from last admission -monitor BUN, Cr -avoid nephrotoxic drugs #Diabetes -BGM ACHS -ISS ACHS #CHF -not currently in exacerbation -resume home meds #COPD -resume home inhalers #FEN -no fluids indicated -lytes WNL -NPO #Prophylaxis -SCDs #Dispo -admit for observation Visit type - Emergency Visit Emergency Visit: Yes ED Registration Date: 05/28/17 Care time: The patient presented to the Emergency Department on the above date and was hospitalized for further evaluation of their emergent condition. - New Patient This patient is new to me today: Yes Date on this admission: 05/29/17 - Critical Care Critical Care patient: No Hospitalist Screening - Colonoscopy Questionnaire Colonoscopy Questionnaire: Colonoscopy Questionnaire - Patient: 50 - 75 years old and never had a screening colonoscopy: Unknown History of colon or rectal polyps, or CA: Unknown History of IBD, Crohn's disease or UC: Unknown History of abdominal radiation therapy as a child: Unknown - Relative: 1 with colon or rectal CA, or polyps at age 60 or younger: Unknown Colon or rectal CA diagnosed at age 45 or younger: Unknown Multiple relatives with colon or rectal CA: Unknown - Outcome: Screening Result: Negative Screen
--- NOTE | 2017-05-29 03:09 | PN ---
Teaching Attending Note Name of Resident: Rafa Soria ATTENDING PHYSICIAN STATEMENT I saw and evaluated the patient. Chart, data reviewed. I reviewed the resident's note and discussed the case with the resident. I agree with the resident's findings and plan as documented. SUBJECTIVE: 76 year old woman group home resident w/ stage 4 kidney disease, COPD (not on home O2), diastolic CHF (s/p pacemaker placement), diabetes, Alzheimer's, anemia presented with bleeding through nostrils which began 3/8 in the afternoon when patient was eating dinner. No history of trauma to nose. Patient had nosebleed in the past which required ENT intervention- cauterization. Patient recently d/c from inpatient after she was treated for pneumonia. OBJECTIVE: Last Vital Signs Temp Pulse Resp BP Pulse Ox 97.2 F L 87 14 137/64 95 05/28/17 18:50 05/28/17 18:50 05/28/17 18:50 05/28/17 18:50 05/28/17 18: 50hol General -nad, demented heent- nostrils packed b/l neck -no masses noted cv -s1+S2+ systolic murmur chest- cta b/l, no wheezing crackles abdomen- soft, nt ext- no pedal edema Abnormal Lab Results 05/28/17 05/28/17 21:35 21:35 RBC 2.93 L Hgb 9.5 L Hct 28.6 L MCV 97.7 H RDW 16.6 H Neutrophils % 87.5 H D Lymphocytes % 6.0 L D BUN 108 H* Creatinine 2.4 H Random Glucose 153 H Calcium 7.8 L Total Protein 5.9 L Albumin 3.3 L ASSESSMENT AND PLAN: #Recurrent epistaxis likely secondary to uremic platelet dysfunction as well as possibly from NSAID induced platelet dysfunction. Bleeding controlled s/p nasal packing in ER. H,H stable and patient hemodynamically stable. -observation -hold NSAIDS and heparin -DDAVP 20mcg IV -ENT consult -monitor H,H -monitor BP closely -tilt head forward, head of bed elevation to prevent aspiration -NPO for now #DVT ppx -SCDs
[2017-05-29] MEDS ORDERED: DESMOPRESSIN ACETATE 4 MCG/ML AMP IVPB ONE (03:31)
[2017-05-29] MEDS ORDERED: DESMOPRESSIN ACETATE 20 MCG in SODIUM CHLORIDE 50 ML IVPB ONE (04:30)
[2017-05-29] MEDS: hydrALAZINE HCL 50 MG TABLET (FP) PO SCH ×3 (06:28→21:50)
[2017-05-29] MEDS: INSULIN SLIDING SCALE (NOVOLOG) 1 VIAL SQ SCH ×4 (06:30→21:54)
[2017-05-29] MEDS: ALBUTEROL SO4 2.5/IPRATROPIUM 0.5 INH SOL 3 ML VIAL.NEB. NEB SCH ×3 (07:20→20:40)
[2017-05-29 08:16] LABS: BASO % 0.4 % (0-2.0); EOS % 0.7 % (0-4.5); HEMATOCRIT 26.5 % (32.4-45.2); HEMOGLOBIN 8.8 GM/dL (10.7-15.3); LYMPH % 8.7 % (8-40); MCH 32.3 pg (25.7-33.7); MCHC 33.1 g/dl (32.0-36.0); MEAN CELL VOLUME 97.6 fl (80-96); MEAN PLT VOLUME 11.1 fl (7.5-11.1); MONO % 5.9 % (3.8-10.2); NEUT % 84.3 % (42.8-82.8); PLATELET COUNT 138 K/MM3 (134-434); RBC 2.71 M/mm3 (3.60-5.2); RDW 16.9 % (11.6-15.6); WHITE BLOOD COUNT 6.3 K/mm3 (4.0-10.0)
[2017-05-29 08:36] LABS: INR 0.96 (0.82-1.09); PROTHROMBIN TIME (PATIENT) 10.9 SEC (9.98-11.88)
[2017-05-29 08:39] LABS: ACTIVATED PTT 27.8 SECONDS (26.9-34.4)
[2017-05-29 08:41] LABS: ALBUMIN 3.1 g/dl (3.4-5.0); ANION GAP 11 (8-16); BILIRUBIN,TOTAL 0.6 mg/dL (0.2-1.0); BLOOD UREA NITROGEN 101 mg/dL (7-18); CALCIUM 7.6 mg/dL (8.5-10.1); CHLORIDE 102 mmol/L (98-107); CO2 27 mmol/L (21-32); CREATININE 2.2 mg/dL (0.55-1.02); GLUCOSE,RANDOM 116 mg/dL (74-106); MAGNESIUM 2.3 mg/dL (1.8-2.4); POTASSIUM 4.4 mmol/L (3.5-5.1); SGOT/AST 14 U/L (15-37); SGPT/ALT 14 U/L (12-78); SODIUM 140 mmol/L (136-145)
[2017-05-29 08:43] LABS: ALK PHOS 74 U/L (45-117); TOT PROT 5.4 g/dl (6.4-8.2)
--- NOTE | 2017-05-29 08:44 | EKG ---
Test Reason : Blood Pressure : / mmHG Vent. Rate : 089 BPM Atrial Rate : 089 BPM P-R Int : 230 ms QRS Dur : 140 ms QT Int : 416 ms P-R-T Axes : 089 011 -13 degrees QTc Int : 506 ms SINUS RHYTHM WITH 1ST DEGREE A-V BLOCK NON-SPECIFIC INTRA-VENTRICULAR CONDUCTION BLOCK CANNOT RULE OUT ANTERIOR INFARCT , AGE UNDETERMINED ABNORMAL ECG WHEN COMPARED WITH ECG OF 14-MAY-2017 18:02, T WAVE INVERSION NOW EVIDENT IN INFERIOR LEADS NONSPECIFIC T WAVE ABNORMALITY, WORSE IN LATERAL LEADS Confirmed by NURYS REED, ANGEL ([id number]) on 05/29/2017 8:44:19 AM Referred By: Confirmed By:ANGEL NUNO MD
[2017-05-29] MEDS ORDERED: LIDOCAINE 5% TOPICAL PATCH TP SCH (10:00)
[2017-05-29] MEDS: DOCUSATE SODIUM 100 MG CAPSULE (FP) PO SCH ×2 (10:40→21:50)
[2017-05-29] MEDS ORDERED: PT OWN MED DRAWER 7, Y5N ONE (10:44)
[2017-05-29] MEDS: MEMANTINE HCL 5 MG TABLET (UD) PO SCH (11:47)
[2017-05-29] MEDS: ALLOPURINOL 300 MG TABLET (FP) PO SCH (11:48)
[2017-05-29] MEDS: RANITIDINE HCL 150 MG TABLET (FP) PO SCH (11:52)
[2017-05-29] MEDS: TORSEMIDE 20 MG TABLET (FP) PO SCH (11:52)
[2017-05-29] MEDS: NIFEdipine E.R. 30 MG TABLET (FP) PO SCH (11:52)
[2017-05-29] MEDS: LIDOCAINE 5% TOPICAL PATCH TP SCH (11:52)
[2017-05-29] MEDS: SERTRALINE HCL 50 MG TABLET (FP) PO SCH (11:52)
[2017-05-29] MEDS: ISOSORBIDE MONONITRATE 60 MG TAB.SR.24H (FP) PO SCH (11:52)
--- NOTE | 2017-05-29 12:50 | CON.ENT ---
Consult Consult Specialty:: otolaryngology Reason for Consultation:: nosebleed - History of Present Illness Chief Complaint: nosebleed History of Present Illness: 76F with PMHx CKD stage 4, COPD, CHF, DM2, Alzheimer's admitted last night after developing bilateral epistaxis. She had bilateral nose packing placed and has since stopped bleeding. 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: Yes: Alzheimer's Cardio/Vascular: Yes: CHF, HTN, Other (left sided PPM for bradycardia, presumably sick sinus syndrome) Pulmonary: Yes: COPD Gastrointestinal: Yes: Diverticulosis, GERD, Hiatal Hernia, Other (3 colon adenomas removed 2012, gastric fundic gland polyp) Renal/: Yes: Renal Failure, Renal Calculi, UTI ENT: Yes: Other (perforate nasal septum) Endocrine: Yes: Diabetes Mellitus, Hyperthyroidism (took PTU in the past), Other (Multinodular goiter) Dermatology: Yes: Melanoma (RLE melanoma excision), Other (chronic lower extremity lymphedema) - Past Surgical History Past Surgical History: Yes: Appendectomy, Arthrosocopy, Colonoscopy, Hysterectomy (TAHBSO), Permanent Pacemaker, Upper Endoscopy - Alcohol/Substance Use Hx Alcohol Use: No History of Substance Use: reports: None - Smoking History Smoking history: Unknown if ever smoked Have you smoked in the past 12 months: No Aproximately how many cigarettes per day: 0 - Social History Usual Living Arrangement: Skilled Nursing ADL: Independent History of Recent Travel: No Home Medications - Allergies Allergies/Adverse Reactions: Allergies Allergy/AdvReac Type Severity Reaction Status Date / Time No Known Allergies Allergy Verified 05/28/17 19:10 - Home Medications Home Medications: Ambulatory Orders Allopurinol [Zyloprim -] 300 mg PO DAILY 04/08/13 Ferrous Sulfate 325 mg PO DAILY 04/08/13 Isosorbide Mononitrate [Imdur] 60 mg PO DAILY 04/08/13 Pantoprazole Sodium [Protonix] 40 mg PO Q2D 04/08/13 Propylthiouracil 50 mg PO DAILY 04/08/13 Sertraline HCl [Zoloft -] 100 mg PO DAILY 04/08/13 Aspirin [ASA -] 81 mg PO DAILY 12/13/15 Docusate Sodium [Colace -] 100 mg PO BID 12/13/15 Donepezil HCl [Aricept -] 10 mg PO DAILY 12/13/15 Memantine HCl [Namenda -] 5 mg PO DAILY 12/13/15 hydrALAZINE HCL [Apresoline -] 100 mg PO TID #90 tablet 12/23/15 Insulin (Novolog 70/30) [Novolog Mix 70/30 Vial -] 10 units SQ BID 01/21/16 Lidocaine 5% Patch [Lidoderm -] 4 patch TD DAILY 01/16/17 Heparin - 5,000 unit SQ BID vial 01/18/17 Nifedipine ER [Procardia XL -] 30 mg PO DAILY #30 tab 01/18/17 Mupirocin Ointment [Bactroban 2% Ointment -] 1 applic TP BID applic 01/24/17 Oxymetazoline 0.05% Nasal Soln [Afrin -] 1 spray NS Q8H PRN #0 spray 01/24/17 Polyethylene Glycol 3350 [Miralax 119 gm Btl -] 17 gm PO HS PRN #30 bottle 01/24 Torsemide [Demadex -] 80 mg PO DAILY 05/14/17 Acetaminophen [Tylenol .Regular Strength -] 650 mg PO Q4H PRN tablet 05/26/17 Albuterol 0.083% Nebulizer Natalie [Ventolin 0.083% Nebulizer Soln -] 1 amp NEB Q4H PRN amp 05/26/17 Albuterol 2.5/Ipratropium 0.5 [Duoneb -] 1 amp NEB RTID amp 05/26/17 Insulin Sliding Scale [Novolog Vial Sliding Scale -] 1 vial SQ ACHS units 05/26 Potassium Chloride [K-Dur -] 20 meq PO DAILY tablet.er 05/26/17 Ranitidine [Zantac -] 150 mg PO DAILY tablet 05/26/17 Family Disease History - Family Disease History Family Disease History: CA: Father (colon cancer age 65) Review of Systems - Review of Systems HENT: reports: Epistaxis Physical Exam-ENT Vital Signs: Vital Signs Temperature 98.4 F 05/29/17 08:20 Pulse Rate 91 H 05/29/17 08:20 Respiratory Rate 18 05/29/17 08:20 Blood Pressure 154/82 05/29/17 08:20 O2 Sat by Pulse Oximetry (%) 95 05/29/17 04:32 Constitutional: Yes: Well Nourished, No Distress, Calm, Other (laying in hospital bed. NAD. pleasant and conversive but seems slightly confused about her medical history.) Head: Yes: WNL Face: Yes: WNL Eyes: Yes: WNL Nose: Yes: Other (bilateral rhinorockets inserted. no active/fresh blood) Oral/Pharynx: Yes: Other (post o/p with dry blood) Outer Ear: Yes: WNL Ear Canal: Yes: Cerumen Neurological: Yes: Other (cn3-7,11,12 intact, symmetrical) Problem List - Problems (1) Bleeding nose Assessment/Plan: Epistaxis, controlled with bilateral rhinorocket per ER - Renal insufficiency and potential associated coagulopathy. - Packing is usually left in place for three days before removal. - Please have the patient see myself or one of my colleagues Thursday for packing removal. It is preferable for us to remove packing in our office given the arrangement of instruments we have available to manage epistaxis. If she is still in house on Thursday and can be discharged, please arrange for an appointment and discharge her to my office. - Gram positive antibiotic coverage while packing in place. - Appreciate medical care, management. Code(s): R04.0 - EPISTAXIS
--- NOTE | 2017-05-29 14:53 | PN ---
Teaching Attending Note Name of Resident: Juan Antonio Dunlap ATTENDING PHYSICIAN STATEMENT I saw and evaluated the patient. I reviewed the resident's note and discussed the case with the resident. I agree with the resident's findings and plan as documented. SUBJECTIVE: no fever or chills, no pain, no cough . limited hx due to dementia OBJECTIVE: NAD , awake , alert , knows she is in hospital . b/l anterior nasal packing. dry blood in oropharynx . dry MM CV: RRR3/6 Sm at LLSB and 2/6 DM at apex Lungs CTAB Abd: soft, NT, ND , NL BS Ext : trace edema ASSESSMENT AND PLAN: 76 y/o lady with h/o CKD, HTN, CHF , COPD , dementia and DM , nasal septal defect and recurrent nasal bleed , recently Dced from hospital who presented with epistaxis. 1- Epistaxis: stopped after packing . ENT eval pending Recs . hold ASA for now . ( on asa for demand ischemia and possible CAD , no recent stents , no documentation of A fib before ) no need forprophylactic ABx for TSS, unless recommended otherwise by ENT 2- h/o D CHF : not active now cont her diurestics 3- H/o HTN: cont HZN, nifedipine , and imdur 4- dementia 5- CKD : cr at base line dispo : depends on ENT Recs
--- NOTE | 2017-05-29 15:32 | PN ---
Physical Exam: SUBJECTIVE: Patient seen and examined at bedside. States that she has been admitted for nosebleeds in the past. Currently denies further bleeding, chest pain, SOB, nausea, vomiting diarrhea. OBJECTIVE: Vital Signs Period Temp Pulse Resp BP Sys/Corado Pulse Ox Last 24 Hr 97.2 F-98.4 F 87-110 14-20 137-154/64-82 95-95 GENERAL: A&Ox3, no acute distress ENT: both nostrils with packing, dried blood on nares, dried blood in posterior oropharynx CARDS: RRR, dyastolic murmur noted at apex LUNGS: CTA ABD: soft, nontender, nondistended Laboratory Results - last 24 hr 05/28/17 05/28/17 05/28/17 21:35 21:35 21:35 WBC 8.2 RBC 2.93 L Hgb 9.5 L Hct 28.6 L MCV 97.7 H MCH 32.6 MCHC 33.4 RDW 16.6 H Plt Count 160 D MPV 11.1 Neutrophils % 87.5 H D Lymphocytes % 6.0 L D Monocytes % 5.7 Eosinophils % 0.6 D Basophils % 0.2 PT with INR 10.90 INR 0.96 PTT (Actin FS) 28.9 Sodium 140 Potassium 4.5 Chloride 102 Carbon Dioxide 28 Anion Gap 10 BUN 108 H* Creatinine 2.4 H Creat Clearance w eGFR 19.63 POC Glucometer Random Glucose 153 H Calcium 7.8 L Phosphorus Magnesium Total Bilirubin 0.7 D AST 18 ALT 17 Alkaline Phosphatase 84 Total Protein 5.9 L Albumin 3.3 L Blood Type Antibody Screen 05/29/17 05/29/17 05/29/17 06:29 07:00 07:00 WBC 6.3 RBC 2.71 L Hgb 8.8 L Hct 26.5 L MCV 97.6 H MCH 32.3 MCHC 33.1 RDW 16.9 H Plt Count 138 MPV 11.1 Neutrophils % 84.3 H Lymphocytes % 8.7 D Monocytes % 5.9 Eosinophils % 0.7 Basophils % 0.4 PT with INR 10.90 INR 0.96 PTT (Actin FS) 27.8 Sodium Potassium Chloride Carbon Dioxide Anion Gap BUN Creatinine Creat Clearance w eGFR POC Glucometer 135 Random Glucose Calcium Phosphorus Magnesium Total Bilirubin AST ALT Alkaline Phosphatase Total Protein Albumin Blood Type Antibody Screen 03/12/0805/29/17 05/29/17 07:00 07:00 11:36 WBC RBC Hgb Hct MCV MCH MCHC RDW Plt Count MPV Neutrophils % Lymphocytes % Monocytes % Eosinophils % Basophils % PT with INR INR PTT (Actin FS) Sodium 140 Potassium 4.4 Chloride 102 Carbon Dioxide 27 Anion Gap 11 BUN 101 H Creatinine 2.2 H Creat Clearance w eGFR 21.70 POC Glucometer 161 Random Glucose 116 H Calcium 7.6 L Phosphorus 4.0 Magnesium 2.3 Total Bilirubin 0.6 AST 14 L ALT 14 Alkaline Phosphatase 74 Total Protein 5.4 L Albumin 3.1 L Blood Type O POSITIVE Antibody Screen Negative Active Medications Generic Name Dose Route Start Last Admin Trade Name Freq PRN Reason Stop Dose Admin Acetaminophen 1,000 mg 05/29/17 00:43 Ofirmev Injection - IVPB Q6H PRN PAIN LEVEL 1-5 Albuterol Sulfate 1 amp 05/29/17 00:48 Ventolin 0.083% Nebulizer Soln - NEB Q4H PRN SHORT OF BREATH/WHEEZING Albuterol/Ipratropium 1 amp 05/29/17 08:00 05/29/17 07:20 Duoneb - NEB 1 amp RTID POWER Administration Allopurinol 300 mg 05/29/17 10:00 05/29/17 11:48 Zyloprim - PO 300 mg DAILY POWER Administration Docusate Sodium 100 mg 05/29/17 10:00 05/29/17 10:40 Colace - PO 100 mg BID POWER Administration Donepezil HCl 10 mg 05/29/17 22:00 Aricept - PO HS POWER Hydralazine HCl 100 mg 05/29/17 06:00 05/29/17 13:59 Apresoline - PO 100 mg TID POWER Administration Insulin Aspart 1 vial 05/29/17 07:00 05/29/17 11:49 Novolog Vial Sliding Scale - SQ Not Given ACHS POWER Protocol Isosorbide Mononitrate 60 mg 05/29/17 10:00 05/29/17 11:52 Imdur - PO 60 mg DAILY POWER Administration Lidocaine 1 patch 05/29/17 10:00 05/29/17 11:52 Lidoderm Patch - TP 1 patch DAILY POWER Administration Memantine 5 mg 05/29/17 10:00 05/29/17 11:47 Namenda - PO 5 mg DAILY POWER Administration Miscellaneous 1 each 05/28/17 22:00 05/28/17 23:08 Lidoderm Patch Removal MC Not Given DAILY@2200 POWER Miscellaneous 1 each 05/29/17 22:00 Lidoderm Patch Removal MC DAILY@2200 POWER Morphine Sulfate 1 mg 05/29/17 00:33 Morphine Sulfate IVPUSH Q4H PRN PAIN LEVEL 6-10 Nifedipine 30 mg 05/29/17 10:00 05/29/17 11:52 Procardia Xl - PO 30 mg DAILY POWER Administration Ondansetron HCl 4 mg 05/29/17 00:42 Zofran Injection IVPUSH Q6H PRN NAUSEA Polyethylene Glycol 17 gm 05/29/17 00:48 Miralax (For Daily Use) - PO HS PRN CONSTIPATION Ranitidine HCl 150 mg 05/29/17 10:00 05/29/17 11:52 Zantac - PO 150 mg DAILY POWER Administration Sertraline HCl 100 mg 05/29/17 10:00 05/29/17 11:52 Zoloft - PO 100 mg DAILY POWER Administration Torsemide 80 mg 05/29/17 10:00 05/29/17 11:52 Demadex - PO 80 mg DAILY POWER Administration ASSESSMENT/PLAN: 76 year old female pmh CKD stage 4, COPD, Diastolic CHF, DM, alzheimers, anemia admitted for b/l epistaxis #Epistaxis: resolved -b/l anterior packing in -hold asa -s/p desmopressin 20 -ENT recommendations appreciated #HTN: stable cont. hydralazine cont. nifedipine #Alzheimers -continue donezepil -continue memantine #DM -Sliding scale #CKD -cont torsemide #COPD - stable -continue venti-mask #CHF -continue torsemide #FEN No standing fluids electrolytes within normal limits renal diet #Prophylaxis SCDS #Disposition -DC pending ENT recommendations, otherwise monitor on med-surg Visit type - Emergency Visit Emergency Visit: No - New Patient This patient is new to me today: Yes Date on this admission: 05/29/17 - Critical Care Critical Care patient: No
[2017-05-29] MEDS: DONEPEZIL HCL 10 MG TABLET (FP) PO SCH (21:50)
[2017-05-29] MEDS: LIDOCAINE PATCH REMOVAL MC SCH ×2 (21:55→23:44)
[2017-05-30] MEDS: hydrALAZINE HCL 50 MG TABLET (FP) PO SCH ×3 (05:52→21:36)
[2017-05-30] MEDS: INSULIN SLIDING SCALE (NOVOLOG) 1 VIAL SQ SCH ×4 (06:16→21:35)
[2017-05-30] MEDS: ALBUTEROL SO4 2.5/IPRATROPIUM 0.5 INH SOL 3 ML VIAL.NEB. NEB SCH ×3 (07:53→21:35)
[2017-05-30 08:00] LABS: HEMATOCRIT 27.1 % (32.4-45.2); HEMOGLOBIN 9.1 GM/dL (10.7-15.3); MCH 33.2 pg (25.7-33.7); MCHC 33.8 g/dl (32.0-36.0); MEAN CELL VOLUME 98.1 fl (80-96); MEAN PLT VOLUME 10.3 fl (7.5-11.1); PLATELET COUNT 126 K/MM3 (134-434); RBC 2.76 M/mm3 (3.60-5.2); RDW 16.8 % (11.6-15.6); WHITE BLOOD COUNT 8.3 K/mm3 (4.0-10.0)
[2017-05-30] MEDS: ISOSORBIDE MONONITRATE 60 MG TAB.SR.24H (FP) PO SCH (10:56)
[2017-05-30] MEDS: MEMANTINE HCL 5 MG TABLET (UD) PO SCH (10:56)
[2017-05-30] MEDS: LIDOCAINE 5% TOPICAL PATCH TP SCH (10:56)
[2017-05-30] MEDS: CEPHALEXIN MONOHYDRATE 250 MG CAPSULE (FP) PO SCH ×2 (10:56→21:37)
[2017-05-30] MEDS: DOCUSATE SODIUM 100 MG CAPSULE (FP) PO SCH ×2 (10:56→21:36)
[2017-05-30] MEDS: NIFEdipine E.R. 30 MG TABLET (FP) PO SCH (10:56)
[2017-05-30] MEDS: SERTRALINE HCL 50 MG TABLET (FP) PO SCH (10:56)
[2017-05-30] MEDS: ALLOPURINOL 300 MG TABLET (FP) PO SCH (10:56)
[2017-05-30] MEDS: RANITIDINE HCL 150 MG TABLET (FP) PO SCH (10:57)
[2017-05-30] MEDS: TORSEMIDE 20 MG TABLET (FP) PO SCH (13:43)
--- NOTE | 2017-05-30 13:49 | PN ---
Physical Exam: SUBJECTIVE: Patient seen and examined Patient resting in bed, nad. No acute events overnight, afebrile, hemodynamically stable. No further bleeding. No complaints of pain. Rhino Rockets in place. daughter requests that patient stay in hospital until thursday and have rhinorockets removed by ENT inpatient due to difficulty with ambulation and transport. OBJECTIVE: Vital Signs Period Temp Pulse Resp BP Sys/Corado Pulse Ox Last 24 Hr 97.8 F-100.1 F 104-111 18-20 122-157/62-93 91 GENERAL: The patient is awake, alert, no acute distress. HEAD: Normal with no signs of trauma. EYES: PERRL, extraocular movements intact, sclera anicteric, conjunctiva clear. No ptosis. ENT: moist mucous membranes, no blood in back of throat or mouth, rhinorockets in place . NECK: supple. LUNGS: Breath sounds equal, clear to auscultation bilaterally HEART: Regular rate and rhythm, S1, S2, + systolic ( L upper sternal) and diastolic (apex) murmur ABDOMEN: Soft, nontender, nondistended, normoactive bowel sounds, no guarding, no rebound, no masses. EXTREMITIES: 2+ pulses, warm, well-perfused, no edema. NEUROLOGICAL: Cranial nerves II through XII grossly intact. Normal speech, gait not observed. PSYCH: Normal mood, normal affect. SKIN: Warm, dry Laboratory Results - last 24 hr 05/29/17 05/29/17 05/30/17 16:45 21:53 05:55 WBC RBC Hgb Hct MCV MCH MCHC RDW Plt Count MPV POC Glucometer 179 190 154 05/30/17 05/30/17 06:00 11:38 WBC 8.3 D RBC 2.76 L Hgb 9.1 L Hct 27.1 L MCV 98.1 H MCH 33.2 MCHC 33.8 RDW 16.8 H Plt Count 126 L MPV 10.3 POC Glucometer 117 Active Medications Generic Name Dose Route Start Last Admin Trade Name Freq PRN Reason Stop Dose Admin Acetaminophen 1,000 mg 05/29/17 00:43 Ofirmev Injection - IVPB Q6H PRN PAIN LEVEL 1-5 Albuterol Sulfate 1 amp 05/29/17 00:48 Ventolin 0.083% Nebulizer Soln - NEB Q4H PRN SHORT OF BREATH/WHEEZING Albuterol/Ipratropium 1 amp 05/29/17 08:00 05/30/17 07:53 Duoneb - NEB 1 amp RTID POWER Administration Allopurinol 300 mg 05/29/17 10:00 05/30/17 10:56 Zyloprim - PO 300 mg DAILY POWER Administration Cephalexin HCl 250 mg 05/30/17 10:00 05/30/17 10:56 Keflex - PO 250 mg BID POWER Administration Docusate Sodium 100 mg 05/29/17 10:00 05/30/17 10:56 Colace - PO 100 mg BID POWER Administration Donepezil HCl 10 mg 05/29/17 22:00 05/29/17 21:50 Aricept - PO 10 mg HS POWER Administration Hydralazine HCl 100 mg 05/29/17 06:00 05/30/17 05:52 Apresoline - PO 100 mg TID POWER Administration Insulin Aspart 1 vial 05/29/17 07:00 05/30/17 12:23 Novolog Vial Sliding Scale - SQ Not Given ACHS [facility] Protocol Isosorbide Mononitrate 60 mg 05/29/17 10:00 05/30/17 10:56 Imdur - PO 60 mg DAILY POWER Administration Lidocaine 1 patch 05/29/17 10:00 05/30/17 10:56 Lidoderm Patch - TP 1 patch DAILY POWER Administration Memantine 5 mg 05/29/17 10:00 05/30/17 10:56 Namenda - PO 5 mg DAILY POWER Administration Miscellaneous 1 each 05/29/17 22:00 05/29/17 21:55 Lidoderm Patch Removal MC 1 each DAILY@2200 POWER Administration Morphine Sulfate 1 mg 05/29/17 00:33 Morphine Sulfate IVPUSH Q4H PRN PAIN LEVEL 6-10 Nifedipine 30 mg 05/29/17 10:00 05/30/17 10:56 Procardia Xl - PO 30 mg DAILY POWER Administration Ondansetron HCl 4 mg 05/29/17 00:42 Zofran Injection IVPUSH Q6H PRN NAUSEA Polyethylene Glycol 17 gm 05/29/17 00:48 Miralax (For Daily Use) - PO HS PRN CONSTIPATION Ranitidine HCl 150 mg 05/29/17 10:00 05/30/17 10:57 Zantac - PO 150 mg DAILY POWER Administration Sertraline HCl 100 mg 05/29/17 10:00 05/30/17 10:56 Zoloft - PO 100 mg DAILY POWER Administration Torsemide 80 mg 05/29/17 10:00 05/30/17 13:43 Demadex - PO 80 mg DAILY POWER Administration ASSESSMENT/PLAN: 76 year old female pmh CKD stage 4, COPD, Diastolic CHF, DM, alzheimers, anemia admitted for b/l epistaxis Epistaxis: -resolved, b/l rhino rockets still in place; ENT to remove Mon as daughter is requesting to keep patient in hospital until then -holding asa to f/u with cardiology outpatient to possibly restart, get TTE for AV evaluation -ENT recommendations appreciated HTN: -hydralazine, nifedipine, torsemide Alzheimers -donezepil, memantine DM -BGM, ISS COPD -nebs, venti-mask CKD -at baseline, potential cause of coagulopathy CHF -no acute exacerbation FEN PO hydration lytes stable renal diet SCDS Disposition: D/C mon s/p rhinorocket removal Spoke about plan at length with daughter, verbalized understanding Problem List - Problems (1) Bleeding nose Code(s): R04.0 - EPISTAXIS (2) Renal failure Code(s): N19 - UNSPECIFIED KIDNEY FAILURE (3) Anemia Code(s): D64.9 - ANEMIA, UNSPECIFIED (4) CHF (congestive heart failure) Code(s): I50.9 - HEART FAILURE, UNSPECIFIED Qualifiers: Qualified Code(s): I50.9 - Heart failure, unspecified (5) CKD (chronic kidney disease) Code(s): N18.9 - CHRONIC KIDNEY DISEASE, UNSPECIFIED Qualifiers: Chronic kidney disease stage: unspecified stage Qualified Code(s): N18.9 - Chronic kidney disease, unspecified (6) Cough Code(s): R05 - COUGH (7) Dementia Code(s): F03.90 - UNSPECIFIED DEMENTIA WITHOUT BEHAVIORAL DISTURBANCE (8) Diabetes mellitus Code(s): E11.9 - TYPE 2 DIABETES MELLITUS WITHOUT COMPLICATIONS (9) Epistaxis, recurrent Code(s): R04.0 - EPISTAXIS (10) Family history of colon cancer in father Code(s): Z80.0 - FAMILY HISTORY OF MALIGNANT NEOPLASM OF DIGESTIVE ORGANS (11) Hypernatremia Code(s): E87.0 - HYPEROSMOLALITY AND HYPERNATREMIA Visit type - Emergency Visit Emergency Visit: Yes ED Registration Date: 05/28/17 Care time: The patient presented to the Emergency Department on the above date and was hospitalized for further evaluation of their emergent condition. - New Patient This patient is new to me today: No - Critical Care Critical Care patient: No - Discharge Referral Referred to [facility] No
--- NOTE | 2017-05-30 13:55 | PN ---
Teaching Attending Note Name of Resident: Nany Orantes ATTENDING PHYSICIAN STATEMENT I saw and evaluated the patient. I reviewed the resident's note and discussed the case with the resident. I agree with the resident's findings and plan as documented. SUBJECTIVE: no fever or chills. has no abd pain or CALDERÓN or CP . OBJECTIVE: NAD , awake , alert . b/l anterior nasal packing. dry blood in oropharynx . MMM CV: RRR 3/6 SM at LLSB and 2/6 DM at apex Lungs : CTAB Abd: soft, NT, ND , NL BS Ext :no edema today ASSESSMENT AND PLAN: 76 y/o lady with h/o CKD, HTN, CHF , COPD , dementia and DM , nasal septal defect and recurrent nasal bleed , recently Dced from hospital who presented with epistaxis. 1- Epistaxis:no recurrence, packing still in. ENT eval appreciated , remove packing o n Thursday hold ASA for now. start keflex for TSS prophylaxis while packing is in 2- h/o D CHF: not active now cont her diurestics 3- H/o HTN: cont HZN, nifedipine , and imdur 4- dementia 5- CKD : cr at base line remove packing on Thursday then dc . daughter feels nervous about removing packing as out pt
[2017-05-30] MEDS: DONEPEZIL HCL 10 MG TABLET (FP) PO SCH (21:36)
[2017-05-30] MEDS: LIDOCAINE PATCH REMOVAL MC SCH (21:37)
[2017-05-31] MEDS: hydrALAZINE HCL 50 MG TABLET (FP) PO SCH ×3 (06:43→21:37)
[2017-05-31] MEDS: INSULIN SLIDING SCALE (NOVOLOG) 1 VIAL SQ SCH ×4 (06:44→21:44)
[2017-05-31] MEDS: ALBUTEROL SO4 2.5/IPRATROPIUM 0.5 INH SOL 3 ML VIAL.NEB. NEB SCH ×3 (08:22→20:39)
[2017-05-31 08:30] LABS: HEMATOCRIT 25.8 % (32.4-45.2); HEMOGLOBIN 8.7 GM/dL (10.7-15.3); MCH 32.9 pg (25.7-33.7); MCHC 33.7 g/dl (32.0-36.0); MEAN CELL VOLUME 97.6 fl (80-96); MEAN PLT VOLUME 11.1 fl (7.5-11.1); PLATELET COUNT 122 K/MM3 (134-434); RBC 2.65 M/mm3 (3.60-5.2); RDW 16.8 % (11.6-15.6); WHITE BLOOD COUNT 6.1 K/mm3 (4.0-10.0)
[2017-05-31 09:32] LABS: ANION GAP 8 (8-16); BLOOD UREA NITROGEN 17 mg/dL (7-18); CALCIUM 7.3 mg/dL (8.5-10.1); CHLORIDE 112 mmol/L (98-107); CO2 23 mmol/L (21-32); CREATININE 0.9 mg/dL (0.55-1.02); GLUCOSE,RANDOM 143 mg/dL (74-106); POTASSIUM 3.5 mmol/L (3.5-5.1); SODIUM 143 mmol/L (136-145)
[2017-05-31] MEDS: LIDOCAINE 5% TOPICAL PATCH TP SCH (10:28)
[2017-05-31] MEDS: DOCUSATE SODIUM 100 MG CAPSULE (FP) PO SCH ×2 (10:29→21:38)
[2017-05-31] MEDS: NIFEdipine E.R. 30 MG TABLET (FP) PO SCH (10:29)
[2017-05-31] MEDS: RANITIDINE HCL 150 MG TABLET (FP) PO SCH (10:29)
[2017-05-31] MEDS: ISOSORBIDE MONONITRATE 60 MG TAB.SR.24H (FP) PO SCH (10:29)
[2017-05-31] MEDS: SERTRALINE HCL 50 MG TABLET (FP) PO SCH (10:29)
[2017-05-31] MEDS: ALLOPURINOL 300 MG TABLET (FP) PO SCH (10:30)
[2017-05-31] MEDS: CEPHALEXIN MONOHYDRATE 250 MG CAPSULE (FP) PO SCH ×2 (10:30→21:39)
[2017-05-31] MEDS: TORSEMIDE 20 MG TABLET (FP) PO SCH (10:35)
[2017-05-31] MEDS: MEMANTINE HCL 5 MG TABLET (UD) PO SCH (10:37)
--- NOTE | 2017-05-31 13:57 | PN ---
Progress Note (short form) - Note Progress Note: Subjective: no fever or chills . has no abd pain . no OS B. no bleeding over night Objective: Vital Signs: Last Vital Signs Temp Pulse Resp BP Pulse Ox 98.4 F 103 H 18 143/63 91 L 05/31/17 10:00 05/31/17 10:00 05/31/17 10:00 05/31/17 10:00 05/29/17 21:00 Laboratory Results - last 24 hr 05/30/17 05/30/17 05/31/17 17:35 21:33 06:42 WBC RBC Hgb Hct MCV MCH MCHC RDW Plt Count MPV Sodium Potassium Chloride Carbon Dioxide Anion Gap BUN Creatinine POC Glucometer 135 266 131 Random Glucose Calcium 05/31/17 05/31/17 05/31/17 06:48 08:50 11:29 WBC 6.1 RBC 2.65 L Hgb 8.7 L Hct 25.8 L MCV 97.6 H MCH 32.9 MCHC 33.7 RDW 16.8 H Plt Count 122 L MPV 11.1 Sodium 143 Potassium 3.5 Chloride 112 H Carbon Dioxide 23 Anion Gap 8 BUN 17 D Creatinine 0.9 POC Glucometer 182 Random Glucose 143 H Calcium 7.3 L Physical Exam: NAD , awake , alert . b/l anterior nasal packing. dry blood in oropharynx . MMM CV: RRR 3/6 SM at LLSB and 2/6 DM at apex Lungs : CTAB Abd: soft, NT, ND , NL BS Ext :no edema ASSESSMENT AND PLAN: 76 y/o lady with h/o CKD, HTN, CHF , COPD , dementia and DM , nasal septal defect and recurrent nasal bleed , recently Dced from hospital who presented with epistaxis. 1- Epistaxis:no recurrence, packing still in. PAcking removal on Thursday hold ASA for now. keflex for TSS prophylaxis while packing is in 2- h/o D CHF: not active now cont her diurestics 3- H/o HTN: cont HZN, nifedipine , and imdur 4- dementia 5- CKD : cr at base line pt need to be inpatient due to her frail condition , multiple comorbidities and possible bleeding if packing removed as out pt (in setting of uremia ) remove packing on Thursday then dc . Visit type - Emergency Visit Emergency Visit: Yes ED Registration Date: 05/28/17 Care time: The patient presented to the Emergency Department on the above date and was hospitalized for further evaluation of their emergent condition. - New Patient This patient is new to me today: No - Critical Care Critical Care patient: No
[2017-05-31] MEDS: DONEPEZIL HCL 10 MG TABLET (FP) PO SCH (21:38)
[2017-05-31] MEDS: LIDOCAINE PATCH REMOVAL MC SCH (21:39)
[2017-06-01] MEDS ORDERED: INSULIN (NOVOLOG) ASPART 100 UNITS/ML 10ML VIAL ONE (05:10)
[2017-06-01] MEDS: hydrALAZINE HCL 50 MG TABLET (FP) PO SCH ×2 (05:40→15:30)
[2017-06-01] MEDS: INSULIN SLIDING SCALE (NOVOLOG) 1 VIAL SQ SCH ×3 (06:56→18:10)
[2017-06-01] MEDS: ALBUTEROL SO4 2.5/IPRATROPIUM 0.5 INH SOL 3 ML VIAL.NEB. NEB SCH ×3 (07:35→20:54)
[2017-06-01 08:24] LABS: HEMOGLOBIN 8.8 GM/dL (10.7-15.3); MCH 32.9 pg (25.7-33.7); MCHC 33.7 g/dl (32.0-36.0); MEAN CELL VOLUME 97.9 fl (80-96); MEAN PLT VOLUME 11.1 fl (7.5-11.1); PLATELET COUNT 119 K/MM3 (134-434); RBC 2.66 M/mm3 (3.60-5.2); RDW 16.5 % (11.6-15.6); WHITE BLOOD COUNT 6.3 K/mm3 (4.0-10.0)
[2017-06-01] MEDS ORDERED: PT OWN MED DRAWER 7, Y5N ONE (10:39)
[2017-06-01] MEDS: LIDOCAINE 5% TOPICAL PATCH TP SCH (10:50)
[2017-06-01] MEDS: SERTRALINE HCL 50 MG TABLET (FP) PO SCH (10:50)
[2017-06-01] MEDS: NIFEdipine E.R. 30 MG TABLET (FP) PO SCH (10:50)
[2017-06-01] MEDS: CEPHALEXIN MONOHYDRATE 250 MG CAPSULE (FP) PO SCH (10:50)
[2017-06-01] MEDS: DOCUSATE SODIUM 100 MG CAPSULE (FP) PO SCH (10:50)
[2017-06-01] MEDS: TORSEMIDE 20 MG TABLET (FP) PO SCH (10:50)
[2017-06-01] MEDS: MEMANTINE HCL 5 MG TABLET (UD) PO SCH (10:51)
[2017-06-01] MEDS: ALLOPURINOL 300 MG TABLET (FP) PO SCH (10:51)
[2017-06-01] MEDS: ISOSORBIDE MONONITRATE 60 MG TAB.SR.24H (FP) PO SCH (10:51)
[2017-06-01] MEDS: RANITIDINE HCL 150 MG TABLET (FP) PO SCH (10:51)
--- NOTE | 2017-06-01 14:43 | PN ---
Physical Exam: SUBJECTIVE: Patient seen and examined no no complains; "wants to go home", no new episodes of bleeding. H/H stable. OBJECTIVE: Vital Signs Period Temp Pulse Resp BP Sys/Corado Pulse Ox Last 24 Hr 97.3 F-98.2 F 95-105 18-20 115-146/66-77 GENERAL: The patient is awake, alert, pleasantly confused ; baseline dementia HEAD: Normal with no signs of trauma. ENT: rhino rocket bilaterally in place; with dried blood; ; no active bleeding LUNGS: course breath sounds bilaterally; HEART: Regular rate and rhythm, S1, S2 without murmur, rub or gallop. ABDOMEN: Soft, nontender, nondistended, normoactive bowel sounds, no guarding, no rebound, no hepatosplenomegaly, no masses. EXTREMITIES: 2+ pulses, warm, well-perfused, no edema. NEUROLOGICAL:baseline dementia Laboratory Results - last 24 hr 05/31/17 05/31/17 06/01/17 17:46 21:42 05:38 WBC RBC Hgb Hct MCV MCH MCHC RDW Plt Count MPV POC Glucometer 198 291 154 06/01/17 06/01/17 07:35 12:45 WBC 6.3 RBC 2.66 L Hgb 8.8 L Hct 26.0 L MCV 97.9 H MCH 32.9 MCHC 33.7 RDW 16.5 H Plt Count 119 L MPV 11.1 POC Glucometer 284 Active Medications Generic Name Dose Route Start Last Admin Trade Name Freq PRN Reason Stop Dose Admin Acetaminophen 1,000 mg 05/29/17 00:43 Ofirmev Injection - IVPB Q6H PRN PAIN LEVEL 1-5 Albuterol Sulfate 1 amp 05/29/17 00:48 Ventolin 0.083% Nebulizer Soln - NEB Q4H PRN SHORT OF BREATH/WHEEZING Albuterol/Ipratropium 1 amp 05/29/17 08:00 06/01/17 14:08 Duoneb - NEB 1 amp RTID MAGNOLIA Administration Allopurinol 300 mg 05/29/17 10:00 06/01/17 10:51 Zyloprim - PO 300 mg DAILY MAGNOLIA Administration Cephalexin HCl 250 mg 05/30/17 10:00 06/01/17 10:50 Keflex - PO 250 mg BID MAGNOLIA Administration Docusate Sodium 100 mg 05/29/17 10:00 06/01/17 10:50 Colace - PO 100 mg BID MAGNOLIA Administration Donepezil HCl 10 mg 05/29/17 22:00 05/31/17 21:38 Aricept - PO 10 mg HS MAGNOLIA Administration Hydralazine HCl 100 mg 05/29/17 06:00 06/01/17 05:40 Apresoline - PO 100 mg TID MAGNOLIA Administration Insulin Aspart 1 vial 05/29/17 07:00 06/01/17 12:48 Novolog Vial Sliding Scale - SQ 6 units ACHS MAGNOLIA Administration Protocol Isosorbide Mononitrate 60 mg 05/29/17 10:00 06/01/17 10:51 Imdur - PO 60 mg DAILY MAGNOLIA Administration Lidocaine 1 patch 05/29/17 10:00 06/01/17 10:50 Lidoderm Patch - TP 1 patch DAILY MAGNOLIA Administration Memantine 5 mg 05/29/17 10:00 06/01/17 10:51 Namenda - PO 5 mg DAILY MAGNOLIA Administration Miscellaneous 1 each 05/29/17 22:00 05/31/17 21:39 Lidoderm Patch Removal MC 1 each DAILY@2200 MAGNOLIA Administration Nifedipine 30 mg 05/29/17 10:00 06/01/17 10:50 Procardia Xl - PO 30 mg DAILY MAGNOLIA Administration Ondansetron HCl 4 mg 05/29/17 00:42 Zofran Injection IVPUSH Q6H PRN NAUSEA Polyethylene Glycol 17 gm 05/29/17 00:48 05/31/17 15:27 Miralax (For Daily Use) - PO 17 gm HS PRN Administration CONSTIPATION Ranitidine HCl 150 mg 05/29/17 10:00 06/01/17 10:51 Zantac - PO 150 mg DAILY MAGNOLIA Administration Sertraline HCl 100 mg 05/29/17 10:00 06/01/17 10:50 Zoloft - PO 100 mg DAILY MAGNOLIA Administration Torsemide 80 mg 05/29/17 10:00 06/01/17 10:50 Demadex - PO 80 mg DAILY MAGNOLIA Administration ASSESSMENT/PLAN: 76 year old female with with a medical history of CHF, DM, COPD, CKD and dementia with recurrent nose bleed form septal defect presents due to repeat episode of epistaxis. #Epistaxis: -s/p bilateral rhino rockets on 05/29; seen by ENT; need total of three day; and antibiotics coverage for gram +; on ceflex; -no active bleed -spoke with medical massage therapist from ENT office; Dr. Street to remove rhinorockets today; can d/c back to [place] after removed #anemia: -most likely secondary to acute blood loss; today h/h stabilized -no active bleed #course breath sounds; no active signs of infection -hx COPD; lung sounds with scattered rhonchi -cont duoned tid magnolia -cont albuterol prn #hx of chf: stable -cont torsemide 80 mg qd #HTN: cont procardia xl 30mg qd Disposition : once rhino rockets out; can d/c to [place] case discussed with attending Dr. Sergio Medellin PGY 2 Problem List - Problems (1) COPD (chronic obstructive pulmonary disease) Code(s): J44.9 - CHRONIC OBSTRUCTIVE PULMONARY DISEASE, UNSPECIFIED (2) Bleeding nose Code(s): R04.0 - EPISTAXIS (3) CHF (congestive heart failure) Code(s): I50.9 - HEART FAILURE, UNSPECIFIED Qualifiers: Qualified Code(s): I50.9 - Heart failure, unspecified (4) CKD (chronic kidney disease) Code(s): N18.9 - CHRONIC KIDNEY DISEASE, UNSPECIFIED Qualifiers: Chronic kidney disease stage: unspecified stage Qualified Code(s): N18.9 - Chronic kidney disease, unspecified Visit type - Emergency Visit Emergency Visit: Yes ED Registration Date: 05/31/17 Care time: The patient presented to the Emergency Department on the above date and was hospitalized for further evaluation of their emergent condition. - New Patient This patient is new to me today: Yes Date on this admission: 06/01/17 - Critical Care Critical Care patient: No
--- NOTE | 2017-06-01 16:19 | PN ---
Teaching Attending Note Name of Resident: Baylee Medellin ATTENDING PHYSICIAN STATEMENT I saw and evaluated the patient. I reviewed the resident's note and discussed the case with the resident. I agree with the resident's findings and plan as documented. SUBJECTIVE: no fever or chills. has no pain , no more bleeding OBJECTIVE: NAD , awake , alert . b/l anterior nasal packings with dry blood . MMM CV: RRR 3/6 SM at LLSB and 2/6 DM at apex Lungs: CTAB but course breath sounds Abd: soft, NT, ND , NL BS Ext :no edema ASSESSMENT AND PLAN: 76 y/o lady with h/o CKD, HTN, CHF , COPD , dementia and DM , nasal septal defect and recurrent nasal bleed , recently Dced from hospital who presented with epistaxis. 1- Epistaxis:no recurrence, packing still in. ENT contacted by resident , possible removal today hold ASA for now and 1 week after dc keflex for TSS prophylaxis while packing is in 2- h/o D CHF: not active now cont her diurestics. 3- H/o HTN: cont HZN, nifedipine , and imdur 4- dementia 5- CKD dispo : if packing is removed and SW is able to arrange for a bed at [place] , then can dc this evening
[2017-06-01 17:11] VITALS: BP 130/70; PULSE 90; TEMP 98
--- NOTE | 2017-06-01 18:52 | PN ---
Physical Exam: SUBJECTIVE: Patient seen and examined; pleasantly confused at baseline; no complaints; no active bleed OBJECTIVE: Vital Signs Period Temp Pulse Resp BP Sys/Corado Pulse Ox Last 24 Hr 97.9 F-98.2 F 80-105 16-20 128-146/58-74 96 GENERAL: The patient is awake, alert, and not oriented; NOSE: bilateral rhino rockets in place. dried blood LUNGS: Breath sounds equal, clear to auscultation bilaterally, no wheezes, no crackles, no accessory muscle use. HEART: Regular rate and rhythm, S1, S2 without murmur, rub or gallop. ABDOMEN: Soft, nontender, nondistended, normoactive bowel sounds, no guarding, no rebound, no hepatosplenomegaly, no masses. EXTREMITIES: 2+ pulses, warm, well-perfused, no edema. NEUROLOGICAL: Cranial nerves II through XII grossly intact. Normal speech, gait not observed. PSYCH: Normal mood, normal affect. SKIN: Warm, dry, normal turgor, no rashes or lesions noted Laboratory Results - last 24 hr 05/31/17 06/01/17 06/01/17 21:42 05:38 07:35 WBC 6.3 RBC 2.66 L Hgb 8.8 L Hct 26.0 L MCV 97.9 H MCH 32.9 MCHC 33.7 RDW 16.5 H Plt Count 119 L MPV 11.1 POC Glucometer 291 154 06/01/17 06/01/17 12:45 18:10 WBC RBC Hgb Hct MCV MCH MCHC RDW Plt Count MPV POC Glucometer 284 158 Active Medications Generic Name Dose Route Start Last Admin Trade Name Onurq PRN Reason Stop Dose Admin Acetaminophen 1,000 mg 05/29/17 00:43 Ofirmev Injection - IVPB Q6H PRN PAIN LEVEL 1-5 Albuterol Sulfate 1 amp 05/29/17 00:48 Ventolin 0.083% Nebulizer Soln - NEB Q4H PRN SHORT OF BREATH/WHEEZING Albuterol/Ipratropium 1 amp 05/29/17 08:00 06/01/17 14:08 Duoneb - NEB 1 amp RTID POWER Administration Allopurinol 300 mg 05/29/17 10:00 06/01/17 10:51 Zyloprim - PO 300 mg DAILY POWER Administration Cephalexin HCl 250 mg 05/30/17 10:00 06/01/17 10:50 Keflex - PO 250 mg BID POWER Administration Docusate Sodium 100 mg 05/29/17 10:00 06/01/17 10:50 Colace - PO 100 mg BID POWER Administration Donepezil HCl 10 mg 05/29/17 22:00 05/31/17 21:38 Aricept - PO 10 mg HS POWER Administration Hydralazine HCl 100 mg 05/29/17 06:00 06/01/17 15:30 Apresoline - PO 100 mg TID POWER Administration Insulin Aspart 1 vial 05/29/17 07:00 06/01/17 18:10 Novolog Vial Sliding Scale - SQ 2 units ACHS POWER Administration Protocol Isosorbide Mononitrate 60 mg 05/29/17 10:00 06/01/17 10:51 Imdur - PO 60 mg DAILY POWER Administration Lidocaine 1 patch 05/29/17 10:00 06/01/17 10:50 Lidoderm Patch - TP 1 patch DAILY POWER Administration Memantine 5 mg 05/29/17 10:00 06/01/17 10:51 Namenda - PO 5 mg DAILY POWER Administration Miscellaneous 1 each 05/29/17 22:00 05/31/17 21:39 Lidoderm Patch Removal MC 1 each DAILY@2200 POWER Administration Nifedipine 30 mg 05/29/17 10:00 06/01/17 10:50 Procardia Xl - PO 30 mg DAILY POWER Administration Ondansetron HCl 4 mg 05/29/17 00:42 Zofran Injection IVPUSH Q6H PRN NAUSEA Polyethylene Glycol 17 gm 05/29/17 00:48 05/31/17 15:27 Miralax (For Daily Use) - PO 17 gm HS PRN Administration CONSTIPATION Ranitidine HCl 150 mg 05/29/17 10:00 06/01/17 10:51 Zantac - PO 150 mg DAILY POWER Administration Sertraline HCl 100 mg 05/29/17 10:00 06/01/17 10:50 Zoloft - PO 100 mg DAILY POWER Administration Torsemide 80 mg 05/29/17 10:00 06/01/17 10:50 Demadex - PO 80 mg DAILY POWER Administration ASSESSMENT/PLAN: 76 y/o lady with h/o CKD, HTN, CHF , COPD , dementia and DM , nasal septal defect and recurrent nasal bleed , recently Dced from hospital who presented with epistaxis. 1- Epistaxis:no recurrence, packing still in. ENT contacted by resident , possible removal today hold ASA for now and 1 week after dc keflex for TSS prophylaxis while packing is in 2- h/o D CHF: not active now cont her diurestics. 3- H/o HTN: cont HZN, nifedipine , and imdur 4- dementia 5- CKD dispo : if packing is removed and SW is able to arrange Problem List - Problems (1) COPD (chronic obstructive pulmonary disease) Code(s): J44.9 - CHRONIC OBSTRUCTIVE PULMONARY DISEASE, UNSPECIFIED (2) Bleeding nose Code(s): R04.0 - EPISTAXIS (3) CHF (congestive heart failure) Code(s): I50.9 - HEART FAILURE, UNSPECIFIED Qualifiers: Qualified Code(s): I50.9 - Heart failure, unspecified (4) CKD (chronic kidney disease) Code(s): N18.9 - CHRONIC KIDNEY DISEASE, UNSPECIFIED Qualifiers: Chronic kidney disease stage: unspecified stage Qualified Code(s): N18.9 - Chronic kidney disease, unspecified
--- NOTE | 2017-06-01 20:39 | PN ---
Progress Note, Physician History of Present Illness: 76F with PMHx CKD stage 4, COPD, CHF, DM2, Alzheimer's. no further bleeding over weekend. primary team requested packing be removed on floor instead of in my office. - Current Medication List Current Medications: Active Medications Acetaminophen (Ofirmev Injection -) 1,000 mg IVPB Q6H PRN PRN Reason: PAIN LEVEL 1-5 Albuterol Sulfate (Ventolin 0.083% Nebulizer Soln -) 1 amp NEB Q4H PRN PRN Reason: SHORT OF BREATH/WHEEZING Albuterol/Ipratropium (Duoneb -) 1 amp NEB RTID [facility] Last Admin: 06/01/17 14:08 Dose: 1 amp Allopurinol (Zyloprim -) 300 mg PO DAILY [facility] Last Admin: 06/01/17 10:51 Dose: 300 mg Cephalexin HCl (Keflex -) 250 mg PO BID [facility] Last Admin: 06/01/17 10:50 Dose: 250 mg Docusate Sodium (Colace -) 100 mg PO BID [facility] Last Admin: 06/01/17 10:50 Dose: 100 mg Donepezil HCl (Aricept -) 10 mg PO HS [facility] Last Admin: 05/31/17 21:38 Dose: 10 mg Hydralazine HCl (Apresoline -) 100 mg PO TID [facility] Last Admin: 06/01/17 15:30 Dose: 100 mg Insulin Aspart (Novolog Vial Sliding Scale -) 1 vial SQ ACHS POWER PRN Reason: Protocol Last Admin: 06/01/17 18:10 Dose: 2 units Isosorbide Mononitrate (Imdur -) 60 mg PO DAILY [facility] Last Admin: 06/01/17 10:51 Dose: 60 mg Lidocaine (Lidoderm Patch -) 1 patch TP DAILY [facility] Last Admin: 06/01/17 10:50 Dose: 1 patch Memantine (Namenda -) 5 mg PO DAILY [facility] Last Admin: 06/01/17 10:51 Dose: 5 mg Miscellaneous (Lidoderm Patch Removal) 1 each MC DAILY@2200 [facility] Last Admin: 05/31/17 21:39 Dose: 1 each Nifedipine (Procardia Xl -) 30 mg PO DAILY [facility] Last Admin: 06/01/17 10:50 Dose: 30 mg Ondansetron HCl (Zofran Injection) 4 mg IVPUSH Q6H PRN PRN Reason: NAUSEA Polyethylene Glycol (Miralax (For Daily Use) -) 17 gm PO HS PRN PRN Reason: CONSTIPATION Last Admin: 05/31/17 15:27 Dose: 17 gm Ranitidine HCl (Zantac -) 150 mg PO DAILY [facility] Last Admin: 06/01/17 10:51 Dose: 150 mg Sertraline HCl (Zoloft -) 100 mg PO DAILY [facility] Last Admin: 06/01/17 10:50 Dose: 100 mg Torsemide (Demadex -) 80 mg PO DAILY [facility] Last Admin: 06/01/17 10:50 Dose: 80 mg - Objective Vital Signs: Vital Signs Temperature 98 F 06/01/17 17:10 Pulse Rate 90 06/01/17 17:10 Respiratory Rate 20 06/01/17 17:10 Blood Pressure 130/70 06/01/17 17:10 O2 Sat by Pulse Oximetry (%) 96 06/01/17 09:00 Constitutional: Yes: Well Nourished, No Distress, Calm HENT: Yes: Other (rhinorockets in place, no active bleeding.) Labs: CBC, BMP 06/01/17 07:35 05/31/17 08:50 INR, PTT INR 0.96 (0.82-1.09) 05/29/17 07:00 - ....Imaging Other: Other (Nasal endoscopy: Explained rbla to patient, all questions answered. Inserted endoscope into each nostril, removed. Findings: 1. Medium- large ant septal perforation 2. Splotchy blood stains diffusely bilateral nasal cavities, middle meati. 3. No active bleeding. 4. Inferior turbinates 3+ bilaterally 5. Grossly unremarkable middle turbinates, SER, nasopharynx though presence of old blood products limits complete assessment.) Problem List - Problems (1) Bleeding nose Assessment/Plan: Epistaxis, controlled with bilateral rhinorocket per ER - Renal insufficiency and potential associated coagulopathy. - Packing removed at bedside at primary team's request. (Right: ant small pack ; Left A/P single balloon pack). No active bleeding in the fifteen minutes after removal. - Appreciate medical care, management. - +Nasal septal perforation - she believes she had sinus surgery in past, but is unclear. Please have the patient follow up in my office in one month, sooner as needed Saline spray - 2 sprays each nostril QID, advised. Code(s): R04.0 - EPISTAXIS Assessment/Plan Epistaxis -
--- NOTE | 2017-06-02 14:01 | DS ---
Physical Exam: SUBJECTIVE: OBJECTIVE: Rhino rockets removed by ENT physician on 06/01. Vital Signs Period Temp Pulse Resp BP Sys/Corado Pulse Ox Last 24 Hr 98 F-98.2 F 80-90 16-20 128-130/58-70 PHYSICAL EXAM see note from 06/01 LABS Laboratory Results - last 24 hr 06/01/17 18:10 POC Glucometer 158 HOSPITAL COURSE: Date of Admission:05/31/17 Date of Discharge: 06/02/17 Ms. Murguia is a 75 year old female with dementia and medical history of CHF, DM , COPD, CKD, hx of nose bleed s/p cauterization in the past, presents with bilateral epistaxis while at skilled nursing. In the ER, rhino rockets were placed by ENT. Patient was started on keflex for empiric gram positive treatment. Antibiotic was dc/d after rockets removed. CBC was evident for anemia, which was attributed to acute blood loss, this was stable before discharge. Rhino rockets were removed by ENT 06/01. Patient was sent back to skilled nursing and advised to hold aspirin until cardiology evaluation. Schedule to follow up with ENT and primary in one week. Chronic problems were controlled and stable on home medications. Minutes to complete discharge: 30 Discharge Summary Reason For Visit: EPISTAXIS Condition: Improved - Instructions Diet, Activity, Other Instructions: You were admitted to the hospital for severe bleeding in your nose You had your nose packed in the hospital which helped stop your bleeding Medical Recommendations: -can resume aspirin after one week if there is no bleeding. - please see the slide attendant . Dr. Gomez for further instructions on your aspirin - Dr. Padron will address this as well -take antibiotic Keflex 250 mg twice a day until the nasal Rhino Rockets are removed on Thursday. stop antibiotics when packing is removed -can resume nasal Afrin drops as needed after Rhino Rockers are removed on Thursday -Continue all your home medications as prescribed before - if is important to remove the nasal packing , it can't stay fo r along time . go to Dr. Bonilla office [facility] Referrals: Please make a appointment with ENT doctor Dr Jad GOODWIN for removal of rhino rockets *Please make an appointment with the slide attendant Dr. Avila within 2 weeks of discharge to discuss possible coronary artery disease and restarting Aspirin. You should also get an outpatient echocardiogram to visualize your heart, especially aortic valve, the disfunction of which can cause bleeding. *Please make an appointment with your primary care physician within 1 week of discharge If you experience more nosebleeds that do not stop on their own, please return to the emergency department immediately. Referrals: Anabela Padron [Staff Physician] - 1 Week Laura Avila MD [Staff Physician] - [address] MD [Staff Physician] - 06/01/17 Disposition: [facility] - Home Medications Comprehensive Discharge Medication List: Ambulatory Orders Allopurinol [Zyloprim -] 300 mg PO DAILY 04/08/13 Ferrous Sulfate 325 mg PO DAILY 04/08/13 Isosorbide Mononitrate [Imdur] 60 mg PO DAILY 04/08/13 Pantoprazole Sodium [Protonix] 40 mg PO Q2D 04/08/13 Propylthiouracil 50 mg PO DAILY 04/08/13 Sertraline HCl [Zoloft -] 100 mg PO DAILY 04/08/13 Docusate Sodium [Colace -] 100 mg PO BID 12/13/15 Donepezil HCl [Aricept -] 10 mg PO DAILY 12/13/15 Memantine HCl [Namenda -] 5 mg PO DAILY 12/13/15 hydrALAZINE HCL [Apresoline -] 100 mg PO TID #90 tablet 12/23/15 Insulin (Novolog 70/30) [Novolog Mix 70/30 Vial -] 10 units SQ BID 01/21/16 Lidocaine 5% Patch [Lidoderm -] 4 patch TD DAILY 01/16/17 Nifedipine ER [Procardia XL -] 30 mg PO DAILY #30 tab 01/18/17 Mupirocin Ointment [Bactroban 2% Ointment -] 1 applic TP BID applic 01/24/17 Oxymetazoline 0.05% Nasal Soln [Afrin -] 1 spray NS Q8H PRN #0 spray 01/24/17 Polyethylene Glycol 3350 [Miralax 119 gm Btl -] 17 gm PO HS PRN #30 bottle 01/24 Torsemide [Demadex -] 80 mg PO DAILY 05/14/17 Acetaminophen [Tylenol .Regular Strength -] 650 mg PO Q4H PRN tablet 05/26/17 Albuterol 0.083% Nebulizer Natalie [Ventolin 0.083% Nebulizer Soln -] 1 amp NEB Q4H PRN amp 05/26/17 Albuterol 2.5/Ipratropium 0.5 [Duoneb -] 1 amp NEB RTID amp 05/26/17 Potassium Chloride [K-Dur -] 20 meq PO DAILY tablet.er 05/26/17 Ranitidine [Zantac -] 150 mg PO DAILY tablet 05/26/17 Cephalexin Monohydrate [Keflex -] 250 mg PO BID capsule 05/30/17 Problem List - Problems (1) COPD (chronic obstructive pulmonary disease) Code(s): J44.9 - CHRONIC OBSTRUCTIVE PULMONARY DISEASE, UNSPECIFIED (2) Bleeding nose Code(s): R04.0 - EPISTAXIS (3) CHF (congestive heart failure) Code(s): I50.9 - HEART FAILURE, UNSPECIFIED (4) CKD (chronic kidney disease) Code(s): N18.9 - CHRONIC KIDNEY DISEASE, UNSPECIFIED Qualifiers: Chronic kidney disease stage: unspecified stage Qualified Code(s): N18.9 - Chronic kidney disease, unspecified This patient is new to me today: Yes Date on this admission: 06/02/17 Emergency Visit: Yes ED Registration Date: 05/31/17 Care time: The patient presented to the Emergency Department on the above date and was hospitalized for further evaluation of their emergent condition. Critical Care patient: No - Discharge Referral Referred to [facility] No
== END 2017-06-01 20:54 | DRG 150 ==
LOC: JER 18:47 → JERBED 23:36 → J8W 05-29 02:27 → OBSVTOIN 05-31 13:59
PROVIDERS: ADMIT Internal Medicine; ATTEND Internal Medicine
PROC: 2Y41X5Z Packing of Nasal Region using Packing Material (ICD-10-PCS; principal; 2017-05-29)
DX: R04.0 Epistaxis (principal); N18.6 End stage renal disease; I50.30 Unspecified diastolic (congestive) heart failure; D62 Acute posthemorrhagic anemia; N17.9 Acute kidney failure, unspecified; I13.2 Hypertensive heart and chronic kidney disease with heart failure and with stage 5 chronic kidney disease, or end stage renal disease; E11.22 Type 2 diabetes mellitus with diabetic chronic kidney disease; J34.89 Other specified disorders of nose and nasal sinuses; J44.9 Chronic obstructive pulmonary disease, unspecified; Z95.0 Presence of cardiac pacemaker; Z99.2 Dependence on renal dialysis; G30.9 Alzheimer's disease, unspecified; F02.80 Dementia in other diseases classified elsewhere, unspecified severity, without behavioral disturbance, psychotic disturbance, mood disturbance, and anxiety; Z91.15 Patient's noncompliance with renal dialysis; Z53.29 Procedure and treatment not carried out because of patient's decision for other reasons
CPT/HCPCS: 36415; 80048; 80053; 82962; 83735; 84100; 85025; 85027; 85610; 85730; 86850; 86900; 86901; 93005; 93010; 94640; 97116-GP; 97161-GP; 99282-25; G0378; J2597

== ENCOUNTER 2018-04-28 10:50 | Inpatient (IN) | payer OTHER ==
[2018-04-28 11:01] VITALS: BMI 24.7
[2018-04-28 11:28] LABS: VENOUS PC02 36.2 mmHg (38-52); VENOUS PH 7.39 (7.32-7.42)
--- NOTE | 2018-04-28 11:35 | PDOC ---
History of Present Illness - General History Source: Patient Exam Limitations: No Limitations - History of Present Illness Initial Comments: 04/28/18 12:37 Patient is a 77 year old female, From [facility], with a significant past medical history of stage 4 kidney disease, COPD (not on home O2 ), diastolic CHF (s/p pacemaker placement), diabetes, Alzheimer's, ESRD, and anemia who presents to the ED accompanied by sister for evaluation of diaphoresis and hypertension today as per [facility] staff. The sister at bedside states the patient has been sick with a cough for about 3 weeks despite Levaquin use. The sister states the patient has been nauseous since taking the Levaquin, but denies emesis. Allergies: Silvadene, Sulfa, Social history: From [facility]. No smoking. No alcohol. No illicit drugs. Surgical history: none PMD: Dr. Anabela Padron <Rachel Bailey - Last Filed: 04/28/18 12:50> <Jovon Jones - Last Filed: 04/28/18 13:59> - General Chief Complaint: SIRS, Suspected/Possible Stated Complaint: SOB Time Seen by Provider: 04/28/18 11:35 Past History <Rachel Bailey - Last Filed: 04/28/18 12:50> - Past Medical History Anemia: No Asthma: No Cancer: No Cardiac Disorders: Yes (CHF) CVA: No COPD: No CHF: No Dementia: No (Alzheimer's Disease) Diabetes: Yes GI Disorders: No Disorders: Yes (H/O UTI,Stage 4 Chronic kidney disease.) HTN: Yes Hypercholesterolemia: No Kidney Stones: Yes Liver Disease: No Seizures: No Thyroid Disease: No - Surgical History Abdominal Surgery: Yes Appendectomy: Yes Cardiac Surgery: No Cholecystectomy: No Lung Surgery: No Neurologic Surgery: No Orthopedic Surgery: Yes (LEFT ROTATOR CUFF 12 YEARS AGO) - Immunization History Immunization Up to Date: Yes - Suicide/Smoking/Psychosocial Hx Smoking Status: No Smoking History: Unknown if ever smoked Have you smoked in the past 12 months: No Number of Cigarettes Smoked Daily: 0 Information on smoking cessation initiated: No Hx Alcohol Use: No Drug/Substance Use Hx: No Substance Use Type: None Hx Substance Use Treatment: No <Jovon Jones - Last Filed: 04/28/18 13:59> - Past Medical History Allergies/Adverse Reactions: Allergies Allergy/AdvReac Type Severity Reaction Status Date / Time No Known Allergies Allergy Verified 05/28/17 19:10 Home Medications: Ambulatory Orders Allopurinol [Zyloprim -] 300 mg PO DAILY 04/08/13 Ferrous Sulfate 325 mg PO DAILY 04/08/13 Isosorbide Mononitrate [Imdur] 60 mg PO DAILY 04/08/13 Propylthiouracil 50 mg PO DAILY 04/08/13 Sertraline HCl [Zoloft -] 125 mg PO HS 04/08/13 Docusate Sodium [Colace -] 100 mg PO BID 12/13/15 Donepezil HCl [Aricept -] 10 mg PO DAILY 12/13/15 Memantine HCl [Namenda -] 5 mg PO DAILY 12/13/15 Insulin (Novolog 70/30) [Novolog Mix 70/30 Vial -] 0 units SQ TID 01/21/16 Nifedipine ER [Procardia XL -] 30 mg PO DAILY #30 tab 01/18/17 Oxymetazoline 0.05% Nasal Soln [Afrin -] 1 spray NS Q8H PRN #0 spray 01/24/17 Polyethylene Glycol 3350 [Miralax 119 gm Btl -] 17 gm PO HS PRN #30 bottle 01/24 Torsemide [Demadex -] 60 mg PO DAILY 05/14/17 Acetaminophen [Tylenol .Regular Strength -] 650 mg PO Q4H PRN tablet 05/26/17 Albuterol 0.083% Nebulizer Natalie [Ventolin 0.083% Nebulizer Soln -] 1 amp NEB Q4H PRN amp 05/26/17 Albuterol 2.5/Ipratropium 0.5 [Duoneb -] 1 amp NEB RTID amp 05/26/17 Ranitidine [Zantac -] 150 mg PO DAILY tablet 05/26/17 Potassium Chloride [K-Dur -] 10 meq PO DAILY 04/28/18 Spironolactone 25 mg PO DAILY 04/28/18 Torsemide 40 mg PO AM 04/28/18 Review of Systems - Review of Systems Able to Perform ROS?: No (dementia) <Rachel Bailey - Last Filed: 04/28/18 12:50> *Physical Exam - Vital Signs Last Vital Signs Temp Pulse Resp BP Pulse Ox 98.1 F 104 H 20 178/88 H 94 L 04/28/18 11:50 04/28/18 10:58 04/28/18 10:58 04/28/18 10:58 04/28/18 10:58 <Rachel Bailey - Last Filed: 04/28/18 12:50> - Vital Signs Last Vital Signs Temp Pulse Resp BP Pulse Ox 98.4 F 104 H 20 178/88 H 94 L 04/28/18 10:58 04/28/18 10:58 04/28/18 10:58 04/28/18 10:58 04/28/18 10:58 - Physical Exam Comments: 04/28/18 13:56 EXAMINATION CONSTITUTIONAL: Awake and alert, frail-appearing, in no distress HEAD: Normocephalic; atraumatic EYES: PERRL; EOM intact ENMT: External appears normal; vesicular rash to the lower lip with several excoriations NECK: Supple; non-tender; no cervical lymphadenopathy CARD: Normal S1, S2; 3/6 holosystolic murmurs, no rubs, or gallops RESP: Normal chest excursion with respiration; + ABD: Soft, non-distended; non-tender; no palpable organomegaly, no palpable hernias EXT: No lower extremity edema bilaterally; hyperpigmentation, mild erythema and shallow ulceration to the pretibial area of the right lower extremity; neurovascularly intact distally; SKIN: Warm, dry, NEURO: Alert, oriented to self only; moving all extremity symmetrically; gait- deferred. <Jovon Jones - Last Filed: 04/28/18 13:59> Moderate Sedation - Procedure Monitoring Vital Signs: Procedure Monitoring Vital Signs Temperature 98.1 F 04/28/18 11:50 Pulse Rate 104 H 04/28/18 10:58 Respiratory Rate 20 04/28/18 10:58 Blood Pressure 178/88 H 04/28/18 10:58 O2 Sat by Pulse Oximetry (%) 94 L 04/28/18 10:58 <Rachel Bailey - Last Filed: 04/28/18 12:50> - Procedure Monitoring Vital Signs: Procedure Monitoring Vital Signs Temperature 98.4 F 04/28/18 10:58 Pulse Rate 104 H 04/28/18 10:58 Respiratory Rate 20 04/28/18 10:58 Blood Pressure 178/88 H 04/28/18 10:58 O2 Sat by Pulse Oximetry (%) 94 L 04/28/18 10:58 <Jovon Jones - Last Filed: 04/28/18 13:59> ED Treatment Course - LABORATORY CBC & Chemistry Diagram: 04/28/18 11:15 04/28/18 11:15 - ADDITIONAL ORDERS Additional order review: Laboratory Results 04/28/18 04/28/18 04/28/18 11:15 11:15 11:15 PT with INR 14.10 H INR 1.19 H VBG pH 7.39 POC VBG pCO2 36.2 L POC VBG pO2 115.0 H Mixed VBG HCO3 21.5 Sodium 142 Potassium 3.9 Chloride 106 Carbon Dioxide 22 Anion Gap 14 BUN 103 H Creatinine 2.9 H Creat Clearance w eGFR 15.74 Random Glucose 117 H Calcium 8.5 Total Bilirubin 0.4 AST 19 ALT 12 L Alkaline Phosphatase 86 Total Protein 6.2 L Albumin 3.2 L 04/28/18 11:15 RBC 3.15 L MCV 99.7 H MCHC 33.8 RDW 14.5 D MPV 9.9 D Neutrophils % 87.3 H Lymphocytes % 5.9 L D Monocytes % 4.4 Eosinophils % 1.4 D Basophils % 1.0 <Rachel Bailey - Last Filed: 04/28/18 12:50> - LABORATORY CBC & Chemistry Diagram: 04/28/18 11:15 04/28/18 11:15 - ADDITIONAL ORDERS Additional order review: Laboratory Results 04/28/18 11:15 VBG pH 7.39 POC VBG pCO2 36.2 L POC VBG pO2 115.0 H Mixed VBG HCO3 21.5 - RADIOLOGY Radiology Studies Ordered: Category Date Time Status CHEST X-RAY PORTABLE* [RAD] Stat Radiology 04/28/18 11:13 Ordered <Jovon Jones - Last Filed: 04/28/18 13:59> Medical Decision Making - Medical Decision Making 04/28/18 12:42 Dr. Padron was paged at this time requesting a call back <Rachel Bailey - Last Filed: 04/28/18 12:50> - Medical Decision Making 04/28/18 13:58 Patient is a frail-appearing 77-year-old female with advanced dementia, history of CHF who presents with persistent nonproductive cough, nausea, weakness and malaise. Chest x-ray reveals a questionable retrocardiac infiltrate, given absence of fever, absence of leukocytosis and the fact that the patient has already been treated with 2 courses of oral antibiotics I do not suspect an acute infection at this time. Chronic aspiration may be responsible for the patient's symptoms. CBC reveals no significant leukocytosis or anemia. CMP reveals BUN of 103 and creatinine of 2.9 consistent with LILLIE in the setting of chronic renal insufficiency. I suspect intragenic the diuresis. Will place on D5 half-normal saline at 75 mL an hour. Will admit. Case discussed with Dr. Barcenas who agrees with the plan of care. <Jovon Jones - Last Filed: 04/28/18 13:59> *DC/Admit/Observation/Transfer - Attestations Scribe Attestion: 04/28/18 12:39 Documentation prepared by Rachel Bailey, acting as biomedical engineering supervisor for Jovon Jones MD <Rachel Bailey - Last Filed: 04/28/18 12:50> - Discharge Dispostion Decision to Admit order: Yes - Attestations Physician Attestion: 04/28/18 13:17 The documentation was prepared by the scribe under my direct supervision. I have reviewed the documentation which correctly represents the findings, medical decision-making and critical action taken by me. <Jovon Jones - Last Filed: 04/28/18 13:59> Diagnosis at time of Disposition: LILLIE (acute kidney injury), Dehydration, Herpes stomatitis - Discharge Dispostion Condition at time of disposition: Fair
[2018-04-28 11:43] LABS: EOS % 1.4 % (0-4.5); HEMATOCRIT 31.4 % (32.4-45.2); HEMOGLOBIN 10.6 GM/dL (10.7-15.3); LYMPH % 5.9 % (8-40); MCH 33.7 pg (25.7-33.7); MCHC 33.8 g/dl (32.0-36.0); MEAN CELL VOLUME 99.7 fl (80-96); MEAN PLT VOLUME 9.9 fl (7.5-11.1); MONO % 4.4 % (3.8-10.2); NEUT % 87.3 % (42.8-82.8); PLATELET COUNT 213 K/MM3 (134-434); RBC 3.15 M/mm3 (3.60-5.2); RDW 14.5 % (11.6-15.6); WHITE BLOOD COUNT 7.2 K/mm3 (4.0-10.0)
[2018-04-28 11:49] LABS: INR 1.19 (0.83-1.09); PROTHROMBIN TIME (PATIENT) 14.1 SEC (9.7-13.0)
[2018-04-28 11:52] LABS: ALBUMIN 3.2 g/dl (3.4-5.0); ALK PHOS 86 U/L (45-117); ANION GAP 14 MMOL/L (8-16); BILIRUBIN,TOTAL 0.4 mg/dL (0.2-1); BLOOD UREA NITROGEN 103 mg/dL (7-18); CALCIUM 8.5 mg/dL (8.5-10.1); CHLORIDE 106 mmol/L (98-107); CO2 22 mmol/L (21-32); CREATININE 2.9 mg/dL (0.55-1.3); GLUCOSE,RANDOM 117 mg/dL (74-106); POTASSIUM 3.9 mmol/L (3.5-5.1); SGOT/AST 19 U/L (15-37); SGPT/ALT 12 U/L (13-61); SODIUM 142 mmol/L (136-145); TOT PROT 6.2 g/dl (6.4-8.2)
[2018-04-28] MEDS ORDERED: DEXTROSE 5%-0.45% SALINE 1,000 ML IV ONE (12:40)
--- NOTE | 2018-04-28 15:32 | EKG ---
Test Reason : Blood Pressure : / mmHG Vent. Rate : 101 BPM Atrial Rate : 101 BPM P-R Int : 208 ms QRS Dur : 132 ms QT Int : 374 ms P-R-T Axes : 049 -35 064 degrees QTc Int : 484 ms SINUS TACHYCARDIA LEFT AXIS DEVIATION LEFT VENTRICULAR HYPERTROPHY WITH QRS WIDENING POSSIBLE LATERAL INFARCT (CITED ON OR BEFORE 29-MAY-2017) ABNORMAL ECG WHEN COMPARED WITH ECG OF 29-MAY-2017 01:00, QRS AXIS SHIFTED LEFT QUESTIONABLE CHANGE IN INITIAL FORCES OF LATERAL LEADS T WAVE INVERSION NO LONGER EVIDENT IN INFERIOR LEADS NONSPECIFIC T WAVE ABNORMALITY, IMPROVED IN LATERAL LEADS Confirmed by NURYS REED, ANGEL ([id number]) on 04/28/2018 3:31:47 PM Referred By: Confirmed By:ANGEL NUNO MD
[2018-04-28] MEDS ORDERED: ALBUTEROL SO4 0.083% IH SOL 2.5 MG/3 ML VIAL.NEB. NEB PRN (16:45)
[2018-04-28] MEDS ORDERED: POLYETHYLENE GLYCOL 3350 119 GM BTL PO PRN (16:45)
[2018-04-28] MEDS ORDERED: OXYMETAZOLINE 0.05% NASAL SOLUTION 15 ML BOTTLE NS PRN (16:45)
[2018-04-28] MEDS: ALBUTEROL SO4 2.5/IPRATROPIUM 0.5 INH SOL 3 ML VIAL.NEB. NEB SCH (20:12)
[2018-04-28] MEDS ORDERED: SERTRALINE HCL 50 MG TABLET (FP) ONE (21:11)
[2018-04-28] MEDS ORDERED: SERTRALINE HCL 25 MG TABLET (FP) ONE (21:11)
[2018-04-28] MEDS: HEPARIN NA (PORCINE) 5,000 UNITS/ML 1ML VIAL SQ SCH (21:56)
[2018-04-28] MEDS: DOCUSATE SODIUM 100 MG CAPSULE (FP) PO SCH (21:56)
[2018-04-28] MEDS: SERTRALINE HCL PO SCH (21:56)
[2018-04-28] MEDS ORDERED: SERTRALINE HCL 50 MG TABLET (FP) PO SCH (22:00)
[2018-04-28] MEDS: INSULIN SLIDING SCALE (NOVOLOG) 1 VIAL SQ SCH (22:16)
--- NOTE | 2018-04-28 22:36 | HP ---
Admitting History and Physical - Primary Care Physician PCP: Veto Padron - Admission Chief Complaint: Cough History of Present Illness: Pt is a resident of [facility] , who developed cough, about 10 days ago. She was given a 5 days trial of Azithromycin. Pt continued to cough after Azithromycin treatment and last she had a CXR c/w vascular congestion vs infiltrates at bases; she was started on Levaquin and her Torsemide was increased (to 60 mg in AM and 40 mg in PM). Pt was transferred today to ER for evaluation of cough, nausea, low appetite, weakness. Pt's sister is at bedside and provided info. 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: Alzheimer's Cardiovascular: Yes: CHF, HTN, Other (left sided PPM for bradycardia, presumably sick sinus syndrome) Pulmonary: Yes: COPD Gastrointestinal: Yes: Diverticulosis, GERD, Hiatal Hernia, Other (3 colon adenomas removed 2012, gastric fundic gland polyp) Renal/: Yes: Renal Failure, Renal Calculi, UTI ...: No Heme/Onc: Yes: Anemia ENT: Yes: Other (perforate nasal septum) Endocrine: Yes: Diabetes Mellitus, Hyperthyroidism (took PTU in the past), Other (Multinodular goiter) Dermatology: Yes: Melanoma (RLE melanoma excision), Other (chronic lower extremity lymphedema) - Past Surgical History Past Surgical History: Yes: Appendectomy, Arthrosocopy, Colonoscopy, Hysterectomy (TAHBSO), Permanent Pacemaker, Upper Endoscopy - Advance Directives Advance Directives: Yes: DNR - Smoking History Smoking history: Never smoked Have you smoked in the past 12 months: No Aproximately how many cigarettes per day: 0 - Alcohol/Substance Use Hx Alcohol Use: No History of Substance Use: reports: None - Social History Usual Living Arrangement: Yes: Jail ADL: Independent History of Recent Travel: No Home Medications - Allergies Allergies/Adverse Reactions: Allergies Allergy/AdvReac Type Severity Reaction Status Date / Time No Known Allergies Allergy Verified 05/28/17 19:10 - Home Medications Home Medications: Ambulatory Orders Allopurinol [Zyloprim -] 300 mg PO DAILY 04/08/13 Ferrous Sulfate 325 mg PO DAILY 04/08/13 Isosorbide Mononitrate [Imdur] 60 mg PO DAILY 04/08/13 Propylthiouracil 50 mg PO DAILY 04/08/13 Sertraline HCl [Zoloft -] 125 mg PO HS 04/08/13 Docusate Sodium [Colace -] 100 mg PO BID 12/13/15 Donepezil HCl [Aricept -] 10 mg PO DAILY 12/13/15 Memantine HCl [Namenda -] 5 mg PO DAILY 12/13/15 Insulin (Novolog 70/30) [Novolog Mix 70/30 Vial -] 0 units SQ TID 01/21/16 Nifedipine ER [Procardia XL -] 30 mg PO DAILY #30 tab 01/18/17 Oxymetazoline 0.05% Nasal Soln [Afrin -] 1 spray NS Q8H PRN #0 spray 01/24/17 Polyethylene Glycol 3350 [Miralax 119 gm Btl -] 17 gm PO HS PRN #30 bottle 01/24 Torsemide [Demadex -] 60 mg PO DAILY 05/14/17 Acetaminophen [Tylenol .Regular Strength -] 650 mg PO Q4H PRN tablet 05/26/17 Albuterol 0.083% Nebulizer Natalie [Ventolin 0.083% Nebulizer Soln -] 1 amp NEB Q4H PRN amp 05/26/17 Albuterol 2.5/Ipratropium 0.5 [Duoneb -] 1 amp NEB RTID amp 05/26/17 Ranitidine [Zantac -] 150 mg PO DAILY tablet 05/26/17 Potassium Chloride [K-Dur -] 10 meq PO DAILY 04/28/18 Spironolactone 25 mg PO DAILY 04/28/18 Torsemide 40 mg PO AM 04/28/18 Family Disease History - Family Disease History Family Disease History: CA: Father (colon cancer age 65) Review of Systems - Review of Systems Constitutional: reports: Loss of Appetite, Weakness. denies: Chills, Fever Eyes: denies: Blind Spots, Blurred Vision, Double Vision HENT: denies: Ear Discharge, Ear Pain, Epistaxis, Nasal Congestion, Throat Pain Neck: denies: Pain on Movement, Stiffness, Tenderness Cardiovascular: denies: Chest Pain, Edema, Palpitations Respiratory: reports: Cough. denies: SOB, SOB on Exertion Gastrointestinal: reports: Nausea. denies: Abdominal Pain, Constipation, Diarrhea, Rectal Bleeding, Vomiting Genitourinary: denies: Burning, Discharge, Dysuria Musculoskeletal: reports: Back Pain. denies: Extremity Pain, Joint Swelling, Muscle Pain Integumentary: denies: Blister, Bruising Neurological: denies: Change in LOC, Change in Speech, Confusion, Dizziness Psychiatric: denies: Anxiety, Depression Physical Examination Vital Signs: Vital Signs Temperature 98.2 F 04/28/18 17:21 Pulse Rate 91 H 04/28/18 17:21 Respiratory Rate 20 04/28/18 17:21 Blood Pressure 164/88 04/28/18 17:21 O2 Sat by Pulse Oximetry (%) 96 04/28/18 17:36 Constitutional: No: No Distress, Calm Eyes: Yes: Conjunctiva Clear, EOM Intact HENT: Yes: Normocephalic. No: Epistaxis, Pharyngeal Erythema, Rhinnorhea Neck: Yes: Trachea Midline. No: Lymphadenopathy Cardiovascular: Yes: Regular Rate and Rhythm, S1, S2 Respiratory: Yes: Regular, Other (atelecatasis at both bases). No: Rales, Rhonchi Gastrointestinal: Yes: Normal Bowel Sounds, Soft. No: Palpable Mass, Tenderness ...Rectal Exam: Yes: Deferred Breast(s): Yes: Other (deferred) Musculoskeletal: No: Joint Stiffness, Joint Swelling Edema: No Integumentary: No: Bruising, Jaundice, Rash Neurological: Yes: Alert, Oriented (persons), Other (motor and sensory examination is symmetric in UE/ LE/ face) Psychiatric: Yes: Alert, Oriented Labs: CBC, BMP 04/28/18 11:15 04/28/18 11:15 Imaging - Results Chest X-ray: Image Reviewed Problem List - Problems (1) LILLIE (acute kidney injury) Code(s): N17.9 - ACUTE KIDNEY FAILURE, UNSPECIFIED (2) CHF (congestive heart failure) Code(s): I50.9 - HEART FAILURE, UNSPECIFIED (3) CKD (chronic kidney disease) Code(s): N18.9 - CHRONIC KIDNEY DISEASE, UNSPECIFIED Qualifiers: Chronic kidney disease stage: unspecified stage Qualified Code(s): N18.9 - Chronic kidney disease, unspecified (4) COPD (chronic obstructive pulmonary disease) Code(s): J44.9 - CHRONIC OBSTRUCTIVE PULMONARY DISEASE, UNSPECIFIED (5) Dementia Code(s): F03.90 - UNSPECIFIED DEMENTIA WITHOUT BEHAVIORAL DISTURBANCE (6) Diabetes mellitus Code(s): E11.9 - TYPE 2 DIABETES MELLITUS WITHOUT COMPLICATIONS (7) Hypertension Code(s): I10 - ESSENTIAL (PRIMARY) HYPERTENSION Qualifiers: Hypertension type: secondary to other renal disorders Assessment/Plan Hold Torsemide. Low rate hydration. Renal consult. Cardio consult To f/u chest CT scan report. AM labs. Pt's condition was reviewed with pt and her sister (at bedside); all questions were answered.
[2018-04-29] MEDS: INSULIN SLIDING SCALE (NOVOLOG) 1 VIAL SQ SCH ×4 (06:40→22:35)
[2018-04-29 07:22] LABS: HEMOGLOBIN 9.2 GM/dL (10.7-15.3); MCH 33.9 pg (25.7-33.7); MEAN CELL VOLUME 99.6 fl (80-96); MEAN PLT VOLUME 9.7 fl (7.5-11.1); PLATELET COUNT 189 K/MM3 (134-434); RBC 2.71 M/mm3 (3.60-5.2); RDW 14.1 % (11.6-15.6); WHITE BLOOD COUNT 6.6 K/mm3 (4.0-10.0)
[2018-04-29 07:50] LABS: ALBUMIN 2.8 g/dl (3.4-5.0); ALK PHOS 69 U/L (45-117); ANION GAP 10 MMOL/L (8-16); BILIRUBIN,TOTAL 0.3 mg/dL (0.2-1); BLOOD UREA NITROGEN 85 mg/dL (7-18); CHLORIDE 106 mmol/L (98-107); CO2 25 mmol/L (21-32); CREATININE 2.5 mg/dL (0.55-1.3); GLUCOSE,RANDOM 163 mg/dL (74-106); POTASSIUM 3.3 mmol/L (3.5-5.1); SGOT/AST 13 U/L (15-37); SGPT/ALT 11 U/L (13-61); SODIUM 141 mmol/L (136-145); TOT PROT 5.3 g/dl (6.4-8.2)
[2018-04-29] MEDS: ALBUTEROL SO4 2.5/IPRATROPIUM 0.5 INH SOL 3 ML VIAL.NEB. NEB SCH ×3 (08:03→20:17)
--- NOTE | 2018-04-29 08:55 | PN ---
Progress Note, Physician History of Present Illness: Pt w/o fever, chills, CP, palpitations, abd pain. Pt's cough is better. - Current Medication List Current Medications: Active Medications Acetaminophen (Tylenol -) 650 mg PO Q4H PRN PRN Reason: FEVER >100F Albuterol Sulfate (Ventolin 0.083% Nebulizer Soln -) 1 amp NEB Q4H PRN PRN Reason: SHORT OF BREATH/WHEEZING Albuterol/Ipratropium (Duoneb -) 1 amp NEB RTID [facility] Last Admin: 04/29/18 08:03 Dose: 1 amp Allopurinol (Zyloprim -) 300 mg PO DAILY [facility] Docusate Sodium (Colace -) 100 mg PO BID [facility] Last Admin: 04/28/18 21:56 Dose: 100 mg Donepezil HCl (Aricept -) 10 mg PO HS [facility] Ferrous Sulfate (Feosol -) 325 mg PO DAILY [facility] Heparin Sodium (Porcine) (Heparin -) 5,000 unit SQ BID [facility] Last Admin: 04/28/18 21:56 Dose: 5,000 unit Insulin Aspart (Novolog Vial Sliding Scale -) 1 vial SQ ACHS [facility]; Protocol Last Admin: 04/29/18 06:40 Dose: Not Given Isosorbide Mononitrate (Imdur -) 60 mg PO DAILY [facility] Memantine (Namenda -) 5 mg PO DAILY [facility] Nifedipine (Procardia Xl -) 30 mg PO DAILY [facility] Oxymetazoline HCl (Afrin -) 1 spray NS Q12H PRN PRN Reason: NASAL CONGESTION Stop: 05/01/18 16:44 Polyethylene Glycol (Miralax (For Daily Use) -) 17 gm PO HS PRN PRN Reason: CONSTIPATION Potassium Chloride (K-Dur -) 10 meq PO DAILY [facility] Propylthiouracil (Ptu -) 50 mg PO DAILY [facility] Ranitidine HCl (Zantac -) 150 mg PO DAILY [facility] Sertraline HCl 25 mg/ (Sertraline HCl 100 mg) 125 mg PO HS [facility] Last Admin: 04/28/18 21:56 Dose: 125 mg Spironolactone (Aldactone -) 25 mg PO DAILY [facility] - Objective Vital Signs: Vital Signs Temperature 98.3 F 04/29/18 06:00 Pulse Rate 81 04/29/18 06:00 Respiratory Rate 20 04/29/18 06:00 Blood Pressure 180/86 H 04/29/18 06:00 O2 Sat by Pulse Oximetry (%) 96 04/28/18 21:00 Constitutional: Yes: No Distress, Calm Cardiovascular: Yes: Regular Rate and Rhythm, S1, S2 Respiratory: Yes: Regular, Rales (crackles at bases) Gastrointestinal: Yes: Normal Bowel Sounds, Soft. No: Tenderness Edema: No Neurological: Yes: Alert, Oriented Labs: CBC, BMP 04/29/18 06:15 04/29/18 06:15 INR, PTT INR 1.19 (0.83-1.09) H 04/28/18 11:15 Problem List - Problems (1) LILLIE (acute kidney injury) Code(s): N17.9 - ACUTE KIDNEY FAILURE, UNSPECIFIED (2) CHF (congestive heart failure) Code(s): I50.9 - HEART FAILURE, UNSPECIFIED (3) CKD (chronic kidney disease) Code(s): N18.9 - CHRONIC KIDNEY DISEASE, UNSPECIFIED Qualifiers: Chronic kidney disease stage: unspecified stage Qualified Code(s): N18.9 - Chronic kidney disease, unspecified (4) COPD (chronic obstructive pulmonary disease) Code(s): J44.9 - CHRONIC OBSTRUCTIVE PULMONARY DISEASE, UNSPECIFIED (5) Dementia Code(s): F03.90 - UNSPECIFIED DEMENTIA WITHOUT BEHAVIORAL DISTURBANCE (6) Diabetes mellitus Code(s): E11.9 - TYPE 2 DIABETES MELLITUS WITHOUT COMPLICATIONS (7) Hypertension Code(s): I10 - ESSENTIAL (PRIMARY) HYPERTENSION Qualifiers: Hypertension type: secondary to other renal disorders Assessment/Plan Hold Torsemide for now. Low rate hydration. Renal consult. Cardio consult To f/u chest CT scan report. AM labs.
[2018-04-29] MEDS ORDERED: PT OWN MED DRAWER 7, Y5N ONE ×2 (09:26→15:46)
[2018-04-29] MEDS ORDERED: PROPYLTHIOURACIL 50 MG TABLET (UD) PO SCH (10:00)
[2018-04-29] MEDS: HEPARIN NA (PORCINE) 5,000 UNITS/ML 1ML VIAL SQ SCH ×2 (10:34→21:46)
[2018-04-29] MEDS: POTASSIUM CHLORIDE TABS 10 MEQ TABLET.ER (FP) PO SCH (10:34)
[2018-04-29] MEDS: ISOSORBIDE MONONITRATE 60 MG TAB.SR.24H (FP) PO SCH (10:34)
[2018-04-29] MEDS: DOCUSATE SODIUM 100 MG CAPSULE (FP) PO SCH ×2 (10:34→21:45)
[2018-04-29] MEDS: FERROUS SO4 325 MG TABLET (FP) PO SCH (10:34)
[2018-04-29] MEDS: ALLOPURINOL 300 MG TABLET (FP) PO SCH (10:34)
[2018-04-29] MEDS: MEMANTINE HCL 5 MG TABLET (UD) PO SCH (10:34)
[2018-04-29] MEDS: RANITIDINE HCL 150 MG TABLET (FP) PO SCH (10:34)
[2018-04-29] MEDS: NIFEdipine E.R. 30 MG TABLET (FP) PO SCH (10:34)
[2018-04-29] MEDS: SPIRONOLACTONE 25 MG TABLET (FP) PO SCH (10:35)
--- NOTE | 2018-04-29 14:14 | CON.CARD ---
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 Was initially treated with azithromycin, CXR last week showed vascular congestion vs infiltrates at bases and was started on levaquin, torsemide was increased to 60 mg AM and [address] chest shows PNA Ambulatory Orders Allopurinol [Zyloprim -] 300 mg PO DAILY 04/08/13 Ferrous Sulfate 325 mg PO DAILY 04/08/13 Isosorbide Mononitrate [Imdur] 60 mg PO DAILY 04/08/13 Propylthiouracil 50 mg PO DAILY 04/08/13 Sertraline HCl [Zoloft -] 125 mg PO HS 04/08/13 Docusate Sodium [Colace -] 100 mg PO BID 12/13/15 Donepezil HCl [Aricept -] 10 mg PO DAILY 12/13/15 Memantine HCl [Namenda -] 5 mg PO DAILY 12/13/15 Insulin (Novolog 70/30) [Novolog Mix 70/30 Vial -] 0 units SQ TID 01/21/16 Nifedipine ER [Procardia XL -] 30 mg PO DAILY #30 tab 01/18/17 Oxymetazoline 0.05% Nasal Soln [Afrin -] 1 spray NS Q8H PRN #0 spray 01/24/17 Polyethylene Glycol 3350 [Miralax 119 gm Btl -] 17 gm PO HS PRN #30 bottle 01/24 Torsemide [Demadex -] 60 mg PO DAILY 05/14/17 Acetaminophen [Tylenol .Regular Strength -] 650 mg PO Q4H PRN tablet 05/26/17 Albuterol 0.083% Nebulizer Natalie [Ventolin 0.083% Nebulizer Soln -] 1 amp NEB Q4H PRN amp 05/26/17 Albuterol 2.5/Ipratropium 0.5 [Duoneb -] 1 amp NEB RTID amp 05/26/17 Ranitidine [Zantac -] 150 mg PO DAILY tablet 05/26/17 Potassium Chloride [K-Dur -] 10 meq PO DAILY 04/28/18 Spironolactone 25 mg PO DAILY 04/28/18 Torsemide 40 mg PO AM 04/28/18 Vital Signs Period Temp Pulse Resp BP Sys/[place] Pulse Ox Last 24 Hr 98.1 F-98.4 F 81-94 20-20 142-180/72-88 96-97 NAD, calm no JVD, neck supple RRR nl s1, s2. 2/6 sys murmur at sternal border precordium hyperdynamic bibasilar rales. nl eff trace le edema. no cyanosis/clubbing + venous stasis changes + bs soft nt nd no jaundice or diaphoresis. alert and oriented to place pos dp pt Laboratory Last Values WBC 6.6 K/mm3 (4.0-10.0) 04/29/18 06:15 RBC 2.71 M/mm3 (3.60-5.2) L 04/29/18 06:15 Hgb 9.2 GM/dL (10.7-15.3) L 04/29/18 06:15 Hct 27.0 % (32.4-45.2) L 04/29/18 06:15 MCV 99.6 fl (80-96) H 04/29/18 06:15 MCH 33.9 pg (25.7-33.7) H 04/29/18 06:15 MCHC 34.0 g/dl (32.0-36.0) 04/29/18 06:15 RDW 14.1 % (11.6-15.6) 04/29/18 06:15 Plt Count 189 K/MM3 (134-434) 04/29/18 06:15 MPV 9.7 fl (7.5-11.1) 04/29/18 06:15 Absolute Neuts (auto) 6.3 K/mm3 (1.5-8.0) 04/28/18 11:15 Total Counted 100 04/28/18 11:15 Neutrophils % 87.3 % (42.8-82.8) H 04/28/18 11:15 Neutrophils % (Manual) 85.0 % (42.8-82.8) H 04/28/18 11:15 Lymphocytes % 5.9 % (8-40) L D 04/28/18 11:15 Lymphocytes % (Manual) 6.0 % (8-40) L 04/28/18 11:15 Monocytes % 4.4 % (3.8-10.2) 04/28/18 11:15 Monocytes % (Manual) 6 % (3.8-10.2) 04/28/18 11:15 Eosinophils % 1.4 % (0-4.5) D 04/28/18 11:15 Eosinophils % (Manual) 1.0 % (0-4.5) 04/28/18 11:15 Basophils % 1.0 % (0-2.0) 04/28/18 11:15 Myelocytes % (Man) 1 % (0-2) 04/28/18 11:15 Nucleated RBC % 0 % (0-0) 04/28/18 11:15 Metamyelocytes 1 % (0-2) 04/28/18 11:15 Poikilocytosis 1+ 04/28/18 11:15 [place] Cells 1+ 04/28/18 11:15 PT with INR 14.10 SEC (9.7-13.0) H 04/28/18 11:15 INR 1.19 (0.83-1.09) H 04/28/18 11:15 VBG pH 7.39 (7.32-7.42) 04/28/18 11:15 POC VBG pCO2 36.2 mmHg (38-52) L 04/28/18 11:15 POC VBG pO2 115.0 mmHg (28-48) H 04/28/18 11:15 Mixed VBG HCO3 21.5 meq/L (19-25) 04/28/18 11:15 Sodium 141 mmol/L (136-145) 04/29/18 06:15 Potassium 3.3 mmol/L (3.5-5.1) L 04/29/18 06:15 Chloride 106 mmol/L (98-107) 04/29/18 06:15 Carbon Dioxide 25 mmol/L (21-32) 04/29/18 06:15 Anion Gap 10 MMOL/L (8-16) 04/29/18 06:15 BUN 85 mg/dL (7-18) H 04/29/18 06:15 Creatinine 2.5 mg/dL (0.55-1.3) H 04/29/18 06:15 Creat Clearance w eGFR 18.68 (>60) 04/29/18 06:15 POC Glucometer 164 UNITS (80-120) 04/29/18 13:09 Random Glucose 163 mg/dL (74-106) H 04/29/18 06:15 Calcium 8.0 mg/dL (8.5-10.1) L 04/29/18 06:15 Total Bilirubin 0.3 mg/dL (0.2-1) 04/29/18 06:15 AST 13 U/L (15-37) L 04/29/18 06:15 ALT 11 U/L (13-61) L 04/29/18 06:15 Alkaline Phosphatase 69 U/L (45-117) 04/29/18 06:15 Total Protein 5.3 g/dl (6.4-8.2) L 04/29/18 06:15 Albumin 2.8 g/dl (3.4-5.0) L 04/29/18 06:15 Influenza A (Rapid) Negative 04/28/18 11:15 Influenza B (Rapid) Negative 04/28/18 11:15 echo 03/2017: nl lv size/fn. EF 55-60%. tds for wall motion. septal motion c/ w ppm. mild rve. nl rv fn. mod lae. 1+ sam. 1+ mac with mild functional ms ( 4 mmHg, 73 bpm). 1+ mr. mobile linear density that intermittently moves into lvot (no associated lvot obstruction). Density thought to be consistent with torn chordae. 1+ tr. 1+ phtn. 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, HTN, diastolic heart failure complicated by LE edema/ recurrent LE cellulitis, bradycardia/sss/4-sec pause s/p biotronik ppm 2016, COPD, CKD, iddm, dementia, nasal septal defect w/ recurrent epistaxis ( contraindication to AC), recurrent UTI, who p/w cough, sob sob, cough - likely PNA, on abx per primary LILLIE on CKD - Cr 2.9 on admission, likely 2/2 overdiuresis with recent increase in torsemide dose - holding torsemide, received IVF with improved Cr, renal consulted chronic diastolic HF - on torsemide at home, holding as above, received IVF - monitor volume status CAD - hx type II NSTEMI - trop negative, EKG stable - cont asiprin, statin, imdur s/p PPM - outpatient monitoring hx echodensity noted on mitral valve (03/2017 echo) - unclear etiology, ? torn calcified chord - deferred cath, SATHISH in the past to avoid invasive testing HTN -cont home imdur, spironolactone, nifedipine
[2018-04-29] MEDS ORDERED: DEXTROSE 5%-WATER - 50 ML IVPB ONE (15:46)
[2018-04-29] MEDS ORDERED: cefTRIAXone SODIUM 1 GM VIAL ONE (15:46)
[2018-04-29] MEDS: CEFTRIAXONE 1 GM in DEXTROSE 5%-WATER - 50 ML IVPB SCH (15:57)
[2018-04-29] MEDS: AZITHROMYCIN IVPB 500 MG/250 ML BAG IVPB SCH (15:57)
[2018-04-29] MEDS: ACETAMINOPHEN 325 MG TABLET (FP) PO PRN (16:53)
--- NOTE | 2018-04-29 17:06 | CONSULT ---
Consult Consult Specialty:: Nephrology Reason for Consultation:: LILLIE on CKD - History of Present Illness Chief Complaint: cough History of Present Illness: Pt is a 77 year old female with pmhx of CKD, COPD, CHF, DM, dementia, and anemia who presented from [facility] for cough and malaise. She was found to have elevated creatinine and I was called to evaluate her. Pt follows with Dr Vazquez and is known to me from previous admissions. Family at bedside who assisted with history. She had cough in the [place] and her torsemide dose was increased. She then was started on levaquin for PNA. She feels better today. She was given some fluids and torsemide was held. 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 Cardio/Vascular: Yes: CHF, HTN, Other (left sided PPM for bradycardia, presumably sick sinus syndrome) Pulmonary: Yes: COPD Gastrointestinal: Yes: Diverticulosis, GERD, Hiatal Hernia, Other (3 colon adenomas removed 2012, gastric fundic gland polyp) Renal/: Yes: Renal Failure, Renal Calculi, UTI ...: No ENT: Yes: Other (perforate nasal septum) Endocrine: Yes: Diabetes Mellitus, Hyperthyroidism (took PTU in the past), Other (Multinodular goiter) Dermatology: Yes: Melanoma (RLE melanoma excision), Other (chronic lower extremity lymphedema) - Past Surgical History Past Surgical History: Yes: Appendectomy, Arthrosocopy, Colonoscopy, Hysterectomy (TAHBSO), Permanent Pacemaker, Upper Endoscopy - Alcohol/Substance Use Hx Alcohol Use: No History of Substance Use: reports: None - Smoking History Smoking history: Never smoked Have you smoked in the past 12 months: No Aproximately how many cigarettes per day: 0 - Social History Usual Living Arrangement: [facility] ADL: Independent History of Recent Travel: No Home Medications - Allergies Allergies/Adverse Reactions: Allergies Allergy/AdvReac Type Severity Reaction Status Date / Time No Known Allergies Allergy Verified 05/28/17 19:10 - Home Medications Home Medications: Ambulatory Orders Allopurinol [Zyloprim -] 300 mg PO DAILY 04/08/13 Ferrous Sulfate 325 mg PO DAILY 04/08/13 Isosorbide Mononitrate [Imdur] 60 mg PO DAILY 04/08/13 Propylthiouracil 50 mg PO DAILY 04/08/13 Sertraline HCl [Zoloft -] 125 mg PO HS 04/08/13 Docusate Sodium [Colace -] 100 mg PO BID 12/13/15 Donepezil HCl [Aricept -] 10 mg PO DAILY 12/13/15 Memantine HCl [Namenda -] 5 mg PO DAILY 12/13/15 Insulin (Novolog 70/30) [Novolog Mix 70/30 Vial -] 0 units SQ TID 01/21/16 Nifedipine ER [Procardia XL -] 30 mg PO DAILY #30 tab 01/18/17 Oxymetazoline 0.05% Nasal Soln [Afrin -] 1 spray NS Q8H PRN #0 spray 01/24/17 Polyethylene Glycol 3350 [Miralax 119 gm Btl -] 17 gm PO HS PRN #30 bottle 01/24 Torsemide [Demadex -] 60 mg PO DAILY 05/14/17 Acetaminophen [Tylenol .Regular Strength -] 650 mg PO Q4H PRN tablet 05/26/17 Albuterol 0.083% Nebulizer Natalie [Ventolin 0.083% Nebulizer Soln -] 1 amp NEB Q4H PRN amp 05/26/17 Albuterol 2.5/Ipratropium 0.5 [Duoneb -] 1 amp NEB RTID amp 05/26/17 Ranitidine [Zantac -] 150 mg PO DAILY tablet 05/26/17 Potassium Chloride [K-Dur -] 10 meq PO DAILY 04/28/18 Spironolactone 25 mg PO DAILY 04/28/18 Torsemide 40 mg PO AM 04/28/18 Family Disease History - Family Disease History Family Disease History: CA: Father (colon cancer age 65) Review of Systems - Review of Systems Constitutional: reports: Malaise. denies: Chills Eyes: reports: No Symptoms HENT: reports: No Symptoms Neck: reports: No Symptoms Cardiovascular: reports: Shortness of Breath Respiratory: reports: Cough, SOB, SOB on Exertion Gastrointestinal: reports: No Symptoms Genitourinary: reports: No Symptoms Musculoskeletal: reports: No Symptoms Integumentary: reports: No Symptoms Neurological: reports: No Symptoms Endocrine: reports: No Symptoms Hematology/Lymphatic: reports: No Symptoms Psychiatric: reports: No Symptoms Physical Exam Vital Signs: Vital Signs Temperature 98.4 F 04/29/18 13:59 Pulse Rate 88 04/29/18 13:59 Respiratory Rate 20 04/29/18 13:59 Blood Pressure 142/72 04/29/18 13:59 O2 Sat by Pulse Oximetry (%) 96 04/29/18 09:00 Constitutional: Yes: Calm Eyes: Yes: Conjunctiva Clear HENT: Yes: Atraumatic Cardiovascular: Yes: S1, S2 Respiratory: Yes: On Nasal O2, Wheezes Gastrointestinal: Yes: Soft, Abdomen, Obese Renal/: Yes: Incontinence Musculoskeletal: Yes: WNL Edema: No Neurological: Yes: Confusion Labs: CBC, BMP 04/29/18 06:15 04/29/18 06:15 Laboratory Tests 05/26/17 05/28/17 05/29/17 07:15 21:35 07:00 Hgb Sodium Potassium BUN Creatinine 2.2 H 2.4 H 2.2 H 04/28/18 04/28/18 04/29/18 11:15 11:15 06:15 Hgb 10.6 L 9.2 L Sodium 142 Potassium 3.9 BUN Creatinine 2.9 H 04/29/18 06:15 Hgb Sodium 141 Potassium 3.3 L BUN 85 H Creatinine 2.5 H Imaging - Results Chest X-ray: Report Reviewed Problem List - Problems (1) CKD (chronic kidney disease) Code(s): N18.9 - CHRONIC KIDNEY DISEASE, UNSPECIFIED Qualifiers: Chronic kidney disease stage: unspecified stage Qualified Code(s): N18.9 - Chronic kidney disease, unspecified Assessment/Plan Current Medications Generic Name Dose Route Start Last Admin Trade Name Freq PRN Reason Stop Dose Admin Acetaminophen 650 mg 04/28/18 16:45 04/29/18 16:53 Tylenol - PO 650 mg Q4H PRN Administration FEVER >100F Albuterol Sulfate 1 amp 04/28/18 16:45 Ventolin 0.083% Nebulizer Soln - NEB Q4H PRN SHORT OF BREATH/WHEEZING Albuterol/Ipratropium 1 amp 04/28/18 20:00 04/29/18 13:37 Duoneb - NEB 1 amp RTID POWER Administration Allopurinol 300 mg 04/29/18 10:00 04/29/18 10:34 Zyloprim - PO 300 mg DAILY POWER Administration Docusate Sodium 100 mg 04/28/18 22:00 04/29/18 10:34 Colace - PO 100 mg BID POWER Administration Ferrous Sulfate 325 mg 04/29/18 10:00 04/29/18 10:34 Feosol - PO 325 mg DAILY POWER Administration Heparin Sodium (Porcine) 5,000 unit 04/28/18 22:00 04/29/18 10:34 Heparin - SQ 5,000 unit BID POWER Administration Azithromycin 500 mg in 250 mls @ 250 mls/hr 04/29/18 14:45 04/29/18 15:57 Zithromax 500mg Ivpb (Pre-Docked) IVPB 250 mls/hr DAILY POWER Administration Ceftriaxone Sodium 1 gm/ 50 mls @ 100 mls/hr 04/29/18 15:00 04/29/18 15:57 Dextrose IVPB 100 mls/hr DAILY POWER Administration Insulin Aspart 1 vial 04/28/18 22:00 04/29/18 13:11 Novolog Vial Sliding Scale - SQ 2 units ACHS POWER Administration Protocol Isosorbide Mononitrate 60 mg 04/29/18 10:00 04/29/18 10:34 Imdur - PO 60 mg DAILY POWER Administration Memantine 5 mg 04/29/18 10:00 04/29/18 10:34 Namenda - PO 5 mg DAILY POWER Administration Nifedipine 30 mg 04/29/18 10:00 04/29/18 10:34 Procardia Xl - PO 30 mg DAILY POWER Administration Oxymetazoline HCl 1 spray 04/28/18 16:45 Afrin - NS 05/01/18 16:44 Q12H PRN NASAL CONGESTION Polyethylene Glycol 17 gm 04/28/18 16:45 Miralax (For Daily Use) - PO HS PRN CONSTIPATION Potassium Chloride 10 meq 04/29/18 10:00 04/29/18 10:34 K-Dur - PO 10 meq DAILY POWER Administration Propylthiouracil 50 mg 04/29/18 10:00 Ptu - PO DAILY POWER Ranitidine HCl 150 mg 04/29/18 10:00 04/29/18 10:34 Zantac - PO 150 mg DAILY POWER Administration Sertraline HCl 25 mg/ 125 mg 04/28/18 22:00 04/28/18 21:56 Sertraline HCl 100 mg PO 125 mg HS POWER Administration Spironolactone 25 mg 04/29/18 10:00 02/07/19 10:35 Aldactone - PO 25 mg DAILY POWER Administration Impression 1. CKD 2. cough 3. CHF 4. bradycardia 5. dementia 6. HTN 7. DM 8. anemia 9. LILLIE 10. pleural effusions Plan - renal function is improving - can stop fluids once this bag is complete - repeat labs in am - will evaluate for torsemide tomorrow - discussed with cardio - likely elevated wad impregnator from over diuresis Dr Atkinson
[2018-04-29] MEDS ORDERED: POTASSIUM CHLORIDE TABS 20 MEQ TABLET.ER (FP) PO ONE (17:12)
[2018-04-29] MEDS ORDERED: SERTRALINE HCL 50 MG TABLET (FP) ONE (21:32)
[2018-04-29] MEDS ORDERED: SERTRALINE HCL 25 MG TABLET (FP) ONE (21:32)
[2018-04-29] MEDS: SERTRALINE HCL PO SCH (21:46)
[2018-04-29] MEDS ORDERED: DONEPEZIL HCL 10 MG TABLET (FP) PO SCH (22:00)
[2018-04-30] MEDS: INSULIN SLIDING SCALE (NOVOLOG) 1 VIAL SQ SCH ×4 (06:41→22:35)
[2018-04-30] MEDS: ALBUTEROL SO4 2.5/IPRATROPIUM 0.5 INH SOL 3 ML VIAL.NEB. NEB SCH ×3 (08:00→20:45)
[2018-04-30 08:18] LABS: MAGNESIUM 2.3 mg/dL (1.8-2.4)
--- NOTE | 2018-04-30 09:33 | PN ---
Progress Note, Physician History of Present Illness: Pt's breathing is better, still coughs but less. Pt w/o fever, chills, CP, palpitations, abd pain. Pt's nurse reports cough during breakfast/ eating. - Current Medication List Current Medications: Active Medications Acetaminophen (Tylenol -) 650 mg PO Q4H PRN PRN Reason: FEVER >100F Last Admin: 04/29/18 16:53 Dose: 650 mg Albuterol Sulfate (Ventolin 0.083% Nebulizer Soln -) 1 amp NEB Q4H PRN PRN Reason: SHORT OF BREATH/WHEEZING Albuterol/Ipratropium (Duoneb -) 1 amp NEB RTID [facility] Last Admin: 04/30/18 08:00 Dose: 1 amp Allopurinol (Zyloprim -) 300 mg PO DAILY [facility] Last Admin: 04/29/18 10:34 Dose: 300 mg Docusate Sodium (Colace -) 100 mg PO BID [facility] Last Admin: 04/29/18 21:45 Dose: 100 mg Ferrous Sulfate (Feosol -) 325 mg PO DAILY [facility] Last Admin: 04/29/18 10:34 Dose: 325 mg Heparin Sodium (Porcine) (Heparin -) 5,000 unit SQ BID [facility] Last Admin: 04/29/18 21:46 Dose: 5,000 unit Azithromycin (Zithromax 500mg Ivpb (Pre-Docked)) 500 mg in 250 mls @ 250 mls/ hr IVPB DAILY [facility] Last Admin: 04/29/18 15:57 Dose: 250 mls/hr Ceftriaxone Sodium 1 gm/ (Dextrose) 50 mls @ 100 mls/hr IVPB DAILY [facility] Last Admin: 04/29/18 15:57 Dose: 100 mls/hr Insulin Aspart (Novolog Vial Sliding Scale -) 1 vial SQ ACHS [facility]; Protocol Last Admin: 04/30/18 06:41 Dose: Not Given Isosorbide Mononitrate (Imdur -) 60 mg PO DAILY [facility] Last Admin: 04/29/18 10:34 Dose: 60 mg Memantine (Namenda -) 5 mg PO DAILY [facility] Last Admin: 04/29/18 10:34 Dose: 5 mg Nifedipine (Procardia Xl -) 30 mg PO DAILY [facility] Last Admin: 04/29/18 10:34 Dose: 30 mg Oxymetazoline HCl (Afrin -) 1 spray NS Q12H PRN PRN Reason: NASAL CONGESTION Stop: 05/01/18 16:44 Last Admin: 04/29/18 21:48 Dose: 1 spray Polyethylene Glycol (Miralax (For Daily Use) -) 17 gm PO HS PRN PRN Reason: CONSTIPATION Potassium Chloride (K-Dur -) 10 meq PO DAILY [facility] Last Admin: 04/29/18 10:34 Dose: 10 meq Propylthiouracil (Ptu -) 50 mg PO DAILY [facility] Ranitidine HCl (Zantac -) 150 mg PO DAILY [facility] Last Admin: 04/29/18 10:34 Dose: 150 mg Sertraline HCl 25 mg/ (Sertraline HCl 100 mg) 125 mg PO HS [facility] Last Admin: 04/29/18 21:46 Dose: 125 mg Spironolactone (Aldactone -) 25 mg PO DAILY [facility] Last Admin: 04/29/18 10:35 Dose: 25 mg - Objective Vital Signs: Vital Signs Temperature 98.6 F 04/30/18 06:00 Pulse Rate 87 04/30/18 06:00 Respiratory Rate 20 04/30/18 06:00 Blood Pressure 150/75 04/30/18 06:00 O2 Sat by Pulse Oximetry (%) 96 04/29/18 21:00 Constitutional: Yes: No Distress, Calm Cardiovascular: Yes: Regular Rate and Rhythm, S1, S2 Respiratory: Yes: Regular, Rhonchi (at bases) Gastrointestinal: Yes: Normal Bowel Sounds, Soft. No: Tenderness Edema: No Neurological: Yes: Alert, Oriented Labs: CBC, BMP 04/29/18 06:15 04/29/18 06:15 INR, PTT INR 1.19 (0.83-1.09) H 04/28/18 11:15 Problem List - Problems (1) LILLIE (acute kidney injury) Code(s): N17.9 - ACUTE KIDNEY FAILURE, UNSPECIFIED (2) CHF (congestive heart failure) Code(s): I50.9 - HEART FAILURE, UNSPECIFIED (3) CKD (chronic kidney disease) Code(s): N18.9 - CHRONIC KIDNEY DISEASE, UNSPECIFIED Qualifiers: Chronic kidney disease stage: unspecified stage Qualified Code(s): N18.9 - Chronic kidney disease, unspecified (4) COPD (chronic obstructive pulmonary disease) Code(s): J44.9 - CHRONIC OBSTRUCTIVE PULMONARY DISEASE, UNSPECIFIED (5) Dementia Code(s): F03.90 - UNSPECIFIED DEMENTIA WITHOUT BEHAVIORAL DISTURBANCE (6) Diabetes mellitus Code(s): E11.9 - TYPE 2 DIABETES MELLITUS WITHOUT COMPLICATIONS (7) Hypertension Code(s): I10 - ESSENTIAL (PRIMARY) HYPERTENSION Qualifiers: Hypertension type: secondary to other renal disorders (8) Pneumonia Code(s): J18.9 - PNEUMONIA, UNSPECIFIED ORGANISM (9) Pleural effusion Code(s): J90 - PLEURAL EFFUSION, NOT ELSEWHERE CLASSIFIED Assessment/Plan Hold Torsemide for now. Off IVF Started on IV abtx for PNA, bilat. Renal and Cardio consults are appreciated. Swallow evasl to r/o dysphagia Pulmonary consult AM labs.
[2018-04-30] MEDS ORDERED: cefTRIAXone SODIUM 1 GM VIAL ONE (09:43)
[2018-04-30] MEDS ORDERED: DEXTROSE 5%-WATER - 50 ML IVPB ONE (09:43)
[2018-04-30 10:10] LABS: HEMATOCRIT 26.7 % (32.4-45.2); HEMOGLOBIN 9.1 GM/dL (10.7-15.3); MCHC 33.9 g/dl (32.0-36.0); MEAN CELL VOLUME 100.3 fl (80-96); MEAN PLT VOLUME 9.7 fl (7.5-11.1); PLATELET COUNT 180 K/MM3 (134-434); RBC 2.67 M/mm3 (3.60-5.2); RDW 14.6 % (11.6-15.6); WHITE BLOOD COUNT 8.3 K/mm3 (4.0-10.0)
[2018-04-30 10:22] LABS: ANION GAP 10 MMOL/L (8-16); BLOOD UREA NITROGEN 83 mg/dL (7-18); CALCIUM 8.4 mg/dL (8.5-10.1); CHLORIDE 108 mmol/L (98-107); CO2 23 mmol/L (21-32); CREATININE 2.4 mg/dL (0.55-1.3); GLUCOSE,RANDOM 115 mg/dL (74-106); POTASSIUM 3.7 mmol/L (3.5-5.1); SODIUM 141 mmol/L (136-145)
[2018-04-30] MEDS: AZITHROMYCIN IVPB 500 MG/250 ML BAG IVPB SCH (10:46)
[2018-04-30] MEDS: CEFTRIAXONE 1 GM in DEXTROSE 5%-WATER - 50 ML IVPB SCH (10:46)
[2018-04-30] MEDS: SPIRONOLACTONE 25 MG TABLET (FP) PO SCH (10:48)
[2018-04-30] MEDS: POTASSIUM CHLORIDE TABS 10 MEQ TABLET.ER (FP) PO SCH (10:48)
[2018-04-30] MEDS: FERROUS SO4 325 MG TABLET (FP) PO SCH (10:48)
[2018-04-30] MEDS: NIFEdipine E.R. 30 MG TABLET (FP) PO SCH (10:48)
[2018-04-30] MEDS: RANITIDINE HCL 150 MG TABLET (FP) PO SCH (10:48)
[2018-04-30] MEDS: ALLOPURINOL 300 MG TABLET (FP) PO SCH (10:48)
[2018-04-30] MEDS: MEMANTINE HCL 5 MG TABLET (UD) PO SCH (10:48)
[2018-04-30] MEDS: ISOSORBIDE MONONITRATE 60 MG TAB.SR.24H (FP) PO SCH (10:48)
[2018-04-30] MEDS: DOCUSATE SODIUM 100 MG CAPSULE (FP) PO SCH ×2 (10:48→22:34)
[2018-04-30] MEDS: HEPARIN NA (PORCINE) 5,000 UNITS/ML 1ML VIAL SQ SCH ×2 (10:48→22:36)
--- NOTE | 2018-04-30 12:12 | CONSULT ---
Admitting History and Physical - Primary Care Physician PCP: Anabeal Padron S - Admission History of Present Illness: 76 y/o woman w/ a PMHx/o HTN, diastolic heart failure complicated by LE edema/ recurrent LE cellulitis, ppm 2017, COPD, CKD, iddm, dementia, nasal septal defect w/ recurrent epistaxis , recurrent UTI, who p/w cough, sob,cough - likely PNA Pt on reg diet/thin liquid at [facility]. Pt reports occasional cough response while drinking. Seen last in may,, Pt was on reg diet/thin liquid. Reported to be tolerating diet. Per pulmonary, concern of mild aspiration as etiology. MBS, if aspiration is suspected, to r/o silent aspiration. MBS not done at that time, as pt overtly tolerated diet. 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 Cardiovascular: Yes: CHF, HTN, Other (left sided PPM for bradycardia, presumably sick sinus syndrome) Pulmonary: Yes: COPD Gastrointestinal: Yes: Diverticulosis, GERD, Hiatal Hernia, Other (3 colon adenomas removed 2012, gastric fundic gland polyp) Renal/: Yes: Renal Failure, Renal Calculi, UTI ...: No Heme/Onc: Yes: Anemia ENT: Yes: Other (perforate nasal septum) Endocrine: Yes: Diabetes Mellitus, Hyperthyroidism (took PTU in the past), Other (Multinodular goiter) Dermatology: Yes: Melanoma (RLE melanoma excision), Other (chronic lower extremity lymphedema) - Past Surgical History Past Surgical History: Yes: Appendectomy, Arthrosocopy, Colonoscopy, Hysterectomy (TAHBSO), Permanent Pacemaker, Upper Endoscopy - Advance Directives Advance Directives: Yes: DNR - Smoking History Smoking history: Never smoked Have you smoked in the past 12 months: No Aproximately how many cigarettes per day: 0 - Alcohol/Substance Use Hx Alcohol Use: No History of Substance Use: reports: None - Social History ADL: Independent History of Recent Travel: No History - Admission Reason For Visit: ACUTE KIDNEY INJURY,DEHYDRATION - Diagnostics CT Scan: Report Reviewed (CT chest noncon: RLL infiltrate and small RML consolidation, mod LLL atelectasis/consolidation, bronchiectatic changes at L base, dilated ascending aorta 3.8 cm and main PA 3.7 cm) - General Mental Status: Alert and Oriented (tought she was at [facility]), Awake and Alert, Able to Follow Commands, Forgetful Attention: Distractible, Mild Impairment Ability to Follow Directions: Good Head/Neck Control: Good - Hearing Hearing: Functional Hearing: Normal Hearing Aide: No With Patient: No Speech Evaluation - Communication Primary Language: [id number] Communication: Yes: Within Normal Limits - Speech Production Apraxia: No Able to Make Needs Known: Yes: WNL Intelligibility: Yes: WNL - Speech Characteristics Voice Loudness: Normal Voice Pitch: Yes: Normal Voice Phonatory-based Quality: Yes: Vocal Wetness (intermittent) Speech Pattern: Normal Speech Clarity: < 100% Nasal Resonance: Normal Articulation: Yes: Precise - Language/Auditory Comprehension Follows: Yes: 1 Stage Simple Commands Observation: Able to respond to yes/no queries: Yes, Comprehends Conversational Speech: Yes - Language/Verbal Expression Able to Respond to Simple Queries: Yes: WNL Able to Communicate Wants and Needs: Yes: WNL Functional Communication Status: Yes: WNL - Swallow Evaluation/Bedside Assessment Current Nutritional Intake: Regular, Thin Liquids Dentition: Yes: Missing Teeth, Dental Appliance Upper Facial Symmetry at Rest: Facial Droop Left (slight) Facial Symmetry on Retraction: Symmetrical Against Resistance Opening: Normal Against Resistance Closing: Normal Pucker Lips: Normal Smile: Normal Lingual Movement: Normal, Symmetric Lingual Speed of Movement: Normal Lingual Movement Strgth Against Opposition: Normal Lingual Movement Characteristics: Normal Velopharyngeal Movement: Normal Laryngeal Movement: Able to Palpate Rate of Intake: WFL Bolus Size: WFL Labial Seal: WFL Chewing: WFL Oral Prep Time: WFL A-P Transit: WFL Coughing/Throat Clear: Yes (thin, intermittent) Recommendations - Speech Evaluation, Impression/Plan Impression: Cough, responsive intermittently on thin liquids. Similar to May 2017 assessment. r/o silent aspiration on thin liquids - Disposition [facility] to: [facility] - Dysphagia Impressions/Plan Dysphagia Impressions: Ongoing Evaluation *Silent aspiration: cannot be R/O at bedside Recommendations: Modified Barium Swallow - Recommendations Diet Consistency: Regular Medication Administration: Whole with water Liquids: [place] Thick
--- NOTE | 2018-04-30 14:52 | PN ---
Progress Note (short form) - Note Progress Note: PULMONARY CONSULTATION DICTATED 04/30/18 IMP PNEUMONIA DIASTOLIC HF SSS S/P PPM DM CKD STAGE 4 H/O HYPERTHYROIDISM S/P PTU H/O MELANOMA S/P EXCISION GERD DM ANEMIA PLAN ABX O2 INHALED BRONCHODILATORS DIURETICS PER CARDIOLOGY MONITOR LYTES,RENAL FUNCTION MONITOR H+H F/U CHEST X-RAY Problem List - Problems (1) CKD (chronic kidney disease) Code(s): N18.9 - CHRONIC KIDNEY DISEASE, UNSPECIFIED (2) Anemia Code(s): D64.9 - ANEMIA, UNSPECIFIED (3) CHF (congestive heart failure) Code(s): I50.9 - HEART FAILURE, UNSPECIFIED (4) CKD (chronic kidney disease) Code(s): N18.9 - CHRONIC KIDNEY DISEASE, UNSPECIFIED Qualifiers: Chronic kidney disease stage: unspecified stage Qualified Code(s): N18.9 - Chronic kidney disease, unspecified (5) COPD exacerbation Code(s): J44.1 - CHRONIC OBSTRUCTIVE PULMONARY DISEASE W (ACUTE) EXACERBATION (6) Dementia Code(s): F03.90 - UNSPECIFIED DEMENTIA WITHOUT BEHAVIORAL DISTURBANCE (7) Diabetes mellitus Code(s): E11.9 - TYPE 2 DIABETES MELLITUS WITHOUT COMPLICATIONS (8) Hiatal hernia with GERD Code(s): K21.9 - GASTRO-ESOPHAGEAL REFLUX DISEASE WITHOUT ESOPHAGITIS; K44.9 - DIAPHRAGMATIC HERNIA WITHOUT OBSTRUCTION OR GANGRENE (9) Pneumonia Code(s): J18.9 - PNEUMONIA, UNSPECIFIED ORGANISM
--- NOTE | 2018-04-30 15:30 | PN ---
Progress Note, Physician History of Present Illness: Pt seen and examined at bedside. She is awake and alert. She denies shortness of breath. - Current Medication List Current Medications: Active Medications Acetaminophen (Tylenol -) 650 mg PO Q4H PRN PRN Reason: FEVER >100F Last Admin: 04/29/18 16:53 Dose: 650 mg Albuterol Sulfate (Ventolin 0.083% Nebulizer Soln -) 1 amp NEB Q4H PRN PRN Reason: SHORT OF BREATH/WHEEZING Albuterol/Ipratropium (Duoneb -) 1 amp NEB RTID [facility] Last Admin: 04/30/18 13:36 Dose: 1 amp Allopurinol (Zyloprim -) 300 mg PO DAILY [facility] Last Admin: 04/30/18 10:48 Dose: 300 mg Docusate Sodium (Colace -) 100 mg PO BID [facility] Last Admin: 04/30/18 10:48 Dose: 100 mg Ferrous Sulfate (Feosol -) 325 mg PO DAILY [facility] Last Admin: 04/30/18 10:48 Dose: 325 mg Heparin Sodium (Porcine) (Heparin -) 5,000 unit SQ BID [facility] Last Admin: 04/30/18 10:48 Dose: 5,000 unit Azithromycin (Zithromax 500mg Ivpb (Pre-Docked)) 500 mg in 250 mls @ 250 mls/ hr IVPB DAILY [facility] Last Admin: 04/30/18 10:46 Dose: 250 mls/hr Ceftriaxone Sodium 1 gm/ (Dextrose) 50 mls @ 100 mls/hr IVPB DAILY [facility] Last Admin: 04/30/18 10:46 Dose: 100 mls/hr Insulin Aspart (Novolog Vial Sliding Scale -) 1 vial SQ ACHS [facility]; Protocol Last Admin: 04/30/18 13:26 Dose: 4 units Isosorbide Mononitrate (Imdur -) 60 mg PO DAILY [facility] Last Admin: 04/30/18 10:48 Dose: 60 mg Memantine (Namenda -) 5 mg PO DAILY [facility] Last Admin: 04/30/18 10:48 Dose: 5 mg Nifedipine (Procardia Xl -) 30 mg PO DAILY [facility] Last Admin: 04/30/18 10:48 Dose: 30 mg Oxymetazoline HCl (Afrin -) 1 spray NS Q12H PRN PRN Reason: NASAL CONGESTION Stop: 05/01/18 16:44 Last Admin: 04/29/18 21:48 Dose: 1 spray Polyethylene Glycol (Miralax (For Daily Use) -) 17 gm PO HS PRN PRN Reason: CONSTIPATION Potassium Chloride (K-Dur -) 10 meq PO DAILY [facility] Last Admin: 04/30/18 10:48 Dose: 10 meq Propylthiouracil (Ptu -) 50 mg PO DAILY [facility] Ranitidine HCl (Zantac -) 150 mg PO DAILY [facility] Last Admin: 04/30/18 10:48 Dose: 150 mg Sertraline HCl 25 mg/ (Sertraline HCl 100 mg) 125 mg PO HS [facility] Last Admin: 04/29/18 21:46 Dose: 125 mg Spironolactone (Aldactone -) 25 mg PO DAILY [facility] Last Admin: 04/30/18 10:48 Dose: 25 mg - Objective Vital Signs: Vital Signs Temperature 98.4 F 04/30/18 11:01 Pulse Rate 94 H 04/30/18 11:01 Respiratory Rate 18 04/30/18 11:01 Blood Pressure 150/73 04/30/18 11:01 O2 Sat by Pulse Oximetry (%) 96 04/29/18 21:00 Constitutional: Yes: Calm Eyes: Yes: Conjunctiva Clear HENT: Yes: Atraumatic Cardiovascular: Yes: S1, S2 Respiratory: Yes: On Nasal O2 Gastrointestinal: Yes: Soft Genitourinary: Yes: WNL Musculoskeletal: Yes: WNL Edema: Yes Edema: LLE: Trace, RLE: Trace Neurological: Yes: Oriented Psychiatric: Yes: Oriented Labs: CBC, BMP 04/30/18 06:30 04/30/18 06:30 INR, PTT INR 1.19 (0.83-1.09) H 04/28/18 11:15 Problem List - Problems (1) CKD (chronic kidney disease) Code(s): N18.9 - CHRONIC KIDNEY DISEASE, UNSPECIFIED Qualifiers: Chronic kidney disease stage: unspecified stage Qualified Code(s): N18.9 - Chronic kidney disease, unspecified Assessment/Plan Current Medications Generic Name Dose Route Start Last Admin Trade Name Freq PRN Reason Stop Dose Admin Acetaminophen 650 mg 04/28/18 16:45 04/29/18 16:53 Tylenol - PO 650 mg Q4H PRN Administration FEVER >100F Albuterol Sulfate 1 amp 04/28/18 16:45 Ventolin 0.083% Nebulizer Soln - NEB Q4H PRN SHORT OF BREATH/WHEEZING Albuterol/Ipratropium 1 amp 04/28/18 20:00 04/30/18 13:36 Duoneb - NEB 1 amp RTID [facility] Administration Allopurinol 300 mg 04/29/18 10:00 04/30/18 10:48 Zyloprim - PO 300 mg DAILY [facility] Administration Docusate Sodium 100 mg 04/28/18 22:00 04/30/18 10:48 Colace - PO 100 mg BID [facility] Administration Ferrous Sulfate 325 mg 04/29/18 10:00 04/30/18 10:48 Feosol - PO 325 mg DAILY [facility] Administration Heparin Sodium (Porcine) 5,000 unit 04/28/18 22:00 04/30/18 10:48 Heparin - SQ 5,000 unit BID [facility] Administration Azithromycin 500 mg in 250 mls @ 250 mls/hr 04/29/18 14:45 04/30/18 10:46 Zithromax 500mg Ivpb (Pre-Docked) IVPB 250 mls/hr DAILY [facility] Administration Ceftriaxone Sodium 1 gm/ 50 mls @ 100 mls/hr 04/29/18 15:00 04/30/18 10:46 Dextrose IVPB 100 mls/hr DAILY [facility] Administration Insulin Aspart 1 vial 04/28/18 22:00 04/30/18 13:26 Novolog Vial Sliding Scale - SQ 4 units ACHS [facility] Administration Protocol Isosorbide Mononitrate 60 mg 04/29/18 10:00 04/30/18 10:48 Imdur - PO 60 mg DAILY [facility] Administration Memantine 5 mg 04/29/18 10:00 04/30/18 10:48 Namenda - PO 5 mg DAILY [facility] Administration Nifedipine 30 mg 04/29/18 10:00 04/30/18 10:48 Procardia Xl - PO 30 mg DAILY [facility] Administration Oxymetazoline HCl 1 spray 04/28/18 16:45 04/29/18 21:48 Afrin - NS 05/01/18 16:44 1 spray Q12H PRN Administration NASAL CONGESTION Polyethylene Glycol 17 gm 04/28/18 16:45 Miralax (For Daily Use) - PO HS PRN CONSTIPATION Potassium Chloride 10 meq 04/29/18 10:00 04/30/18 10:48 K-Dur - PO 10 meq DAILY [facility] Administration Propylthiouracil 50 mg 04/29/18 10:00 Ptu - PO DAILY [facility] Ranitidine HCl 150 mg 04/29/18 10:00 04/30/18 10:48 Zantac - PO 150 mg DAILY [facility] Administration Sertraline HCl 25 mg/ 125 mg 04/28/18 22:00 04/29/18 21:46 Sertraline HCl 100 mg PO 125 mg HS [facility] Administration Spironolactone 25 mg 04/29/18 10:00 04/30/18 10:48 Aldactone - PO 25 mg DAILY [facility] Administration Impression 1. CKD 2. cough 3. CHF 4. bradycardia 5. dementia 6. HTN 7. DM 8. anemia 9. LILLIE 10. pleural effusions Plan - renal function continues to improve - cont spironolactone - hold torsemide today, evaluate tomorrow - discussed with cardio - repeat labs in am - no fluids - likely elevated banquet cook from over diuresis Dr Atkinson
--- NOTE | 2018-04-30 15:55 | PN ---
Progress Note (short form) - Note Progress Note: s: no chest pain, palps, dizziness, edema Vital Signs Period Temp Pulse Resp BP Sys/[place] Pulse Ox Last 24 Hr 98 F-98.8 F 87-94 18-20 125-150/47-77 96 NAD, calm no JVD, neck supple RRR nl s1, s2. 2/6 sys murmur at sternal border precordium hyperdynamic bibasilar rales. nl eff trace le edema. no cyanosis/clubbing + venous stasis changes + bs soft nt nd no jaundice or diaphoresis. alert and oriented to place pos dp pt Current Medications Acetaminophen (Tylenol -) 650 mg PO Q4H PRN PRN Reason: FEVER >100F Last Admin: 04/29/18 16:53 Dose: 650 mg Albuterol Sulfate (Ventolin 0.083% Nebulizer Soln -) 1 amp NEB Q4H PRN PRN Reason: SHORT OF BREATH/WHEEZING Albuterol/Ipratropium (Duoneb -) 1 amp NEB RTID [facility] Last Admin: 04/30/18 13:36 Dose: 1 amp Allopurinol (Zyloprim -) 300 mg PO DAILY [facility] Last Admin: 04/30/18 10:48 Dose: 300 mg Docusate Sodium (Colace -) 100 mg PO BID [facility] Last Admin: 04/30/18 10:48 Dose: 100 mg Epoetin [place] (Epogen -) 10,000 unit SQ ONCE ONE Stop: 04/30/18 15:42 Ferrous Sulfate (Feosol -) 325 mg PO DAILY [facility] Last Admin: 04/30/18 10:48 Dose: 325 mg Heparin Sodium (Porcine) (Heparin -) 5,000 unit SQ BID [facility] Last Admin: 04/30/18 10:48 Dose: 5,000 unit Azithromycin (Zithromax 500mg Ivpb (Pre-Docked)) 500 mg in 250 mls @ 250 mls/ hr IVPB DAILY [facility] Last Admin: 04/30/18 10:46 Dose: 250 mls/hr Ceftriaxone Sodium 1 gm/ (Dextrose) 50 mls @ 100 mls/hr IVPB DAILY [facility] Last Admin: 04/30/18 10:46 Dose: 100 mls/hr Insulin Aspart (Novolog Vial Sliding Scale -) 1 vial SQ ACHS [facility]; Protocol Last Admin: 04/30/18 13:26 Dose: 4 units Isosorbide Mononitrate (Imdur -) 60 mg PO DAILY [facility] Last Admin: 04/30/18 10:48 Dose: 60 mg Memantine (Namenda -) 5 mg PO DAILY [facility] Last Admin: 04/30/18 10:48 Dose: 5 mg Nifedipine (Procardia Xl -) 30 mg PO DAILY [facility] Last Admin: 04/30/18 10:48 Dose: 30 mg Oxymetazoline HCl (Afrin -) 1 spray NS Q12H PRN PRN Reason: NASAL CONGESTION Stop: 05/01/18 16:44 Last Admin: 04/29/18 21:48 Dose: 1 spray Polyethylene Glycol (Miralax (For Daily Use) -) 17 gm PO HS PRN PRN Reason: CONSTIPATION Potassium Chloride (K-Dur -) 10 meq PO DAILY [facility] Last Admin: 04/30/18 10:48 Dose: 10 meq Propylthiouracil (Ptu -) 50 mg PO DAILY [facility] Ranitidine HCl (Zantac -) 150 mg PO DAILY [facility] Last Admin: 04/30/18 10:48 Dose: 150 mg Sertraline HCl 25 mg/ (Sertraline HCl 100 mg) 125 mg PO HS [facility] Last Admin: 04/29/18 21:46 Dose: 125 mg Spironolactone (Aldactone -) 25 mg PO DAILY [facility] Last Admin: 04/30/18 10:48 Dose: 25 mg echo 03/2017: nl lv size/fn. EF 55-60%. tds for wall motion. septal motion c/ w ppm. mild rve. nl rv fn. mod lae. 1+ sam. 1+ mac with mild functional ms ( 4 mmHg, 73 bpm). 1+ mr. mobile linear density that intermittently moves into lvot (no associated lvot obstruction). Density thought to be consistent with torn chordae. 1+ tr. 1+ phtn. 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, HTN, diastolic heart failure complicated by LE edema/ recurrent LE cellulitis, bradycardia/sss/4-sec pause s/p biotronik ppm 2017, COPD, CKD, iddm, dementia, nasal septal defect w/ recurrent epistaxis ( contraindication to AC), recurrent UTI, who p/w cough, sob sob, cough - likely PNA, on abx per primary LILLIE on CKD - Cr 2.9 on admission, likely 2/2 overdiuresis with recent increase in torsemide dose - Cr improved after IVF - patient taking little PO, appears euvolemic, hold torsemide chronic diastolic HF - on torsemide at home, holding as above - monitor volume status CAD - hx type II NSTEMI - trop negative, EKG stable - cont asiprin, statin, imdur s/p PPM - outpatient monitoring hx echodensity noted on mitral valve (03/2017 echo) - unclear etiology, ? torn calcified chord - deferred cath, SATHISH in the past to avoid invasive testing HTN -cont home imdur, spironolactone, nifedipine
--- NOTE | 2018-04-30 16:00 | CONS ---
DATE OF CONSULTATION: 04/30/2018 PULMONARY CONSULTATION REFERRING PHYSICIAN: Veto Padron M.D. INFORMANT: Information is obtained from patient's sister. HISTORY OF PRESENT ILLNESS: The patient is a 77-year-old white female resident [facility] with past medical history of chronic kidney disease stage 4, COPD, asthma, nonsmoker, diastolic heart failure status post permanent pacemaker, Alzheimer dementia, diabetes, admitted to [facility] secondary to diaphoresis, hypertension. Patient states 2-3 weeks prior to admission the patient has been having URI symptoms with cough and chest congestion. She is placed on antibiotics. Despite these measures, has persistent symptoms. She also had a chest x-ray performed in the snf which did not reveal pneumonia. Patient on the day of admission started developing diaphoresis, hypertension, at which time she was transferred to [facility] ER. Patient was admitted, she underwent a CT scan of the chest which revealed bibasilar infiltrates. She was started on IV antibiotics. There is no history of pneumonia in the past. There is a questionable history of aspiration in the past. PAST MEDICAL HISTORY: Again includes Alzheimer dementia, chronic kidney disease , asthma, COPD, hypertension, diverticulosis, GERD, hiatal hernia, congestive heart failure, diastolic heart failure status post permanent pacemaker secondary to bradycardia, presumably sick sinus syndrome, COPD, anemia, history of perforated nasal septum, hypothyroidism, took PTU in the past, multinodular goiter, history of melanoma right lower extremity status post excision. REVIEW OF SYSTEMS: Unable to obtain. CURRENT MEDICATIONS: Include Tylenol, Zithromax, ceftriaxone, sertraline, Zyloprim, PTU, albuterol, DuoNeb, Colace, Miralax, Namenda, Procardia, Zantac, NovoLog, and Feosol. PHYSICAL EXAMINATION: GENERAL: The patient is an elderly white female, well-developed, well-nourished , awake, alert, mildly confused but in no acute distress. VITAL SIGNS: She is afebrile. Blood pressure 150/73, respiratory rate 18, O2 saturation 96% on 2 L nasal cannula. HEENT: Normocephalic, atraumatic. NECK: Supple. HEART: Irregularly irregular. S1, S2. CHEST: A few bibasilar crackles. ABDOMEN: Soft, bowel sounds positive. EXTREMITIES: No cyanosis, edema. LABORATORY: WBC is 8.3, hemoglobin 9.1, hematocrit 26.7 with platelet count of 180,000. INR is 1.19, venous blood gas is 7.39, pCO2 of 36, pO2 of 115. Electrolytes: BUN 83, creatinine 2.4. Modified barium swallow results are with reduced efficacy, efficiency and mastication but slight aspiration on liquid. Chest CT, right apical opacity, right lower lobe infiltrates, small right middle lobe consolidation, and left lower lobe consolidation, atelectasis, bronchiectatic changes at the left base. IMPRESSION: 1. Pneumonia, snf acquired, possible aspiration. 2. Arteriosclerotic heart disease. 3. Diastolic heart failure. 4. Sick sinus syndrome status post permanent pacemaker. 5. Hypertension. 6. History of melanoma status post excision. 7. Gastroesophageal reflux disease. 8. Chronic kidney disease. 9. Dementia. 10. Hiatal hernia. 11. History of diabetes. 12. Hypothyroidism, status post PTU. PLAN: IV antibiotics,inhaled bronchodilators, supplemental O2, cultures, diuretics as per cardiology, monitor renal function, follow up chest x-rays. Will follow closely with you. SELVIN TOVAR M.D. [id number] MTDD
[2018-04-30] MEDS ORDERED: EPOETIN ALFA 10,000 UNIT/1 ML VIAL SQ ONE (17:30)
[2018-04-30] MEDS ORDERED: PT OWN MED DRAWER 7, Y5N ONE (17:36)
[2018-04-30] MEDS ORDERED: SERTRALINE HCL 25 MG TABLET (FP) ONE (21:12)
[2018-04-30] MEDS ORDERED: SERTRALINE HCL 50 MG TABLET (FP) ONE (21:12)
[2018-04-30] MEDS: SERTRALINE HCL PO SCH (22:34)
[2018-05-01] MEDS: INSULIN SLIDING SCALE (NOVOLOG) 1 VIAL SQ SCH ×4 (06:04→22:42)
[2018-05-01] MEDS: ALBUTEROL SO4 2.5/IPRATROPIUM 0.5 INH SOL 3 ML VIAL.NEB. NEB SCH ×3 (07:15→20:50)
[2018-05-01] MEDS ORDERED: DEXTROSE 5%-WATER - 50 ML IVPB ONE (08:50)
[2018-05-01] MEDS ORDERED: cefTRIAXone SODIUM 1 GM VIAL ONE (08:50)
[2018-05-01 08:56] LABS: ALBUMIN 2.8 g/dl (3.4-5.0); ALK PHOS 83 U/L (45-117); ANION GAP 10 MMOL/L (8-16); BILIRUBIN,TOTAL 0.3 mg/dL (0.2-1); BLOOD UREA NITROGEN 85 mg/dL (7-18); CALCIUM 8.1 mg/dL (8.5-10.1); CHLORIDE 108 mmol/L (98-107); CO2 23 mmol/L (21-32); CREATININE 2.6 mg/dL (0.55-1.3); GLUCOSE,RANDOM 108 mg/dL (74-106); POTASSIUM 4.1 mmol/L (3.5-5.1); SGOT/AST 11 U/L (15-37); SGPT/ALT 10 U/L (13-61); SODIUM 140 mmol/L (136-145); TOT PROT 5.2 g/dl (6.4-8.2)
--- NOTE | 2018-05-01 09:10 | PN ---
Progress Note, Physician Chief Complaint: awake alert NAD VSS, in bed; said she slept OK, no pain,no cough / SOB consults tests and meds noted - Current Medication List Current Medications: Active Medications Acetaminophen (Tylenol -) 650 mg PO Q4H PRN PRN Reason: FEVER >100F Last Admin: 04/29/18 16:53 Dose: 650 mg Albuterol Sulfate (Ventolin 0.083% Nebulizer Soln -) 1 amp NEB Q4H PRN PRN Reason: SHORT OF BREATH/WHEEZING Albuterol/Ipratropium (Duoneb -) 1 amp NEB RTID [facility] Last Admin: 05/01/18 07:15 Dose: 1 amp Allopurinol (Zyloprim -) 300 mg PO DAILY [facility] Last Admin: 04/30/18 10:48 Dose: 300 mg Docusate Sodium (Colace -) 100 mg PO BID [facility] Last Admin: 04/30/18 22:34 Dose: 100 mg Ferrous Sulfate (Feosol -) 325 mg PO DAILY [facility] Last Admin: 04/30/18 10:48 Dose: 325 mg Heparin Sodium (Porcine) (Heparin -) 5,000 unit SQ BID [facility] Last Admin: 04/30/18 22:36 Dose: 5,000 unit Azithromycin (Zithromax 500mg Ivpb (Pre-Docked)) 500 mg in 250 mls @ 250 mls/ hr IVPB DAILY [facility] Last Admin: 04/30/18 10:46 Dose: 250 mls/hr Ceftriaxone Sodium 1 gm/ (Dextrose) 50 mls @ 100 mls/hr IVPB DAILY [facility] Last Admin: 04/30/18 10:46 Dose: 100 mls/hr Insulin Aspart (Novolog Vial Sliding Scale -) 1 vial SQ ACHS [facility]; Protocol Last Admin: 05/01/18 06:04 Dose: Not Given Isosorbide Mononitrate (Imdur -) 60 mg PO DAILY [facility] Last Admin: 04/30/18 10:48 Dose: 60 mg Memantine (Namenda -) 5 mg PO DAILY [facility] Last Admin: 04/30/18 10:48 Dose: 5 mg Nifedipine (Procardia Xl -) 30 mg PO DAILY [facility] Last Admin: 04/30/18 10:48 Dose: 30 mg Oxymetazoline HCl (Afrin -) 1 spray NS Q12H PRN PRN Reason: NASAL CONGESTION Stop: 05/01/18 16:44 Last Admin: 04/29/18 21:48 Dose: 1 spray Polyethylene Glycol (Miralax (For Daily Use) -) 17 gm PO HS PRN PRN Reason: CONSTIPATION Potassium Chloride (K-Dur -) 10 meq PO DAILY [facility] Last Admin: 04/30/18 10:48 Dose: 10 meq Propylthiouracil (Ptu -) 50 mg PO DAILY [facility] Ranitidine HCl (Zantac -) 150 mg PO DAILY [facility] Last Admin: 04/30/18 10:48 Dose: 150 mg Sertraline HCl 25 mg/ (Sertraline HCl 100 mg) 125 mg PO HS [facility] Last Admin: 04/30/18 22:34 Dose: 125 mg Spironolactone (Aldactone -) 25 mg PO DAILY [facility] Last Admin: 04/30/18 10:48 Dose: 25 mg - Objective Vital Signs: Vital Signs Temperature 97.5 F L 05/01/18 05:52 Pulse Rate 82 05/01/18 05:52 Respiratory Rate 20 05/01/18 05:52 Blood Pressure 147/61 05/01/18 05:52 O2 Sat by Pulse Oximetry (%) 100 04/30/18 21:00 Constitutional: Yes: No Distress, Calm Eyes: Yes: Conjunctiva Clear HENT: Yes: Atraumatic Neck: Yes: Supple Cardiovascular: Yes: Regular Rate and Rhythm Respiratory: Yes: CTA Bilaterally Gastrointestinal: Yes: Soft. No: Tenderness Genitourinary: No: Hematuria Musculoskeletal: No: Joint Stiffness, Joint Swelling Extremities: No: Cold, Cool, Cyanosis Edema: No Integumentary: No: Rash, Venous Stasis Changes Neurological: Yes: WNL, Alert ...Motor Strength: WNL Psychiatric: Yes: WNL, Alert. No: Agitated Labs: CBC, BMP 05/01/18 06:00 INR, PTT INR 1.19 (0.83-1.09) H 04/28/18 11:15 - ....Imaging Other: Report Reviewed Assessment/Plan Pt is a 77 YOF resident of [facility] , ASHD CHF CRF OA DJD, anemia, who developed cough in [place] tx with po Azithromycin; CXR c/w vascular congestion vs infiltrates at bases; tx with Levaquin and her Torsemide but not better still coughing, SOB and low appetite; admitted with PNA, bilateral; r/o aspiration IV ATB per ID; pulm swallow eval HOB; DVT aspiratiuon decubs abd falls PFX f/u labs d/w pt and staff; DNR DNI per pt's prior signed wishes
[2018-05-01] MEDS: ALLOPURINOL 300 MG TABLET (FP) PO SCH (09:25)
[2018-05-01] MEDS: FERROUS SO4 325 MG TABLET (FP) PO SCH (09:25)
[2018-05-01] MEDS: ISOSORBIDE MONONITRATE 60 MG TAB.SR.24H (FP) PO SCH (09:25)
[2018-05-01] MEDS: DOCUSATE SODIUM 100 MG CAPSULE (FP) PO SCH ×2 (09:25→22:42)
[2018-05-01] MEDS: NIFEdipine E.R. 30 MG TABLET (FP) PO SCH (09:25)
[2018-05-01] MEDS: MEMANTINE HCL 5 MG TABLET (UD) PO SCH (09:25)
[2018-05-01] MEDS: RANITIDINE HCL 150 MG TABLET (FP) PO SCH (09:25)
[2018-05-01] MEDS: AZITHROMYCIN IVPB 500 MG/250 ML BAG IVPB SCH (09:26)
[2018-05-01] MEDS: SPIRONOLACTONE 25 MG TABLET (FP) PO SCH (09:26)
[2018-05-01] MEDS: HEPARIN NA (PORCINE) 5,000 UNITS/ML 1ML VIAL SQ SCH ×2 (09:26→22:40)
[2018-05-01] MEDS: CEFTRIAXONE 1 GM in DEXTROSE 5%-WATER - 50 ML IVPB SCH (09:26)
[2018-05-01] MEDS: POTASSIUM CHLORIDE TABS 10 MEQ TABLET.ER (FP) PO SCH (09:26)
[2018-05-01 10:21] LABS: HEMATOCRIT 26.8 % (32.4-45.2); MCH 33.8 pg (25.7-33.7); MCHC 33.6 g/dl (32.0-36.0); MEAN CELL VOLUME 100.6 fl (80-96); MEAN PLT VOLUME 9.5 fl (7.5-11.1); PLATELET COUNT 172 K/MM3 (134-434); RBC 2.66 M/mm3 (3.60-5.2); RDW 14.8 % (11.6-15.6); WHITE BLOOD COUNT 7.1 K/mm3 (4.0-10.0)
--- NOTE | 2018-05-01 10:22 | PN ---
Progress Note (short form) - Note Progress Note: s: no chest pain, palps, dizziness, edema Vital Signs Period Temp Pulse Resp BP Sys/[place] Pulse Ox Last 24 Hr 97.5 F-98.6 F 78-94 18-20 120-150/61-73 97-100 NAD, calm no JVD, neck supple RRR nl s1, s2. 2/6 sys murmur at sternal border precordium hyperdynamic bibasilar rales. nl eff trace le edema. no cyanosis/clubbing + venous stasis changes + bs soft nt nd no jaundice or diaphoresis. alert and oriented to place Current Medications Generic Name Dose Route Start Last Admin Trade Name Freq PRN Reason Stop Dose Admin Acetaminophen 650 mg 04/28/18 16:45 04/29/18 16:53 Tylenol - PO 650 mg Q4H PRN Administration FEVER >100F Albuterol Sulfate 1 amp 04/28/18 16:45 Ventolin 0.083% Nebulizer Soln - NEB Q4H PRN SHORT OF BREATH/WHEEZING Albuterol/Ipratropium 1 amp 04/28/18 20:00 05/01/18 07:15 Duoneb - NEB 1 amp RTID [facility] Administration Allopurinol 300 mg 04/29/18 10:00 05/01/18 09:25 Zyloprim - PO 300 mg DAILY [facility] Administration Docusate Sodium 100 mg 04/28/18 22:00 05/01/18 09:25 Colace - PO 100 mg BID [facility] Administration Ferrous Sulfate 325 mg 04/29/18 10:00 05/01/18 09:25 Feosol - PO 325 mg DAILY [facility] Administration Heparin Sodium (Porcine) 5,000 unit 04/28/18 22:00 05/01/18 09:26 Heparin - SQ 5,000 unit BID [facility] Administration Azithromycin 500 mg in 250 mls @ 250 mls/hr 04/29/18 14:45 05/01/18 09:26 Zithromax 500mg Ivpb (Pre-Docked) IVPB 250 mls/hr DAILY [facility] Administration Ceftriaxone Sodium 1 gm/ 50 mls @ 100 mls/hr 04/29/18 15:00 05/01/18 09:26 Dextrose IVPB 100 mls/hr DAILY [facility] Administration Insulin Aspart 1 vial 04/28/18 22:00 05/01/18 06:04 Novolog Vial Sliding Scale - SQ Not Given ACHS [facility] Protocol Isosorbide Mononitrate 60 mg 04/29/18 10:00 05/01/18 09:25 Imdur - PO 60 mg DAILY [facility] Administration Memantine 5 mg 04/29/18 10:00 05/01/18 09:25 Namenda - PO 5 mg DAILY [facility] Administration Nifedipine 30 mg 04/29/18 10:00 05/01/18 09:25 Procardia Xl - PO 30 mg DAILY [facility] Administration Oxymetazoline HCl 1 spray 04/28/18 16:45 04/29/18 21:48 Afrin - NS 05/01/18 16:44 1 spray Q12H PRN Administration NASAL CONGESTION Polyethylene Glycol 17 gm 04/28/18 16:45 Miralax (For Daily Use) - PO HS PRN CONSTIPATION Potassium Chloride 10 meq 04/29/18 10:00 05/01/18 09:26 K-Dur - PO 10 meq DAILY [facility] Administration Propylthiouracil 50 mg 04/29/18 10:00 Ptu - PO DAILY [facility] Ranitidine HCl 150 mg 04/29/18 10:00 05/01/18 09:25 Zantac - PO 150 mg DAILY [facility] Administration Sertraline HCl 25 mg/ 125 mg 04/28/18 22:00 04/30/18 22:34 Sertraline HCl 100 mg PO 125 mg HS [facility] Administration Spironolactone 25 mg 04/29/18 10:00 05/01/18 09:26 Aldactone - PO 25 mg DAILY [facility] Administration CBC, BMP 05/01/18 06:00 echo 03/2017: nl lv size/fn. EF 55-60%. tds for wall motion. septal motion c/ w ppm. mild rve. nl rv fn. mod lae. 1+ sam. 1+ mac with mild functional ms ( 4 mmHg, 73 bpm). 1+ mr. mobile linear density that intermittently moves into lvot (no associated lvot obstruction). Density thought to be consistent with torn chordae. 1+ tr. 1+ phtn. 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, HTN, diastolic heart failure complicated by LE edema/ recurrent LE cellulitis, bradycardia/sss/4-sec pause s/p biotronik ppm 2016, COPD, CKD, iddm, dementia, nasal septal defect w/ recurrent epistaxis ( contraindication to AC), recurrent UTI, who p/w cough, sob sob, cough - likely PNA, on abx per primary, sxs improving LILLIE on CKD - Cr 2.9 on admission, likely 2/2 overdiuresis with recent increase in torsemide dose - Cr improved after IVF - patient taking little PO, appears euvolemic, hold torsemide for now chronic diastolic HF - on torsemide at home, holding as above - monitor volume status CAD - hx type II NSTEMI - trop negative, EKG stable - cont asiprin, statin, imdur s/p PPM - outpatient monitoring hx echodensity noted on mitral valve (03/2017 echo) - unclear etiology, ? torn calcified chord - deferred cath, SATHISH in the past to avoid invasive testing HTN -cont home imdur, spironolactone, nifedipine
--- NOTE | 2018-05-01 11:24 | PN ---
Progress Note (short form) - Note Progress Note: RENAL Pt is awake and alert denies complaints but is coughing says nothing is botheirng her says she feels like going to bathroom when suprapubic area is pressed Last Vital Signs Temp Pulse Resp BP Pulse Ox 97.4 F L 91 H 20 151/65 97 05/01/18 10:00 05/01/18 10:00 05/01/18 10:00 05/01/18 10:00 05/01/18 09:00 lungs clear anteriorly cvs s1s2 rr abd soft, periumbilical hernia ext no edema Gu wearing a diaper CBC, BMP 05/01/18 09:55 05/01/18 06:00 Current Medications Generic Name Dose Route Start Last Admin Trade Name Freq PRN Reason Stop Dose Admin Acetaminophen 650 mg 04/28/18 16:45 04/29/18 16:53 Tylenol - PO 650 mg Q4H PRN Administration FEVER >100F Albuterol Sulfate 1 amp 04/28/18 16:45 Ventolin 0.083% Nebulizer Soln - NEB Q4H PRN SHORT OF BREATH/WHEEZING Albuterol/Ipratropium 1 amp 04/28/18 20:00 05/01/18 07:15 Duoneb - NEB 1 amp RTID POWER Administration Allopurinol 300 mg 04/29/18 10:00 05/01/18 09:25 Zyloprim - PO 300 mg DAILY POWER Administration Docusate Sodium 100 mg 04/28/18 22:00 05/01/18 09:25 Colace - PO 100 mg BID POWER Administration Ferrous Sulfate 325 mg 04/29/18 10:00 05/01/18 09:25 Feosol - PO 325 mg DAILY P[facility] Administration Heparin Sodium (Porcine) 5,000 unit 04/28/18 22:00 05/01/18 09:26 Heparin - SQ 5,000 unit BID P[facility] Administration Azithromycin 500 mg in 250 mls @ 250 mls/hr 04/29/18 14:45 05/01/18 09:26 Zithromax 500mg Ivpb (Pre-Docked) IVPB 250 mls/hr DAILY [facility] Administration Ceftriaxone Sodium 1 gm/ 50 mls @ 100 mls/hr 04/29/18 15:00 05/01/18 09:26 Dextrose IVPB 100 mls/hr DAILY P[facility] Administration Insulin Aspart 1 vial 04/28/18 22:00 05/01/18 06:04 Novolog Vial Sliding Scale - SQ Not Given ACHS POWER Protocol Isosorbide Mononitrate 60 mg 04/29/18 10:00 05/01/18 09:25 Imdur - PO 60 mg DAILY P[facility] Administration Memantine 5 mg 04/29/18 10:00 05/01/18 09:25 Namenda - PO 5 mg DAILY P[facility] Administration Nifedipine 30 mg 04/29/18 10:00 05/01/18 09:25 Procardia Xl - PO 30 mg DAILY POWER Administration Oxymetazoline HCl 1 spray 04/28/18 16:45 04/29/18 21:48 Afrin - NS 05/01/18 16:44 1 spray Q12H PRN Administration NASAL CONGESTION Polyethylene Glycol 17 gm 04/28/18 16:45 Miralax (For Daily Use) - PO HS PRN CONSTIPATION Potassium Chloride 10 meq 04/29/18 10:00 05/01/18 09:26 K-Dur - PO 10 meq DAILY POWER Administration Propylthiouracil 50 mg 04/29/18 10:00 Ptu - PO DAILY POWER Ranitidine HCl 150 mg 04/29/18 10:00 05/01/18 09:25 Zantac - PO 150 mg DAILY POWER Administration Sertraline HCl 25 mg/ 125 mg 04/28/18 22:00 04/30/18 22:34 Sertraline HCl 100 mg PO 125 mg HS POWER Administration Spironolactone 25 mg 04/29/18 10:00 05/01/18 09:26 Aldactone - PO 25 mg DAILY POWER Administration Impression 1. CKD 2. cough 3. CHF 4. bradycardia 5. dementia 6. HTN with a high pulse pressure 7. DM 8. anemia 9. LILLIE- again had a worsening of creat 10. pleural effusions 11. infiltrates on cts can Plan would obtain renal sono bladder scan and insert mendes if greater than 200 cc hold addition of torsemide for now MV
--- NOTE | 2018-05-01 15:51 | PN ---
Progress Note, Physician History of Present Illness: pulmonary alert,oob-chair,less dyspneic,+ coughh - Current Medication List Current Medications: Active Medications Acetaminophen (Tylenol -) 650 mg PO Q4H PRN PRN Reason: FEVER >100F Last Admin: 04/29/18 16:53 Dose: 650 mg Albuterol Sulfate (Ventolin 0.083% Nebulizer Soln -) 1 amp NEB Q4H PRN PRN Reason: SHORT OF BREATH/WHEEZING Albuterol/Ipratropium (Duoneb -) 1 amp NEB RTID [facility] Last Admin: 05/01/18 13:55 Dose: Not Given Allopurinol (Zyloprim -) 300 mg PO DAILY [facility] Last Admin: 05/01/18 09:25 Dose: 300 mg Docusate Sodium (Colace -) 100 mg PO BID [facility] Last Admin: 05/01/18 09:25 Dose: 100 mg Ferrous Sulfate (Feosol -) 325 mg PO DAILY [facility] Last Admin: 05/01/18 09:25 Dose: 325 mg Heparin Sodium (Porcine) (Heparin -) 5,000 unit SQ BID [facility] Last Admin: 05/01/18 09:26 Dose: 5,000 unit Azithromycin (Zithromax 500mg Ivpb (Pre-Docked)) 500 mg in 250 mls @ 250 mls/ hr IVPB DAILY [facility] Last Admin: 05/01/18 09:26 Dose: 250 mls/hr Ceftriaxone Sodium 1 gm/ (Dextrose) 50 mls @ 100 mls/hr IVPB DAILY [facility] Last Admin: 05/01/18 09:26 Dose: 100 mls/hr Insulin Aspart (Novolog Vial Sliding Scale -) 1 vial SQ ACHS [facility]; Protocol Last Admin: 05/01/18 11:34 Dose: 4 units Isosorbide Mononitrate (Imdur -) 60 mg PO DAILY [facility] Last Admin: 05/01/18 09:25 Dose: 60 mg Memantine (Namenda -) 5 mg PO DAILY [facility] Last Admin: 05/01/18 09:25 Dose: 5 mg Nifedipine (Procardia Xl -) 30 mg PO DAILY [facility] Last Admin: 05/01/18 09:25 Dose: 30 mg Oxymetazoline HCl (Afrin -) 1 spray NS Q12H PRN PRN Reason: NASAL CONGESTION Stop: 02/09/19 16:44 Last Admin: 04/29/18 21:48 Dose: 1 spray Polyethylene Glycol (Miralax (For Daily Use) -) 17 gm PO HS PRN PRN Reason: CONSTIPATION Potassium Chloride (K-Dur -) 10 meq PO DAILY [facility] Last Admin: 05/01/18 09:26 Dose: 10 meq Propylthiouracil (Ptu -) 50 mg PO DAILY [facility] Ranitidine HCl (Zantac -) 150 mg PO DAILY [facility] Last Admin: 05/01/18 09:25 Dose: 150 mg Sertraline HCl 25 mg/ (Sertraline HCl 100 mg) 125 mg PO HS [facility] Last Admin: 04/30/18 22:34 Dose: 125 mg Spironolactone (Aldactone -) 25 mg PO DAILY [facility] Last Admin: 05/01/18 09:26 Dose: 25 mg - Objective Vital Signs: Vital Signs Temperature 98 F 05/01/18 14:28 Pulse Rate 90 05/01/18 14:28 Respiratory Rate 20 05/01/18 14:28 Blood Pressure 120/66 05/01/18 14:28 O2 Sat by Pulse Oximetry (%) 97 05/01/18 09:00 Constitutional: Yes: Well Nourished, Calm Eyes: Yes: WNL HENT: Yes: WNL Neck: Yes: WNL Cardiovascular: Yes: Regular Rate and Rhythm, S1, S2 Respiratory: Yes: Rhonchi (few scattered rhonchi) Gastrointestinal: Yes: Normal Bowel Sounds, Soft Extremities: Yes: WNL Edema: No Labs: CBC, BMP 05/01/18 09:55 05/01/18 06:00 INR, PTT INR 1.19 (0.83-1.09) H 04/28/18 11:15 Problem List - Problems (1) CKD (chronic kidney disease) Code(s): N18.9 - CHRONIC KIDNEY DISEASE, UNSPECIFIED (2) Anemia Code(s): D64.9 - ANEMIA, UNSPECIFIED (3) CHF (congestive heart failure) Code(s): I50.9 - HEART FAILURE, UNSPECIFIED (4) CKD (chronic kidney disease) Code(s): N18.9 - CHRONIC KIDNEY DISEASE, UNSPECIFIED Qualifiers: Chronic kidney disease stage: unspecified stage Qualified Code(s): N18.9 - Chronic kidney disease, unspecified (5) COPD exacerbation Code(s): J44.1 - CHRONIC OBSTRUCTIVE PULMONARY DISEASE W (ACUTE) EXACERBATION (6) Dementia Code(s): F03.90 - UNSPECIFIED DEMENTIA WITHOUT BEHAVIORAL DISTURBANCE (7) Diabetes mellitus Code(s): E11.9 - TYPE 2 DIABETES MELLITUS WITHOUT COMPLICATIONS (8) Hiatal hernia with GERD Code(s): K21.9 - GASTRO-ESOPHAGEAL REFLUX DISEASE WITHOUT ESOPHAGITIS; K44.9 - DIAPHRAGMATIC HERNIA WITHOUT OBSTRUCTION OR GANGRENE (9) Pneumonia Code(s): J18.9 - PNEUMONIA, UNSPECIFIED ORGANISM Assessment/Plan IMP PNEUMONIA DIASTOLIC HF SSS S/P PPM DM CKD STAGE 4 H/O HYPERTHYROIDISM S/P PTU H/O MELANOMA S/P EXCISION GERD DM ANEMIA PLAN ABX O2 INHALED BRONCHODILATORS DIURETICS PER CARDIOLOGY MONITOR LYTES,RENAL FUNCTION MONITOR H+H F/U CHEST X-RAY ANTI-TUSSIVES Problem List - Problems (1) CKD (chronic kidney disease) Code(s): N18.9 - CHRONIC KIDNEY DISEASE, UNSPECIFIED (2) Anemia Code(s): D64.9 - ANEMIA, UNSPECIFIED (3) CHF (congestive heart failure) Code(s): I50.9 - HEART FAILURE, UNSPECIFIED (4) CKD (chronic kidney disease) Code(s): N18.9 - CHRONIC KIDNEY DISEASE, UNSPECIFIED Qualifiers: Chronic kidney disease stage: unspecified stage Qualified Code(s): N18.9 - Chronic kidney disease, unspecified (5) COPD exacerbation Code(s): J44.1 - CHRONIC OBSTRUCTIVE PULMONARY DISEASE W (ACUTE) EXACERBATION (6) Dementia Code(s): F03.90 - UNSPECIFIED DEMENTIA WITHOUT BEHAVIORAL DISTURBANCE (7) Diabetes mellitus Code(s): E11.9 - TYPE 2 DIABETES MELLITUS WITHOUT COMPLICATIONS (8) Hiatal hernia with GERD Code(s): K21.9 - GASTRO-ESOPHAGEAL REFLUX DISEASE WITHOUT ESOPHAGITIS; K44.9 - DIAPHRAGMATIC HERNIA WITHOUT OBSTRUCTION OR GANGRENE (9) Pneumonia Code(s): J18.9 - PNEUMONIA, UNSPECIFIED ORGANISM
[2018-05-01] MEDS: ACETAMINOPHEN 325 MG TABLET (FP) PO PRN (18:29)
[2018-05-01] MEDS ORDERED: SERTRALINE HCL 50 MG TABLET (FP) ONE (21:24)
[2018-05-01] MEDS ORDERED: SERTRALINE HCL 25 MG TABLET (FP) ONE (21:24)
[2018-05-01] MEDS: SERTRALINE HCL PO SCH (22:41)
[2018-05-02] MEDS: INSULIN SLIDING SCALE (NOVOLOG) 1 VIAL SQ SCH ×4 (06:53→22:27)
[2018-05-02] MEDS: ALBUTEROL SO4 2.5/IPRATROPIUM 0.5 INH SOL 3 ML VIAL.NEB. NEB SCH ×3 (07:00→20:16)
[2018-05-02 07:27] LABS: BASO % 0.4 % (0-2.0); HEMATOCRIT 26.3 % (32.4-45.2); LYMPH % 9.4 % (8-40); MCH 34.5 pg (25.7-33.7); MCHC 34.2 g/dl (32.0-36.0); MEAN CELL VOLUME 100.9 fl (80-96); MEAN PLT VOLUME 9.9 fl (7.5-11.1); MONO % 4.5 % (3.8-10.2); NEUT % 82.7 % (42.8-82.8); PLATELET COUNT 162 K/MM3 (134-434); RBC 2.61 M/mm3 (3.60-5.2); RDW 14.5 % (11.6-15.6); WHITE BLOOD COUNT 5.6 K/mm3 (4.0-10.0)
[2018-05-02 07:44] LABS: ALBUMIN 2.6 g/dl (3.4-5.0); ALK PHOS 76 U/L (45-117); ANION GAP 7 MMOL/L (8-16); BILIRUBIN,TOTAL 0.2 mg/dL (0.2-1); BLOOD UREA NITROGEN 87 mg/dL (7-18); CALCIUM 7.8 mg/dL (8.5-10.1); CHLORIDE 110 mmol/L (98-107); CO2 24 mmol/L (21-32); CREATININE 2.4 mg/dL (0.55-1.3); GLUCOSE,RANDOM 127 mg/dL (74-106); POTASSIUM 4.2 mmol/L (3.5-5.1); SGOT/AST 13 U/L (15-37); SGPT/ALT 12 U/L (13-61); SODIUM 142 mmol/L (136-145); TOT PROT 5.2 g/dl (6.4-8.2)
[2018-05-02] MEDS ORDERED: cefTRIAXone SODIUM 1 GM VIAL ONE (08:30)
[2018-05-02] MEDS ORDERED: DEXTROSE 5%-WATER - 50 ML IVPB ONE (08:31)
[2018-05-02] MEDS: MEMANTINE HCL 5 MG TABLET (UD) PO SCH (09:50)
[2018-05-02] MEDS: POTASSIUM CHLORIDE TABS 10 MEQ TABLET.ER (FP) PO SCH (09:50)
[2018-05-02] MEDS: DOCUSATE SODIUM 100 MG CAPSULE (FP) PO SCH ×2 (09:50→22:26)
[2018-05-02] MEDS: SPIRONOLACTONE 25 MG TABLET (FP) PO SCH (09:50)
[2018-05-02] MEDS: ALLOPURINOL 300 MG TABLET (FP) PO SCH (09:50)
[2018-05-02] MEDS: RANITIDINE HCL 150 MG TABLET (FP) PO SCH (09:51)
[2018-05-02] MEDS: FERROUS SO4 325 MG TABLET (FP) PO SCH (09:51)
[2018-05-02] MEDS: CEFTRIAXONE 1 GM in DEXTROSE 5%-WATER - 50 ML IVPB SCH (09:51)
[2018-05-02] MEDS: NIFEdipine E.R. 30 MG TABLET (FP) PO SCH (09:51)
[2018-05-02] MEDS: HEPARIN NA (PORCINE) 5,000 UNITS/ML 1ML VIAL SQ SCH ×2 (09:51→22:27)
[2018-05-02] MEDS: ISOSORBIDE MONONITRATE 60 MG TAB.SR.24H (FP) PO SCH (09:51)
[2018-05-02] MEDS: AZITHROMYCIN IVPB 500 MG/250 ML BAG IVPB SCH (09:51)
[2018-05-02] MEDS: ACETAMINOPHEN 325 MG TABLET (FP) PO PRN ×2 (09:52→22:27)
--- NOTE | 2018-05-02 11:42 | PN ---
Progress Note (short form) - Note Progress Note: s: no chest pain, palps, dizziness, edema Vital Signs Period Temp Pulse Resp BP Sys/[place] Pulse Ox Last 24 Hr 97.5 F-98.5 F 82-94 20-20 120-154/60-75 97-99 NAD, calm no JVD, neck supple RRR nl s1, s2. 2/6 sys murmur at sternal border precordium hyperdynamic bibasilar rales. nl eff trace le edema. no cyanosis/clubbing + venous stasis changes + bs soft nt nd no jaundice or diaphoresis. alert and oriented to place Current Medications Generic Name Dose Route Start Last Admin Trade Name Freq PRN Reason Stop Dose Admin Acetaminophen 650 mg 04/28/18 16:45 05/02/18 09:52 Tylenol - PO 650 mg Q4H PRN Administration FEVER >100F Albuterol Sulfate 1 amp 04/28/18 16:45 Ventolin 0.083% Nebulizer Soln - NEB Q4H PRN SHORT OF BREATH/WHEEZING Albuterol/Ipratropium 1 amp 04/28/18 20:00 05/02/18 07:00 Duoneb - NEB 1 amp RTID POWER Administration Allopurinol 300 mg 04/29/18 10:00 05/02/18 09:50 Zyloprim - PO 300 mg DAILY POWER Administration Docusate Sodium 100 mg 04/28/18 22:00 05/02/18 09:50 Colace - PO 100 mg BID POWER Administration Ferrous Sulfate 325 mg 04/29/18 10:00 05/02/18 09:51 Feosol - PO 325 mg DAILY POWER Administration Heparin Sodium (Porcine) 5,000 unit 04/28/18 22:00 05/02/18 09:51 Heparin - SQ 5,000 unit BID POWER Administration Azithromycin 500 mg in 250 mls @ 250 mls/hr 04/29/18 14:45 05/02/18 09:51 Zithromax 500mg Ivpb (Pre-Docked) IVPB 250 mls/hr DAILY POWER Administration Ceftriaxone Sodium 1 gm/ 50 mls @ 100 mls/hr 04/29/18 15:00 05/02/18 09:51 Dextrose IVPB 100 mls/hr DAILY POWER Administration Insulin Aspart 1 vial 04/28/18 22:00 05/02/18 11:24 Novolog Vial Sliding Scale - SQ 4 units ACHS POWER Administration Protocol Isosorbide Mononitrate 60 mg 04/29/18 10:00 05/02/18 09:51 Imdur - PO 60 mg DAILY POWER Administration Memantine 5 mg 04/29/18 10:00 05/02/18 09:50 Namenda - PO 5 mg DAILY POWER Administration Nifedipine 30 mg 04/29/18 10:00 05/02/18 09:51 Procardia Xl - PO 30 mg DAILY POWER Administration Polyethylene Glycol 17 gm 04/28/18 16:45 Miralax (For Daily Use) - PO HS PRN CONSTIPATION Potassium Chloride 10 meq 04/29/18 10:00 05/02/18 09:50 K-Dur - PO 10 meq DAILY POWER Administration Propylthiouracil 50 mg 04/29/18 10:00 Ptu - PO DAILY POWER Ranitidine HCl 150 mg 04/29/18 10:00 05/02/18 09:51 Zantac - PO 150 mg DAILY POWER Administration Sertraline HCl 25 mg/ 125 mg 04/28/18 22:00 05/01/18 22:41 Sertraline HCl 100 mg PO 125 mg HS POWER Administration Spironolactone 25 mg 04/29/18 10:00 05/02/18 09:50 Aldactone - PO 25 mg DAILY POWER Administration CBC, BMP 05/02/18 06:00 05/02/18 06:00 echo 03/2017: nl lv size/fn. EF 55-60%. tds for wall motion. septal motion c/ w ppm. mild rve. nl rv fn. mod lae. 1+ sam. 1+ mac with mild functional ms ( 4 mmHg, 73 bpm). 1+ mr. mobile linear density that intermittently moves into lvot (no associated lvot obstruction). Density thought to be consistent with torn chordae. 1+ tr. 1+ phtn. 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, HTN, diastolic heart failure complicated by LE edema/ recurrent LE cellulitis, bradycardia/sss/4-sec pause s/p biotronik ppm 2017, COPD, CKD, iddm, dementia, nasal septal defect w/ recurrent epistaxis ( contraindication to AC), recurrent UTI, who p/w cough, sob sob, cough - likely PNA, on abx per primary, sxs improving LILLIE on CKD - Cr 2.9 on admission, likely 2/2 overdiuresis with recent increase in torsemide dose - Cr improved after IVF - patient taking little PO, appears euvolemic, hold torsemide for now chronic diastolic HF - on torsemide at home, holding as above - monitor volume status CAD - hx type II NSTEMI - trop negative, EKG stable - cont asiprin, statin, imdur s/p PPM - outpatient monitoring hx echodensity noted on mitral valve (03/2017 echo) - unclear etiology, ? torn calcified chord - deferred cath, SATHISH in the past to avoid invasive testing HTN -cont home imdur, spironolactone, nifedipine
--- NOTE | 2018-05-02 14:58 | PN ---
Progress Note, Physician History of Present Illness: Pt's breathing is better, less cough. Pt w/o fever, chills, CP, palpitations, abd pain. - Current Medication List Current Medications: Active Medications Acetaminophen (Tylenol -) 650 mg PO Q4H PRN PRN Reason: FEVER >100F Last Admin: 05/02/18 09:52 Dose: 650 mg Albuterol Sulfate (Ventolin 0.083% Nebulizer Soln -) 1 amp NEB Q4H PRN PRN Reason: SHORT OF BREATH/WHEEZING Albuterol/Ipratropium (Duoneb -) 1 amp NEB RTID [facility] Last Admin: 05/02/18 13:43 Dose: 1 amp Allopurinol (Zyloprim -) 300 mg PO DAILY [facility] Last Admin: 05/02/18 09:50 Dose: 300 mg Docusate Sodium (Colace -) 100 mg PO BID [facility] Last Admin: 05/02/18 09:50 Dose: 100 mg Ferrous Sulfate (Feosol -) 325 mg PO DAILY [facility] Last Admin: 05/02/18 09:51 Dose: 325 mg Heparin Sodium (Porcine) (Heparin -) 5,000 unit SQ BID [facility] Last Admin: 05/02/18 09:51 Dose: 5,000 unit Azithromycin (Zithromax 500mg Ivpb (Pre-Docked)) 500 mg in 250 mls @ 250 mls/ hr IVPB DAILY [facility] Last Admin: 05/02/18 09:51 Dose: 250 mls/hr Ceftriaxone Sodium 1 gm/ (Dextrose) 50 mls @ 100 mls/hr IVPB DAILY [facility] Last Admin: 05/02/18 09:51 Dose: 100 mls/hr Insulin Aspart (Novolog Vial Sliding Scale -) 1 vial SQ ACHS [facility]; Protocol Last Admin: 05/02/18 11:24 Dose: 4 units Isosorbide Mononitrate (Imdur -) 60 mg PO DAILY [facility] Last Admin: 05/02/18 09:51 Dose: 60 mg Memantine (Namenda -) 5 mg PO DAILY [facility] Last Admin: 05/02/18 09:50 Dose: 5 mg Nifedipine (Procardia Xl -) 30 mg PO DAILY [facility] Last Admin: 05/02/18 09:51 Dose: 30 mg Polyethylene Glycol (Miralax (For Daily Use) -) 17 gm PO HS PRN PRN Reason: CONSTIPATION Potassium Chloride (K-Dur -) 10 meq PO DAILY [facility] Last Admin: 05/02/18 09:50 Dose: 10 meq Propylthiouracil (Ptu -) 50 mg PO DAILY [facility] Ranitidine HCl (Zantac -) 150 mg PO DAILY [facility] Last Admin: 05/02/18 09:51 Dose: 150 mg Sertraline HCl 25 mg/ (Sertraline HCl 100 mg) 125 mg PO HS [facility] Last Admin: 05/01/18 22:41 Dose: 125 mg Spironolactone (Aldactone -) 25 mg PO DAILY [facility] Last Admin: 05/02/18 09:50 Dose: 25 mg - Objective Vital Signs: Vital Signs Temperature 98.4 F 05/02/18 14:01 Pulse Rate 75 05/02/18 14:01 Respiratory Rate 20 05/02/18 14:01 Blood Pressure 135/54 L 05/02/18 14:01 O2 Sat by Pulse Oximetry (%) 99 05/02/18 09:00 Constitutional: Yes: No Distress, Calm Cardiovascular: Yes: Regular Rate and Rhythm, S1, S2 Respiratory: Yes: Regular, CTA Bilaterally, Other (atelectasis vs crackles at bases) Gastrointestinal: Yes: Normal Bowel Sounds, Soft. No: Tenderness Edema: No Neurological: Yes: Alert, Oriented Labs: CBC, BMP 05/02/18 06:00 05/02/18 06:00 INR, PTT INR 1.19 (0.83-1.09) H 04/28/18 11:15 Problem List - Problems (1) LILLIE (acute kidney injury) Code(s): N17.9 - ACUTE KIDNEY FAILURE, UNSPECIFIED (2) CHF (congestive heart failure) Code(s): I50.9 - HEART FAILURE, UNSPECIFIED (3) CKD (chronic kidney disease) Code(s): N18.9 - CHRONIC KIDNEY DISEASE, UNSPECIFIED Qualifiers: Chronic kidney disease stage: unspecified stage Qualified Code(s): N18.9 - Chronic kidney disease, unspecified (4) COPD (chronic obstructive pulmonary disease) Code(s): J44.9 - CHRONIC OBSTRUCTIVE PULMONARY DISEASE, UNSPECIFIED (5) Dementia Code(s): F03.90 - UNSPECIFIED DEMENTIA WITHOUT BEHAVIORAL DISTURBANCE (6) Diabetes mellitus Code(s): E11.9 - TYPE 2 DIABETES MELLITUS WITHOUT COMPLICATIONS (7) Hypertension Code(s): I10 - ESSENTIAL (PRIMARY) HYPERTENSION Qualifiers: Hypertension type: secondary to other renal disorders (8) Pneumonia Code(s): J18.9 - PNEUMONIA, UNSPECIFIED ORGANISM (9) Pleural effusion Code(s): J90 - PLEURAL EFFUSION, NOT ELSEWHERE CLASSIFIED Assessment/Plan Hold Torsemide for now,tof/u withcardio. On IV abtx for PNA, bilat. Renal, Cardio, Pulmonary consults are appreciated. Case was d/w pt's sister,at bedside. Case was d/w pt's nurse. AM labs.
--- NOTE | 2018-05-02 15:47 | PN ---
Progress Note, Physician History of Present Illness: pulmonary alert,oob-chair,comfortable,-sob. o2 sat 99% on ra - Current Medication List Current Medications: Active Medications Acetaminophen (Tylenol -) 650 mg PO Q4H PRN PRN Reason: FEVER >100F Last Admin: 05/02/18 09:52 Dose: 650 mg Albuterol Sulfate (Ventolin 0.083% Nebulizer Soln -) 1 amp NEB Q4H PRN PRN Reason: SHORT OF BREATH/WHEEZING Albuterol/Ipratropium (Duoneb -) 1 amp NEB RTID [facility] Last Admin: 05/02/18 13:43 Dose: 1 amp Allopurinol (Zyloprim -) 300 mg PO DAILY [facility] Last Admin: 05/02/18 09:50 Dose: 300 mg Docusate Sodium (Colace -) 100 mg PO BID [facility] Last Admin: 05/02/18 09:50 Dose: 100 mg Ferrous Sulfate (Feosol -) 325 mg PO DAILY [facility] Last Admin: 05/02/18 09:51 Dose: 325 mg Heparin Sodium (Porcine) (Heparin -) 5,000 unit SQ BID [facility] Last Admin: 05/02/18 09:51 Dose: 5,000 unit Azithromycin (Zithromax 500mg Ivpb (Pre-Docked)) 500 mg in 250 mls @ 250 mls/ hr IVPB DAILY [facility] Last Admin: 05/02/18 09:51 Dose: 250 mls/hr Ceftriaxone Sodium 1 gm/ (Dextrose) 50 mls @ 100 mls/hr IVPB DAILY [facility] Last Admin: 05/02/18 09:51 Dose: 100 mls/hr Insulin Aspart (Novolog Vial Sliding Scale -) 1 vial SQ ACHS [facility]; Protocol Last Admin: 05/02/18 11:24 Dose: 4 units Isosorbide Mononitrate (Imdur -) 60 mg PO DAILY [facility] Last Admin: 05/02/18 09:51 Dose: 60 mg Memantine (Namenda -) 5 mg PO DAILY [facility] Last Admin: 05/02/18 09:50 Dose: 5 mg Nifedipine (Procardia Xl -) 30 mg PO DAILY [facility] Last Admin: 05/02/18 09:51 Dose: 30 mg Polyethylene Glycol (Miralax (For Daily Use) -) 17 gm PO HS PRN PRN Reason: CONSTIPATION Potassium Chloride (K-Dur -) 10 meq PO DAILY [facility] Last Admin: 05/02/18 09:50 Dose: 10 meq Propylthiouracil (Ptu -) 50 mg PO DAILY [facility] Ranitidine HCl (Zantac -) 150 mg PO DAILY [facility] Last Admin: 05/02/18 09:51 Dose: 150 mg Sertraline HCl 25 mg/ (Sertraline HCl 100 mg) 125 mg PO HS [facility] Last Admin: 05/01/18 22:41 Dose: 125 mg Spironolactone (Aldactone -) 25 mg PO DAILY [facility] Last Admin: 05/02/18 09:50 Dose: 25 mg Torsemide (Demadex -) 20 mg PO DAILY [facility] - Objective Vital Signs: Vital Signs Temperature 98.4 F 05/02/18 14:01 Pulse Rate 75 05/02/18 14:01 Respiratory Rate 20 05/02/18 14:01 Blood Pressure 135/54 L 05/02/18 14:01 O2 Sat by Pulse Oximetry (%) 99 05/02/18 09:00 Constitutional: Yes: Well Nourished, Calm Eyes: Yes: WNL HENT: Yes: WNL Neck: Yes: WNL Cardiovascular: Yes: Regular Rate and Rhythm, S1, S2 Respiratory: Yes: Rhonchi (few rhonchi) Gastrointestinal: Yes: Normal Bowel Sounds, Soft Extremities: Yes: WNL Edema: No Labs: CBC, BMP 05/02/18 06:00 05/02/18 06:00 INR, PTT INR 1.19 (0.83-1.09) H 04/28/18 11:15 Problem List - Problems (1) CKD (chronic kidney disease) Code(s): N18.9 - CHRONIC KIDNEY DISEASE, UNSPECIFIED (2) Anemia Code(s): D64.9 - ANEMIA, UNSPECIFIED (3) CHF (congestive heart failure) Code(s): I50.9 - HEART FAILURE, UNSPECIFIED (4) CKD (chronic kidney disease) Code(s): N18.9 - CHRONIC KIDNEY DISEASE, UNSPECIFIED Qualifiers: Chronic kidney disease stage: unspecified stage Qualified Code(s): N18.9 - Chronic kidney disease, unspecified (5) COPD exacerbation Code(s): J44.1 - CHRONIC OBSTRUCTIVE PULMONARY DISEASE W (ACUTE) EXACERBATION (6) Dementia Code(s): F03.90 - UNSPECIFIED DEMENTIA WITHOUT BEHAVIORAL DISTURBANCE (7) Diabetes mellitus Code(s): E11.9 - TYPE 2 DIABETES MELLITUS WITHOUT COMPLICATIONS (8) Hiatal hernia with GERD Code(s): K21.9 - GASTRO-ESOPHAGEAL REFLUX DISEASE WITHOUT ESOPHAGITIS; K44.9 - DIAPHRAGMATIC HERNIA WITHOUT OBSTRUCTION OR GANGRENE (9) Pneumonia Code(s): J18.9 - PNEUMONIA, UNSPECIFIED ORGANISM Assessment/Plan IMP PNEUMONIA DIASTOLIC HF SSS S/P PPM DM CKD STAGE 4 H/O HYPERTHYROIDISM S/P PTU H/O MELANOMA S/P EXCISION GERD DM ANEMIA PLAN CONTINUE ABX O2 INHALED BRONCHODILATORS DIURETICS PER CARDIOLOGY MONITOR LYTES,RENAL FUNCTION MONITOR H+H F/U CHEST X-RAY AM ANTI-TUSSIVES Problem List - Problems (1) CKD (chronic kidney disease) Code(s): N18.9 - CHRONIC KIDNEY DISEASE, UNSPECIFIED (2) Anemia Code(s): D64.9 - ANEMIA, UNSPECIFIED (3) CHF (congestive heart failure) Code(s): I50.9 - HEART FAILURE, UNSPECIFIED (4) CKD (chronic kidney disease) Code(s): N18.9 - CHRONIC KIDNEY DISEASE, UNSPECIFIED Qualifiers: Chronic kidney disease stage: unspecified stage Qualified Code(s): N18.9 - Chronic kidney disease, unspecified (5) COPD exacerbation Code(s): J44.1 - CHRONIC OBSTRUCTIVE PULMONARY DISEASE W (ACUTE) EXACERBATION (6) Dementia Code(s): F03.90 - UNSPECIFIED DEMENTIA WITHOUT BEHAVIORAL DISTURBANCE (7) Diabetes mellitus Code(s): E11.9 - TYPE 2 DIABETES MELLITUS WITHOUT COMPLICATIONS (8) Hiatal hernia with GERD Code(s): K21.9 - GASTRO-ESOPHAGEAL REFLUX DISEASE WITHOUT ESOPHAGITIS; K44.9 - DIAPHRAGMATIC HERNIA WITHOUT OBSTRUCTION OR GANGRENE (9) Pneumonia Code(s): J18.9 - PNEUMONIA, UNSPECIFIED ORGANISM
[2018-05-02] MEDS ORDERED: SERTRALINE HCL 50 MG TABLET (FP) ONE (21:27)
[2018-05-02] MEDS ORDERED: SERTRALINE HCL 25 MG TABLET (FP) ONE (21:28)
[2018-05-02] MEDS: SERTRALINE HCL PO SCH (22:26)
[2018-05-03] MEDS: INSULIN SLIDING SCALE (NOVOLOG) 1 VIAL SQ SCH ×4 (06:08→21:49)
[2018-05-03] MEDS: ALBUTEROL SO4 2.5/IPRATROPIUM 0.5 INH SOL 3 ML VIAL.NEB. NEB SCH ×3 (07:35→20:49)
[2018-05-03 07:56] LABS: ANION GAP 8 MMOL/L (8-16); BLOOD UREA NITROGEN 88 mg/dL (7-18); CALCIUM 8.3 mg/dL (8.5-10.1); CHLORIDE 114 mmol/L (98-107); CO2 23 mmol/L (21-32); CREATININE 2.2 mg/dL (0.55-1.3); GLUCOSE,RANDOM 119 mg/dL (74-106); POTASSIUM 4.5 mmol/L (3.5-5.1); SODIUM 145 mmol/L (136-145)
[2018-05-03] MEDS ORDERED: cefTRIAXone SODIUM 1 GM VIAL ONE (08:41)
[2018-05-03] MEDS ORDERED: DEXTROSE 5%-WATER - 50 ML IVPB ONE ×2 (08:41→17:26)
--- NOTE | 2018-05-03 09:31 | PN ---
Progress Note, Physician History of Present Illness: Pt's breathing is better, minimal cough. Pt w/o fever, chills, CP, palpitations, abd pain. - Current Medication List Current Medications: Active Medications Acetaminophen (Tylenol -) 650 mg PO Q4H PRN PRN Reason: FEVER >100F Last Admin: 05/02/18 22:27 Dose: 650 mg Albuterol Sulfate (Ventolin 0.083% Nebulizer Soln -) 1 amp NEB Q4H PRN PRN Reason: SHORT OF BREATH/WHEEZING Albuterol/Ipratropium (Duoneb -) 1 amp NEB RTID [facility] Last Admin: 05/03/18 07:35 Dose: 1 amp Allopurinol (Zyloprim -) 300 mg PO DAILY [facility] Last Admin: 05/02/18 09:50 Dose: 300 mg Docusate Sodium (Colace -) 100 mg PO BID [facility] Last Admin: 05/02/18 22:26 Dose: 100 mg Ferrous Sulfate (Feosol -) 325 mg PO DAILY [facility] Last Admin: 05/02/18 09:51 Dose: 325 mg Heparin Sodium (Porcine) (Heparin -) 5,000 unit SQ BID [facility] Last Admin: 05/02/18 22:27 Dose: 5,000 unit Azithromycin (Zithromax 500mg Ivpb (Pre-Docked)) 500 mg in 250 mls @ 250 mls/ hr IVPB DAILY [facility] Last Admin: 05/02/18 09:51 Dose: 250 mls/hr Ceftriaxone Sodium 1 gm/ (Dextrose) 50 mls @ 100 mls/hr IVPB DAILY [facility] Last Admin: 05/02/18 09:51 Dose: 100 mls/hr Insulin Aspart (Novolog Vial Sliding Scale -) 1 vial SQ ACHS [facility]; Protocol Last Admin: 05/03/18 06:08 Dose: Not Given Isosorbide Mononitrate (Imdur -) 60 mg PO DAILY [facility] Last Admin: 05/02/18 09:51 Dose: 60 mg Memantine (Namenda -) 5 mg PO DAILY [facility] Last Admin: 05/02/18 09:50 Dose: 5 mg Nifedipine (Procardia Xl -) 30 mg PO DAILY [facility] Last Admin: 05/02/18 09:51 Dose: 30 mg Polyethylene Glycol (Miralax (For Daily Use) -) 17 gm PO HS PRN PRN Reason: CONSTIPATION Potassium Chloride (K-Dur -) 10 meq PO DAILY [facility] Last Admin: 05/02/18 09:50 Dose: 10 meq Propylthiouracil (Ptu -) 50 mg PO DAILY [facility] Ranitidine HCl (Zantac -) 150 mg PO DAILY [facility] Last Admin: 05/02/18 09:51 Dose: 150 mg Sertraline HCl 25 mg/ (Sertraline HCl 100 mg) 125 mg PO HS [facility] Last Admin: 05/02/18 22:26 Dose: 125 mg Spironolactone (Aldactone -) 25 mg PO DAILY [facility] Last Admin: 05/02/18 09:50 Dose: 25 mg - Objective Vital Signs: Vital Signs Temperature 97.9 F 05/03/18 06:03 Pulse Rate 79 05/03/18 06:03 Respiratory Rate 20 05/03/18 06:03 Blood Pressure 153/89 05/03/18 06:03 O2 Sat by Pulse Oximetry (%) 99 05/02/18 21:00 Constitutional: Yes: No Distress, Calm Cardiovascular: Yes: Regular Rate and Rhythm, S1, S2 Respiratory: Yes: Regular, CTA Bilaterally. No: Rales Gastrointestinal: Yes: Normal Bowel Sounds, Soft. No: Tenderness Edema: No Neurological: Yes: Alert, Oriented Labs: CBC, BMP 05/02/18 06:00 05/03/18 06:30 INR, PTT INR 1.19 (0.83-1.09) H 04/28/18 11:15 Problem List - Problems (1) LILLIE (acute kidney injury) Code(s): N17.9 - ACUTE KIDNEY FAILURE, UNSPECIFIED (2) CHF (congestive heart failure) Code(s): I50.9 - HEART FAILURE, UNSPECIFIED (3) CKD (chronic kidney disease) Code(s): N18.9 - CHRONIC KIDNEY DISEASE, UNSPECIFIED Qualifiers: Chronic kidney disease stage: unspecified stage Qualified Code(s): N18.9 - Chronic kidney disease, unspecified (4) COPD (chronic obstructive pulmonary disease) Code(s): J44.9 - CHRONIC OBSTRUCTIVE PULMONARY DISEASE, UNSPECIFIED (5) Dementia Code(s): F03.90 - UNSPECIFIED DEMENTIA WITHOUT BEHAVIORAL DISTURBANCE (6) Diabetes mellitus Code(s): E11.9 - TYPE 2 DIABETES MELLITUS WITHOUT COMPLICATIONS (7) Hypertension Code(s): I10 - ESSENTIAL (PRIMARY) HYPERTENSION Qualifiers: Hypertension type: secondary to other renal disorders (8) Pneumonia Code(s): J18.9 - PNEUMONIA, UNSPECIFIED ORGANISM (9) Pleural effusion Code(s): J90 - PLEURAL EFFUSION, NOT ELSEWHERE CLASSIFIED Assessment/Plan Hold Torsemide for now, to f/u with Cardio when to restart . On IV abtx for PNA, bilat. Renal, Cardio, Pulmonary consults are appreciated. To f/u CXR Case was d/w pt's nurse. AM labs.
[2018-05-03] MEDS: DOCUSATE SODIUM 100 MG CAPSULE (FP) PO SCH ×2 (09:38→21:44)
[2018-05-03] MEDS: ALLOPURINOL 300 MG TABLET (FP) PO SCH (09:40)
[2018-05-03] MEDS: MEMANTINE HCL 5 MG TABLET (UD) PO SCH (09:40)
[2018-05-03] MEDS: NIFEdipine E.R. 30 MG TABLET (FP) PO SCH (09:40)
[2018-05-03] MEDS: ISOSORBIDE MONONITRATE 60 MG TAB.SR.24H (FP) PO SCH (09:40)
[2018-05-03] MEDS: POTASSIUM CHLORIDE TABS 10 MEQ TABLET.ER (FP) PO SCH (09:40)
[2018-05-03] MEDS: FERROUS SO4 325 MG TABLET (FP) PO SCH (09:41)
[2018-05-03] MEDS: SPIRONOLACTONE 25 MG TABLET (FP) PO SCH (09:41)
[2018-05-03] MEDS: RANITIDINE HCL 150 MG TABLET (FP) PO SCH (09:41)
[2018-05-03] MEDS: HEPARIN NA (PORCINE) 5,000 UNITS/ML 1ML VIAL SQ SCH ×2 (09:42→21:44)
[2018-05-03] MEDS: CEFTRIAXONE 1 GM in DEXTROSE 5%-WATER - 50 ML IVPB SCH (09:43)
--- NOTE | 2018-05-03 09:54 | PN ---
Progress Note, Physician Chief Complaint: sob History of Present Illness: sob much improved she says denies leg swelling, cp, palpit - Current Medication List Current Medications: Active Medications Acetaminophen (Tylenol -) 650 mg PO Q4H PRN PRN Reason: FEVER >100F Last Admin: 05/02/18 22:27 Dose: 650 mg Albuterol Sulfate (Ventolin 0.083% Nebulizer Soln -) 1 amp NEB Q4H PRN PRN Reason: SHORT OF BREATH/WHEEZING Albuterol/Ipratropium (Duoneb -) 1 amp NEB RTID [facility] Last Admin: 05/03/18 07:35 Dose: 1 amp Allopurinol (Zyloprim -) 300 mg PO DAILY [facility] Last Admin: 05/03/18 09:40 Dose: 300 mg Docusate Sodium (Colace -) 100 mg PO BID [facility] Last Admin: 05/03/18 09:38 Dose: 100 mg Ferrous Sulfate (Feosol -) 325 mg PO DAILY [facility] Last Admin: 05/03/18 09:41 Dose: 325 mg Heparin Sodium (Porcine) (Heparin -) 5,000 unit SQ BID [facility] Last Admin: 05/03/18 09:42 Dose: 5,000 unit Azithromycin (Zithromax 500mg Ivpb (Pre-Docked)) 500 mg in 250 mls @ 250 mls/ hr IVPB DAILY [facility] Last Admin: 05/02/18 09:51 Dose: 250 mls/hr Ceftriaxone Sodium 1 gm/ (Dextrose) 50 mls @ 100 mls/hr IVPB DAILY [facility] Last Admin: 05/03/18 09:43 Dose: 100 mls/hr Insulin Aspart (Novolog Vial Sliding Scale -) 1 vial SQ ACHS [facility]; Protocol Last Admin: 05/03/18 06:08 Dose: Not Given Isosorbide Mononitrate (Imdur -) 60 mg PO DAILY [facility] Last Admin: 05/03/18 09:40 Dose: 60 mg Memantine (Namenda -) 5 mg PO DAILY [facility] Last Admin: 05/03/18 09:40 Dose: 5 mg Nifedipine (Procardia Xl -) 30 mg PO DAILY [facility] Last Admin: 05/03/18 09:40 Dose: 30 mg Polyethylene Glycol (Miralax (For Daily Use) -) 17 gm PO HS PRN PRN Reason: CONSTIPATION Potassium Chloride (K-Dur -) 10 meq PO DAILY [facility] Last Admin: 05/03/18 09:40 Dose: 10 meq Propylthiouracil (Ptu -) 50 mg PO HS [facility] Ranitidine HCl (Zantac -) 150 mg PO DAILY [facility] Last Admin: 05/03/18 09:41 Dose: 150 mg Sertraline HCl 25 mg/ (Sertraline HCl 100 mg) 125 mg PO HS [facility] Last Admin: 05/02/18 22:26 Dose: 125 mg Spironolactone (Aldactone -) 25 mg PO DAILY [facility] Last Admin: 05/03/18 09:41 Dose: 25 mg - Objective Vital Signs: Vital Signs Temperature 97.9 F 05/03/18 06:03 Pulse Rate 79 05/03/18 06:03 Respiratory Rate 20 05/03/18 06:03 Blood Pressure 153/89 05/03/18 06:03 O2 Sat by Pulse Oximetry (%) 99 05/02/18 21:00 Constitutional: Yes: Well Nourished, No Distress, Calm Cardiovascular: Yes: Regular Rate and Rhythm, S1, S2. No: Gallop, Murmur Respiratory: Yes: Regular, CTA Bilaterally (decr bases). No: Accessory Muscle Use, Rales, Wheezes Extremities: No: Cold Edema: No Neurological: Yes: Alert. No: Seizure Psychiatric: No: Agitated Labs: CBC, BMP 05/02/18 06:00 05/03/18 06:30 INR, PTT INR 1.19 (0.83-1.09) H 04/28/18 11:15 Assessment/Plan Echo 03/2017: nl lv size/fn. EF 55-60%. tds for wall motion. septal motion c/ w ppm. mild rve. nl rv fn. mod lae. 1+ sam. 1+ mac with mild functional ms ( 4 mmHg, 73 bpm). 1+ mr. mobile linear density that intermittently moves into lvot (no associated lvot obstruction). Density thought to be consistent with torn chordae. 1+ tr. 1+ phtn. 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, HTN, diastolic heart failure complicated by LE edema/ recurrent LE cellulitis, bradycardia/sss/4-sec pause s/p biotronik ppm 2016, COPD, CKD, iddm, dementia, nasal septal defect w/ recurrent epistaxis ( contraindication to AC), recurrent UTI, who p/w cough, sob PNA - tx per pulm, receiving abx LILLIE on CKD - Cr 2.9 on admission, likely 2/2 overdiuresis with recent increase in torsemide dose in pt on spironolactone as well - Cr improved after IVF - patient taking little PO, appears euvolemic, hold torsemide for now chronic diastolic HF - on torsemide at home, holding as above - appears euvolemic - monitor volume status clinically as doing CAD - hx of type II NSTEMI in past - trop negative, EKG stable. no suspected ischemic sx's - cont aspirin, statin, imdur HTN -BPs running 130s-150s presently -cont home imdur, spironolactone, nifedipine -observe s/p PPM - routine outpatient monitoring hx echodensity noted on mitral valve (03/2017 echo) - unclear etiology, ? torn calcified chord - deferred cath, SATHISH in the past to avoid invasive testing
[2018-05-03] MEDS ORDERED: TORSEMIDE 20 MG TABLET (FP) PO SCH (10:00)
[2018-05-03] MEDS: AZITHROMYCIN IVPB 500 MG/250 ML BAG IVPB SCH (10:35)
--- NOTE | 2018-05-03 14:16 | PN ---
Progress Note, Physician - Current Medication List Current Medications: Active Medications Acetaminophen (Tylenol -) 650 mg PO Q4H PRN PRN Reason: FEVER >100F Last Admin: 05/02/18 22:27 Dose: 650 mg Albuterol Sulfate (Ventolin 0.083% Nebulizer Soln -) 1 amp NEB Q4H PRN PRN Reason: SHORT OF BREATH/WHEEZING Albuterol/Ipratropium (Duoneb -) 1 amp NEB [facility] Last Admin: 05/03/18 07:35 Dose: 1 amp Allopurinol (Zyloprim -) 300 mg PO DAILY [facility] Last Admin: 05/03/18 09:40 Dose: 300 mg Docusate Sodium (Colace -) 100 mg PO BID [facility] Last Admin: 05/03/18 09:38 Dose: 100 mg Ferrous Sulfate (Feosol -) 325 mg PO DAILY [facility] Last Admin: 05/03/18 09:41 Dose: 325 mg Heparin Sodium (Porcine) (Heparin -) 5,000 unit SQ BID [facility] Last Admin: 05/03/18 09:42 Dose: 5,000 unit Azithromycin (Zithromax 500mg Ivpb (Pre-Docked)) 500 mg in 250 mls @ 250 mls/ hr IVPB [facility] Last Admin: 05/03/18 10:35 Dose: 250 mls/hr Ceftriaxone Sodium 1 gm/ (Dextrose) 50 mls @ 100 mls/hr IVPB [facility] Last Admin: 05/03/18 09:43 Dose: 100 mls/hr Insulin Aspart (Novolog Vial Sliding Scale -) 1 vial SQ ACHS [facility]; Protocol Last Admin: 05/03/18 12:38 Dose: 6 units Isosorbide Mononitrate (Imdur -) 60 mg PO DAILY [facility] Last Admin: 05/03/18 09:40 Dose: 60 mg Memantine (Namenda -) 5 mg PO DAILY [facility] Last Admin: 05/03/18 09:40 Dose: 5 mg Nifedipine (Procardia Xl -) 30 mg PO DAILY [facility] Last Admin: 05/03/18 09:40 Dose: 30 mg Polyethylene Glycol (Miralax (For Daily Use) -) 17 gm PO HS PRN PRN Reason: CONSTIPATION Potassium Chloride (K-Dur -) 10 meq PO DAILY [facility] Last Admin: 05/03/18 09:40 Dose: 10 meq Propylthiouracil (Ptu -) 50 mg PO [facility] Ranitidine HCl (Zantac -) 150 mg PO DAILY [facility] Last Admin: 05/03/18 09:41 Dose: 150 mg Sertraline HCl 25 mg/ (Sertraline HCl 100 mg) 125 mg PO HS [facility] Last Admin: 05/02/18 22:26 Dose: 125 mg Spironolactone (Aldactone -) 25 mg PO DAILY [facility] Last Admin: 05/03/18 09:41 Dose: 25 mg - Objective Vital Signs: Vital Signs Temperature 98.3 F 05/03/18 10:00 Pulse Rate 97 H 05/03/18 10:00 Respiratory Rate 20 05/03/18 10:00 Blood Pressure 139/77 05/03/18 10:00 O2 Sat by Pulse Oximetry (%) 98 05/03/18 09:00 Constitutional: Yes: Well Nourished, Calm Eyes: Yes: WNL HENT: Yes: WNL Neck: Yes: WNL Cardiovascular: Yes: Regular Rate and Rhythm, S1, S2 Respiratory: Yes: Rales (INCREASED CRACKLES ON R) Gastrointestinal: Yes: Normal Bowel Sounds, Soft Extremities: Yes: WNL Edema: No Labs: CBC, BMP 05/02/18 06:00 05/03/18 06:30 INR, PTT INR 1.19 (0.83-1.09) H 04/28/18 11:15 - ....Imaging Chest X-ray: Report Reviewed (r sided infiltrate), Image Reviewed Problem List - Problems (1) CKD (chronic kidney disease) Code(s): N18.9 - CHRONIC KIDNEY DISEASE, UNSPECIFIED (2) Anemia Code(s): D64.9 - ANEMIA, UNSPECIFIED (3) CHF (congestive heart failure) Code(s): I50.9 - HEART FAILURE, UNSPECIFIED (4) CKD (chronic kidney disease) Code(s): N18.9 - CHRONIC KIDNEY DISEASE, UNSPECIFIED Qualifiers: Chronic kidney disease stage: unspecified stage Qualified Code(s): N18.9 - Chronic kidney disease, unspecified (5) COPD exacerbation Code(s): J44.1 - CHRONIC OBSTRUCTIVE PULMONARY DISEASE W (ACUTE) EXACERBATION (6) Dementia Code(s): F03.90 - UNSPECIFIED DEMENTIA WITHOUT BEHAVIORAL DISTURBANCE (7) Diabetes mellitus Code(s): E11.9 - TYPE 2 DIABETES MELLITUS WITHOUT COMPLICATIONS (8) Hiatal hernia with GERD Code(s): K21.9 - GASTRO-ESOPHAGEAL REFLUX DISEASE WITHOUT ESOPHAGITIS; K44.9 - DIAPHRAGMATIC HERNIA WITHOUT OBSTRUCTION OR GANGRENE (9) Pneumonia Code(s): J18.9 - PNEUMONIA, UNSPECIFIED ORGANISM Assessment/Plan IMP PNEUMONIA DIASTOLIC HF SSS S/P PPM DM CKD STAGE 4 H/O HYPERTHYROIDISM S/P PTU H/O MELANOMA S/P EXCISION GERD DM ANEMIA PLAN CONTINUE ABX O2 INHALED BRONCHODILATORS DIURETICS PER CARDIOLOGY MONITOR LYTES,RENAL FUNCTION MONITOR H+H ANTI-TUSSIVES ID EVALUATION Problem List - Problems (1) CKD (chronic kidney disease) Code(s): N18.9 - CHRONIC KIDNEY DISEASE, UNSPECIFIED (2) Anemia Code(s): D64.9 - ANEMIA, UNSPECIFIED (3) CHF (congestive heart failure) Code(s): I50.9 - HEART FAILURE, UNSPECIFIED (4) CKD (chronic kidney disease) Code(s): N18.9 - CHRONIC KIDNEY DISEASE, UNSPECIFIED Qualifiers: Chronic kidney disease stage: unspecified stage Qualified Code(s): N18.9 - Chronic kidney disease, unspecified (5) COPD exacerbation Code(s): J44.1 - CHRONIC OBSTRUCTIVE PULMONARY DISEASE W (ACUTE) EXACERBATION (6) Dementia Code(s): F03.90 - UNSPECIFIED DEMENTIA WITHOUT BEHAVIORAL DISTURBANCE (7) Diabetes mellitus Code(s): E11.9 - TYPE 2 DIABETES MELLITUS WITHOUT COMPLICATIONS (8) Hiatal hernia with GERD Code(s): K21.9 - GASTRO-ESOPHAGEAL REFLUX DISEASE WITHOUT ESOPHAGITIS; K44.9 - DIAPHRAGMATIC HERNIA WITHOUT OBSTRUCTION OR GANGRENE (9) Pneumonia Code(s): J18.9 - PNEUMONIA, UNSPECIFIED ORGANISM
--- NOTE | 2018-05-03 14:59 | PN ---
Progress Note, Physician History of Present Illness: Pt seen and examined at bedside. She is awake and alert. She denies shortness of breath. - Current Medication List Current Medications: Active Medications Acetaminophen (Tylenol -) 650 mg PO Q4H PRN PRN Reason: FEVER >100F Last Admin: 05/02/18 22:27 Dose: 650 mg Albuterol Sulfate (Ventolin 0.083% Nebulizer Soln -) 1 amp NEB Q4H PRN PRN Reason: SHORT OF BREATH/WHEEZING Albuterol/Ipratropium (Duoneb -) 1 amp NEB RTID [facility] Last Admin: 05/03/18 07:35 Dose: 1 amp Allopurinol (Zyloprim -) 300 mg PO DAILY [facility] Last Admin: 05/03/18 09:40 Dose: 300 mg Docusate Sodium (Colace -) 100 mg PO BID [facility] Last Admin: 05/03/18 09:38 Dose: 100 mg Ferrous Sulfate (Feosol -) 325 mg PO DAILY [facility] Last Admin: 05/03/18 09:41 Dose: 325 mg Heparin Sodium (Porcine) (Heparin -) 5,000 unit SQ BID [facility] Last Admin: 05/03/18 09:42 Dose: 5,000 unit Azithromycin (Zithromax 500mg Ivpb (Pre-Docked)) 500 mg in 250 mls @ 250 mls/ hr IVPB DAILY [facility] Last Admin: 05/03/18 10:35 Dose: 250 mls/hr Ceftriaxone Sodium 1 gm/ (Dextrose) 50 mls @ 100 mls/hr IVPB DAILY [facility] Last Admin: 05/03/18 09:43 Dose: 100 mls/hr Insulin Aspart (Novolog Vial Sliding Scale -) 1 vial SQ ACHS [facility]; Protocol Last Admin: 05/03/18 12:38 Dose: 6 units Isosorbide Mononitrate (Imdur -) 60 mg PO DAILY [facility] Last Admin: 05/03/18 09:40 Dose: 60 mg Memantine (Namenda -) 5 mg PO DAILY [facility] Last Admin: 05/03/18 09:40 Dose: 5 mg Nifedipine (Procardia Xl -) 30 mg PO DAILY [facility] Last Admin: 05/03/18 09:40 Dose: 30 mg Polyethylene Glycol (Miralax (For Daily Use) -) 17 gm PO HS PRN PRN Reason: CONSTIPATION Potassium Chloride (K-Dur -) 10 meq PO DAILY [facility] Last Admin: 05/03/18 09:40 Dose: 10 meq Propylthiouracil (Ptu -) 50 mg PO HS [facility] Ranitidine HCl (Zantac -) 150 mg PO DAILY [facility] Last Admin: 05/03/18 09:41 Dose: 150 mg Sertraline HCl 25 mg/ (Sertraline HCl 100 mg) 125 mg PO HS [facility] Last Admin: 05/02/18 22:26 Dose: 125 mg Spironolactone (Aldactone -) 25 mg PO DAILY [facility] Last Admin: 05/03/18 09:41 Dose: 25 mg - Objective Vital Signs: Vital Signs Temperature 98.3 F 05/03/18 10:00 Pulse Rate 97 H 05/03/18 10:00 Respiratory Rate 20 05/03/18 10:00 Blood Pressure 139/77 05/03/18 10:00 O2 Sat by Pulse Oximetry (%) 98 05/03/18 09:00 Constitutional: Yes: Calm Eyes: Yes: Conjunctiva Clear HENT: Yes: Atraumatic Neck: Yes: Supple Cardiovascular: Yes: S1, S2 Respiratory: Yes: CTA Bilaterally Gastrointestinal: Yes: Normal Bowel Sounds, Soft Genitourinary: Yes: WNL Musculoskeletal: Yes: Muscle Weakness Edema: Yes Edema: LLE: Trace, RLE: Trace Neurological: Yes: Oriented Psychiatric: Yes: Oriented Labs: CBC, BMP 05/02/18 06:00 05/03/18 06:30 INR, PTT INR 1.19 (0.83-1.09) H 04/28/18 11:15 - ....Imaging Chest X-ray: Report Reviewed Problem List - Problems (1) CKD (chronic kidney disease) Code(s): N18.9 - CHRONIC KIDNEY DISEASE, UNSPECIFIED Qualifiers: Chronic kidney disease stage: unspecified stage Qualified Code(s): N18.9 - Chronic kidney disease, unspecified Assessment/Plan Current Medications Generic Name Dose Route Start Last Admin Trade Name Freq PRN Reason Stop Dose Admin Acetaminophen 650 mg 04/28/18 16:45 05/02/18 22:27 Tylenol - PO 650 mg Q4H PRN Administration FEVER >100F Albuterol Sulfate 1 amp 04/28/18 16:45 Ventolin 0.083% Nebulizer Soln - NEB Q4H PRN SHORT OF BREATH/WHEEZING Albuterol/Ipratropium 1 amp 04/28/18 20:00 05/03/18 07:35 Duoneb - NEB 1 amp RTID [facility] Administration Allopurinol 300 mg 04/29/18 10:00 05/03/18 09:40 Zyloprim - PO 300 mg DAILY [facility] Administration Docusate Sodium 100 mg 04/28/18 22:00 05/03/18 09:38 Colace - PO 100 mg BID [facility] Administration Ferrous Sulfate 325 mg 04/29/18 10:00 05/03/18 09:41 Feosol - PO 325 mg DAILY [facility] Administration Heparin Sodium (Porcine) 5,000 unit 04/28/18 22:00 05/03/18 09:42 Heparin - SQ 5,000 unit BID [facility] Administration Azithromycin 500 mg in 250 mls @ 250 mls/hr 04/29/18 14:45 05/03/18 10:35 Zithromax 500mg Ivpb (Pre-Docked) IVPB 250 mls/hr DAILY [facility] Administration Ceftriaxone Sodium 1 gm/ 50 mls @ 100 mls/hr 04/29/18 15:00 05/03/18 09:43 Dextrose IVPB 100 mls/hr DAILY [facility] Administration Insulin Aspart 1 vial 04/28/18 22:00 05/03/18 12:38 Novolog Vial Sliding Scale - SQ 6 units ACHS [facility] Administration Protocol Isosorbide Mononitrate 60 mg 04/29/18 10:00 05/03/18 09:40 Imdur - PO 60 mg DAILY [facility] Administration Memantine 5 mg 04/29/18 10:00 05/03/18 09:40 Namenda - PO 5 mg DAILY [facility] Administration Nifedipine 30 mg 04/29/18 10:00 05/03/18 09:40 Procardia Xl - PO 30 mg DAILY [facility] Administration Polyethylene Glycol 17 gm 04/28/18 16:45 Miralax (For Daily Use) - PO HS PRN CONSTIPATION Potassium Chloride 10 meq 04/29/18 10:00 05/03/18 09:40 K-Dur - PO 10 meq DAILY [facility] Administration Propylthiouracil 50 mg 05/03/18 22:00 Ptu - PO HS [facility] Ranitidine HCl 150 mg 04/29/18 10:00 05/03/18 09:41 Zantac - PO 150 mg DAILY [facility] Administration Sertraline HCl 25 mg/ 125 mg 04/28/18 22:00 05/02/18 22:26 Sertraline HCl 100 mg PO 125 mg HS [facility] Administration Spironolactone 25 mg 04/29/18 10:00 05/03/18 09:41 Aldactone - PO 25 mg DAILY [facility] Administration Impression 1. CKD 2. cough 3. CHF 4. bradycardia 5. dementia 6. HTN 7. DM 8. anemia 9. LILLIE 10. 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
--- NOTE | 2018-05-03 15:29 | PN ---
Progress Note, [employer] - Note Progress Note: Selected Entries 05/02/18 05/02/18 05/02/18 01:42 05:32 09:36 Breakfast 100% Lunch Supper Temperature 98.1 F 98.5 F 05/02/18 05/02/18 05/02/18 10:00 14:01 19:22 Breakfast Lunch 75% Supper 100% Temperature 97.7 F 98.4 F 97.3 F L 05/02/18 05/03/18 05/03/18 22:00 06:03 10:00 Breakfast Lunch Supper 100% Temperature 982 F H 97.9 F 98.3 F 05/03/18 05/03/18 11:44 12:03 Breakfast 75% 75% Lunch Supper Temperature Laboratory Tests 05/02/18 06:00 WBC 5.6 Pt on reg diet. thin liquid. MBS reviewed.Reduced efficiency of mastication. Suggest Dys whole diet with chopped meat, alternate with sips of thin liquid to clear pharynx.No continuous drinking and avoid straw drinking. Chin tuck, swallow with effort twice per bite. Swallowing tx to continue at [facility].
--- NOTE | 2018-05-03 16:29 | PN ---
Progress Note (short form) - Note Progress Note: ID CONSULT DICTATED R/O R HCAP ? CHF AZOTEMIA/ CKD MRSA COLONIZATION OBTAIN SPUTUM C/S , LEGIONELLA AG SUBSTITUTE ZOSYN
[2018-05-03] MEDS ORDERED: PIPERACILLIN/TAZOBACTAM 2.25 GM VIAL IVPB ONE (17:26)
[2018-05-03] MEDS: PIPERACILLIN/TAZOB 2.25 GM 2.25 GM in DEXTROSE 5%-WATER - 50 ML IVPB SCH (17:39)
--- NOTE | 2018-05-03 19:19 | CONS ---
DATE OF CONSULTATION: DATE OF DICTATION: 05/03/2018 INFECTIOUS DISEASE CONSULTATION HISTORY OF PRESENT ILLNESS: The patient is a 77-year-old female who was evaluated for possible hospital acquired pneumonia. She suffers from mild dementia. History was obtained from the chart as well as the patient's sister, who is present at the time of the examination. She was admitted to the hospital from the long term on April 28, 2018, with worsening shortness of breath, diaphoresis, and hypertension. She had had a chronic cough for several days to weeks. She was treated at the long term with a course of Zithromax and Levaquin without significant improvement. She presented to the hospital, where chest x-ray showed possible retrocardiac infiltrate. She was empirically treated with Zithromax and ceftriaxone. Followup chest x-ray now reveals increased markings at the right base which are new compared to her admission chest x-ray. CAT scan of the chest showed left lower lobe atelectasis and bronchiectatic changes as well as right lower lobe infiltrate. She is out of bed to chair. She appears slightly short of breath on nasal cannula O2. She has occasional cough, however difficulty expectorating. She denies any chest pain. She denies shortness of breath. Patient is a long term resident and reports being in contact with ill patients. She is a nonsmoker, no recent travel. She has received influenza vaccine and believes she received pneumococcal vaccine. PAST MEDICAL HISTORY: Positive for dementia, chronic kidney disease, COPD, congestive heart failure, diabetes mellitus. PAST SURGICAL HISTORY: Status post permanent pacemaker. ALLERGIES: No known allergies. MEDICATION: Tylenol, Zithromax, ceftriaxone, allopurinol, PTU, Colace, Namenda, Procardia, Zantac, Aldactone, Imdur. SOCIAL HISTORY: snf resident. No active tobacco or alcohol use. SYSTEMS REVIEW: Neurologic: Positive for mild dementia. Cardiac: Negative for chest pain or palpitations. Respiratory: As per HPI. Gastrointestinal: Negative vomiting or diarrhea. Genitourinary: Negative for urinary tract infection. LABORATORY DATA: White count 5.6, hematocrit 26.3, platelet count 162. BUN 88, creatinine 2.2. Blood cultures negative. Nares culture positive for MRSA. PHYSICAL EXAMINATION: General: On exam, she is out of bed to chair, in no acute respiratory distress on nasal cannula. Vital signs: Temperature 98.2, blood pressure 126/56, pulse 67 regular, respirations 20 per minute. HEENT: Sclerae anicteric. Cardiovascular: Heart sounds S1, S2. Lungs: Rales at the right base. Crepitations at the left base. No rhonchi or wheezing. Abdomen: Soft, nontender. Extremities: Positive for edema, 1+. IMPRESSION: 1. Rule out right lower lobe hospital acquired pneumonia. 2. Rule out decompensating congestive heart failure. 3. Azotemia/chronic kidney disease. 4. 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 Will provide antimicrobial coverage to include nosocomial respiratory tract pathogens with Zosyn 2.25 g IV piggyback every 8 hours. Obtain sputum culture and urine legionella antigen. Diuretic therapy as per renal. Followup chest x-ray. Supplemental oxygen. Bronchodilators. Case was discussed with patient's sister present at the time of the examination. Thank you for the kind referral. VALORIE RIOS M.D. [id number]
[2018-05-03] MEDS ORDERED: SERTRALINE HCL 25 MG TABLET (FP) ONE (21:35)
[2018-05-03] MEDS ORDERED: SERTRALINE HCL 50 MG TABLET (FP) ONE (21:35)
[2018-05-03] MEDS: SERTRALINE HCL PO SCH (21:44)
[2018-05-03] MEDS: PROPYLTHIOURACIL 50 MG TABLET (UD) PO SCH (21:44)
[2018-05-04] MEDS ORDERED: PIPERACILLIN/TAZOBACTAM 2.25 GM VIAL IVPB ONE ×3 (00:56→17:20)
[2018-05-04] MEDS ORDERED: DEXTROSE 5%-WATER - 50 ML IVPB ONE ×3 (00:56→17:20)
[2018-05-04] MEDS: PIPERACILLIN/TAZOB 2.25 GM 2.25 GM in DEXTROSE 5%-WATER - 50 ML IVPB SCH ×3 (02:31→17:23)
[2018-05-04] MEDS: INSULIN SLIDING SCALE (NOVOLOG) 1 VIAL SQ SCH ×4 (06:07→23:36)
--- NOTE | 2018-05-04 07:20 | PN ---
Progress Note, Physician Chief Complaint: no new c.o awake alert; in bed oral thrush will start PT at bedside - Current Medication List Current Medications: Active Medications Acetaminophen (Tylenol -) 650 mg PO Q4H PRN PRN Reason: FEVER >100F Last Admin: 05/02/18 22:27 Dose: 650 mg Albuterol Sulfate (Ventolin 0.083% Nebulizer Soln -) 1 amp NEB Q4H PRN PRN Reason: SHORT OF BREATH/WHEEZING Albuterol/Ipratropium (Duoneb -) 1 amp NEB RTID [facility] Last Admin: 05/03/18 20:49 Dose: 1 amp Allopurinol (Zyloprim -) 300 mg PO DAILY [facility] Last Admin: 05/03/18 09:40 Dose: 300 mg Docusate Sodium (Colace -) 100 mg PO BID [facility] Last Admin: 05/03/18 21:44 Dose: 100 mg Ferrous Sulfate (Feosol -) 325 mg PO DAILY [facility] Last Admin: 05/03/18 09:41 Dose: 325 mg Heparin Sodium (Porcine) (Heparin -) 5,000 unit SQ BID [facility] Last Admin: 05/03/18 21:44 Dose: 5,000 unit Azithromycin (Zithromax 500mg Ivpb (Pre-Docked)) 500 mg in 250 mls @ 250 mls/ hr IVPB DAILY [facility] Last Admin: 05/03/18 10:35 Dose: 250 mls/hr Piperacillin Sod/Tazobactam (Sod 2.25 gm/ Dextrose) 50 mls @ 100 mls/hr IVPB Q8H-IV [facility]; Protocol Last Admin: 05/04/18 02:31 Dose: 100 mls/hr Insulin Aspart (Novolog Vial Sliding Scale -) 1 vial SQ ACHS [facility]; Protocol Last Admin: 05/04/18 06:07 Dose: Not Given Isosorbide Mononitrate (Imdur -) 60 mg PO DAILY [facility] Last Admin: 05/03/18 09:40 Dose: 60 mg Memantine (Namenda -) 5 mg PO DAILY [facility] Last Admin: 05/03/18 09:40 Dose: 5 mg Nifedipine (Procardia Xl -) 30 mg PO DAILY [facility] Last Admin: 05/03/18 09:40 Dose: 30 mg Polyethylene Glycol (Miralax (For Daily Use) -) 17 gm PO HS PRN PRN Reason: CONSTIPATION Potassium Chloride (K-Dur -) 10 meq PO DAILY [facility] Last Admin: 05/03/18 09:40 Dose: 10 meq Propylthiouracil (Ptu -) 50 mg PO HS [facility] Last Admin: 05/03/18 21:44 Dose: 50 mg Ranitidine HCl (Zantac -) 150 mg PO DAILY [facility] Last Admin: 05/03/18 09:41 Dose: 150 mg Sertraline HCl 25 mg/ (Sertraline HCl 100 mg) 125 mg PO HS [facility] Last Admin: 05/03/18 21:44 Dose: 125 mg Spironolactone (Aldactone -) 25 mg PO DAILY [facility] Last Admin: 05/03/18 09:41 Dose: 25 mg - Objective Vital Signs: Vital Signs Temperature 97.7 F 05/04/18 05:58 Pulse Rate 82 05/04/18 05:58 Respiratory Rate 20 05/04/18 05:58 Blood Pressure 147/79 05/04/18 05:58 O2 Sat by Pulse Oximetry (%) 97 05/03/18 21:00 Constitutional: Yes: No Distress, Calm Eyes: Yes: Conjunctiva Clear HENT: Yes: Atraumatic Neck: Yes: Supple Cardiovascular: Yes: Regular Rate and Rhythm Respiratory: Yes: CTA Bilaterally Gastrointestinal: Yes: Soft. No: Tenderness Genitourinary: No: CVA Tenderness - Left, CVA Tenderness - Right Musculoskeletal: No: Joint Stiffness, Joint Swelling Extremities: No: Cold, Cool, Cyanosis Edema: No Integumentary: No: Rash, Venous Stasis Changes Neurological: Yes: Alert ...Motor Strength: WNL Psychiatric: Yes: Alert. No: Oriented, Agitated Labs: CBC, BMP 05/02/18 06:00 INR, PTT INR 1.19 (0.83-1.09) H 04/28/18 11:15 - ....Imaging Other: Report Reviewed Assessment/Plan Pt is a 77 YOF resident of [facility] , [facility] CHF CRF OA DJD, anemia, who developed cough in [place] tx with po Azithromycin; CXR c/w vascular congestion vs infiltrates at bases; tx with Levaquin and her Torsemide but not better still coughing, SOB and low appetite; admitted with PNA, bilateral; r/o aspiration seen by swallow tx ARF/CRF per renal oral thrush: po nystatin PT rehab IV ATB per ID; pulm swallow eval HOB; DVT aspiratiuon decubs abd falls PFX f/u labs d/w pt and staff; DNR DNI per pt's prior signed wishes
[2018-05-04] MEDS: ALBUTEROL SO4 2.5/IPRATROPIUM 0.5 INH SOL 3 ML VIAL.NEB. NEB SCH ×3 (08:40→20:55)
[2018-05-04 09:02] LABS: ANION GAP 8 MMOL/L (8-16); CALCIUM 8.3 mg/dL (8.5-10.1); CHLORIDE 112 mmol/L (98-107); CO2 24 mmol/L (21-32); CREATININE 2.1 mg/dL (0.55-1.3); GLUCOSE,RANDOM 127 mg/dL (74-106); POTASSIUM 4.4 mmol/L (3.5-5.1); SODIUM 143 mmol/L (136-145)
[2018-05-04] MEDS: HEPARIN NA (PORCINE) 5,000 UNITS/ML 1ML VIAL SQ SCH ×2 (09:48→23:28)
[2018-05-04] MEDS: MEMANTINE HCL 5 MG TABLET (UD) PO SCH (09:49)
[2018-05-04] MEDS: NIFEdipine E.R. 30 MG TABLET (FP) PO SCH (09:49)
[2018-05-04] MEDS: DOCUSATE SODIUM 100 MG CAPSULE (FP) PO SCH ×2 (09:49→23:28)
[2018-05-04] MEDS: SPIRONOLACTONE 25 MG TABLET (FP) PO SCH (09:50)
[2018-05-04] MEDS: POTASSIUM CHLORIDE TABS 10 MEQ TABLET.ER (FP) PO SCH (09:50)
[2018-05-04] MEDS: RANITIDINE HCL 150 MG TABLET (FP) PO SCH (09:50)
[2018-05-04] MEDS: ALLOPURINOL 300 MG TABLET (FP) PO SCH (09:50)
[2018-05-04] MEDS: FERROUS SO4 325 MG TABLET (FP) PO SCH (09:50)
[2018-05-04] MEDS: ISOSORBIDE MONONITRATE 60 MG TAB.SR.24H (FP) PO SCH (09:50)
[2018-05-04] MEDS: AZITHROMYCIN IVPB 500 MG/250 ML BAG IVPB SCH (10:21)
--- NOTE | 2018-05-04 10:24 | PN ---
Progress Note (short form) - Note Progress Note: PULMONARY States she feels better. Denies shortness of breath. Occasional cough. Wants to go home. No fevers. Vital Signs Period Temp Pulse Resp BP Sys/Corado Pulse Ox Last 24 Hr 97.7 F-98.2 F 67-86 20-20 126-147/56-79 97 Gen: NAD at rest Heart: RRR, +systolic murmur Lung: decreased breath sounds at the bases Abd: soft, nontender Ext: no edema CBC, BMP 05/02/18 06:00 05/04/18 06:15 Active Medications Acetaminophen (Tylenol -) 650 mg PO Q4H PRN PRN Reason: FEVER >100F Last Admin: 05/02/18 22:27 Dose: 650 mg Albuterol Sulfate (Ventolin 0.083% Nebulizer Soln -) 1 amp NEB Q4H PRN PRN Reason: SHORT OF BREATH/WHEEZING Albuterol/Ipratropium (Duoneb -) 1 amp NEB RTID [facility] Last Admin: 05/03/18 20:49 Dose: 1 amp Allopurinol (Zyloprim -) 300 mg PO DAILY [facility] Last Admin: 05/04/18 09:50 Dose: 300 mg Bacitracin (Bacitracin -) 1 applic TP BID [facility] Docusate Sodium (Colace -) 100 mg PO BID [facility] Last Admin: 05/04/18 09:49 Dose: 100 mg Ferrous Sulfate (Feosol -) 325 mg PO DAILY [facility] Last Admin: 05/04/18 09:50 Dose: 325 mg Heparin Sodium (Porcine) (Heparin -) 5,000 unit SQ BID [facility] Last Admin: 05/04/18 09:48 Dose: 5,000 unit Azithromycin (Zithromax 500mg Ivpb (Pre-Docked)) 500 mg in 250 mls @ 250 mls/ hr IVPB DAILY [facility] Last Admin: 05/04/18 10:21 Dose: 250 mls/hr Piperacillin Sod/Tazobactam (Sod 2.25 gm/ Dextrose) 50 mls @ 100 mls/hr IVPB Q8H-IV [facility]; Protocol Last Admin: 05/04/18 09:46 Dose: 100 mls/hr Insulin Aspart (Novolog Vial Sliding Scale -) 1 vial SQ ACHS [facility]; Protocol Last Admin: 05/04/18 06:07 Dose: Not Given Isosorbide Mononitrate (Imdur -) 60 mg PO DAILY [facility] Last Admin: 05/04/18 09:50 Dose: 60 mg Memantine (Namenda -) 5 mg PO DAILY [facility] Last Admin: 05/04/18 09:49 Dose: 5 mg Nifedipine (Procardia Xl -) 30 mg PO DAILY [facility] Last Admin: 05/04/18 09:49 Dose: 30 mg Nystatin (Nystatin Oral Suspension -) 500,000 units PO Q6HPO [facility] Polyethylene Glycol (Miralax (For Daily Use) -) 17 gm PO HS PRN PRN Reason: CONSTIPATION Potassium Chloride (K-Dur -) 10 meq PO DAILY [facility] Last Admin: 05/04/18 09:50 Dose: 10 meq Propylthiouracil (Ptu -) 50 mg PO HS [facility] Last Admin: 05/03/18 21:44 Dose: 50 mg Ranitidine HCl (Zantac -) 150 mg PO DAILY [facility] Last Admin: 05/04/18 09:50 Dose: 150 mg Sertraline HCl 25 mg/ (Sertraline HCl 100 mg) 125 mg PO HS [facility] Last Admin: 05/03/18 21:44 Dose: 125 mg Spironolactone (Aldactone -) 25 mg PO DAILY [facility] Last Admin: 05/04/18 09:50 Dose: 25 mg A/P Pneumonia LV Diastolic Dysfunction CKD DM Anemia s/p PPM - complete antibiotics - inhaled bronchodilators as needed - O2 to keep SpO2 >90% - DVT prophylaxis
[2018-05-04] MEDS: BACITRACIN 15 GM TUBE TOPICAL OINTMENT TP SCH ×2 (11:51→23:27)
[2018-05-04] MEDS: NYSTATIN 500,000 UNITS/5 ML SUSPENSION PO SCH ×3 (11:52→23:54)
--- NOTE | 2018-05-04 12:25 | PN ---
Progress Note (short form) - Note Progress Note: s:no sob, cp, palps, dizziness Current Medications Acetaminophen (Tylenol -) 650 mg PO Q4H PRN PRN Reason: FEVER >100F Last Admin: 05/02/18 22:27 Dose: 650 mg Albuterol Sulfate (Ventolin 0.083% Nebulizer Soln -) 1 amp NEB Q4H PRN PRN Reason: SHORT OF BREATH/WHEEZING Albuterol/Ipratropium (Duoneb -) 1 amp NEB RTID [facility] Last Admin: 05/04/18 08:40 Dose: 1 amp Allopurinol (Zyloprim -) 300 mg PO DAILY [facility] Last Admin: 05/04/18 09:50 Dose: 300 mg Bacitracin (Bacitracin -) 1 applic TP BID [facility] Last Admin: 05/04/18 11:51 Dose: 1 applic Docusate Sodium (Colace -) 100 mg PO BID [facility] Last Admin: 05/04/18 09:49 Dose: 100 mg Ferrous Sulfate (Feosol -) 325 mg PO DAILY [facility] Last Admin: 05/04/18 09:50 Dose: 325 mg Heparin Sodium (Porcine) (Heparin -) 5,000 unit SQ BID [facility] Last Admin: 05/04/18 09:48 Dose: 5,000 unit Azithromycin (Zithromax 500mg Ivpb (Pre-Docked)) 500 mg in 250 mls @ 250 mls/ hr IVPB DAILY [facility] Last Admin: 05/04/18 10:21 Dose: 250 mls/hr Piperacillin Sod/Tazobactam (Sod 2.25 gm/ Dextrose) 50 mls @ 100 mls/hr IVPB Q8H-IV [facility]; Protocol Last Admin: 05/04/18 09:46 Dose: 100 mls/hr Insulin Aspart (Novolog Vial Sliding Scale -) 1 vial SQ ACHS [facility]; Protocol Last Admin: 05/04/18 11:51 Dose: 2 units Isosorbide Mononitrate (Imdur -) 60 mg PO DAILY [facility] Last Admin: 05/04/18 09:50 Dose: 60 mg Memantine (Namenda -) 5 mg PO DAILY [facility] Last Admin: 05/04/18 09:49 Dose: 5 mg Nifedipine (Procardia Xl -) 30 mg PO DAILY [facility] Last Admin: 05/04/18 09:49 Dose: 30 mg Nystatin (Nystatin Oral Suspension -) 500,000 units PO Q6HPO [facility] Last Admin: 05/04/18 11:52 Dose: 500,000 units Polyethylene Glycol (Miralax (For Daily Use) -) 17 gm PO HS PRN PRN Reason: CONSTIPATION Potassium Chloride (K-Dur -) 10 meq PO DAILY [facility] Last Admin: 05/04/18 09:50 Dose: 10 meq Propylthiouracil (Ptu -) 50 mg PO HS [facility] Last Admin: 05/03/18 21:44 Dose: 50 mg Ranitidine HCl (Zantac -) 150 mg PO DAILY [facility] Last Admin: 05/04/18 09:50 Dose: 150 mg Sertraline HCl 25 mg/ (Sertraline HCl 100 mg) 125 mg PO HS [facility] Last Admin: 05/03/18 21:44 Dose: 125 mg Spironolactone (Aldactone -) 25 mg PO DAILY [facility] Last Admin: 05/04/18 09:50 Dose: 25 mg - Objective Vital Signs: Vital Signs Period Temp Pulse Resp BP Sys/[place]ado Pulse Ox Last 24 Hr 97.7 F-98.2 F 67-86 20-20 126-147/56-79 97 Constitutional: Yes: Well Nourished, No Distress, Calm Cardiovascular: Yes: Regular Rate and Rhythm, S1, S2. No: Gallop, Murmur Respiratory: Yes: Regular, CTA Bilaterally (decr bases). No: Accessory Muscle Use, Rales, Wheezes Extremities: No: Cold Edema: No Neurological: Yes: Alert. No: Seizure Psychiatric: No: Agitated Assessment/Plan Echo 03/2017: nl lv size/fn. EF 55-60%. tds for wall motion. septal motion c/ w ppm. mild rve. nl rv fn. mod lae. 1+ sam. 1+ mac with mild functional ms ( 4 mmHg, 73 bpm). 1+ mr. mobile linear density that intermittently moves into lvot (no associated lvot obstruction). Density thought to be consistent with torn chordae. 1+ tr. 1+ phtn. 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, HTN, diastolic heart failure complicated by LE edema/ recurrent LE cellulitis, bradycardia/sss/4-sec pause s/p biotronik ppm 2017, COPD, CKD, iddm, dementia, nasal septal defect w/ recurrent epistaxis ( contraindication to AC), recurrent UTI, who p/w cough, sob PNA - tx per pulm, receiving abx LILLIE on CKD - Cr 2.9 on admission, likely 2/2 overdiuresis with recent increase in torsemide dose in pt on spironolactone as well - Cr improved after IVF - patient taking little PO, appears euvolemic, cont holding torsemide chronic diastolic HF - on torsemide at home, holding as above - appears euvolemic - monitor volume status clinically as doing CAD - hx of type II NSTEMI in past - trop negative, EKG stable. no suspected ischemic sx's - cont aspirin, statin, imdur HTN -BPs running 130s-150s presently -cont home imdur, spironolactone, nifedipine -observe s/p PPM - routine outpatient monitoring hx echodensity noted on mitral valve (03/2017 echo) - unclear etiology, ? torn calcified chord - deferred cath, SATHISH in the past to avoid invasive testing
--- NOTE | 2018-05-04 14:11 | PN ---
Progress Note, [employer] - Note Progress Note: Selected Entries 05/03/18 05/03/18 05/03/18 06:03 10:00 11:44 Breakfast 75% Lunch Supper Temperature 97.9 F 98.3 F 05/03/18 05/03/18 05/03/18 12:03 15:31 15:34 Breakfast 75% Lunch 75% 75% Supper Temperature 98.2 F 98.2 F 05/03/18 05/03/18 05/04/18 19:00 22:00 05:58 Breakfast Lunch Supper 50% Temperature 97.7 F 97.8 F 97.7 F 05/04/18 05/04/18 05/04/18 09:00 09:43 09:59 Breakfast 50% 50% Lunch Supper Temperature 98 F Laboratory Tests 05/02/18 06:00 WBC 5.6 Pt on Dys whole diet with chopped meat, alternate with sips of thin liquid to clear pharynx.No continuous drinking and avoid straw drinking. Chin tuck, swallow with effort twice per bite. Swallowing tx to continue at [facility].
--- NOTE | 2018-05-04 14:16 | PN ---
Progress Note, Physician History of Present Illness: Pt seen and examined at bedside. She feels well and had no complaints. She denies shortness of breath. - Current Medication List Current Medications: Active Medications Acetaminophen (Tylenol -) 650 mg PO Q4H PRN PRN Reason: FEVER >100F Last Admin: 05/02/18 22:27 Dose: 650 mg Albuterol Sulfate (Ventolin 0.083% Nebulizer Soln -) 1 amp NEB Q4H PRN PRN Reason: SHORT OF BREATH/WHEEZING Albuterol/Ipratropium (Duoneb -) 1 amp NEB RTID [facility] Last Admin: 05/04/18 08:40 Dose: 1 amp Allopurinol (Zyloprim -) 300 mg PO DAILY [facility] Last Admin: 05/04/18 09:50 Dose: 300 mg Bacitracin (Bacitracin -) 1 applic TP BID [facility] Last Admin: 05/04/18 11:51 Dose: 1 applic Docusate Sodium (Colace -) 100 mg PO BID [facility] Last Admin: 05/04/18 09:49 Dose: 100 mg Ferrous Sulfate (Feosol -) 325 mg PO DAILY [facility] Last Admin: 05/04/18 09:50 Dose: 325 mg Heparin Sodium (Porcine) (Heparin -) 5,000 unit SQ BID [facility] Last Admin: 05/04/18 09:48 Dose: 5,000 unit Azithromycin (Zithromax 500mg Ivpb (Pre-Docked)) 500 mg in 250 mls @ 250 mls/ hr IVPB DAILY [facility] Last Admin: 05/04/18 10:21 Dose: 250 mls/hr Piperacillin Sod/Tazobactam (Sod 2.25 gm/ Dextrose) 50 mls @ 100 mls/hr IVPB Q8H-IV [facility]; Protocol Last Admin: 05/04/18 09:46 Dose: 100 mls/hr Insulin Aspart (Novolog Vial Sliding Scale -) 1 vial SQ ACHS [facility]; Protocol Last Admin: 05/04/18 11:51 Dose: 2 units Isosorbide Mononitrate (Imdur -) 60 mg PO DAILY [facility] Last Admin: 05/04/18 09:50 Dose: 60 mg Memantine (Namenda -) 5 mg PO DAILY [facility] Last Admin: 05/04/18 09:49 Dose: 5 mg Nifedipine (Procardia Xl -) 30 mg PO DAILY [facility] Last Admin: 05/04/18 09:49 Dose: 30 mg Nystatin (Nystatin Oral Suspension -) 500,000 units PO Q6HPO [facility] Last Admin: 05/04/18 11:52 Dose: 500,000 units Polyethylene Glycol (Miralax (For Daily Use) -) 17 gm PO HS PRN PRN Reason: CONSTIPATION Potassium Chloride (K-Dur -) 10 meq PO DAILY [facility] Last Admin: 05/04/18 09:50 Dose: 10 meq Propylthiouracil (Ptu -) 50 mg PO HS [facility] Last Admin: 05/03/18 21:44 Dose: 50 mg Ranitidine HCl (Zantac -) 150 mg PO DAILY [facility] Last Admin: 05/04/18 09:50 Dose: 150 mg Sertraline HCl 25 mg/ (Sertraline HCl 100 mg) 125 mg PO HS [facility] Last Admin: 05/03/18 21:44 Dose: 125 mg Spironolactone (Aldactone -) 25 mg PO DAILY [facility] Last Admin: 05/04/18 09:50 Dose: 25 mg - Objective Vital Signs: Vital Signs Temperature 98 F 05/04/18 09:00 Pulse Rate 86 05/04/18 09:00 Respiratory Rate 20 05/04/18 09:00 Blood Pressure 141/65 05/04/18 09:00 O2 Sat by Pulse Oximetry (%) 99 05/04/18 09:00 Constitutional: Yes: Calm Eyes: Yes: Conjunctiva Clear HENT: Yes: Atraumatic Cardiovascular: Yes: S1, S2 Respiratory: Yes: CTA Bilaterally, On Nasal O2 Gastrointestinal: Yes: Soft Genitourinary: Yes: WNL Edema: LLE: Trace, RLE: Trace Neurological: Yes: Oriented Psychiatric: Yes: Oriented Labs: CBC, BMP 05/02/18 06:00 05/04/18 06:15 INR, PTT INR 1.19 (0.83-1.09) H 04/28/18 11:15 Problem List - Problems (1) CKD (chronic kidney disease) Code(s): N18.9 - CHRONIC KIDNEY DISEASE, UNSPECIFIED Qualifiers: Chronic kidney disease stage: unspecified stage Qualified Code(s): N18.9 - Chronic kidney disease, unspecified Assessment/Plan Current Medications Generic Name Dose Route Start Last Admin Trade Name Freq PRN Reason Stop Dose Admin Acetaminophen 650 mg 04/28/18 16:45 05/02/18 22:27 Tylenol - PO 650 mg Q4H PRN Administration FEVER >100F Albuterol Sulfate 1 amp 04/28/18 16:45 Ventolin 0.083% Nebulizer Soln - NEB Q4H PRN SHORT OF BREATH/WHEEZING Albuterol/Ipratropium 1 amp 04/28/18 20:00 05/04/18 08:40 Duoneb - NEB 1 amp RTID [facility] Administration Allopurinol 300 mg 04/29/18 10:00 05/04/18 09:50 Zyloprim - PO 300 mg DAILY [facility] Administration Bacitracin 1 applic 05/04/18 10:00 05/04/18 11:51 Bacitracin - TP 1 applic BID [facility] Administration Docusate Sodium 100 mg 04/28/18 22:00 05/04/18 09:49 Colace - PO 100 mg BID [facility] Administration Ferrous Sulfate 325 mg 04/29/18 10:00 05/04/18 09:50 Feosol - PO 325 mg DAILY [facility] Administration Heparin Sodium (Porcine) 5,000 unit 04/28/18 22:00 05/04/18 09:48 Heparin - SQ 5,000 unit BID [facility] Administration Azithromycin 500 mg in 250 mls @ 250 mls/hr 04/29/18 14:45 05/04/18 10:21 Zithromax 500mg Ivpb (Pre-Docked) IVPB 250 mls/hr DAILY [facility] Administration Piperacillin Sod/Tazobactam 50 mls @ 100 mls/hr 05/03/18 18:00 05/04/18 09:46 Sod 2.25 gm/ Dextrose IVPB 100 mls/hr Q8H-IV [facility] Administration Protocol Insulin Aspart 1 vial 04/28/18 22:00 05/04/18 11:51 Novolog Vial Sliding Scale - SQ 2 units ACHS [facility] Administration Protocol Isosorbide Mononitrate 60 mg 04/29/18 10:00 05/04/18 09:50 Imdur - PO 60 mg DAILY [facility] Administration Memantine 5 mg 04/29/18 10:00 05/04/18 09:49 Namenda - PO 5 mg DAILY [facility] Administration Nifedipine 30 mg 04/29/18 10:00 05/04/18 09:49 Procardia Xl - PO 30 mg DAILY [facility] Administration Nystatin 500,000 units 05/04/18 12:00 05/04/18 11:52 Nystatin Oral Suspension - PO 500,000 units Q6HPO [facility] Administration Polyethylene Glycol 17 gm 04/28/18 16:45 Miralax (For Daily Use) - PO HS PRN [facility] Potassium Chloride 10 meq 04/29/18 10:00 05/04/18 09:50 K-Dur - PO 10 meq DAILY [facility] Administration Propylthiouracil 50 mg 05/03/18 22:00 05/03/18 21:44 Ptu - PO 50 mg HS [facility] Administration Ranitidine HCl 150 mg 04/29/18 10:00 05/04/18 09:50 Zantac - PO 150 mg DAILY [facility] Administration Sertraline HCl 25 mg/ 125 mg 04/28/18 22:00 05/03/18 21:44 Sertraline HCl 100 mg PO 125 mg HS [facility] Administration Spironolactone 25 mg 04/29/18 10:00 05/04/18 09:50 Aldactone - PO 25 mg DAILY [facility] Administration Impression 1. CKD 2. cough 3. CHF 4. bradycardia 5. dementia 6. HTN 7. DM 8. anemia 9. LILLIE 10. pleural effusions Plan - restart torsemide in am - renal function stable - cont aldactone - monitor lytes - discussed with cardio - likely elevated squeegeer and former from over diuresis Dr Atkinson
[2018-05-04] MEDS ORDERED: SERTRALINE HCL 50 MG TABLET (FP) ONE (21:48)
[2018-05-04] MEDS ORDERED: SERTRALINE HCL 25 MG TABLET (FP) ONE (21:48)
[2018-05-04] MEDS: SERTRALINE HCL PO SCH (23:28)
[2018-05-04] MEDS: PROPYLTHIOURACIL 50 MG TABLET (UD) PO SCH (23:28)
[2018-05-05] MEDS ORDERED: DEXTROSE 5%-WATER - 50 ML IVPB ONE ×4 (01:09→21:04)
[2018-05-05] MEDS ORDERED: PIPERACILLIN/TAZOBACTAM 2.25 GM VIAL IVPB ONE ×4 (01:09→21:04)
[2018-05-05] MEDS: PIPERACILLIN/TAZOB 2.25 GM 2.25 GM in DEXTROSE 5%-WATER - 50 ML IVPB SCH ×3 (02:34→17:26)
[2018-05-05] MEDS: INSULIN SLIDING SCALE (NOVOLOG) 1 VIAL SQ SCH ×4 (06:02→21:28)
[2018-05-05] MEDS: NYSTATIN 500,000 UNITS/5 ML SUSPENSION PO SCH ×3 (06:02→17:26)
[2018-05-05 06:25] LABS: BASO % 0.8 % (0-2.0); EOS % 2.5 % (0-4.5); HEMATOCRIT 24.9 % (32.4-45.2); HEMOGLOBIN 8.2 GM/dL (10.7-15.3); LYMPH % 8.8 % (8-40); MCH 33.7 pg (25.7-33.7); MCHC 33.1 g/dl (32.0-36.0); MEAN CELL VOLUME 101.8 fl (80-96); MEAN PLT VOLUME 9.1 fl (7.5-11.1); MONO % 5.1 % (3.8-10.2); NEUT % 82.8 % (42.8-82.8); PLATELET COUNT 177 K/MM3 (134-434); RBC 2.45 M/mm3 (3.60-5.2); RDW 14.6 % (11.6-15.6); WHITE BLOOD COUNT 6.2 K/mm3 (4.0-10.0)
[2018-05-05 06:43] LABS: ANION GAP 6 MMOL/L (8-16); BLOOD UREA NITROGEN 83 mg/dL (7-18); CHLORIDE 114 mmol/L (98-107); CO2 25 mmol/L (21-32); CREATININE 2.2 mg/dL (0.55-1.3); GLUCOSE,RANDOM 140 mg/dL (74-106); POTASSIUM 4.6 mmol/L (3.5-5.1); SODIUM 145 mmol/L (136-145)
--- NOTE | 2018-05-05 06:58 | PN ---
Progress Note, Physician Chief Complaint: no cough afebrile awake alert c/o buttock pain d/w nurse to turn in bed frequently for decubs PFX if any skin breakdown to use bacitracin bid no other c/o; d/w renal will start po torsemide low dose and observe; if stable DC to [place] in am CRF anemia: procrit sq; anemia w/u as outpt; labs f/u, [facility] evals? can be done outpt per PCP in [place] - Current Medication List Current Medications: Active Medications Acetaminophen (Tylenol -) 650 mg PO Q4H PRN PRN Reason: FEVER >100F Last Admin: 05/02/18 22:27 Dose: 650 mg Albuterol Sulfate (Ventolin 0.083% Nebulizer Soln -) 1 amp NEB Q4H PRN PRN Reason: SHORT OF BREATH/WHEEZING Albuterol/Ipratropium (Duoneb -) 1 amp NEB RTID REPLACED BY [facility] Last Admin: 05/04/18 20:55 Dose: 1 amp Allopurinol (Zyloprim -) 300 mg PO DAILY REPLACED BY [facility] Last Admin: 05/04/18 09:50 Dose: 300 mg Bacitracin (Bacitracin -) 1 applic TP BID REPLACED BY [facility] Last Admin: 05/04/18 23:27 Dose: 1 applic Docusate Sodium (Colace -) 100 mg PO BID REPLACED BY [facility] Last Admin: 05/04/18 23:28 Dose: 100 mg Ferrous Sulfate (Feosol -) 325 mg PO DAILY REPLACED BY [facility] Last Admin: 05/04/18 09:50 Dose: 325 mg Heparin Sodium (Porcine) (Heparin -) 5,000 unit SQ BID REPLACED BY [facility] Last Admin: 05/04/18 23:28 Dose: 5,000 unit Piperacillin Sod/Tazobactam (Sod 2.25 gm/ Dextrose) 50 mls @ 100 mls/hr IVPB Q8H-IV REPLACED BY [facility]; Protocol Last Admin: 05/05/18 02:34 Dose: 100 mls/hr Insulin Aspart (Novolog Vial Sliding Scale -) 1 vial SQ ACHS REPLACED BY [facility]; Protocol Last Admin: 05/05/18 06:02 Dose: Not Given Isosorbide Mononitrate (Imdur -) 60 mg PO DAILY REPLACED BY [facility] Last Admin: 05/04/18 09:50 Dose: 60 mg Memantine (Namenda -) 5 mg PO DAILY REPLACED BY [facility] Last Admin: 05/04/18 09:49 Dose: 5 mg Nifedipine (Procardia Xl -) 30 mg PO DAILY REPLACED BY [facility] Last Admin: 05/04/18 09:49 Dose: 30 mg Nystatin (Nystatin Oral Suspension -) 500,000 units PO Q6HPO REPLACED BY [facility] Last Admin: 05/05/18 06:02 Dose: Not Given Polyethylene Glycol (Miralax (For Daily Use) -) 17 gm PO HS PRN PRN Reason: CONSTIPATION Potassium Chloride (K-Dur -) 10 meq PO DAILY REPLACED BY [facility] Last Admin: 05/04/18 09:50 Dose: 10 meq Propylthiouracil (Ptu -) 50 mg PO HS REPLACED BY [facility] Last Admin: 05/04/18 23:28 Dose: 50 mg Ranitidine HCl (Zantac -) 150 mg PO DAILY REPLACED BY [facility] Last Admin: 05/04/18 09:50 Dose: 150 mg Sertraline HCl 25 mg/ (Sertraline HCl 100 mg) 125 mg PO HS REPLACED BY [facility] Last Admin: 05/04/18 23:28 Dose: 125 mg Spironolactone (Aldactone -) 25 mg PO DAILY REPLACED BY [facility] Last Admin: 05/04/18 09:50 Dose: 25 mg Torsemide (Demadex -) 40 mg PO DAILY REPLACED BY [facility] - Objective Vital Signs: Vital Signs Temperature 98.1 F 05/05/18 05:36 Pulse Rate 79 05/05/18 05:36 Respiratory Rate 20 05/05/18 05:36 Blood Pressure 143/64 05/05/18 05:36 O2 Sat by Pulse Oximetry (%) 98 05/04/18 21:00 Constitutional: Yes: Calm Eyes: Yes: Conjunctiva Clear HENT: Yes: Atraumatic Neck: Yes: Supple Cardiovascular: Yes: Regular Rate and Rhythm Respiratory: Yes: CTA Bilaterally Gastrointestinal: Yes: Soft. No: Tenderness Genitourinary: No: CVA Tenderness - Left, CVA Tenderness - Right Musculoskeletal: No: Joint Stiffness, Joint Swelling Extremities: No: Cold, Cool, Cyanosis Edema: No Integumentary: No: Rash, Venous Stasis Changes Neurological: Yes: Alert ...Motor Strength: WNL Psychiatric: Yes: Alert. No: Oriented, Agitated Labs: CBC, BMP 05/05/18 06:00 05/05/18 06:00 INR, PTT INR 1.19 (0.83-1.09) H 04/28/18 11:15 - ....Imaging Other: Report Reviewed Assessment/Plan Pt is a 77 YOF resident of [facility] , ASHD CHF CRF OA DJD, anemia, who developed cough in [place] tx with po Azithromycin; CXR c/w vascular congestion vs infiltrates at bases; tx with Levaquin and her Torsemide but not better still coughing, SOB and low appetite; admitted with PNA, bilateral; r/o aspiration seen by ARF/CRF per renal restarted torsemide PT rehab IV ATB per ID; pulm swallow eval HOB; DVT aspiration decubs and falls PFX f/u labs d/w pt and staff; DNR DNI
[2018-05-05] MEDS: ALBUTEROL SO4 2.5/IPRATROPIUM 0.5 INH SOL 3 ML VIAL.NEB. NEB SCH ×3 (08:10→21:32)
[2018-05-05] MEDS: TORSEMIDE 20 MG TABLET (FP) PO SCH (10:34)
[2018-05-05] MEDS: FERROUS SO4 325 MG TABLET (FP) PO SCH (10:34)
[2018-05-05] MEDS: RANITIDINE HCL 150 MG TABLET (FP) PO SCH (10:34)
[2018-05-05] MEDS: ALLOPURINOL 300 MG TABLET (FP) PO SCH (10:34)
[2018-05-05] MEDS: ISOSORBIDE MONONITRATE 60 MG TAB.SR.24H (FP) PO SCH (10:34)
[2018-05-05] MEDS: NIFEdipine E.R. 30 MG TABLET (FP) PO SCH (10:34)
[2018-05-05] MEDS: POTASSIUM CHLORIDE TABS 10 MEQ TABLET.ER (FP) PO SCH (10:34)
[2018-05-05] MEDS: SPIRONOLACTONE 25 MG TABLET (FP) PO SCH (10:34)
[2018-05-05] MEDS: MEMANTINE HCL 5 MG TABLET (UD) PO SCH (10:34)
[2018-05-05] MEDS: BACITRACIN 15 GM TUBE TOPICAL OINTMENT TP SCH ×2 (10:35→21:19)
[2018-05-05] MEDS: DOCUSATE SODIUM 100 MG CAPSULE (FP) PO SCH ×2 (10:35→21:19)
[2018-05-05] MEDS: HEPARIN NA (PORCINE) 5,000 UNITS/ML 1ML VIAL SQ SCH ×2 (10:36→21:19)
--- NOTE | 2018-05-05 11:39 | PN ---
Progress Note (short form) - Note Progress Note: s:no sob, cp, palps, dizziness Current Medications Acetaminophen (Tylenol -) 650 mg PO Q4H PRN PRN Reason: FEVER >100F Last Admin: 05/02/18 22:27 Dose: 650 mg Albuterol Sulfate (Ventolin 0.083% Nebulizer Soln -) 1 amp NEB Q4H PRN PRN Reason: SHORT OF BREATH/WHEEZING Albuterol/Ipratropium (Duoneb -) 1 amp NEB RTID [facility] Last Admin: 05/05/18 08:10 Dose: 1 amp Allopurinol (Zyloprim -) 300 mg PO DAILY [facility] Last Admin: 05/05/18 10:34 Dose: 300 mg Bacitracin (Bacitracin -) 1 applic TP BID [facility] Last Admin: 05/05/18 10:35 Dose: 1 applic Docusate Sodium (Colace -) 100 mg PO BID [facility] Last Admin: 05/05/18 10:35 Dose: 100 mg Ferrous Sulfate (Feosol -) 325 mg PO DAILY [facility] Last Admin: 05/05/18 10:34 Dose: 325 mg Heparin Sodium (Porcine) (Heparin -) 5,000 unit SQ BID [facility] Last Admin: 05/05/18 10:36 Dose: 5,000 unit Piperacillin Sod/Tazobactam (Sod 2.25 gm/ Dextrose) 50 mls @ 100 mls/hr IVPB Q8H-IV [facility]; Protocol Last Admin: 05/05/18 10:33 Dose: 100 mls/hr Insulin Aspart (Novolog Vial Sliding Scale -) 1 vial SQ ACHS [facility]; Protocol Last Admin: 05/05/18 06:02 Dose: Not Given Isosorbide Mononitrate (Imdur -) 60 mg PO DAILY [facility] Last Admin: 05/05/18 10:34 Dose: 60 mg Memantine (Namenda -) 5 mg PO DAILY [facility] Last Admin: 05/05/18 10:34 Dose: 5 mg Nifedipine (Procardia Xl -) 30 mg PO DAILY [facility] Last Admin: 05/05/18 10:34 Dose: 30 mg Nystatin (Nystatin Oral Suspension -) 500,000 units PO Q6HPO [facility] Last Admin: 05/05/18 06:02 Dose: Not Given Polyethylene Glycol (Miralax (For Daily Use) -) 17 gm PO HS PRN PRN Reason: CONSTIPATION Potassium Chloride (K-Dur -) 10 meq PO DAILY [facility] Last Admin: 05/05/18 10:34 Dose: 10 meq Propylthiouracil (Ptu -) 50 mg PO HS [facility] Last Admin: 05/04/18 23:28 Dose: 50 mg Ranitidine HCl (Zantac -) 150 mg PO DAILY [facility] Last Admin: 05/05/18 10:34 Dose: 150 mg Sertraline HCl 25 mg/ (Sertraline HCl 100 mg) 125 mg PO HS [facility] Last Admin: 05/04/18 23:28 Dose: 125 mg Spironolactone (Aldactone -) 25 mg PO DAILY [facility] Last Admin: 05/05/18 10:34 Dose: 25 mg Torsemide (Demadex -) 40 mg PO DAILY [facility] Last Admin: 05/05/18 10:34 Dose: 40 mg - Objective Vital Signs: Vital Signs Period Temp Pulse Resp BP Sys/[place] Pulse Ox Last 24 Hr 97.7 F-98.3 F 62-91 20-20 128-147/64-77 98 Constitutional: Yes: Well Nourished, No Distress, Calm Cardiovascular: Yes: Regular Rate and Rhythm, S1, S2. No: Gallop, Murmur Respiratory: Yes: Regular, CTA Bilaterally (decr bases). No: Accessory Muscle Use, Rales, Wheezes Extremities: No: Cold Edema: No Neurological: Yes: Alert. No: Seizure Psychiatric: No: Agitated Assessment/Plan Echo 03/2017: nl lv size/fn. EF 55-60%. tds for wall motion. septal motion c/ w ppm. mild rve. nl rv fn. mod lae. 1+ sam. 1+ mac with mild functional ms ( 4 mmHg, 73 bpm). 1+ mr. mobile linear density that intermittently moves into lvot (no associated lvot obstruction). Density thought to be consistent with torn chordae. 1+ tr. 1+ phtn. 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, HTN, diastolic heart failure complicated by LE edema/ recurrent LE cellulitis, bradycardia/sss/4-sec pause s/p biotronik ppm 2016, COPD, CKD, iddm, dementia, nasal septal defect w/ recurrent epistaxis ( contraindication to AC), recurrent UTI, who p/w cough, sob PNA - tx per pulm, receiving abx LILLIE on CKD - Cr 2.9 on admission, likely 2/2 overdiuresis with recent increase in torsemide dose in pt on spironolactone as well - Cr improved after IVF - patient taking little PO, appears euvolemic, torsemide restarted today chronic diastolic HF - restarted home torsemide at reduced dose - 40 mg daily - appears euvolemic - monitor volume status clinically as doing CAD - hx of type II NSTEMI in past - trop negative, EKG stable. no suspected ischemic sx's - cont aspirin, statin, imdur HTN -BPs running 130s-150s presently -cont home imdur, spironolactone, nifedipine -observe s/p PPM - routine outpatient monitoring hx echodensity noted on mitral valve (03/2017 echo) - unclear etiology, ? torn calcified chord - deferred cath, SATHISH in the past to avoid invasive testing
[2018-05-05] MEDS ORDERED: EPOETIN ALFA 10,000 UNIT/1 ML VIAL SQ ONE (12:00)
[2018-05-05] MEDS ORDERED: INSULIN (NOVOLOG) ASPART 100 UNITS/ML 10ML VIAL ONE ×2 (12:08→22:05)
--- NOTE | 2018-05-05 13:59 | PN ---
Progress Note, Physician History of Present Illness: Pt seen and examined at bedside. She is awake and alert. She denies shortness of breath. - Current Medication List Current Medications: Active Medications Acetaminophen (Tylenol -) 650 mg PO Q4H PRN PRN Reason: FEVER >100F Last Admin: 05/02/18 22:27 Dose: 650 mg Albuterol Sulfate (Ventolin 0.083% Nebulizer Soln -) 1 amp NEB Q4H PRN PRN Reason: SHORT OF BREATH/WHEEZING Albuterol/Ipratropium (Duoneb -) 1 amp NEB RTID [facility] Last Admin: 05/05/18 08:10 Dose: 1 amp Allopurinol (Zyloprim -) 300 mg PO DAILY [facility] Last Admin: 05/05/18 10:34 Dose: 300 mg Bacitracin (Bacitracin -) 1 applic TP BID [facility] Last Admin: 05/05/18 10:35 Dose: 1 applic Docusate Sodium (Colace -) 100 mg PO BID [facility] Last Admin: 05/05/18 10:35 Dose: 100 mg Ferrous Sulfate (Feosol -) 325 mg PO DAILY [facility] Last Admin: 05/05/18 10:34 Dose: 325 mg Heparin Sodium (Porcine) (Heparin -) 5,000 unit SQ BID [facility] Last Admin: 05/05/18 10:36 Dose: 5,000 unit Piperacillin Sod/Tazobactam (Sod 2.25 gm/ Dextrose) 50 mls @ 100 mls/hr IVPB Q8H-IV [facility]; Protocol Last Admin: 05/05/18 10:33 Dose: 100 mls/hr Insulin Aspart (Novolog Vial Sliding Scale -) 1 vial SQ ACHS [facility]; Protocol Last Admin: 05/05/18 12:11 Dose: 2 units Isosorbide Mononitrate (Imdur -) 60 mg PO DAILY [facility] Last Admin: 05/05/18 10:34 Dose: 60 mg Memantine (Namenda -) 5 mg PO DAILY [facility] Last Admin: 05/05/18 10:34 Dose: 5 mg Nifedipine (Procardia Xl -) 30 mg PO DAILY [facility] Last Admin: 05/05/18 10:34 Dose: 30 mg Nystatin (Nystatin Oral Suspension -) 500,000 units PO Q6HPO [facility] Last Admin: 05/05/18 12:11 Dose: 500,000 units Polyethylene Glycol (Miralax (For Daily Use) -) 17 gm PO HS PRN PRN Reason: CONSTIPATION Potassium Chloride (K-Dur -) 10 meq PO DAILY [facility] Last Admin: 05/05/18 10:34 Dose: 10 meq Propylthiouracil (Ptu -) 50 mg PO HS [facility] Last Admin: 05/04/18 23:28 Dose: 50 mg Ranitidine HCl (Zantac -) 150 mg PO DAILY [facility] Last Admin: 05/05/18 10:34 Dose: 150 mg Sertraline HCl 25 mg/ (Sertraline HCl 100 mg) 125 mg PO HS [facility] Last Admin: 05/04/18 23:28 Dose: 125 mg Spironolactone (Aldactone -) 25 mg PO DAILY [facility] Last Admin: 05/05/18 10:34 Dose: 25 mg Torsemide (Demadex -) 40 mg PO DAILY [facility] Last Admin: 05/05/18 10:34 Dose: 40 mg - Objective Vital Signs: Vital Signs Temperature 97.4 F L 05/05/18 10:00 Pulse Rate 83 05/05/18 10:00 Respiratory Rate 20 05/05/18 10:00 Blood Pressure 160/74 05/05/18 10:00 O2 Sat by Pulse Oximetry (%) 98 05/04/18 21:00 Constitutional: Yes: Calm Eyes: Yes: Conjunctiva Clear HENT: Yes: Atraumatic Neck: Yes: Supple Cardiovascular: Yes: S1, S2 Respiratory: Yes: On Nasal O2 Gastrointestinal: Yes: Soft Genitourinary: Yes: WNL Musculoskeletal: Yes: WNL Edema: Yes Edema: LLE: Trace, RLE: Trace Neurological: Yes: Oriented Psychiatric: Yes: Oriented Labs: CBC, BMP 05/05/18 06:00 05/05/18 06:00 INR, PTT INR 1.19 (0.83-1.09) H 04/28/18 11:15 Problem List - Problems (1) CKD (chronic kidney disease) Code(s): N18.9 - CHRONIC KIDNEY DISEASE, UNSPECIFIED Qualifiers: Qualified Code(s): N18.9 - Chronic kidney disease, unspecified Assessment/Plan Current Medications Generic Name Dose Route Start Last Admin Trade Name Freq PRN Reason Stop Dose Admin Acetaminophen 650 mg 04/28/18 16:45 05/02/18 22:27 Tylenol - PO 650 mg Q4H PRN Administration FEVER >100F Albuterol Sulfate 1 amp 04/28/18 16:45 Ventolin 0.083% Nebulizer Soln - NEB Q4H PRN SHORT OF BREATH/WHEEZING Albuterol/Ipratropium 1 amp 04/28/18 20:00 05/05/18 08:10 Duoneb - NEB 1 amp RTID [facility] Administration Allopurinol 300 mg 04/29/18 10:00 05/05/18 10:34 Zyloprim - PO 300 mg DAILY [facility] Administration Bacitracin 1 applic 05/04/18 10:00 05/05/18 10:35 Bacitracin - TP 1 applic BID [facility] Administration Docusate Sodium 100 mg 04/28/18 22:00 05/05/18 10:35 Colace - PO 100 mg BID [facility] Administration Ferrous Sulfate 325 mg 04/29/18 10:00 05/05/18 10:34 Feosol - PO 325 mg DAILY [facility] Administration Heparin Sodium (Porcine) 5,000 unit 04/28/18 22:00 05/05/18 10:36 Heparin - SQ 5,000 unit BID [facility] Administration Piperacillin Sod/Tazobactam 50 mls @ 100 mls/hr 05/03/18 18:00 05/05/18 10:33 Sod 2.25 gm/ Dextrose IVPB 100 mls/hr Q8H-IV [facility] Administration Protocol Insulin Aspart 1 vial 04/28/18 22:00 05/05/18 12:11 Novolog Vial Sliding Scale - SQ 2 units ACHS [facility] Administration Protocol Isosorbide Mononitrate 60 mg 04/29/18 10:00 05/05/18 10:34 Imdur - PO 60 mg DAILY [facility] Administration Memantine 5 mg 04/29/18 10:00 05/05/18 10:34 Namenda - PO 5 mg DAILY [facility] Administration Nifedipine 30 mg 04/29/18 10:00 05/05/18 10:34 Procardia Xl - PO 30 mg DAILY [facility] Administration Nystatin 500,000 units 05/04/18 12:00 05/05/18 12:11 Nystatin Oral Suspension - PO 500,000 units Q6HPO [facility] Administration Polyethylene Glycol 17 gm 04/28/18 16:45 Miralax (For Daily Use) - PO HS PRN CONSTIPATION Potassium Chloride 10 meq 04/29/18 10:00 05/05/18 10:34 K-Dur - PO 10 meq DAILY [facility] Administration Propylthiouracil 50 mg 05/03/18 22:00 05/04/18 23:28 Ptu - PO 50 mg HS [facility] Administration Ranitidine HCl 150 mg 04/29/18 10:00 05/05/18 10:34 Zantac - PO 150 mg DAILY [facility] Administration Sertraline HCl 25 mg/ 125 mg 04/28/18 22:00 05/04/18 23:28 Sertraline HCl 100 mg PO 125 mg HS [facility] Administration Spironolactone 25 mg 04/29/18 10:00 05/05/18 10:34 Aldactone - PO 25 mg DAILY [facility] Administration Torsemide 40 mg 05/05/18 10:00 05/05/18 10:34 Demadex - PO 40 mg DAILY [facility] Administration Impression 1. CKD 2. cough 3. CHF 4. bradycardia 5. dementia 6. HTN 7. DM 8. anemia 9. LILLIE 10. pleural effusions Plan - torsemide restarted today - monitor lytes - gave a dose of procrit today - monitor hg - will follow with Dr Vazquez as outpt Dr Atkinson
--- NOTE | 2018-05-05 14:00 | PN ---
Progress Note, Physician History of Present Illness: PULMONARY ALERT,NO DISTRESS,FEELING BETTER - Current Medication List Current Medications: Active Medications Acetaminophen (Tylenol -) 650 mg PO Q4H PRN PRN Reason: FEVER >100F Last Admin: 05/02/18 22:27 Dose: 650 mg Albuterol Sulfate (Ventolin 0.083% Nebulizer Soln -) 1 amp NEB Q4H PRN PRN Reason: SHORT OF BREATH/WHEEZING Albuterol/Ipratropium (Duoneb -) 1 amp NEB RTID [facility] Last Admin: 05/05/18 08:10 Dose: 1 amp Allopurinol (Zyloprim -) 300 mg PO DAILY [facility] Last Admin: 05/05/18 10:34 Dose: 300 mg Bacitracin (Bacitracin -) 1 applic TP BID [facility] Last Admin: 05/05/18 10:35 Dose: 1 applic Docusate Sodium (Colace -) 100 mg PO BID [facility] Last Admin: 05/05/18 10:35 Dose: 100 mg Ferrous Sulfate (Feosol -) 325 mg PO DAILY [facility] Last Admin: 05/05/18 10:34 Dose: 325 mg Heparin Sodium (Porcine) (Heparin -) 5,000 unit SQ BID [facility] Last Admin: 05/05/18 10:36 Dose: 5,000 unit Piperacillin Sod/Tazobactam (Sod 2.25 gm/ Dextrose) 50 mls @ 100 mls/hr IVPB Q8H-IV [facility]; Protocol Last Admin: 05/05/18 10:33 Dose: 100 mls/hr Insulin Aspart (Novolog Vial Sliding Scale -) 1 vial SQ ACHS [facility]; Protocol Last Admin: 05/05/18 12:11 Dose: 2 units Isosorbide Mononitrate (Imdur -) 60 mg PO DAILY [facility] Last Admin: 05/05/18 10:34 Dose: 60 mg Memantine (Namenda -) 5 mg PO DAILY [facility] Last Admin: 05/05/18 10:34 Dose: 5 mg Nifedipine (Procardia Xl -) 30 mg PO DAILY [facility] Last Admin: 05/05/18 10:34 Dose: 30 mg Nystatin (Nystatin Oral Suspension -) 500,000 units PO Q6HPO [facility] Last Admin: 05/05/18 12:11 Dose: 500,000 units Polyethylene Glycol (Miralax (For Daily Use) -) 17 gm PO HS PRN PRN Reason: CONSTIPATION Potassium Chloride (K-Dur -) 10 meq PO DAILY [facility] Last Admin: 05/05/18 10:34 Dose: 10 meq Propylthiouracil (Ptu -) 50 mg PO HS [facility] Last Admin: 05/04/18 23:28 Dose: 50 mg Ranitidine HCl (Zantac -) 150 mg PO DAILY [facility] Last Admin: 05/05/18 10:34 Dose: 150 mg Sertraline HCl 25 mg/ (Sertraline HCl 100 mg) 125 mg PO HS [facility] Last Admin: 05/04/18 23:28 Dose: 125 mg Spironolactone (Aldactone -) 25 mg PO DAILY [facility] Last Admin: 05/05/18 10:34 Dose: 25 mg Torsemide (Demadex -) 40 mg PO DAILY [facility] Last Admin: 05/05/18 10:34 Dose: 40 mg - Objective Vital Signs: Vital Signs Temperature 97.4 F L 05/05/18 10:00 Pulse Rate 83 05/05/18 10:00 Respiratory Rate 20 05/05/18 10:00 Blood Pressure 160/74 05/05/18 10:00 O2 Sat by Pulse Oximetry (%) 98 05/04/18 21:00 Constitutional: Yes: Well Nourished, Calm Eyes: Yes: WNL HENT: Yes: WNL Neck: Yes: WNL Cardiovascular: Yes: Regular Rate and Rhythm, S1, S2 Respiratory: Yes: Rhonchi (FEW SCATTERED RHONCHI) Gastrointestinal: Yes: Normal Bowel Sounds, Soft Extremities: Yes: WNL Edema: No Labs: CBC, BMP 05/05/18 06:00 05/05/18 06:00 INR, PTT INR 1.19 (0.83-1.09) H 04/28/18 11:15 Problem List - Problems (1) CKD (chronic kidney disease) Code(s): N18.9 - CHRONIC KIDNEY DISEASE, UNSPECIFIED (2) Anemia Code(s): D64.9 - ANEMIA, UNSPECIFIED (3) CHF (congestive heart failure) Code(s): I50.9 - HEART FAILURE, UNSPECIFIED (4) CKD (chronic kidney disease) Code(s): N18.9 - CHRONIC KIDNEY DISEASE, UNSPECIFIED Qualifiers: Chronic kidney disease stage: unspecified stage Qualified Code(s): N18.9 - Chronic kidney disease, unspecified (5) COPD exacerbation Code(s): J44.1 - CHRONIC OBSTRUCTIVE PULMONARY DISEASE W (ACUTE) EXACERBATION (6) Dementia Code(s): F03.90 - UNSPECIFIED DEMENTIA WITHOUT BEHAVIORAL DISTURBANCE (7) Diabetes mellitus Code(s): E11.9 - TYPE 2 DIABETES MELLITUS WITHOUT COMPLICATIONS (8) Hiatal hernia with GERD Code(s): K21.9 - GASTRO-ESOPHAGEAL REFLUX DISEASE WITHOUT ESOPHAGITIS; K44.9 - DIAPHRAGMATIC HERNIA WITHOUT OBSTRUCTION OR GANGRENE (9) Pneumonia Code(s): J18.9 - PNEUMONIA, UNSPECIFIED ORGANISM Assessment/Plan IMP PNEUMONIA DIASTOLIC HF SSS S/P PPM DM CKD STAGE 4 H/O HYPERTHYROIDISM S/P PTU H/O MELANOMA S/P EXCISION GERD DM ANEMIA PLAN CONTINUE ABX PER ID O2 INHALED BRONCHODILATORS MONITOR LYTES,RENAL FUNCTION MONITOR H+H ANTI-TUSSIVES Problem List - Problems (1) CKD (chronic kidney disease) Code(s): N18.9 - CHRONIC KIDNEY DISEASE, UNSPECIFIED (2) Anemia Code(s): D64.9 - ANEMIA, UNSPECIFIED (3) CHF (congestive heart failure) Code(s): I50.9 - HEART FAILURE, UNSPECIFIED (4) CKD (chronic kidney disease) Code(s): N18.9 - CHRONIC KIDNEY DISEASE, UNSPECIFIED Qualifiers: Chronic kidney disease stage: unspecified stage Qualified Code(s): N18.9 - Chronic kidney disease, unspecified (5) COPD exacerbation Code(s): J44.1 - CHRONIC OBSTRUCTIVE PULMONARY DISEASE W (ACUTE) EXACERBATION (6) Dementia Code(s): F03.90 - UNSPECIFIED DEMENTIA WITHOUT BEHAVIORAL DISTURBANCE (7) Diabetes mellitus Code(s): E11.9 - TYPE 2 DIABETES MELLITUS WITHOUT COMPLICATIONS (8) Hiatal hernia with GERD Code(s): K21.9 - GASTRO-ESOPHAGEAL REFLUX DISEASE WITHOUT ESOPHAGITIS; K44.9 - DIAPHRAGMATIC HERNIA WITHOUT OBSTRUCTION OR GANGRENE (9) Pneumonia Code(s): J18.9 - PNEUMONIA, UNSPECIFIED ORGANISM
[2018-05-05] MEDS ORDERED: SERTRALINE HCL 25 MG TABLET (FP) ONE (21:03)
[2018-05-05] MEDS ORDERED: SERTRALINE HCL 50 MG TABLET (FP) ONE (21:03)
[2018-05-05] MEDS ORDERED: PT OWN MED DRAWER 7, Y5N ONE (21:10)
[2018-05-05] MEDS: SERTRALINE HCL PO SCH (21:18)
[2018-05-05] MEDS: PROPYLTHIOURACIL 50 MG TABLET (UD) PO SCH (21:19)
[2018-05-05] MEDS ORDERED: INSULIN (LEVEMIR) 100 UNITS/ML UNITS SQ ONE (22:04)
[2018-05-06] MEDS: NYSTATIN 500,000 UNITS/5 ML SUSPENSION PO SCH ×4 (01:21→17:26)
[2018-05-06] MEDS: ACETAMINOPHEN 325 MG TABLET (FP) PO PRN (01:21)
[2018-05-06] MEDS: PIPERACILLIN/TAZOB 2.25 GM 2.25 GM in DEXTROSE 5%-WATER - 50 ML IVPB SCH ×3 (01:22→17:26)
[2018-05-06 04:18] LABS: SERUM IRON SATURATION 28 % (15-55); TOTAL IRON BINDING CAPACITY 149 ug/dL (250-450); UIBC 107 ug/dL (118-369)
[2018-05-06] MEDS: INSULIN SLIDING SCALE (NOVOLOG) 1 VIAL SQ SCH ×4 (06:20→21:42)
[2018-05-06] MEDS: ALBUTEROL SO4 2.5/IPRATROPIUM 0.5 INH SOL 3 ML VIAL.NEB. NEB SCH ×3 (07:15→20:24)
--- NOTE | 2018-05-06 08:52 | PN ---
Progress Note, Physician Chief Complaint: awake alert NAD no new c/o consults noted IV zosyn per ID - Current Medication List Current Medications: Active Medications Acetaminophen (Tylenol -) 650 mg PO Q4H PRN PRN Reason: FEVER >100F Last Admin: 05/06/18 01:21 Dose: 650 mg Albuterol Sulfate (Ventolin 0.083% Nebulizer Soln -) 1 amp NEB Q4H PRN PRN Reason: SHORT OF BREATH/WHEEZING Albuterol/Ipratropium (Duoneb -) 1 amp NEB RTID [facility] Last Admin: 05/06/18 07:15 Dose: 1 amp Allopurinol (Zyloprim -) 300 mg PO DAILY [facility] Last Admin: 05/05/18 10:34 Dose: 300 mg Bacitracin (Bacitracin -) 1 applic TP BID [facility] Last Admin: 05/05/18 21:19 Dose: 1 applic Docusate Sodium (Colace -) 100 mg PO BID [facility] Last Admin: 05/05/18 21:19 Dose: 100 mg Ferrous Sulfate (Feosol -) 325 mg PO DAILY [facility] Last Admin: 05/05/18 10:34 Dose: 325 mg Heparin Sodium (Porcine) (Heparin -) 5,000 unit SQ BID [facility] Last Admin: 05/05/18 21:19 Dose: 5,000 unit Piperacillin Sod/Tazobactam (Sod 2.25 gm/ Dextrose) 50 mls @ 100 mls/hr IVPB Q8H-IV [facility]; Protocol Last Admin: 05/06/18 01:22 Dose: 100 mls/hr Insulin Aspart (Novolog Vial Sliding Scale -) 1 vial SQ ACHS [facility]; Protocol Last Admin: 05/06/18 06:20 Dose: Not Given Isosorbide Mononitrate (Imdur -) 60 mg PO DAILY [facility] Last Admin: 05/05/18 10:34 Dose: 60 mg Memantine (Namenda -) 5 mg PO DAILY [facility] Last Admin: 05/05/18 10:34 Dose: 5 mg Nifedipine (Procardia Xl -) 30 mg PO DAILY [facility] Last Admin: 05/05/18 10:34 Dose: 30 mg Nystatin (Nystatin Oral Suspension -) 500,000 units PO Q6HPO [facility] Last Admin: 05/06/18 05:42 Dose: 500,000 units Polyethylene Glycol (Miralax (For Daily Use) -) 17 gm PO HS PRN PRN Reason: CONSTIPATION Potassium Chloride (K-Dur -) 10 meq PO DAILY [facility] Last Admin: 05/05/18 10:34 Dose: 10 meq Propylthiouracil (Ptu -) 50 mg PO HS [facility] Last Admin: 05/05/18 21:19 Dose: 50 mg Ranitidine HCl (Zantac -) 150 mg PO DAILY [facility] Last Admin: 05/05/18 10:34 Dose: 150 mg Sertraline HCl 25 mg/ (Sertraline HCl 100 mg) 125 mg PO HS [facility] Last Admin: 05/05/18 21:18 Dose: 125 mg Spironolactone (Aldactone -) 25 mg PO DAILY [facility] Last Admin: 05/05/18 10:34 Dose: 25 mg Torsemide (Demadex -) 40 mg PO DAILY [facility] Last Admin: 05/05/18 10:34 Dose: 40 mg - Objective Vital Signs: Vital Signs Temperature 97.7 F 05/06/18 05:55 Pulse Rate 81 05/06/18 05:55 Respiratory Rate 20 05/06/18 05:55 Blood Pressure 140/68 05/06/18 05:55 O2 Sat by Pulse Oximetry (%) 97 05/05/18 21:00 Constitutional: Yes: No Distress, Calm Eyes: Yes: Conjunctiva Clear HENT: Yes: Atraumatic Neck: Yes: Supple Cardiovascular: Yes: Regular Rate and Rhythm Respiratory: Yes: Diminished Gastrointestinal: Yes: Soft. No: Tenderness Genitourinary: No: Hematuria Musculoskeletal: No: Joint Stiffness, Joint Swelling Extremities: No: Cold, Cool, Cyanosis Edema: No Integumentary: No: Rash, Venous Stasis Changes Neurological: Yes: Alert ...Motor Strength: WNL Psychiatric: Yes: Alert. No: Agitated, Suicidal Ideation Labs: CBC, BMP 05/05/18 06:00 05/05/18 06:00 INR, PTT INR 1.19 (0.83-1.09) H 04/28/18 11:15 - ....Imaging Other: Report Reviewed Assessment/Plan Pt is a 77 YOF resident of [facility] , ASHD CHF CRF OA DJD, anemia, dementia admitted with PNA, bilateral; ARF/CRF per renal restarted torsemide PT rehab IV ATB per ID; pulm swallow f/u HOB; DVT aspiration decubs and falls PFX f/u labs d/w pt and staff; DNR DNI
[2018-05-06] MEDS ORDERED: DEXTROSE 5%-WATER - 50 ML IVPB ONE ×3 (09:43→21:03)
[2018-05-06] MEDS ORDERED: PIPERACILLIN/TAZOBACTAM 2.25 GM VIAL IVPB ONE ×3 (09:43→21:03)
[2018-05-06] MEDS: NIFEdipine E.R. 30 MG TABLET (FP) PO SCH (09:52)
[2018-05-06] MEDS: SPIRONOLACTONE 25 MG TABLET (FP) PO SCH (09:52)
[2018-05-06] MEDS: DOCUSATE SODIUM 100 MG CAPSULE (FP) PO SCH ×2 (09:53→21:37)
[2018-05-06] MEDS: ISOSORBIDE MONONITRATE 60 MG TAB.SR.24H (FP) PO SCH (09:53)
[2018-05-06] MEDS: POTASSIUM CHLORIDE TABS 10 MEQ TABLET.ER (FP) PO SCH (09:53)
[2018-05-06] MEDS: RANITIDINE HCL 150 MG TABLET (FP) PO SCH (09:53)
[2018-05-06] MEDS: TORSEMIDE 20 MG TABLET (FP) PO SCH (09:53)
[2018-05-06] MEDS: MEMANTINE HCL 5 MG TABLET (UD) PO SCH (09:54)
[2018-05-06] MEDS: ALLOPURINOL 300 MG TABLET (FP) PO SCH (09:54)
[2018-05-06] MEDS: FERROUS SO4 325 MG TABLET (FP) PO SCH (09:54)
[2018-05-06] MEDS: HEPARIN NA (PORCINE) 5,000 UNITS/ML 1ML VIAL SQ SCH ×2 (09:55→21:37)
[2018-05-06] MEDS: BACITRACIN 15 GM TUBE TOPICAL OINTMENT TP SCH ×2 (09:57→21:38)
--- NOTE | 2018-05-06 10:51 | PN ---
Progress Note (short form) - Note Progress Note: PULMONARY Denies shortness of breath. Denies cough, fevers or chills. Vital Signs Period Temp Pulse Resp BP Sys/[place]ado Pulse Ox Last 24 Hr 97.7 F-98.3 F 71-86 20-20 118-146/63-86 97 Gen: NAD at rest Heart: RRR, +systolic murmur Lung: decreased breath sounds at the bases Abd: soft, nontender Ext: no edema CBC, BMP 05/05/18 06:00 05/05/18 06:00 Active Medications Acetaminophen (Tylenol -) 650 mg PO Q4H PRN PRN Reason: FEVER >100F Last Admin: 05/06/18 01:21 Dose: 650 mg Albuterol Sulfate (Ventolin 0.083% Nebulizer Soln -) 1 amp NEB Q4H PRN PRN Reason: SHORT OF BREATH/WHEEZING Albuterol/Ipratropium (Duoneb -) 1 amp NEB RTID [facility] Last Admin: 05/06/18 07:15 Dose: 1 amp Allopurinol (Zyloprim -) 300 mg PO DAILY [facility] Last Admin: 05/06/18 09:54 Dose: 300 mg Bacitracin (Bacitracin -) 1 applic TP BID [facility] Last Admin: 05/06/18 09:57 Dose: 1 applic Docusate Sodium (Colace -) 100 mg PO BID [facility] Last Admin: 05/06/18 09:53 Dose: 100 mg Ferrous Sulfate (Feosol -) 325 mg PO DAILY [facility] Last Admin: 05/06/18 09:54 Dose: 325 mg Heparin Sodium (Porcine) (Heparin -) 5,000 unit SQ BID [facility] Last Admin: 05/06/18 09:55 Dose: 5,000 unit Piperacillin Sod/Tazobactam (Sod 2.25 gm/ Dextrose) 50 mls @ 100 mls/hr IVPB Q8H-IV [facility]; Protocol Last Admin: 05/06/18 09:54 Dose: 100 mls/hr Insulin Aspart (Novolog Vial Sliding Scale -) 1 vial SQ ACHS [facility]; Protocol Last Admin: 05/06/18 06:20 Dose: Not Given Isosorbide Mononitrate (Imdur -) 60 mg PO DAILY [facility] Last Admin: 05/06/18 09:53 Dose: 60 mg Memantine (Namenda -) 5 mg PO DAILY [facility] Last Admin: 05/06/18 09:54 Dose: 5 mg Nifedipine (Procardia Xl -) 30 mg PO DAILY [facility] Last Admin: 05/06/18 09:52 Dose: 30 mg Nystatin (Nystatin Oral Suspension -) 500,000 units PO Q6HPO [facility] Last Admin: 05/06/18 05:42 Dose: 500,000 units Polyethylene Glycol (Miralax (For Daily Use) -) 17 gm PO HS PRN PRN Reason: CONSTIPATION Potassium Chloride (K-Dur -) 10 meq PO DAILY [facility] Last Admin: 05/06/18 09:53 Dose: 10 meq Propylthiouracil (Ptu -) 50 mg PO HS [facility] Last Admin: 05/05/18 21:19 Dose: 50 mg Ranitidine HCl (Zantac -) 150 mg PO DAILY [facility] Last Admin: 05/06/18 09:53 Dose: 150 mg Sertraline HCl 25 mg/ (Sertraline HCl 100 mg) 125 mg PO HS [facility] Last Admin: 05/05/18 21:18 Dose: 125 mg Spironolactone (Aldactone -) 25 mg PO DAILY [facility] Last Admin: 05/06/18 09:52 Dose: 25 mg Torsemide (Demadex -) 40 mg PO DAILY [facility] Last Admin: 05/06/18 09:53 Dose: 40 mg A/P Pneumonia LV Diastolic Dysfunction CKD DM Anemia s/p PPM - complete antibiotics - inhaled bronchodilators as needed - O2 to keep SpO2 >90% - DVT prophylaxis
[2018-05-06] MEDS ORDERED: PT OWN MED DRAWER 7, Y5N ONE ×2 (12:01→12:03)
--- NOTE | 2018-05-06 12:42 | PN ---
Progress Note (short form) - Note Progress Note: s: no chest pain, palps, dizziness, edema Vital Signs Period Temp Pulse Resp BP Sys/[place] Pulse Ox Last 24 Hr 97.7 F-98.3 F 71-86 20-20 118-146/63-86 97 NAD, calm no JVD, neck supple RRR nl s1, s2. 2/6 sys murmur at sternal border precordium hyperdynamic bibasilar rales. nl eff trace le edema. no cyanosis/clubbing + venous stasis changes + bs soft nt nd no jaundice or diaphoresis. alert and oriented to place Current Medications Generic Name Dose Route Start Last Admin Trade Name Freq PRN Reason Stop Dose Admin Acetaminophen 650 mg 04/28/18 16:45 05/06/18 01:21 Tylenol - PO 650 mg Q4H PRN Administration FEVER >100F Albuterol Sulfate 1 amp 04/28/18 16:45 Ventolin 0.083% Nebulizer Soln - NEB Q4H PRN SHORT OF BREATH/WHEEZING Albuterol/Ipratropium 1 amp 04/28/18 20:00 05/06/18 07:15 Duoneb - NEB 1 amp RTID [facility] Administration Allopurinol 300 mg 04/29/18 10:00 05/06/18 09:54 Zyloprim - PO 300 mg DAILY [facility] Administration Bacitracin 1 applic 05/04/18 10:00 05/06/18 09:57 Bacitracin - TP 1 applic BID [facility] Administration Docusate Sodium 100 mg 04/28/18 22:00 05/06/18 09:53 Colace - PO 100 mg BID [facility] Administration Ferrous Sulfate 325 mg 04/29/18 10:00 05/06/18 09:54 Feosol - PO 325 mg DAILY [facility] Administration Heparin Sodium (Porcine) 5,000 unit 04/28/18 22:00 05/06/18 09:55 Heparin - SQ 5,000 unit BID [facility] Administration Piperacillin Sod/Tazobactam 50 mls @ 100 mls/hr 05/03/18 18:00 05/06/18 09:54 Sod 2.25 gm/ Dextrose IVPB 100 mls/hr Q8H-IV [facility] Administration Protocol Insulin Aspart 1 vial 04/28/18 22:00 05/06/18 12:10 Novolog Vial Sliding Scale - SQ 4 units ACHS [facility] Administration Protocol Isosorbide Mononitrate 60 mg 04/29/18 10:00 05/06/18 09:53 Imdur - PO 60 mg DAILY [facility] Administration Memantine 5 mg 04/29/18 10:00 05/06/18 09:54 Namenda - PO 5 mg DAILY [facility] Administration Nifedipine 30 mg 04/29/18 10:00 05/06/18 09:52 Procardia Xl - PO 30 mg DAILY [facility] Administration Nystatin 500,000 units 05/04/18 12:00 05/06/18 12:14 Nystatin Oral Suspension - PO 500,000 units Q6HPO [facility] Administration Polyethylene Glycol 17 gm 04/28/18 16:45 Miralax (For Daily Use) - PO HS PRN CONSTIPATION Potassium Chloride 10 meq 04/29/18 10:00 05/06/18 09:53 K-Dur - PO 10 meq DAILY [facility] Administration Propylthiouracil 50 mg 05/03/18 22:00 05/05/18 21:19 Ptu - PO 50 mg HS [facility] Administration Ranitidine HCl 150 mg 04/29/18 10:00 05/06/18 09:53 Zantac - PO 150 mg DAILY [facility] Administration Sertraline HCl 25 mg/ 125 mg 04/28/18 22:00 05/05/18 21:18 Sertraline HCl 100 mg PO 125 mg HS [facility] Administration Spironolactone 25 mg 04/29/18 10:00 05/06/18 09:52 Aldactone - PO 25 mg DAILY [facility] Administration Torsemide 40 mg 05/05/18 10:00 05/06/18 09:53 Demadex - PO 40 mg DAILY [facility] Administration CBC, BMP 05/05/18 06:00 05/05/18 06:00 echo 03/2017: nl lv size/fn. EF 55-60%. tds for wall motion. septal motion c/ w ppm. mild rve. nl rv fn. mod lae. 1+ sam. 1+ mac with mild functional ms ( 4 mmHg, 73 bpm). 1+ mr. mobile linear density that intermittently moves into lvot (no associated lvot obstruction). Density thought to be consistent with torn chordae. 1+ tr. 1+ phtn. 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, HTN, diastolic heart failure complicated by LE edema/ recurrent LE cellulitis, bradycardia/sss/4-sec pause s/p biotronik ppm 2017, COPD, CKD, iddm, dementia, nasal septal defect w/ recurrent epistaxis ( contraindication to AC), recurrent UTI, who p/w cough, sob PNA - tx per pulm, receiving abx LILLIE on CKD - Cr 2.9 on admission, likely 2/2 overdiuresis with recent increase in torsemide dose in pt on spironolactone as well - Cr improved after IVF - patient taking little PO, appears euvolemic, torsemide restarted chronic diastolic HF - restarted home torsemide at reduced dose - 40 mg daily - appears euvolemic - monitor volume status clinically as doing CAD - hx of type II NSTEMI in past - trop negative, EKG stable. no suspected ischemic sx's - cont aspirin, statin, imdur HTN -BPs running 130s-150s presently -cont home imdur, spironolactone, nifedipine -observe s/p PPM - routine outpatient monitoring hx echodensity noted on mitral valve (03/2017 echo) - unclear etiology, ? torn calcified chord - deferred cath, SATHISH in the past to avoid invasive testing
--- NOTE | 2018-05-06 12:59 | PN ---
Progress Note, Physician History of Present Illness: Pt seen and examined at bedside. She is awake and alert. She denies shortness of breath. - Current Medication List Current Medications: Active Medications Acetaminophen (Tylenol -) 650 mg PO Q4H PRN PRN Reason: FEVER >100F Last Admin: 05/06/18 01:21 Dose: 650 mg Albuterol Sulfate (Ventolin 0.083% Nebulizer Soln -) 1 amp NEB Q4H PRN PRN Reason: SHORT OF BREATH/WHEEZING Albuterol/Ipratropium (Duoneb -) 1 amp NEB RTID [facility] Last Admin: 05/06/18 07:15 Dose: 1 amp Allopurinol (Zyloprim -) 300 mg PO DAILY [facility] Last Admin: 05/06/18 09:54 Dose: 300 mg Bacitracin (Bacitracin -) 1 applic TP BID [facility] Last Admin: 05/06/18 09:57 Dose: 1 applic Docusate Sodium (Colace -) 100 mg PO BID [facility] Last Admin: 05/06/18 09:53 Dose: 100 mg Ferrous Sulfate (Feosol -) 325 mg PO DAILY [facility] Last Admin: 05/06/18 09:54 Dose: 325 mg Heparin Sodium (Porcine) (Heparin -) 5,000 unit SQ BID [facility] Last Admin: 05/06/18 09:55 Dose: 5,000 unit Piperacillin Sod/Tazobactam (Sod 2.25 gm/ Dextrose) 50 mls @ 100 mls/hr IVPB Q8H-IV [facility]; Protocol Last Admin: 05/06/18 09:54 Dose: 100 mls/hr Insulin Aspart (Novolog Vial Sliding Scale -) 1 vial SQ ACHS [facility]; Protocol Last Admin: 05/06/18 12:10 Dose: 4 units Isosorbide Mononitrate (Imdur -) 60 mg PO DAILY [facility] Last Admin: 05/06/18 09:53 Dose: 60 mg Memantine (Namenda -) 5 mg PO DAILY [facility] Last Admin: 05/06/18 09:54 Dose: 5 mg Nifedipine (Procardia Xl -) 30 mg PO DAILY [facility] Last Admin: 05/06/18 09:52 Dose: 30 mg Nystatin (Nystatin Oral Suspension -) 500,000 units PO Q6HPO [facility] Last Admin: 05/06/18 12:14 Dose: 500,000 units Polyethylene Glycol (Miralax (For Daily Use) -) 17 gm PO HS PRN PRN Reason: CONSTIPATION Potassium Chloride (K-Dur -) 10 meq PO DAILY [facility] Last Admin: 05/06/18 09:53 Dose: 10 meq Propylthiouracil (Ptu -) 50 mg PO HS [facility] Last Admin: 05/05/18 21:19 Dose: 50 mg Ranitidine HCl (Zantac -) 150 mg PO DAILY [facility] Last Admin: 05/06/18 09:53 Dose: 150 mg Sertraline HCl 25 mg/ (Sertraline HCl 100 mg) 125 mg PO HS [facility] Last Admin: 05/05/18 21:18 Dose: 125 mg Spironolactone (Aldactone -) 25 mg PO DAILY [facility] Last Admin: 05/06/18 09:52 Dose: 25 mg Torsemide (Demadex -) 40 mg PO DAILY [facility] Last Admin: 05/06/18 09:53 Dose: 40 mg - Objective Vital Signs: Vital Signs Temperature 98.0 F 05/06/18 09:47 Pulse Rate 86 05/06/18 09:47 Respiratory Rate 20 05/06/18 09:47 Blood Pressure 139/68 05/06/18 09:47 O2 Sat by Pulse Oximetry (%) 97 05/05/18 21:00 Constitutional: Yes: Calm Eyes: Yes: Conjunctiva Clear HENT: Yes: Atraumatic Neck: Yes: Supple Cardiovascular: Yes: S1, S2 Respiratory: Yes: CTA Bilaterally Gastrointestinal: Yes: WNL, Normal Bowel Sounds Musculoskeletal: Yes: WNL Edema: LLE: Trace, RLE: Trace Neurological: Yes: Oriented Psychiatric: Yes: Oriented Labs: CBC, BMP 05/05/18 06:00 05/05/18 06:00 INR, PTT INR 1.19 (0.83-1.09) H 04/28/18 11:15 Problem List - Problems (1) CKD (chronic kidney disease) Code(s): N18.9 - CHRONIC KIDNEY DISEASE, UNSPECIFIED Qualifiers: Chronic kidney disease stage: unspecified stage Qualified Code(s): N18.9 - Chronic kidney disease, unspecified Assessment/Plan Current Medications Generic Name Dose Route Start Last Admin Trade Name Freq PRN Reason Stop Dose Admin Acetaminophen 650 mg 04/28/18 16:45 05/06/18 01:21 Tylenol - PO 650 mg Q4H PRN Administration FEVER >100F Albuterol Sulfate 1 amp 04/28/18 16:45 Ventolin 0.083% Nebulizer Soln - NEB Q4H PRN SHORT OF BREATH/WHEEZING Albuterol/Ipratropium 1 amp 04/28/18 20:00 05/06/18 07:15 Duoneb - NEB 1 amp RTID [facility] Administration Allopurinol 300 mg 04/29/18 10:00 05/06/18 09:54 Zyloprim - PO 300 mg DAILY [facility] Administration Bacitracin 1 applic 05/04/18 10:00 05/06/18 09:57 Bacitracin - TP 1 applic BID [facility] Administration Docusate Sodium 100 mg 04/28/18 22:00 05/06/18 09:53 Colace - PO 100 mg BID [facility] Administration Ferrous Sulfate 325 mg 04/29/18 10:00 05/06/18 09:54 Feosol - PO 325 mg DAILY [facility] Administration Heparin Sodium (Porcine) 5,000 unit 04/28/18 22:00 05/06/18 09:55 Heparin - SQ 5,000 unit BID [facility] Administration Piperacillin Sod/Tazobactam 50 mls @ 100 mls/hr 05/03/18 18:00 05/06/18 09:54 Sod 2.25 gm/ Dextrose IVPB 100 mls/hr Q8H-IV [facility] Administration Protocol Insulin Aspart 1 vial 04/28/18 22:00 05/06/18 12:10 Novolog Vial Sliding Scale - SQ 4 units ACHS [facility] Administration Protocol Isosorbide Mononitrate 60 mg 04/29/18 10:00 05/06/18 09:53 Imdur - PO 60 mg DAILY [facility] Administration Memantine 5 mg 04/29/18 10:00 05/06/18 09:54 Namenda - PO 5 mg DAILY [facility] Administration Nifedipine 30 mg 04/29/18 10:00 05/06/18 09:52 Procardia Xl - PO 30 mg DAILY [facility] Administration Nystatin 500,000 units 05/04/18 12:00 05/06/18 12:14 Nystatin Oral Suspension - PO 500,000 units Q6HPO [facility] Administration Polyethylene Glycol 17 gm 04/28/18 16:45 Miralax (For Daily Use) - PO HS PRN CONSTIPATION Potassium Chloride 10 meq 04/29/18 10:00 05/06/18 09:53 K-Dur - PO 10 meq DAILY [facility] Administration Propylthiouracil 50 mg 05/03/18 22:00 05/05/18 21:19 Ptu - PO 50 mg HS [facility] Administration Ranitidine HCl 150 mg 04/29/18 10:00 05/06/18 09:53 Zantac - PO 150 mg DAILY [facility] Administration Sertraline HCl 25 mg/ 125 mg 04/28/18 22:00 05/05/18 21:18 Sertraline HCl 100 mg PO 125 mg HS [facility] Administration Spironolactone 25 mg 04/29/18 10:00 05/06/18 09:52 Aldactone - PO 25 mg DAILY [facility] Administration Torsemide 40 mg 05/05/18 10:00 05/06/18 09:53 Demadex - PO 40 mg DAILY [facility] Administration Impression 1. CKD 2. cough 3. CHF 4. bradycardia 5. dementia 6. HTN 7. DM 8. anemia 9. LILLIE 10. pleural effusions Plan - cont diuretics - monitor bmp - procrit for anemia - monitor hg - will follow with Dr Vazquez as outpt Dr Atkinson
--- NOTE | 2018-05-06 15:39 | PN ---
Progress Note, CLIENT CARE MANAGER - Note Progress Note: Selected Entries 05/03/18 05/03/18 05/03/18 06:03 10:00 11:44 Breakfast 75% Lunch Supper Temperature 97.9 F 98.3 F 05/03/18 05/03/18 05/03/18 12:03 15:31 15:34 Breakfast 75% Lunch 75% 75% Supper Temperature 98.2 F 98.2 F 05/03/18 05/03/18 05/04/18 19:00 22:00 05:58 Breakfast Lunch Supper 50% Temperature 97.7 F 97.8 F 97.7 F 05/04/18 05/04/18 05/04/18 09:00 09:43 09:59 Breakfast 50% 50% Lunch Supper Temperature 98 F Laboratory Tests 05/02/18 06:00 WBC 5.6 Selected Entries 05/06/18 05/06/18 05/06/18 05:55 09:47 09:50 Breakfast 75% Lunch Temperature 97.7 F 98.0 F 05/06/18 13:48 Breakfast Lunch 75% Temperature 98.5 F Laboratory Tests 05/05/18 06:00 WBC 6.2 Pt on Dys whole diet with chopped meat, alternate with sips of thin liquid to clear pharynx.No continuous drinking and avoid straw drinking. Chin tuck, swallow with effort twice per bite. Pending d/c back to [facility]. Swallowing tx to continue at [facility].
--- NOTE | 2018-05-06 16:15 | PN ---
Progress Note, Physician History of Present Illness: OOB IN CHAIR NO COMPLAINTS BREATHING NON-LABORED AFEBRILE WBC WNL - Current Medication List Current Medications: Active Medications Acetaminophen (Tylenol -) 650 mg PO Q4H PRN PRN Reason: FEVER >100F Last Admin: 05/06/18 01:21 Dose: 650 mg Albuterol Sulfate (Ventolin 0.083% Nebulizer Soln -) 1 amp NEB Q4H PRN PRN Reason: SHORT OF BREATH/WHEEZING Albuterol/Ipratropium (Duoneb -) 1 amp NEB RTID [facility] Last Admin: 05/06/18 13:58 Dose: 1 amp Allopurinol (Zyloprim -) 300 mg PO DAILY [facility] Last Admin: 05/06/18 09:54 Dose: 300 mg Bacitracin (Bacitracin -) 1 applic TP BID [facility] Last Admin: 05/06/18 09:57 Dose: 1 applic Docusate Sodium (Colace -) 100 mg PO BID [facility] Last Admin: 05/06/18 09:53 Dose: 100 mg Ferrous Sulfate (Feosol -) 325 mg PO DAILY [facility] Last Admin: 05/06/18 09:54 Dose: 325 mg Heparin Sodium (Porcine) (Heparin -) 5,000 unit SQ BID [facility] Last Admin: 05/06/18 09:55 Dose: 5,000 unit Piperacillin Sod/Tazobactam (Sod 2.25 gm/ Dextrose) 50 mls @ 100 mls/hr IVPB Q8H-IV [facility]; Protocol Last Admin: 05/06/18 09:54 Dose: 100 mls/hr Insulin Aspart (Novolog Vial Sliding Scale -) 1 vial SQ ACHS [facility]; Protocol Last Admin: 05/06/18 12:10 Dose: 4 units Isosorbide Mononitrate (Imdur -) 60 mg PO DAILY [facility] Last Admin: 05/06/18 09:53 Dose: 60 mg Memantine (Namenda -) 5 mg PO DAILY [facility] Last Admin: 05/06/18 09:54 Dose: 5 mg Nifedipine (Procardia Xl -) 30 mg PO DAILY [facility] Last Admin: 05/06/18 09:52 Dose: 30 mg Nystatin (Nystatin Oral Suspension -) 500,000 units PO Q6HPO [facility] Last Admin: 05/06/18 12:14 Dose: 500,000 units Polyethylene Glycol (Miralax (For Daily Use) -) 17 gm PO HS PRN PRN Reason: CONSTIPATION Potassium Chloride (K-Dur -) 10 meq PO DAILY [facility] Last Admin: 05/06/18 09:53 Dose: 10 meq Propylthiouracil (Ptu -) 50 mg PO HS [facility] Last Admin: 05/05/18 21:19 Dose: 50 mg Ranitidine HCl (Zantac -) 150 mg PO DAILY [facility] Last Admin: 05/06/18 09:53 Dose: 150 mg Sertraline HCl 25 mg/ (Sertraline HCl 100 mg) 125 mg PO HS [facility] Last Admin: 05/05/18 21:18 Dose: 125 mg Spironolactone (Aldactone -) 25 mg PO DAILY [facility] Last Admin: 05/06/18 09:52 Dose: 25 mg Torsemide (Demadex -) 40 mg PO DAILY [facility] Last Admin: 05/06/18 09:53 Dose: 40 mg - Objective Vital Signs: Vital Signs Temperature 98.5 F 05/06/18 13:48 Pulse Rate 77 05/06/18 13:48 Respiratory Rate 20 05/06/18 13:48 Blood Pressure 149/99 05/06/18 13:48 O2 Sat by Pulse Oximetry (%) 91 L 05/06/18 09:00 Constitutional: Yes: No Distress Eyes: Yes: Conjunctiva Clear Cardiovascular: Yes: Regular Rate and Rhythm, S1, S2 Respiratory: Yes: Regular, CTA Bilaterally Gastrointestinal: Yes: Normal Bowel Sounds, Soft. No: Tenderness Edema: Yes Labs: CBC, BMP 05/05/18 06:00 05/05/18 06:00 INR, PTT INR 1.19 (0.83-1.09) H 04/28/18 11:15 Assessment/Plan PNEUMONIA AZOTEMIA MRSA COLONIZATION CONTINUE ZOSYN
[2018-05-06] MEDS ORDERED: SERTRALINE HCL 25 MG TABLET (FP) ONE (21:02)
[2018-05-06] MEDS ORDERED: SERTRALINE HCL 50 MG TABLET (FP) ONE (21:02)
[2018-05-06] MEDS: PROPYLTHIOURACIL 50 MG TABLET (UD) PO SCH (21:37)
[2018-05-06] MEDS: SERTRALINE HCL PO SCH (21:37)
[2018-05-07] MEDS: NYSTATIN 500,000 UNITS/5 ML SUSPENSION PO SCH ×5 (01:08→23:22)
[2018-05-07] MEDS: PIPERACILLIN/TAZOB 2.25 GM 2.25 GM in DEXTROSE 5%-WATER - 50 ML IVPB SCH ×3 (01:08→17:23)
[2018-05-07] MEDS: INSULIN SLIDING SCALE (NOVOLOG) 1 VIAL SQ SCH ×4 (06:20→22:41)
[2018-05-07] MEDS: ALBUTEROL SO4 2.5/IPRATROPIUM 0.5 INH SOL 3 ML VIAL.NEB. NEB SCH ×3 (08:15→21:14)
--- NOTE | 2018-05-07 08:30 | PN ---
Progress Note, Physician Chief Complaint: awake alert NAD VSS afebrile less cough on IV ATB per ID to d/w ID if OK to switch to po ATB and DC to NH - Current Medication List Current Medications: Active Medications Acetaminophen (Tylenol -) 650 mg PO Q4H PRN PRN Reason: FEVER >100F Last Admin: 05/06/18 01:21 Dose: 650 mg Albuterol Sulfate (Ventolin 0.083% Nebulizer Soln -) 1 amp NEB Q4H PRN PRN Reason: SHORT OF BREATH/WHEEZING Albuterol/Ipratropium (Duoneb -) 1 amp NEB RTID [facility] Last Admin: 05/07/18 08:15 Dose: 1 amp Allopurinol (Zyloprim -) 300 mg PO DAILY [facility] Last Admin: 05/06/18 09:54 Dose: 300 mg Bacitracin (Bacitracin -) 1 applic TP BID [facility] Last Admin: 05/06/18 21:38 Dose: 1 applic Docusate Sodium (Colace -) 100 mg PO BID [facility] Last Admin: 05/06/18 21:37 Dose: 100 mg Ferrous Sulfate (Feosol -) 325 mg PO DAILY [facility] Last Admin: 05/06/18 09:54 Dose: 325 mg Heparin Sodium (Porcine) (Heparin -) 5,000 unit SQ BID [facility] Last Admin: 05/06/18 21:37 Dose: 5,000 unit Piperacillin Sod/Tazobactam (Sod 2.25 gm/ Dextrose) 50 mls @ 100 mls/hr IVPB Q8H-IV [facility]; Protocol Last Admin: 05/07/18 01:08 Dose: 100 mls/hr Insulin Aspart (Novolog Vial Sliding Scale -) 1 vial SQ ACHS [facility]; Protocol Last Admin: 05/07/18 06:20 Dose: 2 units Isosorbide Mononitrate (Imdur -) 60 mg PO DAILY [facility] Last Admin: 05/06/18 09:53 Dose: 60 mg Memantine (Namenda -) 5 mg PO DAILY [facility] Last Admin: 05/06/18 09:54 Dose: 5 mg Nifedipine (Procardia Xl -) 30 mg PO DAILY [facility] Last Admin: 05/06/18 09:52 Dose: 30 mg Nystatin (Nystatin Oral Suspension -) 500,000 units PO Q6HPO [facility] Last Admin: 05/07/18 05:46 Dose: 500,000 units Polyethylene Glycol (Miralax (For Daily Use) -) 17 gm PO HS PRN PRN Reason: CONSTIPATION Potassium Chloride (K-Dur -) 10 meq PO DAILY [facility] Last Admin: 05/06/18 09:53 Dose: 10 meq Propylthiouracil (Ptu -) 50 mg PO HS [facility] Last Admin: 05/06/18 21:37 Dose: 50 mg Ranitidine HCl (Zantac -) 150 mg PO DAILY [facility] Last Admin: 05/06/18 09:53 Dose: 150 mg Sertraline HCl 25 mg/ (Sertraline HCl 100 mg) 125 mg PO HS [facility] Last Admin: 05/06/18 21:37 Dose: 125 mg Spironolactone (Aldactone -) 25 mg PO DAILY [facility] Last Admin: 05/06/18 09:52 Dose: 25 mg Torsemide (Demadex -) 40 mg PO DAILY [facility] Last Admin: 05/06/18 09:53 Dose: 40 mg - Objective Vital Signs: Vital Signs Temperature 97.5 F L 05/07/18 06:18 Pulse Rate 79 05/07/18 06:18 Respiratory Rate 20 05/07/18 06:18 Blood Pressure 157/73 05/07/18 06:18 O2 Sat by Pulse Oximetry (%) 95 05/06/18 21:00 Constitutional: Yes: No Distress, Calm Eyes: Yes: Conjunctiva Clear HENT: Yes: Atraumatic Neck: Yes: Supple Cardiovascular: Yes: Regular Rate and Rhythm Respiratory: Yes: CTA Bilaterally Gastrointestinal: Yes: Soft. No: Tenderness Musculoskeletal: No: Joint Stiffness, Joint Swelling Extremities: No: Cold, Cool, Cyanosis Edema: No Integumentary: No: Rash, Venous Stasis Changes Neurological: Yes: WNL, Alert ...Motor Strength: WNL Psychiatric: Yes: WNL, Alert, Suicidal Ideation. No: Agitated Labs: CBC, BMP 05/05/18 06:00 05/05/18 06:00 INR, PTT INR 1.19 (0.83-1.09) H 04/28/18 11:15 - ....Imaging Other: Report Reviewed Assessment/Plan Pt is a 77 YOF resident of [facility] , ASHD CHF CRF OA DJD, anemia, dementia admitted with PNA, bilateral; ARF/CRF per renal restarted torsemide PT rehab IV ATB per ID; pulm switch to po ATB if OK with ID and DC back to SNF f/u as instructed swallow f/u HOB; DVT aspiration decubs and falls PFX f/u labs d/w pt and staff; DNR DNI
[2018-05-07 10:34] LABS: BASO % 0.7 % (0-2.0); EOS % 2.4 % (0-4.5); HEMATOCRIT 27.2 % (32.4-45.2); LYMPH % 7.6 % (8-40); MCH 34.2 pg (25.7-33.7); MCHC 33.1 g/dl (32.0-36.0); MEAN CELL VOLUME 103.3 fl (80-96); MEAN PLT VOLUME 9.5 fl (7.5-11.1); NEUT % 84.3 % (42.8-82.8); PLATELET COUNT 204 K/MM3 (134-434); RBC 2.63 M/mm3 (3.60-5.2); RDW 15.6 % (11.6-15.6)
[2018-05-07 10:52] LABS: ALBUMIN 2.8 g/dl (3.4-5.0); ALK PHOS 75 U/L (45-117); ANION GAP 6 MMOL/L (8-16); BILIRUBIN,TOTAL 0.3 mg/dL (0.2-1); BLOOD UREA NITROGEN 77 mg/dL (7-18); CALCIUM 8.5 mg/dL (8.5-10.1); CHLORIDE 112 mmol/L (98-107); CO2 24 mmol/L (21-32); GLUCOSE,RANDOM 119 mg/dL (74-106); POTASSIUM 4.9 mmol/L (3.5-5.1); SGOT/AST 13 U/L (15-37); SGPT/ALT 11 U/L (13-61); SODIUM 143 mmol/L (136-145); TOT PROT 5.6 g/dl (6.4-8.2)
[2018-05-07] MEDS ORDERED: DEXTROSE 5%-WATER - 50 ML IVPB ONE ×2 (11:41→17:12)
[2018-05-07] MEDS ORDERED: PIPERACILLIN/TAZOBACTAM 2.25 GM VIAL IVPB ONE ×3 (11:41→17:12)
[2018-05-07] MEDS: FERROUS SO4 325 MG TABLET (FP) PO SCH (11:45)
[2018-05-07] MEDS: MEMANTINE HCL 5 MG TABLET (UD) PO SCH (11:46)
[2018-05-07] MEDS: ALLOPURINOL 300 MG TABLET (FP) PO SCH (11:46)
[2018-05-07] MEDS: RANITIDINE HCL 150 MG TABLET (FP) PO SCH (11:46)
[2018-05-07] MEDS: ISOSORBIDE MONONITRATE 60 MG TAB.SR.24H (FP) PO SCH (11:46)
[2018-05-07] MEDS: TORSEMIDE 20 MG TABLET (FP) PO SCH (11:46)
[2018-05-07] MEDS: DOCUSATE SODIUM 100 MG CAPSULE (FP) PO SCH ×2 (11:47→22:43)
[2018-05-07] MEDS: NIFEdipine E.R. 30 MG TABLET (FP) PO SCH (11:48)
[2018-05-07] MEDS: POTASSIUM CHLORIDE TABS 10 MEQ TABLET.ER (FP) PO SCH (11:48)
[2018-05-07] MEDS ORDERED: PT OWN MED DRAWER 7, Y5N ONE (11:55)
[2018-05-07] MEDS: BACITRACIN 15 GM TUBE TOPICAL OINTMENT TP SCH ×2 (11:56→22:43)
[2018-05-07] MEDS: HEPARIN NA (PORCINE) 5,000 UNITS/ML 1ML VIAL SQ SCH ×2 (11:56→22:42)
[2018-05-07] MEDS: SPIRONOLACTONE 25 MG TABLET (FP) PO SCH (11:57)
--- NOTE | 2018-05-07 13:21 | PN ---
Progress Note (short form) - Note Progress Note: PULMONARY Denies shortness of breath. Denies cough, fevers or chills. Sitting OOB eating lunch VSS Gen: NAD at rest/ poor dentition Heart: RRR, +systolic murmur Lung: decreased breath sounds at the bases Abd: soft, nontender Ext: no edema labs/cultures/images/notes reviewed Active Medications reviewed A/P Pneumonia/Strep urinary AG positive Nasal MRSA LV Diastolic Dysfunction CKD DM Anemia s/p PPM - complete antibiotics - inhaled bronchodilators as needed - O2 to keep SpO2 >90% - DVT prophylaxis Mariana MEDRANO MD
--- NOTE | 2018-05-07 14:54 | PN ---
Progress Note (short form) - Note Progress Note: s: no chest pain, palps, dizziness, edema NAD, calm no JVD, neck supple RRR nl s1, s2. 2/6 sys murmur at sternal border precordium hyperdynamic bibasilar rales. nl eff trace le edema. no cyanosis/clubbing + venous stasis changes + bs soft nt nd no jaundice or diaphoresis. alert and oriented to place Current Medications Acetaminophen (Tylenol -) 650 mg PO Q4H PRN PRN Reason: FEVER >100F Last Admin: 05/06/18 01:21 Dose: 650 mg Albuterol Sulfate (Ventolin 0.083% Nebulizer Soln -) 1 amp NEB Q4H PRN PRN Reason: SHORT OF BREATH/WHEEZING Albuterol/Ipratropium (Duoneb -) 1 amp NEB RTID [facility] Last Admin: 05/07/18 08:15 Dose: 1 amp Allopurinol (Zyloprim -) 300 mg PO DAILY [facility] Last Admin: 05/07/18 11:46 Dose: 300 mg Bacitracin (Bacitracin -) 1 applic TP BID [facility] Last Admin: 05/07/18 11:56 Dose: Not Given Docusate Sodium (Colace -) 100 mg PO BID [facility] Last Admin: 05/07/18 11:47 Dose: 100 mg Ferrous Sulfate (Feosol -) 325 mg PO DAILY [facility] Last Admin: 05/07/18 11:45 Dose: 325 mg Heparin Sodium (Porcine) (Heparin -) 5,000 unit SQ BID [facility] Last Admin: 05/07/18 11:56 Dose: 5,000 unit Piperacillin Sod/Tazobactam (Sod 2.25 gm/ Dextrose) 50 mls @ 100 mls/hr IVPB Q8H-IV [facility]; Protocol Last Admin: 05/07/18 11:44 Dose: 100 mls/hr Insulin Aspart (Novolog Vial Sliding Scale -) 1 vial SQ ACHS [facility]; Protocol Last Admin: 05/07/18 13:28 Dose: Not Given Isosorbide Mononitrate (Imdur -) 60 mg PO DAILY [facility] Last Admin: 05/07/18 11:46 Dose: 60 mg Memantine (Namenda -) 5 mg PO DAILY [facility] Last Admin: 05/07/18 11:46 Dose: 5 mg Nifedipine (Procardia Xl -) 30 mg PO DAILY [facility] Last Admin: 05/07/18 11:48 Dose: 30 mg Nystatin (Nystatin Oral Suspension -) 500,000 units PO Q6HPO [facility] Last Admin: 05/07/18 11:48 Dose: 500,000 units Polyethylene Glycol (Miralax (For Daily Use) -) 17 gm PO HS PRN PRN Reason: CONSTIPATION Potassium Chloride (K-Dur -) 10 meq PO DAILY [facility] Last Admin: 05/07/18 11:48 Dose: 10 meq Propylthiouracil (Ptu -) 50 mg PO HS [facility] Last Admin: 05/06/18 21:37 Dose: 50 mg Ranitidine HCl (Zantac -) 150 mg PO DAILY [facility] Last Admin: 05/07/18 11:46 Dose: 150 mg Sertraline HCl 25 mg/ (Sertraline HCl 100 mg) 125 mg PO HS [facility] Last Admin: 05/06/18 21:37 Dose: 125 mg Spironolactone (Aldactone -) 25 mg PO DAILY [facility] Last Admin: 05/07/18 11:57 Dose: 25 mg Torsemide (Demadex -) 40 mg PO DAILY [facility] Last Admin: 05/07/18 11:46 Dose: 40 mg echo 03/2017: nl lv size/fn. EF 55-60%. tds for wall motion. septal motion c/ w ppm. mild rve. nl rv fn. mod lae. 1+ sam. 1+ mac with mild functional ms ( 4 mmHg, 73 bpm). 1+ mr. mobile linear density that intermittently moves into lvot (no associated lvot obstruction). Density thought to be consistent with torn chordae. 1+ tr. 1+ phtn. 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, HTN, diastolic heart failure complicated by LE edema/ recurrent LE cellulitis, bradycardia/sss/4-sec pause s/p biotronik ppm 2016, COPD, CKD, iddm, dementia, nasal septal defect w/ recurrent epistaxis ( contraindication to AC), recurrent UTI, who p/w cough, sob PNA - tx per pulm, receiving abx LILLIE on CKD - Cr 2.9 on admission, likely 2/2 overdiuresis with recent increase in torsemide dose in pt on spironolactone as well - Cr improved after IVF - appears euvolemic, continue torsemide chronic diastolic HF - restarted home torsemide at reduced dose - 40 mg daily - appears euvolemic - monitor volume status clinically as doing CAD - hx of type II NSTEMI in past - trop negative, EKG stable. no suspected ischemic sx's - cont aspirin, statin, imdur HTN -BPs running 130s-150s presently -cont home imdur, spironolactone, nifedipine -observe s/p PPM - routine outpatient monitoring hx echodensity noted on mitral valve (03/2017 echo) - unclear etiology, ? torn calcified chord - deferred cath, SATHISH in the past to avoid invasive testing
--- NOTE | 2018-05-07 15:30 | PN ---
Progress Note, Physician History of Present Illness: Pt seen and examined at bedside. She is awake and alert. She denies shortness of breath. - Current Medication List Current Medications: Active Medications Acetaminophen (Tylenol -) 650 mg PO Q4H PRN PRN Reason: FEVER >100F Last Admin: 05/06/18 01:21 Dose: 650 mg Albuterol Sulfate (Ventolin 0.083% Nebulizer Soln -) 1 amp NEB Q4H PRN PRN Reason: SHORT OF BREATH/WHEEZING Albuterol/Ipratropium (Duoneb -) 1 amp NEB RTID [facility] Last Admin: 05/07/18 08:15 Dose: 1 amp Allopurinol (Zyloprim -) 300 mg PO DAILY [facility] Last Admin: 05/07/18 11:46 Dose: 300 mg Bacitracin (Bacitracin -) 1 applic TP BID [facility] Last Admin: 05/07/18 11:56 Dose: Not Given Docusate Sodium (Colace -) 100 mg PO BID [facility] Last Admin: 05/07/18 11:47 Dose: 100 mg Ferrous Sulfate (Feosol -) 325 mg PO DAILY [facility] Last Admin: 05/07/18 11:45 Dose: 325 mg Heparin Sodium (Porcine) (Heparin -) 5,000 unit SQ BID [facility] Last Admin: 05/07/18 11:56 Dose: 5,000 unit Piperacillin Sod/Tazobactam (Sod 2.25 gm/ Dextrose) 50 mls @ 100 mls/hr IVPB Q8H-IV [facility]; Protocol Last Admin: 05/07/18 11:44 Dose: 100 mls/hr Insulin Aspart (Novolog Vial Sliding Scale -) 1 vial SQ ACHS [facility]; Protocol Last Admin: 05/07/18 13:28 Dose: Not Given Isosorbide Mononitrate (Imdur -) 60 mg PO DAILY [facility] Last Admin: 05/07/18 11:46 Dose: 60 mg Memantine (Namenda -) 5 mg PO DAILY [facility] Last Admin: 05/07/18 11:46 Dose: 5 mg Nifedipine (Procardia Xl -) 30 mg PO DAILY [facility] Last Admin: 05/07/18 11:48 Dose: 30 mg Nystatin (Nystatin Oral Suspension -) 500,000 units PO Q6HPO [facility] Last Admin: 05/07/18 11:48 Dose: 500,000 units Polyethylene Glycol (Miralax (For Daily Use) -) 17 gm PO HS PRN PRN Reason: CONSTIPATION Potassium Chloride (K-Dur -) 10 meq PO DAILY [facility] Last Admin: 05/07/18 11:48 Dose: 10 meq Propylthiouracil (Ptu -) 50 mg PO HS [facility] Last Admin: 05/06/18 21:37 Dose: 50 mg Ranitidine HCl (Zantac -) 150 mg PO DAILY [facility] Last Admin: 05/07/18 11:46 Dose: 150 mg Sertraline HCl 25 mg/ (Sertraline HCl 100 mg) 125 mg PO HS [facility] Last Admin: 05/06/18 21:37 Dose: 125 mg Spironolactone (Aldactone -) 25 mg PO DAILY [facility] Last Admin: 05/07/18 11:57 Dose: 25 mg Torsemide (Demadex -) 40 mg PO DAILY [facility] Last Admin: 05/07/18 11:46 Dose: 40 mg - Objective Vital Signs: Vital Signs Temperature 97.4 F L 05/07/18 13:43 Pulse Rate 76 05/07/18 13:43 Respiratory Rate 18 05/07/18 13:43 Blood Pressure 140/77 05/07/18 13:43 O2 Sat by Pulse Oximetry (%) 95 05/07/18 09:00 Constitutional: Yes: Calm Eyes: Yes: Conjunctiva Clear HENT: Yes: Atraumatic Neck: Yes: Supple Cardiovascular: Yes: S1, S2 Respiratory: Yes: CTA Bilaterally Gastrointestinal: Yes: Soft, Abdomen, Obese Genitourinary: Yes: WNL Musculoskeletal: Yes: WNL Edema: Yes Edema: LLE: Trace, RLE: Trace Neurological: Yes: Oriented Psychiatric: Yes: Oriented Labs: CBC, BMP 05/07/18 09:47 05/07/18 09:47 INR, PTT INR 1.19 (0.83-1.09) H 04/28/18 11:15 Problem List - Problems (1) CKD (chronic kidney disease) Code(s): N18.9 - CHRONIC KIDNEY DISEASE, UNSPECIFIED Qualifiers: Chronic kidney disease stage: unspecified stage Qualified Code(s): N18.9 - Chronic kidney disease, unspecified Assessment/Plan Current Medications Generic Name Dose Route Start Last Admin Trade Name Freq PRN Reason Stop Dose Admin Acetaminophen 650 mg 04/28/18 16:45 05/06/18 01:21 Tylenol - PO 650 mg Q4H PRN Administration FEVER >100F Albuterol Sulfate 1 amp 04/28/18 16:45 Ventolin 0.083% Nebulizer Soln - NEB Q4H PRN SHORT OF BREATH/WHEEZING Albuterol/Ipratropium 1 amp 04/28/18 20:00 05/07/18 08:15 Duoneb - NEB 1 amp RTID [facility] Administration Allopurinol 300 mg 04/29/18 10:00 05/07/18 11:46 Zyloprim - PO 300 mg DAILY [facility] Administration Bacitracin 1 applic 05/04/18 10:00 05/07/18 11:56 Bacitracin - TP Not Given BID [facility] Docusate Sodium 100 mg 04/28/18 22:00 05/07/18 11:47 Colace - PO 100 mg BID [facility] Administration Ferrous Sulfate 325 mg 04/29/18 10:00 05/07/18 11:45 Feosol - PO 325 mg DAILY [facility] Administration Heparin Sodium (Porcine) 5,000 unit 04/28/18 22:00 05/07/18 11:56 Heparin - SQ 5,000 unit BID [facility] Administration Piperacillin Sod/Tazobactam 50 mls @ 100 mls/hr 05/03/18 18:00 05/07/18 11:44 Sod 2.25 gm/ Dextrose IVPB 100 mls/hr Q8H-IV [facility] Administration Protocol Insulin Aspart 1 vial 04/28/18 22:00 05/07/18 13:28 Novolog Vial Sliding Scale - SQ Not Given ACHS [facility] Protocol Isosorbide Mononitrate 60 mg 04/29/18 10:00 05/07/18 11:46 Imdur - PO 60 mg DAILY [facility] Administration Memantine 5 mg 04/29/18 10:00 05/07/18 11:46 Namenda - PO 5 mg DAILY [facility] Administration Nifedipine 30 mg 04/29/18 10:00 05/07/18 11:48 Procardia Xl - PO 30 mg DAILY [facility] Administration Nystatin 500,000 units 05/04/18 12:00 05/07/18 11:48 Nystatin Oral Suspension - PO 500,000 units Q6HPO [facility] Administration Polyethylene Glycol 17 gm 04/28/18 16:45 Miralax (For Daily Use) - PO HS PRN CONSTIPATION Potassium Chloride 10 meq 02/07/19 10:00 05/07/18 11:48 K-Dur - PO 10 meq DAILY [facility] Administration Propylthiouracil 50 mg 05/03/18 22:00 05/06/18 21:37 Ptu - PO 50 mg HS [facility] Administration Ranitidine HCl 150 mg 04/29/18 10:00 05/07/18 11:46 Zantac - PO 150 mg DAILY [facility] Administration Sertraline HCl 25 mg/ 125 mg 04/28/18 22:00 05/06/18 21:37 Sertraline HCl 100 mg PO 125 mg HS [facility] Administration Spironolactone 25 mg 04/29/18 10:00 05/07/18 11:57 Aldactone - PO 25 mg DAILY [facility] Administration Torsemide 40 mg 05/05/18 10:00 05/07/18 11:46 Demadex - PO 40 mg DAILY [facility] Administration Impression 1. CKD 2. cough 3. CHF 4. bradycardia 5. dementia 6. HTN 7. DM 8. anemia 9. LILLIE 10. pleural effusions Plan - cont torsemide - cont spironolactone - monitor lytes - monitor volume status - procrit for anemia - will follow with Dr Vazquez as outpt Dr Atkinson
--- NOTE | 2018-05-07 17:18 | DS ---
Physical Examination Vital Signs: Vital Signs Temperature 97.4 F L 05/07/18 13:43 Pulse Rate 76 05/07/18 13:43 Respiratory Rate 18 05/07/18 13:43 Blood Pressure 140/77 05/07/18 13:43 O2 Sat by Pulse Oximetry (%) 95 05/07/18 09:00 Findings/Remarks: no new c/o consults noted see progress note today for PE Labs: CBC, BMP 05/07/18 09:47 05/07/18 09:47 Discharge Summary Reason For Visit: ACUTE KIDNEY INJURY,DEHYDRATION Current Active Problems LILLIE (acute kidney injury) (Acute) CKD (chronic kidney disease) (Acute) Dehydration (Acute) Herpes stomatitis (Acute) Pleural effusion (Acute) Procedures: Principal: admitted with pneumonia, ARF; h/o ADHD CHF CRF anemia, NHR Other Procedures: iv antibiotics per ID;. seen by cardiology and renal drs;. also eval by speech therapy; aspiration prevention. anemia CRF sq epogen Hospital Course: improved with above; transfer back to [place] and f/u as advised Condition: Fair - Instructions Diet, Activity, Other Instructions: f/u with PCP in [facility] f/u renal dr and cardiology in 1-2 weeks; labs CBC CMP and CXR f/u in 1-2 weeks anemia w/u as outpt GI dr Mcdermott, heme dr Pham aspiration pfx; speech therapy f/u in [place]; thickened fluids, chopped diet, head elevation; falls decubs DVT pfx BGM and insulin coverage; RTER if worse or recurrent c/o Referrals: Juan Antonio Way MD [Staff Physician] - Khari Mcgowan MD [Staff Physician] - Danna Ruvalcaba MD [Staff Physician] - Disposition: ALF FACILITY - Home Medications Comprehensive Discharge Medication List: Ambulatory Orders Allopurinol [Zyloprim -] 300 mg PO DAILY 04/08/13 Ferrous Sulfate 325 mg PO DAILY 04/08/13 Isosorbide Mononitrate [Imdur] 60 mg PO DAILY 04/08/13 Propylthiouracil 50 mg PO DAILY 04/08/13 Sertraline HCl [Zoloft -] 125 mg PO HS 04/08/13 Docusate Sodium [Colace -] 100 mg PO BID 12/13/15 Donepezil HCl [Aricept -] 10 mg PO DAILY 12/13/15 Memantine HCl [Namenda -] 5 mg PO DAILY 12/13/15 Nifedipine ER [Procardia XL -] 30 mg PO DAILY #30 tab 01/18/17 Polyethylene Glycol 3350 [Miralax 119 gm Btl -] 17 gm PO HS PRN #30 bottle 01/24 Acetaminophen [Tylenol .Regular Strength -] 650 mg PO Q4H PRN tablet 05/26/17 Albuterol 0.083% Nebulizer Natalie [Ventolin 0.083% Nebulizer Soln -] 1 amp NEB Q4H PRN amp 05/26/17 Albuterol 2.5/Ipratropium 0.5 [Duoneb -] 1 amp NEB RTID amp 05/26/17 Ranitidine [Zantac -] 150 mg PO DAILY tablet 05/26/17 Potassium Chloride [K-Dur -] 10 meq PO DAILY 04/28/18 Spironolactone 25 mg PO DAILY 04/28/18 Torsemide 40 mg PO AM 04/28/18 Bacitracin - [Bacitracin Topical Ointment -] 1 applic TP BID tube 05/07/18 Heparin - 5,000 unit SQ BID vial 05/07/18 Insulin Sliding Scale [Novolog Vial Sliding Scale -] 1 vial SQ ACHS units 05/07 Nystatin Oral Suspension - [Nystatin Oral Susp 724834 Units/5 ML -] 500,000 units PO Q6HPO cup 05/07/18
[2018-05-07 17:43] VITALS: TEMP 97.9
--- NOTE | 2018-05-07 20:18 | PN ---
Progress Note, Physician History of Present Illness: AWAKE, ALERT SUPINE IN BED NO COMPLAINTS BREATHING NON-LABORED AFEBRILE WBC WNL - Current Medication List Current Medications: Active Medications Acetaminophen (Tylenol -) 650 mg PO Q4H PRN PRN Reason: FEVER >100F Last Admin: 05/06/18 01:21 Dose: 650 mg Albuterol Sulfate (Ventolin 0.083% Nebulizer Soln -) 1 amp NEB Q4H PRN PRN Reason: SHORT OF BREATH/WHEEZING Albuterol/Ipratropium (Duoneb -) 1 amp NEB RTID [facility] Last Admin: 05/07/18 14:32 Dose: Not Given Allopurinol (Zyloprim -) 300 mg PO DAILY [facility] Last Admin: 05/07/18 11:46 Dose: 300 mg Bacitracin (Bacitracin -) 1 applic TP BID [facility] Last Admin: 05/07/18 11:56 Dose: Not Given Docusate Sodium (Colace -) 100 mg PO BID [facility] Last Admin: 05/07/18 11:47 Dose: 100 mg Ferrous Sulfate (Feosol -) 325 mg PO DAILY [facility] Last Admin: 05/07/18 11:45 Dose: 325 mg Heparin Sodium (Porcine) (Heparin -) 5,000 unit SQ BID [facility] Last Admin: 05/07/18 11:56 Dose: 5,000 unit Piperacillin Sod/Tazobactam (Sod 2.25 gm/ Dextrose) 50 mls @ 100 mls/hr IVPB Q8H-IV [facility]; Protocol Last Admin: 05/07/18 17:23 Dose: 100 mls/hr Insulin Aspart (Novolog Vial Sliding Scale -) 1 vial SQ ACHS [facility]; Protocol Last Admin: 05/07/18 17:30 Dose: 2 units Isosorbide Mononitrate (Imdur -) 60 mg PO DAILY [facility] Last Admin: 05/07/18 11:46 Dose: 60 mg Memantine (Namenda -) 5 mg PO DAILY [facility] Last Admin: 05/07/18 11:46 Dose: 5 mg Nifedipine (Procardia Xl -) 30 mg PO DAILY [facility] Last Admin: 05/07/18 11:48 Dose: 30 mg Nystatin (Nystatin Oral Suspension -) 500,000 units PO Q6HPO [facility] Last Admin: 05/07/18 17:13 Dose: Not Given Polyethylene Glycol (Miralax (For Daily Use) -) 17 gm PO HS PRN PRN Reason: CONSTIPATION Potassium Chloride (K-Dur -) 10 meq PO DAILY [facility] Last Admin: 05/07/18 11:48 Dose: 10 meq Propylthiouracil (Ptu -) 50 mg PO HS [facility] Last Admin: 05/06/18 21:37 Dose: 50 mg Ranitidine HCl (Zantac -) 150 mg PO DAILY [facility] Last Admin: 05/07/18 11:46 Dose: 150 mg Sertraline HCl 25 mg/ (Sertraline HCl 100 mg) 125 mg PO HS [facility] Last Admin: 05/06/18 21:37 Dose: 125 mg Spironolactone (Aldactone -) 25 mg PO DAILY [facility] Last Admin: 05/07/18 11:57 Dose: 25 mg Torsemide (Demadex -) 40 mg PO DAILY [facility] Last Admin: 05/07/18 11:46 Dose: 40 mg - Objective Vital Signs: Vital Signs Temperature 97.9 F 05/07/18 17:42 Pulse Rate 74 05/07/18 17:42 Respiratory Rate 18 05/07/18 17:42 Blood Pressure 145/74 05/07/18 17:42 O2 Sat by Pulse Oximetry (%) 95 05/07/18 09:00 Constitutional: Yes: No Distress Cardiovascular: Yes: Regular Rate and Rhythm, S1, S2 Respiratory: Yes: CTA Bilaterally Gastrointestinal: Yes: Normal Bowel Sounds, Soft Labs: CBC, BMP 05/07/18 09:47 05/07/18 09:47 INR, PTT INR 1.19 (0.83-1.09) H 04/28/18 11:15 Assessment/Plan PNEUMONIA AZOTEMIA MRSA 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
[2018-05-07] MEDS ORDERED: SERTRALINE HCL 25 MG TABLET (FP) ONE (20:53)
[2018-05-07] MEDS ORDERED: SERTRALINE HCL 50 MG TABLET (FP) ONE (20:53)
[2018-05-07] MEDS ORDERED: INSULIN (NOVOLOG) ASPART 100 UNITS/ML 10ML VIAL ONE (20:54)
[2018-05-07] MEDS: CEFUROXIME AXETIL 250 MG TABLET PO SCH (22:42)
[2018-05-07] MEDS: SERTRALINE HCL PO SCH (22:42)
[2018-05-07] MEDS: PROPYLTHIOURACIL 50 MG TABLET (UD) PO SCH (22:43)
[2018-05-08 02:10] VITALS: BP 146/77; PULSE 77
[2018-05-08] MEDS: NYSTATIN 500,000 UNITS/5 ML SUSPENSION PO SCH ×2 (05:21→12:36)
[2018-05-08] MEDS: INSULIN SLIDING SCALE (NOVOLOG) 1 VIAL SQ SCH ×2 (06:07→12:03)
[2018-05-08] MEDS: ALBUTEROL SO4 2.5/IPRATROPIUM 0.5 INH SOL 3 ML VIAL.NEB. NEB SCH ×2 (08:50→15:45)
--- NOTE | 2018-05-08 08:59 | PN ---
Progress Note, Physician Chief Complaint: awake NAD afebrile VSS finished IV antibiotics per ID OK to DC to [place] d/w pt and daughter anemia and moderate elevated ESR d/w daughter about GI, heme evals r/o GI bleed, malignancy etc; pt saw in the past GI dr Mcdermott and Heme dr Pham, had bone marrow biopsy; daughter does not want EGD colonoscopy or any aggressive w/u at this time, aware of risks and consequences; d/w her to have f/u in [place] anemia w/u labs and to consider GI and heme eval outpt she said she will d/w pt's dr in [place] dr Peña - Current Medication List Current Medications: Active Medications Acetaminophen (Tylenol -) 650 mg PO Q4H PRN PRN Reason: FEVER >100F Last Admin: 05/06/18 01:21 Dose: 650 mg Albuterol Sulfate (Ventolin 0.083% Nebulizer Soln -) 1 amp NEB Q4H PRN PRN Reason: SHORT OF BREATH/WHEEZING Albuterol/Ipratropium (Duoneb -) 1 amp NEB RTID [facility] Last Admin: 05/08/18 08:50 Dose: 1 amp Allopurinol (Zyloprim -) 300 mg PO DAILY [facility] Last Admin: 05/07/18 11:46 Dose: 300 mg Bacitracin (Bacitracin -) 1 applic TP BID [facility] Last Admin: 05/07/18 22:43 Dose: 1 applic Cefuroxime Axetil (Ceftin -) 250 mg PO BID [facility] Last Admin: 05/07/18 22:42 Dose: 250 mg Docusate Sodium (Colace -) 100 mg PO BID [facility] Last Admin: 05/07/18 22:43 Dose: 100 mg Ferrous Sulfate (Feosol -) 325 mg PO DAILY [facility] Last Admin: 05/07/18 11:45 Dose: 325 mg Heparin Sodium (Porcine) (Heparin -) 5,000 unit SQ BID [facility] Last Admin: 05/07/18 22:42 Dose: 5,000 unit Insulin Aspart (Novolog Vial Sliding Scale -) 1 vial SQ [facility]; Protocol Last Admin: 05/08/18 06:07 Dose: Not Given Isosorbide Mononitrate (Imdur -) 60 mg PO DAILY [facility] Last Admin: 05/07/18 11:46 Dose: 60 mg Memantine (Namenda -) 5 mg PO DAILY [facility] Last Admin: 05/07/18 11:46 Dose: 5 mg Nifedipine (Procardia Xl -) 30 mg PO DAILY [facility] Last Admin: 05/07/18 11:48 Dose: 30 mg Nystatin (Nystatin Oral Suspension -) 500,000 units PO Q6HPO [facility] Last Admin: 05/08/18 05:21 Dose: Not Given Polyethylene Glycol (Miralax (For Daily Use) -) 17 gm PO HS PRN PRN Reason: CONSTIPATION Potassium Chloride (K-Dur -) 10 meq PO DAILY [facility] Last Admin: 05/07/18 11:48 Dose: 10 meq Propylthiouracil (Ptu -) 50 mg PO HS [facility] Last Admin: 05/07/18 22:43 Dose: 50 mg Ranitidine HCl (Zantac -) 150 mg PO DAILY [facility] Last Admin: 05/07/18 11:46 Dose: 150 mg Sertraline HCl 25 mg/ (Sertraline HCl 100 mg) 125 mg PO [facility] Last Admin: 05/07/18 22:42 Dose: 125 mg Spironolactone (Aldactone -) 25 mg PO DAILY [facility] Last Admin: 05/07/18 11:57 Dose: 25 mg Torsemide (Demadex -) 40 mg PO DAILY [facility] Last Admin: 05/07/18 11:46 Dose: 40 mg - Objective Vital Signs: Vital Signs Temperature 97.9 F 05/07/18 22:00 Pulse Rate 77 05/07/18 22:00 Respiratory Rate 18 05/07/18 22:00 Blood Pressure 146/77 05/07/18 22:00 O2 Sat by Pulse Oximetry (%) 95 05/07/18 21:00 Constitutional: Yes: No Distress, Calm Eyes: Yes: Conjunctiva Clear HENT: Yes: Atraumatic Neck: Yes: Supple Cardiovascular: Yes: Regular Rate and Rhythm Respiratory: Yes: CTA Bilaterally Gastrointestinal: Yes: Soft. No: Tenderness Genitourinary: No: CVA Tenderness - Left, CVA Tenderness - Right Musculoskeletal: No: Joint Stiffness, Joint Swelling Extremities: No: Cold, Cool, Cyanosis Edema: No Integumentary: No: Rash, Venous Stasis Changes Neurological: Yes: WNL, Alert ...Motor Strength: WNL Psychiatric: Yes: WNL, Alert. No: Agitated, Suicidal Ideation Labs: CBC, BMP 05/07/18 09:47 05/07/18 09:47 INR, PTT INR 1.19 (0.83-1.09) H 04/28/18 11:15 - ....Imaging Other: Report Reviewed Assessment/Plan Pt is a 77 YOF resident of [facility] , [facility] CHF CRF OA DJD, anemia, dementia admitted with PNA, bilateral; ARF/CRF per renal restarted torsemide PT rehab completed IV antibiotics no further rec at this time switch to po ATB if OK with ID and DC back to SNF f/u as instructed swallow f/u HOB; DVT aspiration decubs and falls PFX f/u labs d/w pt and staff; DNR DNI ADD NOTE ID LATE ENTRY NOTE ADVISED CEFTIN 250 MG PO BID X 3 DAYS d/w staff
[2018-05-08] MEDS: DOCUSATE SODIUM 100 MG CAPSULE (FP) PO SCH (10:18)
[2018-05-08] MEDS: TORSEMIDE 20 MG TABLET (FP) PO SCH (10:18)
[2018-05-08] MEDS: ALLOPURINOL 300 MG TABLET (FP) PO SCH (10:18)
[2018-05-08] MEDS: ISOSORBIDE MONONITRATE 60 MG TAB.SR.24H (FP) PO SCH (10:18)
[2018-05-08] MEDS: FERROUS SO4 325 MG TABLET (FP) PO SCH (10:18)
[2018-05-08] MEDS: RANITIDINE HCL 150 MG TABLET (FP) PO SCH (10:18)
[2018-05-08] MEDS: BACITRACIN 15 GM TUBE TOPICAL OINTMENT TP SCH (10:19)
[2018-05-08] MEDS: NIFEdipine E.R. 30 MG TABLET (FP) PO SCH (10:19)
[2018-05-08] MEDS: CEFUROXIME AXETIL 250 MG TABLET PO SCH (10:19)
[2018-05-08] MEDS: SPIRONOLACTONE 25 MG TABLET (FP) PO SCH (10:19)
[2018-05-08] MEDS: MEMANTINE HCL 5 MG TABLET (UD) PO SCH (10:19)
[2018-05-08] MEDS: HEPARIN NA (PORCINE) 5,000 UNITS/ML 1ML VIAL SQ SCH (10:20)
[2018-05-08] MEDS: POTASSIUM CHLORIDE TABS 10 MEQ TABLET.ER (FP) PO SCH (10:20)
--- NOTE | 2018-05-08 12:33 | PN ---
Progress Note (short form) - Note Progress Note: PULMONARY Denies shortness of breath. Denies cough, fevers or chills. Vital Signs Period Temp Pulse Resp BP Sys/[place] Pulse Ox Last 24 Hr 97.4 F-97.9 F 74-77 18-18 140-146/74-77 95-95 Gen: NAD at rest Heart: RRR, +systolic murmur Lung: decreased breath sounds at the bases Abd: soft, nontender Ext: no edema CBC, BMP 05/07/18 09:47 05/07/18 09:47 Active Medications Acetaminophen (Tylenol -) 650 mg PO Q4H PRN PRN Reason: FEVER >100F Last Admin: 05/06/18 01:21 Dose: 650 mg Albuterol Sulfate (Ventolin 0.083% Nebulizer Soln -) 1 amp NEB Q4H PRN PRN Reason: SHORT OF BREATH/WHEEZING Albuterol/Ipratropium (Duoneb -) 1 amp NEB RTID [facility] Last Admin: 05/08/18 08:50 Dose: 1 amp Allopurinol (Zyloprim -) 300 mg PO DAILY [facility] Last Admin: 05/08/18 10:18 Dose: 300 mg Bacitracin (Bacitracin -) 1 applic TP BID [facility] Last Admin: 05/08/18 10:19 Dose: 1 applic Cefuroxime Axetil (Ceftin -) 250 mg PO BID [facility] Last Admin: 05/08/18 10:19 Dose: 250 mg Docusate Sodium (Colace -) 100 mg PO BID [facility] Last Admin: 05/08/18 10:18 Dose: 100 mg Ferrous Sulfate (Feosol -) 325 mg PO DAILY [facility] Last Admin: 05/08/18 10:18 Dose: 325 mg Heparin Sodium (Porcine) (Heparin -) 5,000 unit SQ BID [facility] Last Admin: 05/08/18 10:20 Dose: 5,000 unit Insulin Aspart (Novolog Vial Sliding Scale -) 1 vial SQ [facility]; Protocol Last Admin: 05/08/18 12:03 Dose: Not Given Isosorbide Mononitrate (Imdur -) 60 mg PO DAILY [facility] Last Admin: 05/08/18 10:18 Dose: 60 mg Memantine (Namenda -) 5 mg PO DAILY [facility] Last Admin: 05/08/18 10:19 Dose: 5 mg Nifedipine (Procardia Xl -) 30 mg PO DAILY [facility] Last Admin: 05/08/18 10:19 Dose: 30 mg Nystatin (Nystatin Oral Suspension -) 500,000 units PO Q6HPO [facility] Last Admin: 05/08/18 05:21 Dose: Not Given Polyethylene Glycol (Miralax (For Daily Use) -) 17 gm PO HS PRN PRN Reason: CONSTIPATION Potassium Chloride (K-Dur -) 10 meq PO DAILY [facility] Last Admin: 05/08/18 10:20 Dose: 10 meq Propylthiouracil (Ptu -) 50 mg PO HS [facility] Last Admin: 05/07/18 22:43 Dose: 50 mg Ranitidine HCl (Zantac -) 150 mg PO DAILY [facility] Last Admin: 05/08/18 10:18 Dose: 150 mg Sertraline HCl 25 mg/ (Sertraline HCl 100 mg) 125 mg PO HS [facility] Last Admin: 05/07/18 22:42 Dose: 125 mg Spironolactone (Aldactone -) 25 mg PO DAILY [facility] Last Admin: 05/08/18 10:19 Dose: 25 mg Torsemide (Demadex -) 40 mg PO DAILY [facility] Last Admin: 05/08/18 10:18 Dose: 40 mg A/P Pneumonia LV Diastolic Dysfunction CKD DM Anemia s/p PPM - complete antibiotics - inhaled bronchodilators as needed - O2 to keep SpO2 >90% - DVT prophylaxis - d/c planning
== END 2018-05-08 15:36 | DRG 682 ==
LOC: JER 10:50 → JERBED 13:18 → J7W 16:58
PROVIDERS: ADMIT Internal Medicine; ATTEND Internal Medicine
DX: N17.9 Acute kidney failure, unspecified (principal); J18.9 Pneumonia, unspecified organism; I50.32 Chronic diastolic (congestive) heart failure; B00.2 Herpesviral gingivostomatitis and pharyngotonsillitis; I13.0 Hypertensive heart and chronic kidney disease with heart failure and stage 1 through stage 4 chronic kidney disease, or unspecified chronic kidney disease; B37.0 Candidal stomatitis; E86.0 Dehydration; E11.22 Type 2 diabetes mellitus with diabetic chronic kidney disease; N18.4 Chronic kidney disease, stage 4 (severe); J44.9 Chronic obstructive pulmonary disease, unspecified; F03.90 Unspecified dementia, unspecified severity, without behavioral disturbance, psychotic disturbance, mood disturbance, and anxiety; D64.9 Anemia, unspecified; I25.10 Atherosclerotic heart disease of native coronary artery without angina pectoris; K21.9 Gastro-esophageal reflux disease without esophagitis; Z95.0 Presence of cardiac pacemaker; R00.1 Bradycardia, unspecified
CPT/HCPCS: 36415; 71045-TC-FY; 71250-TC; 74230-TC-FY; 76775-TC; 80048; 80053; 82607; 82728; 82803; 82962; 83540; 83550; 83735; 84155; 84156; 84157; 84165; 84443; 85025; 85027; 85610; 85651; 86038; 87040; 87081; 87804; 87899; 92611-GN; 93005; 93010; 94640; 97116-GP; 97162-GP; 99283-25; J0885; J1644